=== PATIENT | female | born 1935 | race Caucasian/White ===

== ENCOUNTER 2018-06-28 19:15 | Emergency (ER) | payer MEDICARE ==
[2018-06-28] MEDS ORDERED: ACETAMINOPHEN TAB 500 MG TAB PO STA (19:48)
--- NOTE | 2018-06-28 19:52 | ED ---
General Adult HPI - General Source: patient, RN notes reviewed, old records reviewed Mode of arrival: ambulatory Limitations: no limitations <Renee Gatica - Last Filed: 06/28/18 22:16> <Casi Mcginnis P - Last Filed: 07/01/18 22:41> - General Chief complaint: Urogenital Stated complaint: UTI, Confusion Time Seen by Provider: 06/28/18 19:28 - History of Present Illness Initial comments: Patient is an 83-year-old female presents emergency Department chief confusion and urinary tract symptoms. Patient was admitted at [facility] last week was discharged on for UTI. Family member and Patient does not believe her appropriate antibiotics while there and they discharged home and she continued having fevers. Patient has had persistent fevers this past week. Caregiver states she's been slightly confused. Patient is originally from [facility]. Patient's daughter brought her home this week to help take care of her. Patient has reportedly lost 6 pounds this week. Patient has had no chest pain or shortness of breath. She reports she has frequent urination and dysuria. She denies any new or worsening back pain. Patient states that she has some lower abdominal pain and cramping. Patient reports that she originally started to have the UTI after she had a pessary removal prior PCP last week. She subsequently developed the UTI after that. (Renee Gatica) - Related Data Previous Rx's Medication Instructions Recorded Bisacodyl [Dulcolax] 10 mg PO ONCE #10 tablet. 06/28/18 Famotidine [Pepcid] 20 mg PO BID #20 tablet 06/28/18 Metoclopramide [Reglan] 10 mg PO ACHS #10 tab 06/28/18 Allergies Allergy/AdvReac Type Severity Reaction Status Date / Time Sulfa (Sulfonamide AdvReac Nausea & Verified 06/28/18 19:23 Antibiotics) Vomiting & Diarrhea Review of Systems ROS Other: All systems not noted in ROS Statement are negative. <Renee Gatica - Last Filed: 06/28/18 22:16> ROS Other: All systems not noted in ROS Statement are negative. <Casi Mcginnis P - Last Filed: 07/01/18 22:41> ROS Statement: Those systems with pertinent positive or pertinent negative responses have been documented in the HPI. Past Medical History Past Medical History: CVA/TIA, Hypertension Additional Past Medical History / Comment(s): pseudomonas UTI, chronic back pain , osteoporosis History of Any Multi-Drug Resistant Organisms: None Reported Past Surgical History: Hernia Repair, Tonsillectomy Additional Past Surgical History / Comment(s): cataracts, brain aneurism with coils Past Psychological History: Anxiety Smoking Status: Never smoker Past Alcohol Use History: None Reported Past Drug Use History: None Reported <Renee Gatica - Last Filed: 06/28/18 22:16> General Exam Limitations: no limitations General appearance: alert, in no apparent distress Head exam: Present: atraumatic, normocephalic, normal inspection Eye exam: Present: normal appearance, PERRL, EOMI. Absent: scleral icterus, conjunctival injection, periorbital swelling ENT exam: Present: normal exam, mucous membranes moist Neck exam: Present: normal inspection. Absent: tenderness, meningismus, lymphadenopathy Respiratory exam: Present: normal lung sounds bilaterally. Absent: respiratory distress, wheezes, rales, rhonchi, stridor Cardiovascular Exam: Present: regular rate, normal rhythm, normal heart sounds. Absent: systolic murmur, diastolic murmur, rubs, gallop, clicks GI/Abdominal exam: Present: soft, normal bowel sounds. Absent: distended, tenderness, guarding, rebound, rigid Extremities exam: Present: normal inspection Back exam: Present: normal inspection Neurological exam: Present: alert, oriented X3, CN II-XII intact Psychiatric exam: Present: normal affect, normal mood Skin exam: Present: warm, dry, intact, normal color. Absent: rash <Renee Gatica - Last Filed: 06/28/18 22:16> <Casi Mcginnis - Last Filed: 07/01/18 22:41> - General Exam Comments Initial Comments: This Patient is an 83-year-old female. Alert and oriented. No significant distress. (Renee Gatica) Vital Signs 06/28/18 06/28/18 19:16 22:25 Temperature 98.1 F 98.4 F Pulse Rate 97 90 Respiratory 18 16 Rate Blood Pressure 145/91 165/99 O2 Sat by Pulse 96 99 Oximetry Medical Decision Making - Lab Data Result diagrams: 06/28/18 20:40 06/28/18 20:40 - Radiology Data Radiology results: report reviewed <Renee Gatica - Last Filed: 06/28/18 22:16> - Lab Data Result diagrams: 06/28/18 20:40 06/28/18 20:40 <Casi Mcginnis - Last Filed: 07/01/18 22:41> - Medical Decision Making 83-year-old female presents emergency department today with chief complaint of urinary symptoms concerning for her and UTI. She was admitted one week ago for similar complaints. This time her lab work was unremarkable. Urinalysis negative. I did do a urine culture. At this time Patient has been advised to have some follow-up with her PCP. We will give him Patient antibiotics if the urine culture is positive. Patient has been advised to return to emergency department if any alarming symptoms occur. She also complains of upper GI discomfort. We'll start the Patient Protonix and have her continue her Carafate. I also discussed doing a stool softeners. For the constipation. ( Renee Gatica) I personally saw and examined the patient. I reviewed and agree with the mid- level provider findings including all diagnostic interpretations and treatment plans as written unless otherwise stated. I was present for lerma portions of any procedures performed. (Casi Mcginnis) - Lab Data Lab Results 06/28/18 06/28/18 06/28/18 Range/Units 20:05 20:40 20:40 WBC 6.5 (3.8-10.6) k/uL RBC 4.24 (3.80-5.40) m/uL Hgb 12.7 (11.4-16.0) gm/dL Hct 41.6 (34.0-46.0) % MCV 98.0 (80.0-100.0) fL MCH 30.0 (25.0-35.0) pg MCHC 30.6 L (31.0-37.0) g/dL RDW 14.6 (11.5-15.5) % Plt Count 305 (150-450) k/uL Neutrophils % 82 % Lymphocytes % 9 % Monocytes % 6 % Eosinophils % 1 % Basophils % 0 % Neutrophils # 5.3 (1.3-7.7) k/uL Lymphocytes # 0.6 L (1.0-4.8) k/uL Monocytes # 0.4 (0-1.0) k/uL Eosinophils # 0.1 (0-0.7) k/uL Basophils # 0.0 (0-0.2) k/uL PT (9.0-12.0) sec INR (<1.2) APTT (22.0-30.0) sec Sodium 131 L (137-145) mmol/L Potassium 4.6 (3.5-5.1) mmol/L Chloride 94 L (98-107) mmol/L Carbon Dioxide 29 (22-30) mmol/L Anion Gap 8 mmol/L BUN 21 H (7-17) mg/dL Creatinine 0.50 L (0.52-1.04) mg/dL Est GFR (CKD-EPI)AfAm >90 (>60 ml/min/1.73 sqM) Est GFR (CKD-EPI)NonAf 89 (>60 ml/min/1.73 sqM) Glucose 103 H (74-99) mg/dL Plasma Lactic Acid Pavel (0.7-2.0) mmol/L Calcium 10.2 (8.4-10.2) mg/dL Total Bilirubin 0.3 (0.2-1.3) mg/dL AST 25 (14-36) U/L ALT 29 (9-52) U/L Alkaline Phosphatase 100 (38-126) U/L Total Protein 7.1 (6.3-8.2) g/dL Albumin 4.2 (3.5-5.0) g/dL Urine Color Colorless Urine Appearance Clear (Clear) Urine pH 7.5 (5.0-8.0) Ur Specific [place] 1.007 (1.001-1.035) Urine Protein Negative (Negative) Urine Glucose (UA) Negative (Negative) Urine Ketones Negative (Negative) Urine Blood Negative (Negative) Urine Nitrite Negative (Negative) Urine Bilirubin Negative (Negative) Urine Urobilinogen <2.0 (<2.0) mg/dL Ur Leukocyte Esterase Negative (Negative) 06/28/18 06/28/18 Range/Units 20:40 20:40 WBC (3.8-10.6) k/uL RBC (3.80-5.40) m/uL Hgb (11.4-16.0) gm/dL Hct (34.0-46.0) % MCV (80.0-100.0) fL MCH (25.0-35.0) pg MCHC (31.0-37.0) g/dL RDW (11.5-15.5) % Plt Count (150-450) k/uL Neutrophils % % Lymphocytes % % Monocytes % % Eosinophils % % Basophils % % Neutrophils # (1.3-7.7) k/uL Lymphocytes # (1.0-4.8) k/uL Monocytes # (0-1.0) k/uL Eosinophils # (0-0.7) k/uL Basophils # (0-0.2) k/uL PT 10.3 (9.0-12.0) sec INR 1.0 (<1.2) APTT 21.0 L (22.0-30.0) sec Sodium (137-145) mmol/L Potassium (3.5-5.1) mmol/L Chloride (98-107) mmol/L Carbon Dioxide (22-30) mmol/L Anion Gap mmol/L BUN (7-17) mg/dL Creatinine (0.52-1.04) mg/dL Est GFR (CKD-EPI)AfAm (>60 ml/min/1.73 sqM) Est GFR (CKD-EPI)NonAf (>60 ml/min/1.73 sqM) Glucose (74-99) mg/dL Plasma Lactic Acid Pavel 0.8 (0.7-2.0) mmol/L Calcium (8.4-10.2) mg/dL Total Bilirubin (0.2-1.3) mg/dL AST (14-36) U/L ALT (9-52) U/L Alkaline Phosphatase (38-126) U/L Total Protein (6.3-8.2) g/dL Albumin (3.5-5.0) g/dL Urine Color Urine Appearance (Clear) Urine pH (5.0-8.0) Ur Specific [place] (1.001-1.035) Urine Protein (Negative) Urine Glucose (UA) (Negative) Urine Ketones (Negative) Urine Blood (Negative) Urine Nitrite (Negative) Urine Bilirubin (Negative) Urine Urobilinogen (<2.0) mg/dL Ur Leukocyte Esterase (Negative) 06/28/18 21:17 EKG shows normal sinus rhythm, normal EKG. Ventricular rate of 77 bpm. MN interval is 152. QRS duration 72. QTQTC 62/398 ms. No evidence of ST elevation or T-wave inversion. (Renee Gatica) - Radiology Data KUB shows evidence of constipation. Evidence of a healing pubic symphysis bone from likely old fracture. (Renee Gatica) Disposition Is patient prescribed a controlled substance at d/c from ED?: No Time of Disposition: 22:18 <Renee Gatica - Last Filed: 06/28/18 22:16> <Casi Mcginnis - Last Filed: 07/01/18 22:41> Clinical Impression: Constipation, Suspected condition not found, GERD (gastroesophageal reflux disease) Disposition: HOME SELF-CARE Condition: Good Instructions: Constipation (ED) Additional Instructions: Patient has have close follow-up with primary care physician. There is a positive urine culture we will call you at that time started on antibiotics. Return to the emergency department if any alarming signs or symptoms occur. Patient should take stool softeners as well as GI medicine. Prescriptions: Bisacodyl [Dulcolax] 10 mg PO ONCE #10 tablet. Famotidine [Pepcid] 20 mg PO BID #20 tablet Metoclopramide [Reglan] 10 mg PO ACHS #10 tab Referrals: Nonstaff,Physician [Primary Care Provider] - 1-2 days
[2018-06-28 20:28] LABS: Appearance,Urine Clear (Clear); Bilirubin,Urine Negative (Negative); Blood,Urine Negative (Negative); Color,Urine Colorless; Glucose,Urine (UA) Negative (Negative); Ketones,Urine Negative (Negative); Leukocyte Esterase,Urine Negative (Negative); Nitrite,Urine Negative (Negative); PH, Urine 7.5 (5.0-8.0); Protein,Urine Negative (Negative); Specific Gravity,Urine 1.007 (1.001-1.035); Urobilinogen,Urine <2.0 mg/dL (<2.0)
[2018-06-28 20:57] LABS: Basophils % (A) 0 %; Eosinophils # (A) 0.1 k/uL (0-0.7); Eosinophils % (A) 1 %; HCT 41.6 % (34.0-46.0); HGB 12.7 gm/dL (11.4-16.0); Lymphocytes # (A) 0.6 k/uL (1.0-4.8); Lymphocytes % (A) 9 %; MCHC 30.6 g/dL (31.0-37.0); Mean Platelet Volume 6.6; Monocytes # (A) 0.4 k/uL (0-1.0); Monocytes % (A) 6 %; Neutrophils # (A) 5.3 k/uL (1.3-7.7); Neutrophils % (A) 82 %; Platelet Count 305 k/uL (150-450); RBC 4.24 m/uL (3.80-5.40); RDW 14.6 % (11.5-15.5); WBC 6.5 k/uL (3.8-10.6)
[2018-06-28] MEDS: SODIUM CHLORIDE 0.9% 500 ML IV SCH (21:04)
[2018-06-28 21:12] LABS: ALT 29 U/L (9-52); AST 25 U/L (14-36); Albumin 4.2 g/dL (3.5-5.0); Alkaline Phosphatase 100 U/L (38-126); Anion Gap 8 mmol/L; Blood Urea Nitrogen 21 mg/dL (7-17); Calcium 10.2 mg/dL (8.4-10.2); Carbon Dioxide 29 mmol/L (22-30); Chloride 94 mmol/L (98-107); Glucose 103 mg/dL (74-99); Potassium 4.6 mmol/L (3.5-5.1); Sodium 131 mmol/L (137-145); Total Bilirubin 0.3 mg/dL (0.2-1.3); Total Protein 7.1 g/dL (6.3-8.2)
[2018-06-28 21:16] LABS: Prothrombin Time 10.3 sec (9.0-12.0)
--- NOTE | 2018-06-28 22:05 | XR ---
EXAMINATION TYPE: XR KUB DATE OF EXAM: 06/28/2018 COMPARISON: NONE HISTORY: Polyuria TECHNIQUE: Single view upright FINDINGS: There are clips from cholecystectomy. There is no sign of intestinal obstruction or pneumop eritoneum. There is some retained fecal material in the large bowel. There is osteopenia. There are n o pathologic calcifications over the kidneys. IMPRESSION: There is probably constipation. No free air. There is some deformity and thickening of the right pubic symphysis consistent with old healing fract ure.
--- NOTE | 2018-06-28 22:24 | ED ---
Medical Decision Making - Lab Data Result diagrams: 06/28/18 20:40 06/28/18 20:40 Lab Results 06/28/18 06/28/18 06/28/18 Range/Units 20:05 20:40 20:40 WBC 6.5 (3.8-10.6) k/uL RBC 4.24 (3.80-5.40) m/uL Hgb 12.7 (11.4-16.0) gm/dL Hct 41.6 (34.0-46.0) % MCV 98.0 (80.0-100.0) fL MCH 30.0 (25.0-35.0) pg MCHC 30.6 L (31.0-37.0) g/dL RDW 14.6 (11.5-15.5) % Plt Count 305 (150-450) k/uL Neutrophils % 82 % Lymphocytes % 9 % Monocytes % 6 % Eosinophils % 1 % Basophils % 0 % Neutrophils # 5.3 (1.3-7.7) k/uL Lymphocytes # 0.6 L (1.0-4.8) k/uL Monocytes # 0.4 (0-1.0) k/uL Eosinophils # 0.1 (0-0.7) k/uL Basophils # 0.0 (0-0.2) k/uL PT (9.0-12.0) sec INR (<1.2) APTT (22.0-30.0) sec Sodium 131 L (137-145) mmol/L Potassium 4.6 (3.5-5.1) mmol/L Chloride 94 L (98-107) mmol/L Carbon Dioxide 29 (22-30) mmol/L Anion Gap 8 mmol/L BUN 21 H (7-17) mg/dL Creatinine 0.50 L (0.52-1.04) mg/dL Est GFR (CKD-EPI)AfAm >90 (>60 ml/min/1.73 sqM) Est GFR (CKD-EPI)NonAf 89 (>60 ml/min/1.73 sqM) Glucose 103 H (74-99) mg/dL Plasma Lactic Acid Pavel (0.7-2.0) mmol/L Calcium 10.2 (8.4-10.2) mg/dL Total Bilirubin 0.3 (0.2-1.3) mg/dL AST 25 (14-36) U/L ALT 29 (9-52) U/L Alkaline Phosphatase 100 (38-126) U/L Total Protein 7.1 (6.3-8.2) g/dL Albumin 4.2 (3.5-5.0) g/dL Urine Color Colorless Urine Appearance Clear (Clear) Urine pH 7.5 (5.0-8.0) Ur Specific [place] 1.007 (1.001-1.035) Urine Protein Negative (Negative) Urine Glucose (UA) Negative (Negative) Urine Ketones Negative (Negative) Urine Blood Negative (Negative) Urine Nitrite Negative (Negative) Urine Bilirubin Negative (Negative) Urine Urobilinogen <2.0 (<2.0) mg/dL Ur Leukocyte Esterase Negative (Negative) 06/28/18 06/28/18 Range/Units 20:40 20:40 WBC (3.8-10.6) k/uL RBC (3.80-5.40) m/uL Hgb (11.4-16.0) gm/dL Hct (34.0-46.0) % MCV (80.0-100.0) fL MCH (25.0-35.0) pg MCHC (31.0-37.0) g/dL RDW (11.5-15.5) % Plt Count (150-450) k/uL Neutrophils % % Lymphocytes % % Monocytes % % Eosinophils % % Basophils % % Neutrophils # (1.3-7.7) k/uL Lymphocytes # (1.0-4.8) k/uL Monocytes # (0-1.0) k/uL Eosinophils # (0-0.7) k/uL Basophils # (0-0.2) k/uL PT 10.3 (9.0-12.0) sec INR 1.0 (<1.2) APTT 21.0 L (22.0-30.0) sec Sodium (137-145) mmol/L Potassium (3.5-5.1) mmol/L Chloride (98-107) mmol/L Carbon Dioxide (22-30) mmol/L Anion Gap mmol/L BUN (7-17) mg/dL Creatinine (0.52-1.04) mg/dL Est GFR (CKD-EPI)AfAm (>60 ml/min/1.73 sqM) Est GFR (CKD-EPI)NonAf (>60 ml/min/1.73 sqM) Glucose (74-99) mg/dL Plasma Lactic Acid Pavel 0.8 (0.7-2.0) mmol/L Calcium (8.4-10.2) mg/dL Total Bilirubin (0.2-1.3) mg/dL AST (14-36) U/L ALT (9-52) U/L Alkaline Phosphatase (38-126) U/L Total Protein (6.3-8.2) g/dL Albumin (3.5-5.0) g/dL Urine Color Urine Appearance (Clear) Urine pH (5.0-8.0) Ur Specific [place] (1.001-1.035) Urine Protein (Negative) Urine Glucose (UA) (Negative) Urine Ketones (Negative) Urine Blood (Negative) Urine Nitrite (Negative) Urine Bilirubin (Negative) Urine Urobilinogen (<2.0) mg/dL Ur Leukocyte Esterase (Negative) Disposition Clinical Impression: Constipation, Suspected condition not found, GERD (gastroesophageal reflux disease) Disposition: HOME SELF-CARE Condition: Good Instructions: Constipation (ED) Additional Instructions: Patient has have close follow-up with primary care physician. There is a positive urine culture we will call you at that time started on antibiotics. Return to the emergency department if any alarming signs or symptoms occur. Patient should take stool softeners as well as GI medicine. Prescriptions: Bisacodyl [Dulcolax] 10 mg PO ONCE #10 tablet. Famotidine [Pepcid] 20 mg PO BID #20 tablet Metoclopramide [Reglan] 10 mg PO ACHS #10 tab Is patient prescribed a controlled substance at d/c from ED?: No Referrals: Nonstaff,Physician [Primary Care Provider] - 1-2 days
[2018-06-28 22:28] VITALS: BP 165/99; PULSE 90; RESP 16; TEMP 98.4
== END 2018-06-28 22:33 | disposition home or self-care (01) ==
LOC: EC 19:15
DX: K59.00 Constipation, unspecified (principal); K21.9 Gastro-esophageal reflux disease without esophagitis; Z88.2 Allergy status to sulfonamides; Z86.73 Personal history of transient ischemic attack (TIA), and cerebral infarction without residual deficits
CPT/HCPCS: 36415; 74018; 80053; 81003; 83605; 85025; 85610; 85730; 87040; 87086; 93005; 99285

== ENCOUNTER 2018-09-02 18:05 | Emergency (ER) | payer MEDICARE ==
[2018-09-02] MEDS ORDERED: SODIUM CHLORIDE 0.9% 1,000 ML IV SCH (18:45)
--- NOTE | 2018-09-02 18:45 | ED ---
General Adult HPI - General Chief complaint: Urogenital Stated complaint: Poss Bladder infection Time Seen by Provider: 09/02/18 18:31 Source: patient, RN notes reviewed, old records reviewed Mode of arrival: wheelchair Limitations: no limitations - History of Present Illness Initial comments: Patient is an 83-year-old female who presents emergency department today with her daughter with chief complaint of increased urination, polyuria and dysuria. She is concerned for urinary tract infection. Daughter reports that she seems to be increasingly confused and somewhat weak. He also states that she's had increased fluid on her feet and ankles. She reports that she has no chest pain or shortness breath. She had no significant history of heart failure. Patient was on Levaquin a few months ago for urinary tract infections. She subsequently developed myalgias. Patient states that she has had no known fevers or chills. She denies any vomiting. She's had a normal appetite and does report normal bowel movements. No bloody stools. - Related Data Home Medications Medication Instructions Recorded Confirmed ALPRAZolam [Xanax] 0.25 mg PO BID 09/02/18 09/02/18 Acetaminophen/Caffeine [Excedrin 1 - 2 tab PO HS PRN 09/02/18 09/02/18 Tension Headache Cplt] Bifidobacterium Infantis [Align] 4 mg PO DAILY 09/02/18 09/02/18 Carvedilol [Coreg] 6.25 mg PO BID 09/02/18 09/02/18 Cholecalciferol [Vitamin D3] 1,000 unit PO DAILY 09/02/18 09/02/18 Clopidogrel Bisulfate [Plavix] 75 mg PO HS 09/02/18 09/02/18 Enalapril [Vasotec] 10 mg PO BID 09/02/18 09/02/18 Folic Acid 0.8 mg PO DAILY 09/02/18 09/02/18 Melatonin 5 mg PO HS 09/02/18 09/02/18 Omeprazole [PriLOSEC] 20 mg PO DAILY 09/02/18 09/02/18 Polyethylene Glycol 3350 [Miralax] 8.5 gm PO DAILY 09/02/18 09/02/18 Sucralfate [Carafate] 1 gm PO ACHS PRN 09/02/18 09/02/18 amLODIPine [Norvasc] 2.5 mg PO BID 09/02/18 09/02/18 oxyCODONE-APAP 10-325MG [Percocet 1 tab PO Q6HR PRN 09/02/18 09/02/18 10-325 mg] predniSONE 5 mg PO DAILY 09/02/18 09/02/18 Previous Rx's Medication Instructions Recorded Nitrofurantoin Monohyd/M-Cryst 100 mg PO Q12HR #14 cap 09/02/18 [Macrobid] Phenazopyridine [Pyridium] 100 mg PO TID #9 tablet 09/02/18 Allergies Allergy/AdvReac Type Severity Reaction Status Date / Time Sulfa (Sulfonamide Allergy Dyspnea Verified 09/02/18 19:19 Antibiotics) Review of Systems ROS Statement: Those systems with pertinent positive or pertinent negative responses have been documented in the HPI. ROS Other: All systems not noted in ROS Statement are negative. Past Medical History Past Medical History: CVA/TIA, Hypertension Additional Past Medical History / Comment(s): pseudomonas UTI, chronic back pain , osteoporosis History of Any Multi-Drug Resistant Organisms: None Reported Past Surgical History: Hernia Repair, Tonsillectomy Additional Past Surgical History / Comment(s): cataracts, brain aneurism with coils Past Psychological History: Anxiety Smoking Status: Never smoker Past Alcohol Use History: None Reported Past Drug Use History: None Reported General Exam - General Exam Comments Initial Comments: This is a pleasant 83-year-old female. No significant distress. Limitations: no limitations General appearance: alert, in no apparent distress Head exam: Present: atraumatic, normocephalic, normal inspection Eye exam: Present: normal appearance, PERRL, EOMI. Absent: scleral icterus, conjunctival injection, periorbital swelling ENT exam: Present: normal exam, mucous membranes moist Neck exam: Present: normal inspection Respiratory exam: Present: normal lung sounds bilaterally. Absent: respiratory distress, wheezes, rales, rhonchi, stridor Cardiovascular Exam: Present: regular rate, normal rhythm, normal heart sounds. Absent: systolic murmur, diastolic murmur, rubs, gallop, clicks GI/Abdominal exam: Present: soft, tenderness (suprapubic), normal bowel sounds. Absent: distended, guarding, rebound, rigid Extremities exam: Present: normal inspection, full ROM, normal capillary refill , pedal edema, other (Patient has 2+ dorsalis pedis pulses. Patient does have 1 + pitting edema bilaterally of the ankles.). Absent: tenderness, joint swelling , calf tenderness Back exam: Present: normal inspection Neurological exam: Present: alert, oriented X3, CN II-XII intact, normal gait Psychiatric exam: Present: normal affect, normal mood Skin exam: Present: warm, dry, intact, normal color. Absent: rash Course Vital Signs 09/02/18 09/02/18 09/02/18 18:15 19:31 21:03 Temperature 98.9 F Pulse Rate 93 78 87 Respiratory 16 18 18 Rate Blood Pressure 146/91 165/86 139/99 O2 Sat by Pulse 96 97 97 Oximetry 09/02/18 21:55 Temperature 98.5 F Pulse Rate 94 Respiratory 16 Rate Blood Pressure 145/85 O2 Sat by Pulse 96 Oximetry Medical Decision Making - Medical Decision Making Well appearing 83 year old female presents for UTI symptoms. UA shows 8 WBC and positive leukocyte eterase. Urine culture obtained. Patient also complains of bilateral leg edema. She has 1 plus bitting edema. Patient has no CP or SOB. Patient lab work otherwise unremarkable. Patient is adament that PO antibiotics do not work for her. Discussed that she other rabago appears well and does not need admitted at [facility] for this UTI. Patient givne dose of IV rocephin and will be DC with amoxicillin. To rule out leg swelling, BNP is completed and CXR and EKG. These are negative for acute changes. Patient is aware of compression fracture on CXR. She reprots she cannot take macrobid, keflex or levaquin due to GI issues. Discussed concern for appropriate antibiotic choisce and patient is adament. Discussed with close follow up with PCP and return parameters dicsussed. - Lab Data Result diagrams: 09/02/18 19:25 09/02/18 19:25 Lab Results 09/02/18 09/02/18 09/02/18 Range/Units 18:55 19:25 19:25 WBC 7.9 (3.8-10.6) k/uL RBC 4.15 (3.80-5.40) m/uL Hgb 12.3 (11.4-16.0) gm/dL Hct 39.8 (34.0-46.0) % MCV 95.7 (80.0-100.0) fL MCH 29.6 (25.0-35.0) pg MCHC 31.0 (31.0-37.0) g/dL RDW 14.1 (11.5-15.5) % Plt Count 338 (150-450) k/uL Neutrophils % 74 % Lymphocytes % 9 % Monocytes % 9 % Eosinophils % 4 % Basophils % 1 % Neutrophils # 5.9 (1.3-7.7) k/uL Lymphocytes # 0.7 L (1.0-4.8) k/uL Monocytes # 0.7 (0-1.0) k/uL Eosinophils # 0.3 (0-0.7) k/uL Basophils # 0.1 (0-0.2) k/uL PT (9.0-12.0) sec INR (<1.2) APTT (22.0-30.0) sec Sodium 130 L (137-145) mmol/L Potassium 4.6 (3.5-5.1) mmol/L Chloride 97 L (98-107) mmol/L Carbon Dioxide 23 (22-30) mmol/L Anion Gap 10 mmol/L BUN 20 H (7-17) mg/dL Creatinine 0.52 (0.52-1.04) mg/dL Est GFR (CKD-EPI)AfAm >90 (>60 ml/min/1.73 sqM) Est GFR (CKD-EPI)NonAf 88 (>60 ml/min/1.73 sqM) Glucose 95 (74-99) mg/dL Plasma Lactic Acid Pavel (0.7-2.0) mmol/L Calcium 9.7 (8.4-10.2) mg/dL Total Bilirubin 0.4 (0.2-1.3) mg/dL AST 32 (14-36) U/L ALT 32 (9-52) U/L Alkaline Phosphatase 112 (38-126) U/L NT-Pro-B Natriuret Pep pg/mL Total Protein 6.4 (6.3-8.2) g/dL Albumin 3.6 (3.5-5.0) g/dL Urine Color Light Yellow Urine Appearance Clear (Clear) Urine pH 6.0 (5.0-8.0) Ur Specific [place] 1.009 (1.001-1.035) Urine Protein Negative (Negative) Urine Glucose (UA) Negative (Negative) Urine Ketones Trace H (Negative) Urine Blood Negative (Negative) Urine Nitrite Negative (Negative) Urine Bilirubin Negative (Negative) Urine Urobilinogen <2.0 (<2.0) mg/dL Ur Leukocyte Esterase Small H (Negative) Urine RBC 1 (0-5) /hpf Urine WBC 8 H (0-5) /hpf Ur Squamous Epith Cells 2 (0-4) /hpf Urine Bacteria Rare H (None) /hpf Urine Mucus Rare H (None) /hpf 09/02/18 09/02/18 09/02/18 Range/Units 19:44 19:44 19:44 WBC (3.8-10.6) k/uL RBC (3.80-5.40) m/uL Hgb (11.4-16.0) gm/dL Hct (34.0-46.0) % MCV (80.0-100.0) fL MCH (25.0-35.0) pg MCHC (31.0-37.0) g/dL RDW (11.5-15.5) % Plt Count (150-450) k/uL Neutrophils % % Lymphocytes % % Monocytes % % Eosinophils % % Basophils % % Neutrophils # (1.3-7.7) k/uL Lymphocytes # (1.0-4.8) k/uL Monocytes # (0-1.0) k/uL Eosinophils # (0-0.7) k/uL Basophils # (0-0.2) k/uL PT 10.5 (9.0-12.0) sec INR 1.1 (<1.2) APTT 26.3 (22.0-30.0) sec Sodium (137-145) mmol/L Potassium (3.5-5.1) mmol/L Chloride (98-107) mmol/L Carbon Dioxide (22-30) mmol/L Anion Gap mmol/L BUN (7-17) mg/dL Creatinine (0.52-1.04) mg/dL Est GFR (CKD-EPI)AfAm (>60 ml/min/1.73 sqM) Est GFR (CKD-EPI)NonAf (>60 ml/min/1.73 sqM) Glucose (74-99) mg/dL Plasma Lactic Acid Pavel 0.8 (0.7-2.0) mmol/L Calcium (8.4-10.2) mg/dL Total Bilirubin (0.2-1.3) mg/dL AST (14-36) U/L ALT (9-52) U/L Alkaline Phosphatase (38-126) U/L NT-Pro-B Natriuret Pep 1130 pg/mL Total Protein (6.3-8.2) g/dL Albumin (3.5-5.0) g/dL Urine Color Urine Appearance (Clear) Urine pH (5.0-8.0) Ur Specific [place] (1.001-1.035) Urine Protein (Negative) Urine Glucose (UA) (Negative) Urine Ketones (Negative) Urine Blood (Negative) Urine Nitrite (Negative) Urine Bilirubin (Negative) Urine Urobilinogen (<2.0) mg/dL Ur Leukocyte Esterase (Negative) Urine RBC (0-5) /hpf Urine WBC (0-5) /hpf Ur Squamous Epith Cells (0-4) /hpf Urine Bacteria (None) /hpf Urine Mucus (None) /hpf 09/02/18 20:00 Chest x-ray shows sinus rhythm cannot rule out anterior infarct. Injured her in. Abnormal EKG. Ventricular rate of 80 bpm. Intervals 150 ms. QRS ration 74. QT QTc is 332/401 ms. - Radiology Data Radiology results: report reviewed No Evidence of left upper lobe mass. Multiple thoracic compression fractures. Possible masslike density left upper lobe. Recommend shallow oblique view for confirmation if clinically indicated. Disposition Clinical Impression: UTI (urinary tract infection) Disposition: HOME SELF-CARE Condition: Good Instructions: Urinary Tract Infection in Women (ED) Additional Instructions: Follow-up with primary care physician. Return to emergency department if any alarming signs or symptoms occur. Prescriptions: Nitrofurantoin Monohyd/M-Cryst [Macrobid] 100 mg PO Q12HR #14 cap Phenazopyridine [Pyridium] 100 mg PO TID #9 tablet Is patient prescribed a controlled substance at d/c from ED?: No Referrals: Nonstaff,Physician [Primary Care Provider] - 1-2 days Time of Disposition: 21:55
[2018-09-02 19:42] LABS: Appearance,Urine Clear (Clear); Bacteria,Urine Rare /hpf; Bilirubin,Urine Negative (Negative); Blood,Urine Negative (Negative); Color,Urine Light Yellow; Glucose,Urine (UA) Negative (Negative); Ketones,Urine Trace (Negative); Leukocyte Esterase,Urine Small (Negative); Mucus,Urine Rare /hpf; Nitrite,Urine Negative (Negative); Protein,Urine Negative (Negative); RBC,Urine 1 /hpf (0-5); Specific Gravity,Urine 1.009 (1.001-1.035); Squamous Epithelial Cell,Urine 2 /hpf (0-4); Urobilinogen,Urine <2.0 mg/dL (<2.0); WBC,Urine 8 /hpf (0-5)
[2018-09-02 19:45] LABS: Basophils # (A) 0.1 k/uL (0-0.2); Basophils % (A) 1 %; Eosinophils # (A) 0.3 k/uL (0-0.7); Eosinophils % (A) 4 %; HCT 39.8 % (34.0-46.0); HGB 12.3 gm/dL (11.4-16.0); Lymphocytes # (A) 0.7 k/uL (1.0-4.8); Lymphocytes % (A) 9 %; MCH 29.6 pg (25.0-35.0); MCV 95.7 fL (80.0-100.0); Monocytes # (A) 0.7 k/uL (0-1.0); Monocytes % (A) 9 %; Neutrophils # (A) 5.9 k/uL (1.3-7.7); Neutrophils % (A) 74 %; Platelet Count 338 k/uL (150-450); RBC 4.15 m/uL (3.80-5.40); RDW 14.1 % (11.5-15.5); WBC 7.9 k/uL (3.8-10.6)
[2018-09-02 19:48] LABS: ALT 32 U/L (9-52); AST 32 U/L (14-36); Albumin 3.6 g/dL (3.5-5.0); Alkaline Phosphatase 112 U/L (38-126); Anion Gap 10 mmol/L; Blood Urea Nitrogen 20 mg/dL (7-17); Calcium 9.7 mg/dL (8.4-10.2); Carbon Dioxide 23 mmol/L (22-30); Chloride 97 mmol/L (98-107); Glucose 95 mg/dL (74-99); Potassium 4.6 mmol/L (3.5-5.1); Sodium 130 mmol/L (137-145); Total Bilirubin 0.4 mg/dL (0.2-1.3); Total Protein 6.4 g/dL (6.3-8.2)
[2018-09-02] MEDS: SODIUM CHLORIDE 0.9% 500 ML 500 ML IV SCH ×2 (20:04→20:45)
--- NOTE | 2018-09-02 20:18 | XR ---
EXAMINATION TYPE: XR chest 2V DATE OF EXAM: 09/02/2018 COMPARISON: NONE HISTORY: Fever TECHNIQUE: Frontal and lateral views of the chest are obtained. FINDINGS: There is poorly marginated 2 cm area of increased density over the left upper lobe. Thorac ic aorta is atheromatous. There is no evidence of pleural effusion. There is anterior wedging of T10 with 25% loss of height. There is anterior wedging T8 with 75% loss of height. There is also 30% wedg ing of T7 and T6. These are probably old fractures. IMPRESSION: Multiple thoracic compression fractures. Possible masslike density in the left upper lob e. Recommend shallow oblique views for confirmation if clinically indicated.
[2018-09-02 20:25] LABS: INR 1.1 (<1.2); Partial Thromboplastin Time 26.3 sec (22.0-30.0); Prothrombin Time 10.5 sec (9.0-12.0)
--- NOTE | 2018-09-02 21:24 | XR ---
EXAMINATION TYPE: XR chest 1V DATE OF EXAM: 09/02/2018 COMPARISON: Today HISTORY: Lung mass TECHNIQUE: Single frontal view of the chest is obtained. FINDINGS: A left posterior oblique view of the chest was obtained. This additional view fails to dem onstrate evidence of a mass in the left upper lobe. The increased density over the left upper lobe on the chest x-ray appears to relate to summation density of soft tissue. IMPRESSION: No evidence of left upper lobe mass.
[2018-09-02 21:56] VITALS: BP 145/85; PULSE 94; RESP 16; TEMP 98.5
== END 2018-09-02 22:11 | disposition home or self-care (01) ==
LOC: EC 18:05
DX: N39.0 Urinary tract infection, site not specified (principal); M48.54XA Collapsed vertebra, not elsewhere classified, thoracic region, initial encounter for fracture; R94.31 Abnormal electrocardiogram [ECG] [EKG]; R60.0 Localized edema; M79.10 Myalgia, unspecified site; I10 Essential (primary) hypertension; G89.29 Other chronic pain; F41.9 Anxiety disorder, unspecified; Z88.2 Allergy status to sulfonamides; Z79.02 Long term (current) use of antithrombotics/antiplatelets; Z79.52 Long term (current) use of systemic steroids; Z79.899 Other long term (current) drug therapy; Z86.73 Personal history of transient ischemic attack (TIA), and cerebral infarction without residual deficits
CPT/HCPCS: 36415; 93005; 83880; 80053; 83605; 85025; 85610; 85730; 81001; 87040; 87086; 71045; 71046; 99285; 96365; 96361; J0696

== ENCOUNTER 2018-12-17 19:53 | Emergency (ER) | payer MEDICARE ==
[2018-12-17] MEDS ORDERED: SODIUM CHLORIDE 0.9% 500 ML 500 ML IV ONE (20:54)
--- NOTE | 2018-12-17 20:54 | ED ---
General Adult HPI - General Chief complaint: Urogenital Stated complaint: HTN Time Seen by Provider: 12/17/18 20:45 Source: patient, RN notes reviewed, old records reviewed Mode of arrival: EMS Limitations: no limitations - History of Present Illness Initial comments: 83-year-old female presenting with 2 weeks of increasing generalized weakness, increasing urinary frequency. Patient has history of recurrent urinary tract infection, history of pseudomonas UTI. Patient has had subjective fever and chills. Denies cough or dyspnea. Denies chest pain. Denies abdominal pain. Denies nausea vomiting or diarrhea. Denies focal numbness or weakness. Denies headache. Patient's daughter does report some mild confusion which is typical of previous urinary tract infections. - Related Data Home Medications Medication Instructions Recorded Confirmed ALPRAZolam [Xanax] 0.25 mg PO BID 09/02/18 12/17/18 Acetaminophen/Caffeine [Excedrin 1 - 2 tab PO HS PRN 09/02/18 12/17/18 Tension Headache Cplt] Bifidobacterium Infantis [Align] 4 mg PO DAILY 09/02/18 12/17/18 Carvedilol [Coreg] 6.25 mg PO BID 09/02/18 12/17/18 Cholecalciferol [Vitamin D3] 1,000 unit PO DAILY 09/02/18 12/17/18 Clopidogrel Bisulfate [Plavix] 75 mg PO HS 09/02/18 12/17/18 Enalapril [Vasotec] 10 mg PO BID 09/02/18 12/17/18 Folic Acid 0.8 mg PO DAILY 09/02/18 12/17/18 Melatonin 5 mg PO HS 09/02/18 12/17/18 Polyethylene Glycol 3350 [Miralax] 8.5 gm PO DAILY 09/02/18 12/17/18 amLODIPine [Norvasc] 2.5 mg PO BID 09/02/18 12/17/18 oxyCODONE-APAP 10-325MG [Percocet 1 tab PO Q6HR PRN 09/02/18 12/17/18 10-325 mg] predniSONE 5 mg PO DAILY 09/02/18 12/17/18 Methenamine Hippurate 1 gm PO BID 12/17/18 12/17/18 Allergies Allergy/AdvReac Type Severity Reaction Status Date / Time Sulfa (Sulfonamide Allergy Dyspnea Verified 12/17/18 20:21 Antibiotics) Review of Systems ROS Statement: Those systems with pertinent positive or pertinent negative responses have been documented in the HPI. ROS Other: All systems not noted in ROS Statement are negative. Past Medical History Past Medical History: CVA/TIA, Hypertension Additional Past Medical History / Comment(s): pseudomonas UTI, chronic back pain , osteoporosis History of Any Multi-Drug Resistant Organisms: None Reported Past Surgical History: Hernia Repair, Tonsillectomy Additional Past Surgical History / Comment(s): cataracts, brain aneurism with coils Past Psychological History: Anxiety Smoking Status: Never smoker Past Alcohol Use History: None Reported Past Drug Use History: None Reported General Exam Limitations: no limitations General appearance: alert, in no apparent distress Head exam: Present: atraumatic, normocephalic Eye exam: Present: normal appearance, PERRL ENT exam: Present: mucous membranes dry Neck exam: Present: normal inspection. Absent: tenderness, meningismus Respiratory exam: Present: normal lung sounds bilaterally. Absent: respiratory distress, wheezes, rales Cardiovascular Exam: Present: regular rate, normal rhythm GI/Abdominal exam: Present: soft. Absent: distended, tenderness Extremities exam: Present: normal inspection, normal capillary refill. Absent: pedal edema, calf tenderness Neurological exam: Present: alert, oriented X3, CN II-XII intact. Absent: motor sensory deficit Skin exam: Present: warm, dry, intact. Absent: cyanosis, diaphoretic Course Vital Signs 12/17/18 12/17/18 20:46 21:05 Temperature 98.2 F Pulse Rate [ 100 Right Sitting Pulse Oximetery ] Respiratory 14 Rate Blood Pressure 178/109 [Left Arm Sitting] O2 Sat by Pulse 97 Oximetry EKG Findings - EKG Comments: EKG Findings:: EKG: Normal sinus rhythm, left ventricular hypertrophy, rate of 84, DE interval 148, QRS duration 78, QTC 399, baseline artifact, no ST segment changes Medical Decision Making - Medical Decision Making 83-year-old female presenting with frequency, concern for UTI. Patient is well- appearing, mildly hypertensive but has stable vitals. She has nonfocal neuro exam. Laboratory studies obtained, white blood cell count, stable hemoglobin. Mild hyponatremia 134, chest x-ray negative for focal pneumonia or acute findings. Urinalysis negative for infection. Patient has mild hypomagnesemia which is replaced. Patient has previously been seen by urology, she will follow with her primary care physician. She is accompanied by her daughter. Return with worsening or changing symptoms. - Lab Data Result diagrams: 12/17/18 20:35 12/17/18 20:35 Lab Results 12/17/18 12/17/18 12/17/18 Range/Units 20:35 20:35 20:35 WBC 6.7 (3.8-10.6) k/uL RBC 4.77 (3.80-5.40) m/uL Hgb 14.8 (11.4-16.0) gm/dL Hct 46.1 H (34.0-46.0) % MCV 96.6 (80.0-100.0) fL MCH 31.1 (25.0-35.0) pg MCHC 32.2 (31.0-37.0) g/dL RDW 13.6 (11.5-15.5) % Plt Count 258 (150-450) k/uL Neutrophils % 71 % Lymphocytes % 10 % Monocytes % 9 % Eosinophils % 6 % Basophils % 1 % Neutrophils # 4.8 (1.3-7.7) k/uL Lymphocytes # 0.7 L (1.0-4.8) k/uL Monocytes # 0.6 (0-1.0) k/uL Eosinophils # 0.4 (0-0.7) k/uL Basophils # 0.1 (0-0.2) k/uL PT (9.0-12.0) sec INR (<1.2) APTT (22.0-30.0) sec Sodium (137-145) mmol/L Potassium (3.5-5.1) mmol/L Chloride (98-107) mmol/L Carbon Dioxide (22-30) mmol/L Anion Gap mmol/L BUN (7-17) mg/dL Creatinine (0.52-1.04) mg/dL Est GFR (CKD-EPI)AfAm (>60 ml/min/1.73 sqM) Est GFR (CKD-EPI)NonAf (>60 ml/min/1.73 sqM) Glucose (74-99) mg/dL Plasma Lactic Acid Pavel (0.7-2.0) mmol/L Calcium (8.4-10.2) mg/dL Magnesium (1.6-2.3) mg/dL Total Bilirubin (0.2-1.3) mg/dL AST (14-36) U/L ALT (9-52) U/L Alkaline Phosphatase (38-126) U/L Total Creatine Kinase 46 (30-135) U/L CK-MB (CK-2) 0.9 (0.0-2.4) ng/mL CK-MB (CK-2) Rel Index 2.0 Troponin I <0.012 (0.000-0.034) ng/mL Total Protein (6.3-8.2) g/dL Albumin (3.5-5.0) g/dL Urine Color Colorless Urine Appearance Clear (Clear) Urine pH 7.0 (5.0-8.0) Ur Specific [place] 1.004 (1.001-1.035) Urine Protein Trace H (Negative) Urine Glucose (UA) Negative (Negative) Urine Ketones Negative (Negative) Urine Blood Negative (Negative) Urine Nitrite Negative (Negative) Urine Bilirubin Negative (Negative) Urine Urobilinogen <2.0 (<2.0) mg/dL Ur Leukocyte Esterase Negative (Negative) 12/17/18 12/17/18 12/17/18 Range/Units 20:35 20:35 20:35 WBC (3.8-10.6) k/uL RBC (3.80-5.40) m/uL Hgb (11.4-16.0) gm/dL Hct (34.0-46.0) % MCV (80.0-100.0) fL MCH (25.0-35.0) pg MCHC (31.0-37.0) g/dL RDW (11.5-15.5) % Plt Count (150-450) k/uL Neutrophils % % Lymphocytes % % Monocytes % % Eosinophils % % Basophils % % Neutrophils # (1.3-7.7) k/uL Lymphocytes # (1.0-4.8) k/uL Monocytes # (0-1.0) k/uL Eosinophils # (0-0.7) k/uL Basophils # (0-0.2) k/uL PT 10.3 (9.0-12.0) sec INR 1.0 (<1.2) APTT 23.9 (22.0-30.0) sec Sodium 134 L (137-145) mmol/L Potassium 4.7 (3.5-5.1) mmol/L Chloride 97 L (98-107) mmol/L Carbon Dioxide 26 (22-30) mmol/L Anion Gap 11 mmol/L BUN 25 H (7-17) mg/dL Creatinine 0.75 (0.52-1.04) mg/dL Est GFR (CKD-EPI)AfAm 85 (>60 ml/min/1.73 sqM) Est GFR (CKD-EPI)NonAf 74 (>60 ml/min/1.73 sqM) Glucose 95 (74-99) mg/dL Plasma Lactic Acid Pavel 0.9 (0.7-2.0) mmol/L Calcium 10.1 (8.4-10.2) mg/dL Magnesium 1.4 L (1.6-2.3) mg/dL Total Bilirubin 0.5 (0.2-1.3) mg/dL AST 31 (14-36) U/L ALT 33 (9-52) U/L Alkaline Phosphatase 113 (38-126) U/L Total Creatine Kinase (30-135) U/L CK-MB (CK-2) (0.0-2.4) ng/mL CK-MB (CK-2) Rel Index Troponin I (0.000-0.034) ng/mL Total Protein 7.5 (6.3-8.2) g/dL Albumin 4.5 (3.5-5.0) g/dL Urine Color Urine Appearance (Clear) Urine pH (5.0-8.0) Ur Specific [place] (1.001-1.035) Urine Protein (Negative) Urine Glucose (UA) (Negative) Urine Ketones (Negative) Urine Blood (Negative) Urine Nitrite (Negative) Urine Bilirubin (Negative) Urine Urobilinogen (<2.0) mg/dL Ur Leukocyte Esterase (Negative) Disposition Clinical Impression: Urinary frequency Disposition: HOME SELF-CARE Condition: Fair Instructions (If sedation given, give patient instructions): Urinary Urgency and Frequency (DC) Is patient prescribed a controlled substance at d/c from ED?: No Referrals: None,Stated [REFERRING] - 1-2 days Dianne Allred MD [STAFF PHYSICIAN] - 1-2 days Time of Disposition: 22:42
[2018-12-17 21:05] VITALS: TEMP 98.2
[2018-12-17 21:12] LABS: Basophils # (A) 0.1 k/uL (0-0.2); Basophils % (A) 1 %; Eosinophils # (A) 0.4 k/uL (0-0.7); Eosinophils % (A) 6 %; HCT 46.1 % (34.0-46.0); HGB 14.8 gm/dL (11.4-16.0); Lymphocytes # (A) 0.7 k/uL (1.0-4.8); Lymphocytes % (A) 10 %; MCH 31.1 pg (25.0-35.0); MCHC 32.2 g/dL (31.0-37.0); MCV 96.6 fL (80.0-100.0); Mean Platelet Volume 6.9; Monocytes # (A) 0.6 k/uL (0-1.0); Monocytes % (A) 9 %; Neutrophils # (A) 4.8 k/uL (1.3-7.7); Neutrophils % (A) 71 %; Platelet Count 258 k/uL (150-450); RBC 4.77 m/uL (3.80-5.40); RDW 13.6 % (11.5-15.5); WBC 6.7 k/uL (3.8-10.6)
[2018-12-17 21:16] LABS: Appearance,Urine Clear (Clear); Bilirubin,Urine Negative (Negative); Blood,Urine Negative (Negative); Color,Urine Colorless; Glucose,Urine (UA) Negative (Negative); Ketones,Urine Negative (Negative); Leukocyte Esterase,Urine Negative (Negative); Nitrite,Urine Negative (Negative); Protein,Urine Trace (Negative); Specific Gravity,Urine 1.004 (1.001-1.035); Urobilinogen,Urine <2.0 mg/dL (<2.0)
[2018-12-17 21:20] LABS: Partial Thromboplastin Time 23.9 sec (22.0-30.0); Prothrombin Time 10.3 sec (9.0-12.0)
[2018-12-17 21:24] LABS: Albumin 4.5 g/dL (3.5-5.0); Calcium 10.1 mg/dL (8.4-10.2); Creatine Kinase 46 U/L (30-135); Magnesium 1.4 mg/dL (1.6-2.3); Potassium 4.7 mmol/L (3.5-5.1); Total Bilirubin 0.5 mg/dL (0.2-1.3); Total Protein 7.5 g/dL (6.3-8.2)
[2018-12-17 21:35] LABS: Creatine Kinase MB 0.9 ng/mL (0.0-2.4); Troponin I <0.012 ng/mL (0.000-0.034)
--- NOTE | 2018-12-17 21:37 | XR ---
EXAMINATION: XR chest 2V DATE AND TIME: 12/17/2018 9:20 PM CLINICAL INDICATION: [facility]; Weakness TECHNIQUE: Departmental protocol COMPARISON: 09/02/2018 FINDINGS: Chronic thoracic architectural distortion redemonstrated. The lungs appear to be clear bilaterally. Pleural spaces appear negative. Mildly enlarged cardiac silhouette and tortuous thoracic aorta redemonstrated. The skeletal structures and soft tissues are negative for acute findings. IMPRESSION: NO ACUTE PROCESS.
[2018-12-17] MEDS ORDERED: MAGNESIUM SULFATE-D5W PMX 1 GM in DEXTROSE/WATER 1 100ML.BAG IVPB ONE (21:49)
[2018-12-17 23:52] VITALS: BP 159/100; PULSE 86; RESP 16
== END 2018-12-17 23:52 | disposition home or self-care (01) ==
LOC: EC 19:53
DX: R35.0 Frequency of micturition (principal); E83.42 Hypomagnesemia; I10 Essential (primary) hypertension; E87.1 Hypo-osmolality and hyponatremia; R50.9 Fever, unspecified; M81.0 Age-related osteoporosis without current pathological fracture; F41.9 Anxiety disorder, unspecified; Z86.73 Personal history of transient ischemic attack (TIA), and cerebral infarction without residual deficits; Z87.440 Personal history of urinary (tract) infections; Z79.02 Long term (current) use of antithrombotics/antiplatelets; Z79.52 Long term (current) use of systemic steroids; Z79.899 Other long term (current) drug therapy; Z88.2 Allergy status to sulfonamides
CPT/HCPCS: 99284; 96365; 36415; 80053; 82550; 82553; 83605; 83735; 84484; 85025; 85610; 85730; 81003; 71046; J3475

== ENCOUNTER 2019-03-25 14:45 | Observation (INO) | payer MEDICARE ==
[2019-03-25] MEDS ORDERED: SODIUM CHLORIDE 0.9% 500 ML 500 ML IV STA (14:59)
--- NOTE | 2019-03-25 15:42 | ED ---
General Adult HPI - General Chief complaint: Weakness Stated complaint: weakness Time Seen by Provider: 03/25/19 14:52 Source: patient, RN notes reviewed, old records reviewed Mode of arrival: ambulatory Limitations: no limitations - History of Present Illness Initial comments: 54-year-old female history of previous CVA presenting with chief complaint of right lower extremity weakness and right upper extremity numbness. 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 She is currently on Plavix. Symptoms began at approximately 8 AM this morning. Patient had resolved at the time my initial evaluation at approximately 1300. She hasn't denied chest pain or dyspnea. Denied fever or chills. States both weakness and numbness had improved. - Related Data Home Medications Medication Instructions Recorded Confirmed ALPRAZolam [Xanax] 0.25 mg PO BID 09/02/18 03/25/19 Acetaminophen/Caffeine [Excedrin 1 - 2 tab PO HS PRN 09/02/18 03/25/19 Tension Headache Cplt] Carvedilol [Coreg] 6.25 mg PO BID 09/02/18 03/25/19 Cholecalciferol [Vitamin D3] 1,000 unit PO DAILY 09/02/18 03/25/19 Clopidogrel Bisulfate [Plavix] 75 mg PO HS 09/02/18 03/25/19 Enalapril [Vasotec] 20 mg PO BID 09/02/18 03/25/19 Folic Acid 0.8 mg PO DAILY 09/02/18 03/25/19 Melatonin 5 mg PO HS 09/02/18 03/25/19 Polyethylene Glycol 3350 [Miralax] 8.5 gm PO DAILY 09/02/18 03/25/19 amLODIPine [Norvasc] 2.5 mg PO BID 09/02/18 03/25/19 oxyCODONE-APAP 10-325MG [Percocet 1 tab PO Q6HR PRN 09/02/18 03/25/19 10-325 mg] predniSONE 5 mg PO DAILY 09/02/18 03/25/19 Methenamine Hippurate 1 gm PO BID 12/17/18 03/25/19 Allergies Allergy/AdvReac Type Severity Reaction Status Date / Time Sulfa (Sulfonamide Allergy Dyspnea Verified 03/25/19 16:05 Antibiotics) Review of Systems ROS Statement: Those systems with pertinent positive or pertinent negative responses have been documented in the HPI. ROS Other: All systems not noted in ROS Statement are negative. Past Medical History Past Medical History: CVA/TIA, Hypertension Additional Past Medical History / Comment(s): pseudomonas UTI, chronic back pain, osteoporosis History of Any Multi-Drug Resistant Organisms: None Reported Past Surgical History: Hernia Repair, Tonsillectomy Additional Past Surgical History / Comment(s): cataracts, brain aneurism with coils Past Psychological History: Anxiety Smoking Status: Never smoker Past Alcohol Use History: None Reported Past Drug Use History: None Reported General Exam Limitations: no limitations General appearance: alert, in no apparent distress Head exam: Present: atraumatic, normocephalic Eye exam: Present: normal appearance, PERRL ENT exam: Present: normal exam Neck exam: Present: normal inspection, tenderness Respiratory exam: Present: normal lung sounds bilaterally. Absent: respiratory distress Cardiovascular Exam: Present: regular rate, normal rhythm GI/Abdominal exam: Present: soft. Absent: distended, tenderness Extremities exam: Present: normal inspection, normal capillary refill. Absent: pedal edema Neurological exam: Present: alert, oriented X3, CN II-XII intact, motor sensory deficit (Contracture of right hand, no upper extremity drift, no lower extremity drift, NIH is 0) Psychiatric exam: Present: normal affect, normal mood Skin exam: Present: warm, dry, intact Course Vital Signs 03/25/19 03/25/19 15:07 18:04 Temperature 98.3 F 98 F Pulse Rate 93 87 Respiratory 20 20 Rate Blood Pressure 196/123 126/87 O2 Sat by Pulse 98 97 Oximetry - Reevaluation(s) Reevaluation #1: 03/25/19 18:13 Patient reevaluated, resting comfortably, NIH is 0 EKG Findings - EKG Comments: EKG Findings:: EKG: Normal sinus rhythm, artifact, T-wave inversion in lead 3 and aVF, no ST segment elevation rate of 86, OK interval 146, QRS duration 68, QTC 394. Medical Decision Making - Medical Decision Making 84-year-old female with this symptoms concerning for TIA. Patient presented out of any TPA window. She has an NIH is 0 at the time my initial evaluation. History is concerning for TIA in this patient with previous CVA. Head CT is performed this is negative for intracranial hemorrhage or mass effect. Chest x- ray negative, normal CBC, normal CMP. EKG is normal sinus rhythm. Patient is on Plavix, aspirin will be added. She will be admitted for echo, carotid Doppler. Case is discussed with Dr. Gandara, will admit with neurology on consult. - Lab Data Result diagrams: 03/25/19 15:31 03/25/19 15:31 Lab Results 03/25/19 03/25/19 03/25/19 Range/Units 15:31 15:31 15:31 WBC 6.6 (3.8-10.6) k/uL RBC 4.41 (3.80-5.40) m/uL Hgb 13.5 (11.4-16.0) gm/dL Hct 42.5 (34.0-46.0) % MCV 96.3 (80.0-100.0) fL MCH 30.6 (25.0-35.0) pg MCHC 31.8 (31.0-37.0) g/dL RDW 14.8 (11.5-15.5) % Plt Count 272 (150-450) k/uL Neutrophils % 82 % Lymphocytes % 7 % Monocytes % 6 % Eosinophils % 3 % Basophils % 1 % Neutrophils # 5.4 (1.3-7.7) k/uL Lymphocytes # 0.5 L (1.0-4.8) k/uL Monocytes # 0.4 (0-1.0) k/uL Eosinophils # 0.2 (0-0.7) k/uL Basophils # 0.0 (0-0.2) k/uL PT 11.1 (9.0-12.0) sec INR 1.0 (<1.2) APTT 24.5 (22.0-30.0) sec Sodium 136 L (137-145) mmol/L Potassium 4.0 (3.5-5.1) mmol/L Chloride 102 (98-107) mmol/L Carbon Dioxide 25 (22-30) mmol/L Anion Gap 9 mmol/L BUN 19 H (7-17) mg/dL Creatinine 0.41 L (0.52-1.04) mg/dL Est GFR (CKD-EPI)AfAm >90 (>60 ml/min/1.73 sqM) Est GFR (CKD-EPI)NonAf >90 (>60 ml/min/1.73 sqM) Glucose 101 H (74-99) mg/dL Calcium 10.5 H (8.4-10.2) mg/dL Total Bilirubin 0.5 (0.2-1.3) mg/dL AST 29 (14-36) U/L ALT 23 (9-52) U/L Alkaline Phosphatase 85 (38-126) U/L Troponin I (0.000-0.034) ng/mL Total Protein 7.0 (6.3-8.2) g/dL Albumin 4.3 (3.5-5.0) g/dL 03/25/19 Range/Units 15:31 WBC (3.8-10.6) k/uL RBC (3.80-5.40) m/uL Hgb (11.4-16.0) gm/dL Hct (34.0-46.0) % MCV (80.0-100.0) fL MCH (25.0-35.0) pg MCHC (31.0-37.0) g/dL RDW (11.5-15.5) % Plt Count (150-450) k/uL Neutrophils % % Lymphocytes % % Monocytes % % Eosinophils % % Basophils % % Neutrophils # (1.3-7.7) k/uL Lymphocytes # (1.0-4.8) k/uL Monocytes # (0-1.0) k/uL Eosinophils # (0-0.7) k/uL Basophils # (0-0.2) k/uL PT (9.0-12.0) sec INR (<1.2) APTT (22.0-30.0) sec Sodium (137-145) mmol/L Potassium (3.5-5.1) mmol/L Chloride (98-107) mmol/L Carbon Dioxide (22-30) mmol/L Anion Gap mmol/L BUN (7-17) mg/dL Creatinine (0.52-1.04) mg/dL Est GFR (CKD-EPI)AfAm (>60 ml/min/1.73 sqM) Est GFR (CKD-EPI)NonAf (>60 ml/min/1.73 sqM) Glucose (74-99) mg/dL Calcium (8.4-10.2) mg/dL Total Bilirubin (0.2-1.3) mg/dL AST (14-36) U/L ALT (9-52) U/L Alkaline Phosphatase (38-126) U/L Troponin I <0.012 (0.000-0.034) ng/mL Total Protein (6.3-8.2) g/dL Albumin (3.5-5.0) g/dL Disposition Clinical Impression: TIA (transient ischemic attack) Disposition: ADMITTED IP TO THIS [facility] Condition: Stable Is patient prescribed a controlled substance at d/c from ED?: No Referrals: Nonstaff,Physician [REFERRING] - 1-2 days Decision to Admit Reason: Admit from EC Decision Date: 03/25/19 Decision Time: 18:14
[2019-03-25 15:47] LABS: Basophils % (A) 1 %; Eosinophils # (A) 0.2 k/uL (0-0.7); Eosinophils % (A) 3 %; HCT 42.5 % (34.0-46.0); HGB 13.5 gm/dL (11.4-16.0); Lymphocytes # (A) 0.5 k/uL (1.0-4.8); Lymphocytes % (A) 7 %; MCH 30.6 pg (25.0-35.0); MCHC 31.8 g/dL (31.0-37.0); MCV 96.3 fL (80.0-100.0); Mean Platelet Volume 7.2; Monocytes # (A) 0.4 k/uL (0-1.0); Monocytes % (A) 6 %; Neutrophils # (A) 5.4 k/uL (1.3-7.7); Neutrophils % (A) 82 %; Platelet Count 272 k/uL (150-450); RBC 4.41 m/uL (3.80-5.40); RDW 14.8 % (11.5-15.5); WBC 6.6 k/uL (3.8-10.6)
[2019-03-25 15:58] LABS: Partial Thromboplastin Time 24.5 sec (22.0-30.0); Prothrombin Time 11.1 sec (9.0-12.0)
--- NOTE | 2019-03-25 15:59 | XR ---
EXAMINATION TYPE: XR chest 2V DATE OF EXAM: 03/25/2019 COMPARISON: Chest x-ray December 17, 2018 HISTORY: Altered mental status and weakness. TECHNIQUE: Frontal and lateral views of the chest are obtained. FINDINGS: The osseous structures are demineralized. Underlying scoliosis is present. There is chronic parenchymal change with [id number] compression type fracture deformities in the mid thoracic s pine. Old fracture posterior right sixth rib is redemonstrated. There is cardiomegaly with atheroscle rotic and ectatic thoracic aorta. There is chronic parenchymal change without suspicious focal airspa ce opacity, pleural effusion, or pneumothorax. Cholecystectomy clips are redemonstrated. IMPRESSION: Chronic changes and cardiomegaly without acute pulmonary process.
[2019-03-25 16:00] LABS: ALT 23 U/L (9-52); AST 29 U/L (14-36); Albumin 4.3 g/dL (3.5-5.0); Alkaline Phosphatase 85 U/L (38-126); Anion Gap 9 mmol/L; Blood Urea Nitrogen 19 mg/dL (7-17); Calcium 10.5 mg/dL (8.4-10.2); Carbon Dioxide 25 mmol/L (22-30); Chloride 102 mmol/L (98-107); Glucose 101 mg/dL (74-99); Sodium 136 mmol/L (137-145); Total Bilirubin 0.5 mg/dL (0.2-1.3)
--- NOTE | 2019-03-25 17:13 | CT ---
EXAMINATION: CT brain wo con DATE AND TIME: 03/25/2019 4:47 PM CLINICAL INDICATION: PHH; Neuro Deficits TECHNIQUE: Standard departmental protocol. COMPARISON: None available. FINDINGS: The calvarium is intact. There is no intracranial hemorrhage. Aneurysm clip metallic artifact noted, related to the left ICA. There is no intracranial mass or mass effect. 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 In addition, bilateral vazquez radiata and centrum semiov manny low attenuation is noted. There is no definite new CT attenuation defect. However, in this settin g of deep white matter changes in this difficult to exclude new defect. If clinically indicated, diff usion MRI can delineate. The paranasal sinuses, middle ear cavities, and mastoid sinus air cells are clear. The orbits are unr emarkable. IMPRESSION: NO DEFINITE ACUTE PROCESS, DISCUSSED.
[2019-03-25] MEDS: SODIUM CHLORIDE 0.9% 1,000 ML IV SCH (17:58)
[2019-03-25] MEDS ORDERED: ASPIRIN 325 MG TAB PO STA (18:06)
--- NOTE | 2019-03-25 19:46 | P.HPIM ---
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 In the ER she underwent an extensive evaluation. On arrival she was found have an elevated blood pressure 186/123. Laboratory analysis showed a slightly elevated calcium level at 10.5. She underwent a head CT which showed no acute process but prior left-sided encephalomalacia secondary to her stroke. Chest x-ray was negative. NIH stroke scale was 0. Arrangements were made for her patient to placed in observation for TIA workup. Patient seen and examined in the ER with daughter present. Apparently upon wak ing this morning at 845 she complained of some right arm numbness and weakness. Her blood pressure was elevated and she took her morning medications early. Her daughter then noticed that she was dragging her right leg when she was walking which isn't normal for her. She also had a headache and confusion per the daughter. They therefore presented to the emergency department. She has a history of a stroke in the past and has chronic weakness of the fourth and fifth digits on her right hand but otherwise does not have any residual symptoms. She struggles with high blood pressure and low blood pressures. Typically when she gets a headache the check her blood pressure and sometimes administer half a dose of her blood pressure medication. She is not seen a neurologist in quite some time her neurologist retired. She was due to have carotid Dopplers done. She denies any cough, cold, fever, flu, nausea, vomiting, diarrhea, and dysuria. She has chronic urinary frequency which is unchanged as well as chronic constipation for which she takes multiple laxatives daily. She denies any r ecent changes in her medications. Patient reports chronic left arm pain and states that she has had this evaluated. She is unable to touch her lift her arm without severe pain, this is unchanged per the daughter. Review of Systems Pertinent positives and negatives as discussed in HPI, a complete review of systems was performed and all other systems are negative. Past Medical History Past Medical History: CVA/TIA, Hypertension Additional Past Medical History / Comment(s): pseudomonas UTI, chronic back pain, osteoporosis, cerebral aneurysm History of Any Multi-Drug Resistant Organisms: None Reported Past Surgical History: Tonsillectomy Additional Past Surgical History / Comment(s): cataracts, coiling of cerebral aneurysm, hiatal hernia repair Past Psychological History: Anxiety Smoking Status: Never smoker Past Alcohol Use History: None Reported Past Drug Use History: None Reported Additional History: Lives with her daughter. Uses a walker at baseline. - Past Family History Mother Additional Family Medical History / Comment(s): in a pedestrian versus car accident Father Additional Family Medical History / Comment(s): DC stat age 58 secondary to severe high blood pressure resulting myocardial infarction Medications and Allergies Home Medications Medication Instructions Recorded Confirmed Type ALPRAZolam [Xanax] 0.25 mg PO BID 09/02/18 03/25/19 History Acetaminophen/Caffeine [Excedrin 1 - 2 tab PO HS PRN 09/02/18 03/25/19 History Tension Headache Cplt] Carvedilol [Coreg] 6.25 mg PO BID 09/02/18 03/25/19 History Cholecalciferol [Vitamin D3] 1,000 unit PO DAILY 09/02/18 03/25/19 History Clopidogrel Bisulfate [Plavix] 75 mg PO HS 09/02/18 03/25/19 History Enalapril [Vasotec] 20 mg PO BID 09/02/18 03/25/19 History Folic Acid 0.8 mg PO DAILY 09/02/18 03/25/19 History Melatonin 5 mg PO HS 09/02/18 03/25/19 History Polyethylene Glycol 3350 [Miralax] 8.5 gm PO DAILY 09/02/18 03/25/19 History amLODIPine [Norvasc] 2.5 mg PO BID 09/02/18 03/25/19 History oxyCODONE-APAP 10-325MG [Percocet 1 tab PO Q6HR PRN 09/02/18 03/25/19 History 10-325 mg] predniSONE 5 mg PO DAILY 09/02/18 03/25/19 History Methenamine Hippurate 1 gm PO BID 12/17/18 03/25/19 History Allergies Allergy/AdvReac Type Severity Reaction Status Date / Time Sulfa (Sulfonamide Allergy Dyspnea Verified 03/25/19 16:05 Antibiotics) Physical Exam Osteopathic Statement: *. No significant issues noted on an osteopathic structural exam other than those noted in the History and Physical/Consult. Vitals: Vital Signs Temp Pulse Resp BP Pulse Ox 03/25/19 18:04 98 F 87 20 126/87 97 03/25/19 15:07 98.3 F 93 20 196/123 98 Intake and Output 03/25/19 03/25/19 03/25/19 06:59 14:59 22:59 Other: Weight 43.091 kg General: non toxic, no distress, appears at stated age, cachectic Derm: Bruising over left arm, no unusual rashes/lesions no unusual ecchymoses, warm, dry Head: atraumatic, normocephalic, symmetric Eyes: EOMI, no lid lag, anicteric sclera, pupils equal round reactive to light ENT: Nose and ears atraumatic, no thrush, no pharyngeal erythema Neck: No thyromegaly, no cervical lymphadenopathy, trachea midline, supple, no carotid bruit Mouth: no lip lesion, mucus membranes moist Cardiovascular: S1S2 reg, no murmur, positive posterior tibial pulse bilateral, no edema, capillary refill less than 2 seconds Lungs: CTA bilateral, no rhonchi, no rales , no accessory muscle use Abdominal: soft, nontender to palpation, no guarding, no appreciable organomegaly, normal bowel sounds Ext: no gross muscle atrophy, strength 4 out of 5 in right upper extremity and right lower extremity, 5 out of 5 in left upper extremity and left lower ext remity, chronic contractures of fourth and fifth digit on the right hand, no pronator drift, [id number] normal, no contractures, Neuro: CN II-XI grossly intact, light touch intact all 4 extremities, finger to nose within normal limits, Psych: Alert, oriented, appropriate affect Results CBC & Chem 7: 03/25/19 15:31 03/25/19 15:31 Labs: Abnormal Lab Results - Last 24 Hours (Table) 03/25/19 03/25/19 Range/Units 15:31 15:31 Lymphocytes # 0.5 L (1.0-4.8) k/uL Sodium 136 L (137-145) mmol/L BUN 19 H (7-17) mg/dL Creatinine 0.41 L (0.52-1.04) mg/dL Glucose 101 H (74-99) mg/dL Calcium 10.5 H (8.4-10.2) mg/dL CT Scan - head: report reviewed Thrombosis Risk Factor Assmnt - DVT/VTE Prophylaxis DVT/VTE Prophylaxis: Pharmacologic Prophylaxis ordered Assessment and Plan Assessment: Right sided upper extremity and lower extremity weakness -Suspect secondary to TIA versus hypertensive urgency -Check carotid Dopplers, echocardiogram, telemetry, lipid profile -Neurology consultation -If symptoms persist in a.m. consider MRI brain Hypertensive urgency -Resolved without administration of medications -Patient had taken home medicines prior to arrival -Permissive hypertension secondary to possibility of stroke -Hold home Norvasc, Vasotec, and Coreg 24 hours resume if systolic blood pressure greater than 180 Hypercalcemia -Undetermined etiology -IV fluids -Repeat in a.m. - X-ray left arm with chronic pain Chronic: Osteoporosis Chronic low back pain Retinal detachment The patient is placed in observation with an anticipated less than 2 per night stay for evaluation of right-sided weakness. Surrogate decision-maker: Daughter DVT prophylaxis: Lovenox Discussed with: Patient, ED physician, daughter Anticipated discharge date: 24-[address]: Home with home health A total of 65 minutes was spent on the care of this complex patient more than 50% of the time was spent in counseling and care coordination.
[2019-03-25] MEDS: ATORVASTATIN 40 MG TAB PO SCH (21:00)
--- NOTE | 2019-03-25 22:03 | US ---
EXAMINATION TYPE: US carotid duplex BILAT DATE OF EXAM: 03/25/2019 COMPARISON: NONE CLINICAL HISTORY: Stenosis. Weakness. EXAM MEASUREMENTS: RIGHT: Peak Systolic Velocity (PSV) cm/sec ----- Right CCA: 58.0 ----- Right ICA: 200.1 ----- Right ECA: 91.9 ICA/CCA ratio: 3.4 RIGHT: End Diastole cm/sec ----- Right CCA: 12.9 ----- Right ICA: 38.5 ----- Right ECA: 0 LEFT: Peak Systolic Velocity (PSV) cm/sec ----- Left CCA: 51.5 ----- Left ICA: 93.5 ----- Left ECA: 40.6 ICA/CCA ratio: 1.8 LEFT: End Diastole cm/sec ----- Left CCA: 9.5 ----- Left ICA: 19.2 ----- Left ECA: 0 VERTEBRALS (direction of flow): Right Vertebral: Antegrade Left Vertebral: Antegrade Rhythm: Normal IMPRESSION: 1) ANDREW 50-69% luminal stenosis. 2) Bilateral carotid plaque.
--- NOTE | 2019-03-25 22:05 | XR ---
PROCEDURE: XR humerus LT - 2V DATE AND TIME: 03/25/2019 8:13 PM CLINICAL INDICATION: PHH; pain TECHNIQUE: Department protocol COMPARISON: None FINDINGS: There is no fracture or malalignment. The soft tissues are unremarkable. IMPRESSION: NO ACUTE PROCESS.
[2019-03-25] MEDS: ALPRAZolam 0.25 MG TAB PO SCH (22:53)
[2019-03-25] MEDS: MELATONIN 5 MG TABLET PO SCH (22:53)
[2019-03-25] MEDS: CLOPIDOGREL 75 MG TAB PO SCH (22:53)
[2019-03-26] MEDS: SODIUM CHLORIDE 0.9% 1,000 ML IV SCH (03:51)
[2019-03-26] MEDS: oxyCODONE-APAP 10-325MG 1 EACH TAB PO PRN ×3 (03:55→20:53)
[2019-03-26] MEDS ORDERED: ONDANSETRON 4 MG/2 ML VIAL IVP PRN (07:59)
[2019-03-26] MEDS: LISINOPRIL 20 MG TAB PO SCH ×2 (08:08→22:52)
[2019-03-26] MEDS: CARVEDILOL 6.25 MG TAB PO SCH ×2 (08:08→22:52)
[2019-03-26] MEDS: ALPRAZolam 0.25 MG TAB PO SCH ×2 (08:08→20:54)
[2019-03-26] MEDS: ENOXAPARIN 40 MG/0.4 ML SYRINGE SQ SCH (08:08)
[2019-03-26] MEDS ORDERED: ASPIRIN 325 MG TAB PO SCH (09:00)
[2019-03-26 09:34] LABS: Anion Gap 9 mmol/L; Blood Urea Nitrogen 18 mg/dL (7-17); Calcium 9.8 mg/dL (8.4-10.2); Carbon Dioxide 26 mmol/L (22-30); Chloride 103 mmol/L (98-107); Cholesterol 205 mg/dL (<200); Glucose 88 mg/dL (74-99); HDL Cholesterol 62 mg/dL (40-60); LDL Cholesterol,Calculated 123 mg/dL (0-99); Potassium 3.7 mmol/L (3.5-5.1); Sodium 138 mmol/L (137-145); Triglycerides 98 mg/dL (<150)
[2019-03-26] MEDS ORDERED: ACETAMINOPHEN TAB 325 MG TAB PO PRN (12:16)
[2019-03-26] MEDS ORDERED: amLODIPine 5 MG TAB PO STA (12:17)
--- NOTE | 2019-03-26 14:08 | P.CNNES ---
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 Patient lives with her daughter. She does take Plavix. Patient states that yesterday at 9 AM she felt her right leg felt heavy, and right upper extremity felt numb. Patient stayed home, until decided at 3 PM to come to the ER. Her symptoms have remarkably improved by the time she came to the ER. Her NIH stroke scale was reported as 0. Patient was not a candidate for TPA. Aspirin regimen was added to the Plavix. Patient was admitted for further evaluation and management. Patient states that she started having headache last night, pointing to the frontal region all across, but has got worse this morning. She believes she missed dose of her blood pressure medication yesterday, which elevated her blood pressure, that caused headache. Patient states that whenever blood pressure is up, it does lead to headache. She does have previous history of migraines. CT head showed no acute process. There are left frontal and left parietal zones of encephalomalacia, consistent with remote infarction in the vascular territory of left MCA. Aneurysm clip metallic artifact noted, related to left ICA. Chest x-ray showed chronic changes in cardiomegaly without evidence of acute process. Patient had a carotid Doppler, which revealed 50-69% stenosis of the right ICA, bilateral carotid plaque. Antegrade flow in both vertebral arteries. EKG showed normal sinus rhythm. X-ray of the left humerus showed no acute process. Blood test shows normal CBC, PT/PTT, sodium 136 potassium 4.0, liver functions are normal. Total cholesterol 205, LDL 123, HDL 62. Patient denies any tobacco use. Denies diabetes. Has hypertension since in her 60s. Review of Systems Left shoulder pain, right shoulder pain. Arthritis. Patient complains of headache. Patient had right arm weakness from previous stroke. Past Medical History Past Medical History: CVA/TIA, Hypertension Additional Past Medical History / Comment(s): pseudomonas UTI, chronic back pain, osteoporosis, cerebral aneurysm History of Any Multi-Drug Resistant Organisms: None Reported Past Surgical History: Tonsillectomy Additional Past Surgical History / Comment(s): cataracts, coiling of cerebral aneurysm, hiatal hernia repair Smoking Status: Never smoker - Past Family History Mother Additional Family Medical History / Comment(s): in a pedestrian versus car accident Father Additional Family Medical History / Comment(s): DC stat age 58 secondary to severe high blood pressure resulting myocardial infarction Medications and Allergies Home Medications Medication Instructions Recorded Confirmed Type ALPRAZolam [Xanax] 0.25 mg PO BID 09/02/18 03/25/19 History Acetaminophen/Caffeine [Excedrin 1 - 2 tab PO HS PRN 09/02/18 03/25/19 History Tension Headache Cplt] Carvedilol [Coreg] 6.25 mg PO BID 09/02/18 03/25/19 History Cholecalciferol [Vitamin D3] 1,000 unit PO DAILY 09/02/18 03/25/19 History Clopidogrel Bisulfate [Plavix] 75 mg PO HS 09/02/18 03/25/19 History Enalapril [Vasotec] 20 mg PO BID 09/02/18 03/25/19 History Folic Acid 0.8 mg PO DAILY 09/02/18 03/25/19 History Melatonin 5 mg PO HS 09/02/18 03/25/19 History Polyethylene Glycol 3350 [Miralax] 8.5 gm PO DAILY 09/02/18 03/25/19 History amLODIPine [Norvasc] 2.5 mg PO BID 09/02/18 03/25/19 History oxyCODONE-APAP 10-325MG [Percocet 1 tab PO Q6HR PRN 09/02/18 03/25/19 History 10-325 mg] predniSONE 5 mg PO DAILY 09/02/18 03/25/19 History Methenamine Hippurate 1 gm PO BID 12/17/18 03/25/19 History Allergies Allergy/AdvReac Type Severity Reaction Status Date / Time Sulfa (Sulfonamide Allergy Dyspnea Verified 03/25/19 16:05 Antibiotics) Physical Examination - Vital Signs Vital Signs: Vital Signs Temp Pulse Pulse Resp BP BP Pulse Ox 03/26/19 12:15 98.1 F 88 18 177/104 96 03/26/19 12:00 88 18 177/104 03/26/19 08:00 98.1 F 78 18 166/103 96 03/26/19 07:06 162/86 03/26/19 05:06 156/86 03/26/19 04:00 98 F 88 20 156/86 98 03/26/19 03:06 137/73 03/26/19 01:06 148/79 03/25/19 23:42 89 20 152/79 97 03/25/19 23:06 150/82 03/25/19 21:29 98 F 86 18 152/83 96 03/25/19 21:01 82 18 126/87 97 03/25/19 19:33 82 18 126/84 97 03/25/19 18:04 98 F 87 20 126/87 97 03/25/19 15:07 98.3 F 93 20 196/123 98 Intake and Output 03/25/19 03/26/19 03/26/19 22:59 06:59 14:59 Intake Total 255 Output Total 50 Balance -50 255 Intake: Intake, IV Titration 75 Amount Sodium Chloride 0.9% 1, 75 000 ml @ 75 mls/hr IV . [id number] Rx#:[id number] Oral 180 Output: Urine 50 Other: Voiding Method Bedside Commode Bedside Commode # Voids 4 Weight 43.091 kg 41 kg On examination patient is an elderly female, in no distress. Patient is alert and awake fully oriented. Her speech and language functions are normal. Ventilation pupils are round and reacting, visual berumen are full. Extra muscles are intact. Face is symmetric and tongue protrudes the midline. 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 Right ankle dorsiflexion is also 5-as compared to the left. Deltoids not checked because of tenderness and arthritis. Sensations are equal. No ataxia for [id number]. Results - Laboratory Findings CBC and BMP: 03/25/19 15:31 03/26/19 09:05 Abnormal Lab Findings: Abnormal Labs 03/25/19 03/25/19 03/26/19 15:31 15:31 09:05 Lymphocytes # 0.5 L Sodium 136 L BUN 19 H Creatinine 0.41 L Glucose 101 H Calcium 10.5 H Cholesterol 205 H LDL Cholesterol, Calc 123 H HDL Cholesterol 62 H 03/26/19 09:05 Lymphocytes # Sodium BUN 18 H Creatinine 0.43 L Glucose Calcium Cholesterol LDL Cholesterol, Calc HDL Cholesterol Assessment and Plan Assessment: * Probable TIA, manifesting with transient numbness/weakness of right arm and leg. Symptoms have resolved, and now she is back to baseline. 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 * Moderate right ICA stenosis, 50-69%, asymptomatic at this time (as symptoms involved the contralateral hemisphere) * Hypertension * History of migraines. * Hyperlipidemia Plan: * Patient had possible TIA, the symptoms resolved and her right side his back to baseline. Patient was on Plavix 75 mg daily. Aspirin has been added, although I would recommend making it aspirin 81 mg, instead of full aspirin to prevent hemorrhagic risks. * We will start Pepcid 20 mg twice a day for gastric ulcer prophylaxis. * Patient would need a follow-up carotid Dopplers in 6 months to assess for stability of moderate right ICA stenosis. * Continue Lipitor 40 mg. * PT OT.
[2019-03-26 14:21] VITALS: BMI 16.5
[2019-03-26] MEDS ORDERED: IBUPROFEN 600 MG TAB PO PRN (16:35)
--- NOTE | 2019-03-26 17:16 | ECHOF ---
Referral Reason:Thrombus MEASUREMENTS -------- HEIGHT: 157.5 cm WEIGHT: 40.8 kg BP: 162/86 RVIDd: 3.3 cm (< 3.3) IVSd: 1.1 cm (0.6 - 1.1) LVIDd: 3.6 cm (3.9 - 5.3) LVPWd: 1.0 cm (0.6 - 1.1) IVSs: 1.5 cm LVIDs: 2.2 cm LVPWs: 1.4 cm LAESV Index (A-L): 49.56 ml/m Ao Diam: 3.0 cm (2.0 - 3.7) AV Cusp: 1.5 cm (1.5 - 2.6) LA Diam: 4.3 cm (2.7 - 3.8) EPSS: 0.6 cm MV E Lino: 0.62 m/s MV DecT: 185 ms MV A Lino: 0.84 m/s MV E/A Ratio: 0.73 RAP: 5.00 mmHg RVSP: 35.53 mmHg MV EF SLOPE: 68.65 mm/s (70 - 150) MV EXCURSION: 1.23 cm (> 18.000) FINDINGS -------- Sinus rhythm. This was a technically adequate study. The left ventricular size is normal. There is borderline concentric left ventricular hypertrophy. Overall left ventricular systolic function is normal with, an EF between 55 - 60 %. The right ventricle is normal in size. Left atrium is severely dilated by volume. The right atrial size is normal. Interatrial and interventricular septum intact. Aortic valve is trileaflet and is mildly thickened. The mitral valve leaflets are mildly thickened. Moderate mitral regurgitation is present. [id number]-[id number]-hatzhkce tricuspid regurgitation present. There is mild pulmonary hypertension. The right ventricular systolic pressure, as measured by Doppler, is 35.53mmHg. Trace/mild (physiologic) pulmonic regurgitation. The aortic root size is normal. Normal inferior vena cava with normal inspiratory collapse consistent with estimated right atrial pre ssure of 10 mmHg. There is no pericardial effusion. CONCLUSIONS -------- 1. Sinus rhythm. 2. This was a technically adequate study. 3. The left ventricular size is normal. 4. There is borderline concentric left ventricular hypertrophy. 5. Overall left ventricular systolic function is normal with, an EF between 55 - 60 %. 6. The right ventricle is normal in size. 7. Left atrium is severely dilated by volume. 8. The right atrial size is normal. 9. Interatrial and interventricular septum intact. 10. Aortic valve is trileaflet and is mildly thickened. 11. The mitral valve leaflets are mildly thickened. 12. Moderate mitral regurgitation is present. 13. Bbwb-iz-gehqayih tricuspid regurgitation present. 14. There is mild pulmonary hypertension. 15. The right ventricular systolic pressure, as measured by Doppler, is 35.53mmHg. 16. Trace/mild (physiologic) pulmonic regurgitation. 17. The aortic root size is normal. 18. Normal inferior vena cava with normal inspiratory collapse consistent with estimated right atrial pressure of 10 mmHg. 19. There is no pericardial effusion. METAL MILLING MACHINE OPERATOR: Katey Gr RDCS
--- NOTE | 2019-03-26 19:41 | P.PN ---
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 In the ER she underwent an extensive evaluation. On arrival she was found have an elevated blood pressure 186/123. Laboratory analysis showed a slightly elevated calcium level at 10.5. She underwent a head CT which showed no acute process but prior left-sided encephalomalacia secondary to her stroke. Chest x-ray was negative. NIH stroke scale was 0. Arrangements were made for her patient to placed in observation for TIA workup. She underwent a carotid Doppler which showed right sided 50-69% stenosis, which is asymptomatic. Echocardiogram unrevealing. Telemetry without any signs of A. fib. LDL above recommendations and statin recommended. Seen by neurology who felt this was likely TIAs patient and returned to baseline. Patient continued to complain of headache and 03/26 had significantly elevated blood pressures. Patient complaint of a headache to nursing throughout day. It was not responsive to her Percocet, or Tylenol. It also was not responsive to lowering her blood pressure. Patient seen and examined at bedside. She avoids of left arm pain which is chronic in nature. She states that her right arm and leg weakness has completely resolved. She also complains of headache. She denies any chest pain or shortness of breath. Objective - Vital Signs Vital signs: Vital Signs Temp 98.3 F 03/26/19 16:00 Pulse 80 03/26/19 16:00 Resp 18 03/26/19 16:00 BP 140/90 03/26/19 16:00 Pulse Ox 96 03/26/19 16:00 Intake & Output 03/26/19 03/26/19 03/27/19 06:59 18:59 06:59 Intake Total 495 Output Total 50 Balance -50 495 Weight 41 kg 41 kg Intake: Intake, IV Titration 75 Amount Sodium Chloride 0.9% 1, 75 000 ml @ 75 mls/hr IV . [id number] [facility] Rx#:[id number] Oral 420 Output: Urine 50 Other: Voiding Method Bedside Commode Bedside Commode # Voids 4 - Exam General: Non toxic, no distress, appears at stated age Derm: Multiple areas of bruising warm, dry Head: atraumatic, normocephalic, symmetric Eyes: EOMI, no lid lag, anicteric sclera Mouth: no lip lesion, mucus membranes moist Cardiovascular: S1S2 reg, no murmur, positive posterior tibial pulse bilateral, Lungs: CTA bilateral, no rhonchi, no rales , no accessory muscle use Abdominal: soft, nontender to palpation, no guarding, no appreciable organomegaly Ext: no gross muscle atrophy, no edema, contractures right hand 4 and 5 digit Neuro: CN II-XI grossly intact, Psych: Alert, oriented, appropriate affect - Labs CBC & Chem 7: 03/25/19 15:31 03/26/19 09:05 Labs: Abnormal Lab Results - Last 24 Hours (Table) 03/26/19 03/26/19 Range/Units 09:05 09:05 BUN 18 H (7-17) mg/dL Creatinine 0.43 L (0.52-1.04) mg/dL Cholesterol 205 H (<200) mg/dL LDL Cholesterol, Calc 123 H (0-99) mg/dL HDL Cholesterol 62 H (40-60) mg/dL Assessment and Plan Assessment: TIA, - ASA 81 mg daily - neuro recs appreaciated - PT/OT recs appreciated. -Carotid Doppler with 50-69% stenosis on the right -Echocardiogram ejection fraction 55-60%, no signs of thrombosis -No signs of A. fib on telemetry Hypertensive urgency -Home Coreg and lisinopril resumed, blood pressure was still elevated, Norvasc increased to 5 mg twice a day -Follow blood pressures closely Headache, intractable -Patient with history of cerebral aneurysm. Not available to MRI secondary to prior coiling -Repeat head CT -Attempt Motrin as patient failed Tylenol and Percocet. Dyslipidemia -Recommend statin therapy Carotid stenosis, asymptomatic -Diseases on the right side which is consistent with symptoms -Need outpatient follow-up in 6 months Hypercalcemia, resolved Chronic: Osteoporosis Chronic low back pain Retinal detachment Discussed with: Patient, nursing Anticipated discharge date: [address]: Home with home health A total of 25 minutes was spent on the care of this complex patient more than 50% of the time was spent in counseling and care coordination.
[2019-03-26] MEDS: MELATONIN 5 MG TABLET PO SCH (20:53)
[2019-03-26] MEDS: CLOPIDOGREL 75 MG TAB PO SCH (20:54)
[2019-03-26] MEDS: ATORVASTATIN 40 MG TAB PO SCH (20:54)
[2019-03-26] MEDS: FAMOTIDINE 20 MG TAB PO SCH (20:54)
[2019-03-26] MEDS ORDERED: amLODIPine 5 MG TAB PO SCH (21:00)
--- NOTE | 2019-03-26 22:38 | CT ---
EXAMINATION: CT brain wo con DATE AND TIME: 03/26/2019 8:30 PM CLINICAL INDICATION: PHH; headache/ stroke TECHNIQUE: Standard departmental protocol.; 1079.4; COMPARISON: 03/25/2019 FINDINGS: The calvarium is intact. There is no intracranial hemorrhage. Aneurysm clip metallic artifact noted, related to the left ICA. 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 In addition, bilateral vazquez radiata and centrum semiov manny low attenuation is noted. There is no definite new CT attenuation defect. However, in this settin g of deep white matter changes in this difficult to exclude new defect. If clinically indicated, diff usion MRI can delineate. The paranasal sinuses, middle ear cavities, and mastoid sinus air cells are clear. IMPRESSION: Stable CT appearance; no new process.
[2019-03-27] MEDS: SODIUM CHLORIDE 0.9% 1,000 ML IV SCH (01:37)
[2019-03-27] MEDS: CARVEDILOL 6.25 MG TAB PO SCH (05:55)
[2019-03-27] MEDS ORDERED: LISINOPRIL 20 MG TAB PO SCH (09:00)
[2019-03-27] MEDS ORDERED: ASPIRIN 81 MG PO SCH (09:00)
[2019-03-27] MEDS ORDERED: amLODIPine 2.5 MG TAB PO SCH (09:00)
[2019-03-27] MEDS: FAMOTIDINE 20 MG TAB PO SCH (09:43)
[2019-03-27] MEDS: ALPRAZolam 0.25 MG TAB PO SCH (09:44)
[2019-03-27] MEDS: ENOXAPARIN 40 MG/0.4 ML SYRINGE SQ SCH (09:44)
[2019-03-27 09:50] VITALS: RESP 18; TEMP 98.1
[2019-03-27] MEDS ORDERED: PROCHLORPERAZINE 5 MG TAB PO PRN (10:30)
[2019-03-27] MEDS: oxyCODONE-APAP 10-325MG 1 EACH TAB PO PRN (12:43)
[2019-03-27] MEDS ORDERED: POLYETHYLENE GLYCOL 3350 17 GM POWD.PACK PO SCH (14:45)
--- NOTE | 2019-03-27 15:21 | P.DS ---
Providers Date of admission: 03/25/19 18:26 Expected date of discharge: 03/27/19 Attending physician: Bessy Gandara DO Consults: 03/25/19 18:07 Consult Physician Routine Consulting Provider: Maci Singer Consult Reason/Comments: TIA Do you want consulting provider notified?: Yes Primary care physician: [facility] Hospital Course: Discharge Diagnosis: TIA Hypertensive urgency Asymptomatic carotid stenosis 50-69% Intractable headache Dyslipidemia Hypercalcemia Osteoporosis Chronic low back pain Retinal detachment Hospital Course: Patient is a 84-year-old female with a past medical history of 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 In the ER she underwent an extensive evaluation. On arrival she was found have an elevated blood pressure 186/123. Laboratory analysis showed a slightly elevated calcium level at 10.5. She underwent a head CT which showed no acute process but prior left-sided encephalomalacia secondary to her stroke. Chest x-ray was negative. NIH stroke scale was 0. Arrangements were made for her patient to placed in observation for TIA workup. She underwent a carotid Doppler which showed right sided 50-69% stenosis, which is asymptomatic. Echocardiogram showed valvular heart disease. Telemetry without any signs of A. fib. LDL above recommendations and statin recommended. Seen by neurology who felt this was likely TIAs patient and returned to baseline. Patient continued to complain of headache and 03/26 had significantly elevated blood pressures. Her Norvasc was adjusted. On the morning of 03/27 her blood pressure had been well controlled. Her headache was better. She did have one episode of nausea after taking her morning medications, however she was able to tolerate her diet at lunch. She was determined stable for discharge home. I have switched her enalapril to lisinopril so that she may take it once daily and it controlled her blood pressure well during her hospital stay. She will continue on Coreg and Norvasc. She has been set up with home health care. She will follow up with neurology for repeat carotid artery monitoring. Patient seen and examined at bedside. Headache improved, nausea resolved, tolerating diet, weakness and right hand that is fine, weakness in right leg resolved. Vital signs reviewed and stable. General: non toxic, no distress, appears at stated age Derm: warm, dry Head: atraumatic, normocephalic, symmetric Eyes: EOMI, no lid lag, anicteric sclera Mouth: no lip lesion, mucus membranes moist Cardiovascular: S1S2 reg, no murmur, positive posterior tibial pulse bilateral, Lungs: CTA bilateral, no rhonchi, no rales , no accessory muscle use Abdominal: soft, nontender to palpation, no guarding, no appreciable organomegaly Ext: no gross muscle atrophy, no edema, contractures of right hand fourth and fifth digit Neuro: CN II-XI grossly intact, no focal neuro deficits Psych: Alert, oriented, appropriate affect A total of 25 minutes of time were spent preparing this complex discharge summary . Pertinent Studies: Left humerus x-ray-no acute process CT head-remote infarct in left MCA with encephalomalacia Carotid doppler- ANDREW 50-69% Echo-ejection fraction 55-60%, mild pulmonary hypertension, severe. We dilated left atrium, moderate mitral regurgitation, mild to moderate tricuspid regurgitation Patient Condition at Discharge: Stable Plan - Discharge Summary New Discharge Prescriptions: New Aspirin 81 mg PO DAILY chew Atorvastatin [Lipitor] 40 mg PO HS #30 tab Lisinopril 40 mg PO DAILY #30 tab Continue Polyethylene Glycol 3350 [Miralax] 8.5 gm PO DAILY Folic Acid 0.8 mg PO DAILY Cholecalciferol [Vitamin D3 (25 Mcg = 1000 Iu)] 1,000 unit PO DAILY Acetaminophen/Caffeine [Excedrin Tension Headache Cplt] 1 - 2 tab PO HS PRN PRN Reason: Migraine Headache Melatonin 5 mg PO HS predniSONE 5 mg PO DAILY oxyCODONE-APAP 10-325MG [Percocet 10-325 mg] 1 tab PO Q6HR PRN PRN Reason: Pain amLODIPine [Norvasc] 2.5 mg PO BID Clopidogrel Bisulfate [Plavix] 75 mg PO HS Carvedilol [Coreg] 6.25 mg PO BID ALPRAZolam [Xanax] 0.25 mg PO BID Methenamine Hippurate 1 gm PO BID Discontinued Enalapril [Vasotec] 20 mg PO BID Discharge Medication List ALPRAZolam [Xanax] 0.25 mg PO BID 09/02/18 [History] Acetaminophen/Caffeine [Excedrin Tension Headache Cplt] 1 - 2 tab PO HS PRN 09/02/18 [History] Carvedilol [Coreg] 6.25 mg PO BID 09/02/18 [History] Cholecalciferol [Vitamin D3 (25 Mcg = 1000 Iu)] 1,000 unit PO DAILY 09/02/18 [History] Clopidogrel Bisulfate [Plavix] 75 mg PO HS 09/02/18 [History] Folic Acid 0.8 mg PO DAILY 09/02/18 [History] Melatonin 5 mg PO HS 09/02/18 [History] Polyethylene Glycol 3350 [Miralax] 8.5 gm PO DAILY 09/02/18 [History] amLODIPine [Norvasc] 2.5 mg PO BID 09/02/18 [History] oxyCODONE-APAP 10-325MG [Percocet 10-325 mg] 1 tab PO Q6HR PRN 09/02/18 [History] predniSONE 5 mg PO DAILY 09/02/18 [History] Methenamine Hippurate 1 gm PO BID 12/17/18 [History] Aspirin 81 mg PO DAILY chew 03/27/19 [Rx] Atorvastatin [Lipitor] 40 mg PO HS #30 tab 03/27/19 [Rx] Lisinopril 40 mg PO DAILY #30 tab 03/27/19 [Rx] Follow up Appointment(s)/Referral(s): [facility], [NON-STAFF] - Nonstaff,Physician [REFERRING] - 1-2 days (Please find and schedule an appointment with a primary care provider) Elias Antonio MD [STAFF PHYSICIAN] - 6 Weeks Patient Instructions/Handouts: Transient Ischemic Attack (DC) Activity/Diet/Wound Care/Special Instructions: Heart healthy Activity as tolerated Take medications as prescribed Check blood pressure once daily and make a log for your physician. Discharge Disposition: HOME WITH HOME HEALTH SERVICES
[2019-03-27 15:43] VITALS: BP 110/59; PULSE 87
--- NOTE | 2019-03-27 15:57 | P.PN ---
Subjective Progress Note Date: 03/27/19 Patient offers no complaints. States she is ready to go home. Objective - Vital Signs Vital signs: Vital Signs Temp 98.1 F 03/27/19 15:32 Pulse 87 03/27/19 15:32 Resp 18 03/27/19 15:32 BP 110/59 03/27/19 15:32 Pulse Ox 98 03/27/19 15:32 Intake & Output 03/26/19 03/27/19 03/27/19 18:59 06:59 18:59 Intake Total 495 300 222 Output Total 600 300 Balance 495 -300 -78 Weight 41 kg 39.916 kg Intake: Intake, IV Titration 75 Amount Sodium Chloride 0.9% 1, 75 000 ml @ 75 mls/hr IV . [id number] Rx#:[id number] Oral 420 300 222 Output: Urine 600 300 Other: Voiding Method Bedside Commode Bedside Commode Bedside Commode - Exam Patient's mental status, speech and language functions are normal. Muscle str ength normal. Examination overall unchanged. - Labs CBC & Chem 7: 03/25/19 15:31 03/26/19 09:05 Assessment and Plan Assessment: * Probable TIA, manifesting with transient numbness/weakness of right arm and leg. Symptoms have resolved, and now she is back to baseline. 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 * Moderate right ICA stenosis, 50-69%, asymptomatic at this time (as symptoms involved the contralateral hemisphere) * Hypertension * History of migraines. * Hyperlipidemia Plan: * Patient had possible TIA, the symptoms resolved and her right side his back to baseline. Patient was on Plavix 75 mg daily. Aspirin 81 mg has been added. * Continue Pepcid 20 mg twice a day for gastric ulcer prophylaxis. * Patient would need a follow-up carotid Dopplers in 6 months to assess for stability of moderate right ICA stenosis. * Continue Lipitor 40 mg. * PT OT. * Neurologically clear for discharge.
== END 2019-03-27 17:06 | disposition home health service (06) ==
LOC: EC 14:45 → 3SCARD 18:26
PROVIDERS: ADMIT Internal Medicine; ATTEND Internal Medicine
DX: G45.9 Transient cerebral ischemic attack, unspecified (principal); I16.0 Hypertensive urgency; E83.52 Hypercalcemia; I11.9 Hypertensive heart disease without heart failure; I08.1 Rheumatic disorders of both mitral and tricuspid valves; I27.20 Pulmonary hypertension, unspecified; I65.21 Occlusion and stenosis of right carotid artery; E78.5 Hyperlipidemia, unspecified; I69.398 Other sequelae of cerebral infarction; G93.89 Other specified disorders of brain; I69.331 Monoplegia of upper limb following cerebral infarction affecting right dominant side; I67.1 Cerebral aneurysm, nonruptured; M81.0 Age-related osteoporosis without current pathological fracture; H33.20 Serous retinal detachment, unspecified eye; F41.9 Anxiety disorder, unspecified; G43.909 Migraine, unspecified, not intractable, without status migrainosus; G89.29 Other chronic pain; M54.5 Low back pain; M79.602 Pain in left arm; M19.012 Primary osteoarthritis, left shoulder; M19.011 Primary osteoarthritis, right shoulder; K59.09 Other constipation; R35.0 Frequency of micturition; Z79.02 Long term (current) use of antithrombotics/antiplatelets; Z79.891 Long term (current) use of opiate analgesic; Z79.52 Long term (current) use of systemic steroids; Z79.899 Other long term (current) drug therapy; Z88.2 Allergy status to sulfonamides; Z86.79 Personal history of other diseases of the circulatory system; Z87.440 Personal history of urinary (tract) infections; Z98.42 Cataract extraction status, left eye; Z98.41 Cataract extraction status, right eye; Z86.69 Personal history of other diseases of the nervous system and sense organs; Z82.49 Family history of ischemic heart disease and other diseases of the circulatory system
CPT/HCPCS: 96361 ×3; 96372 ×2; 96374; 99285; 36415; 93005; 93306; 97162; 97166; 92523; 80061; 80053; 80048; 84484; 85025; 85610; 85730; 73060; 71046; 93880; 70450 ×2; G0378 ×3; J2405; J1650 ×2

== ENCOUNTER 2019-05-02 15:16 | Emergency (ER) | payer MEDICARE ==
[2019-05-02 15:33] VITALS: BP 169/105; PULSE 92; RESP 18; TEMP 98.9
[2019-05-02 16:08] LABS: Appearance,Urine Clear (Clear); Bacteria,Urine Rare /hpf; Bilirubin,Urine Negative (Negative); Blood,Urine Negative (Negative); Color,Urine Light Yellow; Glucose,Urine (UA) Negative (Negative); Ketones,Urine Negative (Negative); Leukocyte Esterase,Urine Small (Negative); Mucus,Urine Rare /hpf; Nitrite,Urine Negative (Negative); PH, Urine 6.5 (5.0-8.0); Protein,Urine Negative (Negative); Specific Gravity,Urine 1.008 (1.001-1.035); Squamous Epithelial Cell,Urine 1 /hpf (0-4); Urobilinogen,Urine <2.0 mg/dL (<2.0)
--- NOTE | 2019-05-02 16:12 | ED ---
Female Urogenital HPI - General Chief complaint: Urogenital Stated complaint: Bladder Issue Time Seen by Provider: 05/02/19 15:34 Source: patient, RN notes reviewed Mode of arrival: wheelchair Limitations: physical limitation - History of Present Illness Initial comments: This is a 84-year-old female presents emergency Department chief complaint of possible urinary tract infection. Patient's had recurrent urinary tract infections. Patient reports no fevers or chills no abdominal pain no flank pain no chest pain or shortness breath. Patient has no current nausea vomiting diarrhea constipation. - Related Data Home Medications Medication Instructions Recorded Confirmed ALPRAZolam [Xanax] 0.25 mg PO BID 09/02/18 03/25/19 Acetaminophen/Caffeine [Excedrin 1 - 2 tab PO HS PRN 09/02/18 03/25/19 Tension Headache Cplt] Carvedilol [Coreg] 6.25 mg PO BID 09/02/18 03/25/19 Cholecalciferol [Vitamin D3 (25 1,000 unit PO DAILY 09/02/18 03/25/19 Mcg = 1000 Iu)] Clopidogrel Bisulfate [Plavix] 75 mg PO HS 09/02/18 03/25/19 Folic Acid 0.8 mg PO DAILY 09/02/18 03/25/19 Melatonin 5 mg PO HS 09/02/18 03/25/19 Polyethylene Glycol 3350 [Miralax] 8.5 gm PO DAILY 09/02/18 03/25/19 amLODIPine [Norvasc] 2.5 mg PO BID 09/02/18 03/25/19 oxyCODONE-APAP 10-325MG [Percocet 1 tab PO Q6HR PRN 09/02/18 03/25/19 10-325 mg] predniSONE 5 mg PO DAILY 09/02/18 03/25/19 Methenamine Hippurate 1 gm PO BID 12/17/18 03/25/19 Previous Rx's Medication Instructions Recorded Aspirin 81 mg PO DAILY chew 03/27/19 Atorvastatin [Lipitor] 40 mg PO HS #30 tab 03/27/19 Lisinopril 40 mg PO DAILY #30 tab 03/27/19 Cefuroxime [Ceftin] 250 mg PO BID #6 tablet 05/02/19 Ondansetron Odt [Zofran Odt] 4 mg PO Q8HR PRN #10 tab 05/02/19 Allergies Allergy/AdvReac Type Severity Reaction Status Date / Time Sulfa (Sulfonamide Allergy Dyspnea Verified 05/02/19 15:32 Antibiotics) Review of Systems ROS Statement: Those systems with pertinent positive or pertinent negative responses have been documented in the HPI. ROS Other: All systems not noted in ROS Statement are negative. Past Medical History Past Medical History: CVA/TIA, Hypertension Additional Past Medical History / Comment(s): pseudomonas UTI, chronic back pain, osteoporosis, cerebral aneurysm History of Any Multi-Drug Resistant Organisms: None Reported Past Surgical History: Tonsillectomy Additional Past Surgical History / Comment(s): cataracts, coiling of cerebral aneurysm, hiatal hernia repair Past Psychological History: Anxiety Smoking Status: Never smoker Past Alcohol Use History: None Reported Past Drug Use History: None Reported - Past Family History Mother Additional Family Medical History / Comment(s): in a pedestrian versus car accident Father Additional Family Medical History / Comment(s): DC stat age 58 secondary to severe high blood pressure resulting myocardial infarction General Exam Limitations: physical limitation General appearance: alert, in no apparent distress Neck exam: Present: normal inspection. Absent: tenderness, meningismus, lymphadenopathy Respiratory exam: Present: normal lung sounds bilaterally. Absent: respiratory distress, wheezes, rales, rhonchi, stridor Cardiovascular Exam: Present: regular rate, normal rhythm, normal heart sounds. Absent: systolic murmur, diastolic murmur, rubs, gallop, clicks GI/Abdominal exam: Present: soft, normal bowel sounds. Absent: distended, tenderness, guarding, rebound, rigid Back exam: Absent: CVA tenderness (R), CVA tenderness (L) Neurological exam: Present: alert, oriented X3, CN II-XII intact Course Vital Signs 05/02/19 15:30 Temperature 98.9 F Pulse Rate 92 Respiratory 18 Rate Blood Pressure 169/105 O2 Sat by Pulse 97 Oximetry Medical Decision Making - Medical Decision Making 84-year-old female presented for possible UTI. Patient's urinalysis shows evidence of 10 white cells. Patient does have symptoms at this time which is for symptomatic UTI. Patient will be discharged on oral antibiotics after Rocephin emergency department. Patient will follow-up return for any worsening symptoms. Disposition Clinical Impression: UTI (urinary tract infection) Disposition: HOME SELF-CARE Condition: Stable Instructions (If sedation given, give patient instructions): Urinary Tract Infection in Women (ED) Additional Instructions: Please return to the Emergency Department if symptoms worsen or any other concerns. Prescriptions: Cefuroxime [Ceftin] 250 mg PO BID #6 tablet Ondansetron Odt [Zofran Odt] 4 mg PO Q8HR PRN #10 tab PRN Reason: Nausea Is patient prescribed a controlled substance at d/c from ED?: No Referrals: Naina Dailey DO [Primary Care Provider] - 1-2 days Time of Disposition: 16:24
[2019-05-02] MEDS ORDERED: cefTRIAXone 1,000 MG VIAL (IM USE) IM STA (16:18)
== END 2019-05-02 16:45 | disposition home or self-care (01) ==
LOC: EC 15:16
DX: N39.0 Urinary tract infection, site not specified (principal); I10 Essential (primary) hypertension; G89.29 Other chronic pain; F41.9 Anxiety disorder, unspecified; Z88.2 Allergy status to sulfonamides; Z79.02 Long term (current) use of antithrombotics/antiplatelets; Z79.52 Long term (current) use of systemic steroids; Z79.899 Other long term (current) drug therapy; Z86.73 Personal history of transient ischemic attack (TIA), and cerebral infarction without residual deficits; Z86.79 Personal history of other diseases of the circulatory system; Z98.890 Other specified postprocedural states
CPT/HCPCS: 81001; 99283; 96372; J0696

== ENCOUNTER 2019-06-21 14:04 | Inpatient (IN) | payer MEDICARE ==
[2019-06-21 14:42] LABS: Basophils # (A) 0.1 k/uL (0-0.2); Basophils % (A) 1 %; Eosinophils # (A) 0.1 k/uL (0-0.7); Eosinophils % (A) 2 %; HCT 47.5 % (34.0-46.0); HGB 15.4 gm/dL (11.4-16.0); Lymphocytes # (A) 0.7 k/uL (1.0-4.8); Lymphocytes % (A) 11 %; MCH 30.9 pg (25.0-35.0); MCHC 32.5 g/dL (31.0-37.0); MCV 95.2 fL (80.0-100.0); Mean Platelet Volume 6.6; Monocytes # (A) 0.5 k/uL (0-1.0); Monocytes % (A) 8 %; Neutrophils # (A) 5.1 k/uL (1.3-7.7); Neutrophils % (A) 77 %; Platelet Count 324 k/uL (150-450); RBC 4.99 m/uL (3.80-5.40); RDW 13.4 % (11.5-15.5); WBC 6.6 k/uL (3.8-10.6)
[2019-06-21 14:52] LABS: ALT 26 U/L (9-52); AST 32 U/L (14-36); African American GFR (CKD) >90 (>60 ml/min/1.73 sqM); Albumin 4.8 g/dL (3.5-5.0); Alkaline Phosphatase 104 U/L (38-126); Anion Gap 12 mmol/L; Blood Urea Nitrogen 18 mg/dL (7-17); Calcium 10.4 mg/dL (8.4-10.2); Carbon Dioxide 26 mmol/L (22-30); Chloride 97 mmol/L (98-107); Creatine Kinase 67 U/L (30-135); Glucose 130 mg/dL (74-99); Magnesium 1.3 mg/dL (1.6-2.3); Sodium 135 mmol/L (137-145); Total Bilirubin 0.6 mg/dL (0.2-1.3); Total Protein 8.1 g/dL (6.3-8.2)
--- NOTE | 2019-06-21 14:55 | CT ---
EXAMINATION TYPE: CT brain wo con DATE OF EXAM: 06/21/2019 COMPARISON: 03/26/2019 HISTORY: Dizziness, nausea and vomiting. CT DLP: 1133.4 mGycm Automated exposure control for dose reduction was used. FINDINGS: There is hypodensity in the mendez-white matter left parietal lobe related to old infarct. There is no mass effect nor midline shift. There is patchy hypodensity in the white matter both cerebral hemisphe res. There is surgical clip at the anterior left internal carotid artery. There is no sign of intracr anial hemorrhage. Calvarium is intact. 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 CHRONIC SMALL VESSEL ISCHEMIA. NO ACUTE INTRACRANIAL ABNORM ALITY. NO CHANGE COMPARED TO OLD EXAM.
[2019-06-21 14:56] LABS: INR 0.9 (<1.2); Partial Thromboplastin Time 23.5 sec (22.0-30.0); Prothrombin Time 10.2 sec (9.0-12.0)
[2019-06-21] MEDS ORDERED: MAGNESIUM SULFATE-D5W PMX 1 GM in DEXTROSE/WATER 1 100ML.BAG IVPB ONE (15:55)
[2019-06-21] MEDS ORDERED: SODIUM CHLORIDE 0.9% 1,000 ML IV STA (15:58)
[2019-06-21] MEDS ORDERED: KETOROLAC 30 MG/ML 1 ML VIAL IVP STA (16:22)
--- NOTE | 2019-06-21 16:27 | ED ---
General Adult HPI - General Chief complaint: Dizziness Stated complaint: vertigo Time Seen by Provider: 06/21/19 14:04 Source: patient, EMS, RN notes reviewed Mode of arrival: EMS Limitations: no limitations - History of Present Illness Initial comments: This is a 4-year-old female with a history of vertigo many years ago who presents with complaints of nausea vomiting for past several days which was preceded by diarrhea. She's not been able keep any food or fluids down she feels very dizzy when she tries to move her head or move around. She does feel lightheaded. No focal deficits however. No recent fevers chills nausea vomiting sweats. - Related Data Home Medications Medication Instructions Recorded Confirmed ALPRAZolam [Xanax] 0.25 mg PO BID 09/02/18 06/21/19 Acetaminophen/Caffeine [Excedrin 1 - 2 tab PO HS PRN 09/02/18 06/21/19 Tension Headache Cplt] Carvedilol [Coreg] 6.25 mg PO BID 09/02/18 06/21/19 Cholecalciferol [Vitamin D3 (25 1,000 unit PO DAILY 09/02/18 06/21/19 Mcg = 1000 Iu)] Clopidogrel Bisulfate [Plavix] 75 mg PO HS 09/02/18 06/21/19 Folic Acid 0.8 mg PO DAILY 09/02/18 06/21/19 Melatonin 5 mg PO HS 09/02/18 06/21/19 Polyethylene Glycol 3350 [Miralax] 8.5 gm PO DAILY 09/02/18 06/21/19 amLODIPine [Norvasc] 2.5 mg PO BID 09/02/18 06/21/19 oxyCODONE-APAP 10-325MG [Percocet 1 tab PO Q6HR PRN 09/02/18 06/21/19 10-325 mg] predniSONE 5 mg PO DAILY 09/02/18 06/21/19 Enalapril [Vasotec] 20 mg PO BID 06/21/19 06/21/19 Allergies Allergy/AdvReac Type Severity Reaction Status Date / Time Sulfa (Sulfonamide AdvReac Dyspnea Verified 06/21/19 15:01 Antibiotics) Review of Systems ROS Statement: Those systems with pertinent positive or pertinent negative responses have been documented in the HPI. ROS Other: All systems not noted in ROS Statement are negative. Past Medical History Past Medical History: CVA/TIA, Hypertension Additional Past Medical History / Comment(s): pseudomonas UTI, chronic back pain, osteoporosis, cerebral aneurysm History of Any Multi-Drug Resistant Organisms: None Reported Past Surgical History: Tonsillectomy Additional Past Surgical History / Comment(s): cataracts, coiling of cerebral aneurysm, hiatal hernia repair Past Psychological History: Anxiety Smoking Status: Never smoker Past Alcohol Use History: None Reported Past Drug Use History: None Reported - Past Family History Mother Additional Family Medical History / Comment(s): in a pedestrian versus car accident Father Additional Family Medical History / Comment(s): DC stat age 58 secondary to severe high blood pressure resulting myocardial infarction General Exam - General Exam Comments Initial Comments: This is a well-developed asthenic appearing female who is awake alert oriented 3 Limitations: no limitations General appearance: alert, anxious Head exam: Present: atraumatic, normocephalic, normal inspection Eye exam: Present: normal appearance, PERRL, EOMI. Absent: scleral icterus, conjunctival injection, periorbital swelling ENT exam: Present: mucous membranes dry Neck exam: Present: normal inspection. Absent: tenderness, meningismus, lymphadenopathy Respiratory exam: Present: normal lung sounds bilaterally, other (Kyphosis is demonstrated). Absent: respiratory distress, wheezes, rales, rhonchi, stridor Cardiovascular Exam: Present: regular rate, normal rhythm, normal heart sounds. Absent: systolic murmur, diastolic murmur, rubs, gallop, clicks GI/Abdominal exam: Present: soft, normal bowel sounds. Absent: distended, tenderness, guarding, rebound, rigid Extremities exam: Present: normal inspection, full ROM, normal capillary refill. Absent: tenderness, pedal edema, joint swelling, calf tenderness Back exam: Present: normal inspection Neurological exam: Present: alert, oriented X3, CN II-XII intact Psychiatric exam: Present: normal affect, normal mood Skin exam: Present: warm, dry, intact, normal color. Absent: rash Course Vital Signs 06/21/19 06/21/19 14:36 15:39 Temperature 98.1 F Pulse Rate 81 88 Respiratory 20 16 Rate Blood Pressure 146/94 O2 Sat by Pulse 98 98 Oximetry EKG Findings - EKG Results: EKG: interpreted by ERMD (Sinus tachycardia rate 101. Interval 132 QRS duration 84 QT since QTC 320/414 artifact is present LVH noted) Medical Decision Making - Medical Decision Making I did discuss [employer] the patient family members patient be admitted the case is discussed with Dr. Santiago. - Lab Data Result diagrams: 06/21/19 14:20 06/21/19 14:20 Lab Results 06/21/19 06/21/19 06/21/19 Range/Units 14:20 14:20 14:20 WBC 6.6 (3.8-10.6) k/uL RBC 4.99 (3.80-5.40) m/uL Hgb 15.4 (11.4-16.0) gm/dL Hct 47.5 H (34.0-46.0) % MCV 95.2 (80.0-100.0) fL MCH 30.9 (25.0-35.0) pg MCHC 32.5 (31.0-37.0) g/dL RDW 13.4 (11.5-15.5) % Plt Count 324 (150-450) k/uL Neutrophils % 77 % Lymphocytes % 11 % Monocytes % 8 % Eosinophils % 2 % Basophils % 1 % Neutrophils # 5.1 (1.3-7.7) k/uL Lymphocytes # 0.7 L (1.0-4.8) k/uL Monocytes # 0.5 (0-1.0) k/uL Eosinophils # 0.1 (0-0.7) k/uL Basophils # 0.1 (0-0.2) k/uL PT 10.2 (9.0-12.0) sec INR 0.9 (<1.2) APTT 23.5 (22.0-30.0) sec Sodium 135 L (137-145) mmol/L Potassium 4.0 (3.5-5.1) mmol/L Chloride 97 L (98-107) mmol/L Carbon Dioxide 26 (22-30) mmol/L Anion Gap 12 mmol/L BUN 18 H (7-17) mg/dL Creatinine 0.44 L (0.52-1.04) mg/dL Est GFR (CKD-EPI)AfAm >90 (>60 ml/min/1.73 sqM) Est GFR (CKD-EPI)NonAf >90 (>60 ml/min/1.73 sqM) Glucose 130 H (74-99) mg/dL Calcium 10.4 H (8.4-10.2) mg/dL Magnesium 1.3 L (1.6-2.3) mg/dL Total Bilirubin 0.6 (0.2-1.3) mg/dL AST 32 (14-36) U/L ALT 26 (9-52) U/L Alkaline Phosphatase 104 (38-126) U/L Creatine Kinase 67 (30-135) U/L Total Protein 8.1 (6.3-8.2) g/dL Albumin 4.8 (3.5-5.0) g/dL - Radiology Data Radiology results: report reviewed, image reviewed (I did review the imaging and report no acute findings.) Disposition Clinical Impression: Dehydration, Gastroenteritis, Hypomagnesemia syndrome, Vertigo Disposition: ADMITTED IP TO THIS [facility] Condition: Fair Referrals: Naina Dailey DO [Primary Care Provider] - 1-2 days
[2019-06-21] MEDS ORDERED: NALOXONE 0.4 MG/ML 1 ML VIAL IV PRN (17:01)
[2019-06-21] MEDS ORDERED: CAFFEINE PO PRN (17:03)
[2019-06-21] MEDS ORDERED: ACETAMINOPHEN PO PRN (17:03)
[2019-06-21] MEDS: SODIUM CHLORIDE 0.9% 1,000 ML IV SCH (18:33)
[2019-06-21] MEDS: CARVEDILOL 6.25 MG TAB PO SCH (18:33)
[2019-06-21] MEDS: FAMOTIDINE 20 MG/2 ML VIAL IV SCH ×2 (18:33→23:03)
[2019-06-21] MEDS: oxyCODONE-APAP 10-325MG 1 EACH TAB PO PRN (19:20)
[2019-06-21] MEDS: CLOPIDOGREL 75 MG TAB PO SCH (20:38)
[2019-06-21] MEDS: amLODIPine 2.5 MG TAB PO SCH (20:39)
[2019-06-21] MEDS ORDERED: LISINOPRIL 20 MG TAB PO SCH (21:00)
[2019-06-21 21:45] LABS: Amorphous Sediment,Urine Few /hpf; Appearance,Urine Clear (Clear); Bacteria,Urine Rare /hpf; Bilirubin,Urine Negative (Negative); Blood,Urine Negative (Negative); Color,Urine Light Yellow; Glucose,Urine (UA) Negative (Negative); Ketones,Urine Trace (Negative); Leukocyte Esterase,Urine Negative (Negative); Mucus,Urine Rare /hpf; Nitrite,Urine Negative (Negative); Protein,Urine 1+ (Negative); RBC,Urine 3 /hpf (0-5); Squamous Epithelial Cell,Urine 1 /hpf (0-4); Urobilinogen,Urine <2.0 mg/dL (<2.0); WBC,Urine <1 /hpf (0-5)
[2019-06-21] MEDS: ALPRAZolam 0.25 MG TAB PO SCH (22:53)
[2019-06-21] MEDS: MELATONIN 5 MG TABLET PO SCH (22:53)
[2019-06-21] MEDS: LISINOPRIL 20 MG TAB PO SCH (22:54)
--- NOTE | 2019-06-22 00:13 | P.HPIM ---
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 Patient is also complaining of dizziness when trying to sit in the chair. Patient had diarrhea 2 days back since resolved now. She has not been taking any food or liquids down and felt very dizzy. Patient says that her dizziness gets worse with head movement. Denied any weakness otherwise. No fever no chills. No cough is from pro duction. No chest pains or shortness. Patient also says that she had elevated blood with SBP greater than 200 at home. 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 Chronic small vessel ischemia. No acute intracranial abnormality Review of Systems Constitutional: Patient denies any fever or chills . No generalized weakness or weight loss. Abdomen: Does have nausea vomiting. No abdominal pain. No diarrhea.. Cardiovascular: Patient denies any chest pain or short of breath no palpitations. Respiratory: patient denied any cough is from production. No shortness of breath Neurologic: Patient denied any numbness or tingling . Patient does have headache. In dizziness Musculoskeletal: Patient denies any complaints of joint swelling or deformity. Skin: Negative Psychiatric: Negative Endocrine: No heat or cold intolerance. No recent weight gain. Genitourinary: No dysuria or hematuria. All other 14 point ROS negative except the above Past Medical History Past Medical History: CVA/TIA, Hypertension Additional Past Medical History / Comment(s): pseudomonas UTI, chronic back pain, osteoporosis, cerebral aneurysm History of Any Multi-Drug Resistant Organisms: None Reported Past Surgical History: Tonsillectomy Additional Past Surgical History / Comment(s): cataracts, coiling of cerebral aneurysm, hiatal hernia repair Past Psychological History: Anxiety Smoking Status: Never smoker Past Alcohol Use History: None Reported Past Drug Use History: None Reported - Past Family History Mother Additional Family Medical History / Comment(s): in a pedestrian versus car accident Father Additional Family Medical History / Comment(s): DC stat age 58 secondary to severe high blood pressure resulting myocardial infarction Medications and Allergies Home Medications Medication Instructions Recorded Confirmed Type ALPRAZolam [Xanax] 0.25 mg PO BID 09/02/18 06/21/19 History Acetaminophen/Caffeine [Excedrin 1 - 2 tab PO HS PRN 09/02/18 06/21/19 History Tension Headache Cplt] Carvedilol [Coreg] 6.25 mg PO BID 09/02/18 06/21/19 History Cholecalciferol [Vitamin D3 (25 1,000 unit PO DAILY 09/02/18 06/21/19 History Mcg = 1000 Iu)] Clopidogrel Bisulfate [Plavix] 75 mg PO HS 09/02/18 06/21/19 History Folic Acid 0.8 mg PO DAILY 09/02/18 06/21/19 History Melatonin 5 mg PO HS 09/02/18 06/21/19 History Polyethylene Glycol 3350 [Miralax] 8.5 gm PO DAILY 09/02/18 06/21/19 History amLODIPine [Norvasc] 2.5 mg PO BID 09/02/18 06/21/19 History oxyCODONE-APAP 10-325MG [Percocet 1 tab PO Q6HR PRN 09/02/18 06/21/19 History 10-325 mg] predniSONE 5 mg PO DAILY 09/02/18 06/21/19 History Enalapril [Vasotec] 20 mg PO BID 06/21/19 06/21/19 History Allergies Allergy/AdvReac Type Severity Reaction Status Date / Time Sulfa (Sulfonamide AdvReac Dyspnea Verified 06/21/19 15:01 Antibiotics) Physical Exam Vitals: Vital Signs Temp Pulse Resp BP Pulse Ox 06/21/19 15:39 88 16 146/94 98 06/21/19 14:36 98.1 F 81 20 98 Intake and Output 06/21/19 06/21/19 06/21/19 06:59 14:59 22:59 Other: Weight 61.235 kg PHYSICAL EXAMINATION: Patient is lying in the bed comfortably, mild distress, awake alert and oriented.. HEENT: Normocephalic. Neck is supple. Pupils reactive. Nostrils clear. Oral cavity is moist. Ears reveal no drainage. Neck reveals no JVD, carotid bruits, or thyromegaly. CHEST EXAMINATION: Trachea is central. Symmetrical expansion. Lung berumen clear to auscultation and percussion. CARDIAC: Normal S1, S2 with no gallops. No murmurs ABDOMEN: Soft. Bowel sounds normal. No organomegaly. No abdominal bruits. Extremities: reveal no edema. No clubbing or cyanosis Neurologically awake, alert, oriented x3 with well-coordinated movements. No focal deficits noted Skin: No rash or skin lesions. Psychiatric: Coperative. Nonsuicidal Musculoskeletal: No joint swelling or deformity. Normal range of motion. Results CBC & Chem 7: 06/21/19 14:20 06/21/19 14:20 Labs: Abnormal Lab Results - Last 24 Hours (Table) 06/21/19 06/21/19 Range/Units 14:20 14:20 Hct 47.5 H (34.0-46.0) % Lymphocytes # 0.7 L (1.0-4.8) k/uL Sodium 135 L (137-145) mmol/L Chloride 97 L (98-107) mmol/L BUN 18 H (7-17) mg/dL Creatinine 0.44 L (0.52-1.04) mg/dL Glucose 130 H (74-99) mg/dL Calcium 10.4 H (8.4-10.2) mg/dL Magnesium 1.3 L (1.6-2.3) mg/dL Thrombosis Risk Factor Assmnt - DVT/VTE Prophylaxis DVT/VTE Prophylaxis: Pharmacologic Prophylaxis ordered Assessment and Plan Assessment: Intractable nausea and vomiting with recent diarrhea. Possible acute gastroenteritis Dizziness and vertigo Dehydration and volume depletion Mild hypercalcemia due to dehydration History of CVA/TIA Hypertension uncontrolled Chronic back pain Cerebral aneurysm history Anxiety DVT prophylaxis Plan: Patient be continued on IV hydration. Continue with home blood pressure medications. Symptomatic management for nausea and vomiting. Continue with Zantac IV. Continue with DVT prophylaxis. We'll check orthostatic vitals. Further recommendations based on the clinical course. Time with Patient: Greater than 30
[2019-06-22] MEDS: SODIUM CHLORIDE 0.9% 1,000 ML IV SCH ×3 (01:19→11:02)
[2019-06-22] MEDS: oxyCODONE-APAP 10-325MG 1 EACH TAB PO PRN ×3 (03:32→22:19)
--- NOTE | 2019-06-22 07:00 | XR ---
EXAMINATION TYPE: XR chest 1V DATE OF EXAM: 06/22/2019 CLINICAL HISTORY: Chest pain. TECHNIQUE: Single AP portable frontal view of the chest is obtained. COMPARISON: Chest x-ray from March 25, 2019. FINDINGS: There is background chronic emphysematous change and elevated left hemidiaphragm. No suspi cious new focal airspace opacity, pleural effusion, or pneumothorax is seen bilaterally. There is per sistent cardiomegaly with atherosclerotic and ectatic thoracic aorta. Osseous structures are deminera lized. Underlying scoliosis is redemonstrated. There is old fracture posterior right sixth rib. Florencia cystectomy clips are noted. IMPRESSION: Overall stable findings, chronic emphysematous change and cardiomegaly without acute pu lmonary process
[2019-06-22] MEDS: amLODIPine 2.5 MG TAB PO SCH ×2 (07:57→22:06)
[2019-06-22] MEDS: CHOLECALCIFEROL 1,000 UNIT TAB PO SCH (07:57)
[2019-06-22] MEDS: FOLIC ACID 1 MG TAB PO SCH (07:57)
[2019-06-22] MEDS: CARVEDILOL 6.25 MG TAB PO SCH ×2 (07:58→17:30)
[2019-06-22] MEDS: FAMOTIDINE 20 MG/2 ML VIAL IV SCH ×2 (07:58→22:07)
[2019-06-22] MEDS: LISINOPRIL 20 MG TAB PO SCH ×2 (07:58→22:07)
[2019-06-22] MEDS: predniSONE 5 MG TAB PO SCH (07:59)
[2019-06-22] MEDS: ALPRAZolam 0.25 MG TAB PO SCH ×2 (08:00→22:07)
[2019-06-22 08:38] LABS: Basophils % (A) 1 %; Eosinophils # (A) 0.1 k/uL (0-0.7); Eosinophils % (A) 3 %; HCT 36.3 % (34.0-46.0); Lymphocytes # (A) 0.5 k/uL (1.0-4.8); Lymphocytes % (A) 13 %; MCHC 33.1 g/dL (31.0-37.0); MCV 93.7 fL (80.0-100.0); Mean Platelet Volume 7.3; Monocytes # (A) 0.5 k/uL (0-1.0); Monocytes % (A) 12 %; Neutrophils % (A) 70 %; Platelet Count 247 k/uL (150-450); RBC 3.87 m/uL (3.80-5.40); RDW 14.1 % (11.5-15.5); WBC 4.2 k/uL (3.8-10.6)
[2019-06-22] MEDS ORDERED: POLYETHYLENE GLYCOL 3350 17 GM POWD.PACK PO SCH (09:00)
[2019-06-22 10:02] LABS: African American GFR (CKD) >90 (>60 ml/min/1.73 sqM); Anion Gap 8 mmol/L; Blood Urea Nitrogen 18 mg/dL (7-17); Calcium 9.1 mg/dL (8.4-10.2); Carbon Dioxide 25 mmol/L (22-30); Chloride 99 mmol/L (98-107); Glucose 81 mg/dL (74-99); Sodium 132 mmol/L (137-145)
[2019-06-22 10:06] LABS: Potassium 3.9 mmol/L (3.5-5.1)
[2019-06-22] MEDS: ASPIRIN-ACET-CAFF 250-250-65MG 1 EACH TAB PO PRN (11:01)
[2019-06-22] MEDS: CLOPIDOGREL 75 MG TAB PO SCH (22:06)
[2019-06-22] MEDS: MELATONIN 5 MG TABLET PO SCH (22:06)
[2019-06-22] MEDS: POLYETHYLENE GLYCOL 3350 17 GM POWD.PACK PO SCH (22:07)
[2019-06-23] MEDS: CARVEDILOL 6.25 MG TAB PO SCH ×2 (08:21→18:25)
[2019-06-23] MEDS: predniSONE 5 MG TAB PO SCH (08:21)
[2019-06-23] MEDS: FOLIC ACID 1 MG TAB PO SCH (08:21)
[2019-06-23] MEDS: LISINOPRIL 20 MG TAB PO SCH ×2 (08:21→22:42)
[2019-06-23] MEDS: CHOLECALCIFEROL 1,000 UNIT TAB PO SCH (08:22)
[2019-06-23] MEDS: POLYETHYLENE GLYCOL 3350 17 GM POWD.PACK PO SCH ×2 (08:22→08:25)
[2019-06-23] MEDS: ALPRAZolam 0.25 MG TAB PO SCH ×2 (08:22→22:41)
[2019-06-23] MEDS: FAMOTIDINE 20 MG/2 ML VIAL IV SCH (08:22)
[2019-06-23] MEDS: amLODIPine 2.5 MG TAB PO SCH ×2 (08:22→22:41)
[2019-06-23] MEDS: SODIUM CHLORIDE 0.9% 1,000 ML IV SCH ×2 (08:29→22:43)
--- NOTE | 2019-06-23 10:50 | P.PN ---
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 Patient is also complaining of dizziness when trying to sit in the chair. Patient had diarrhea 2 days back since resolved now. She has not been taking any food or liquids down and felt very dizzy. Patient says that her dizziness gets worse with head movement. Denied any weakness otherwise. No fever no chills. No cough is from production. No chest pains or shortness. Patient also says that she had elevated blood with SBP greater than 200 at home. 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 Chronic small vessel ischemia. No acute intracranial abnormality 06/22/2019 patient is still complaining of headache this morning. Patient does have nausea. No vomiting. Slight improvement compared to yesterday. Otherwise patient is being continued on IV hydration and symptomatic management. No abdominal pain or diarrhea. No chest pain or shortness of breath. Current medications reviewed. Objective - Vital Signs Vital signs: Vital Signs Temp 97.4 F L 06/22/19 12:12 Pulse 85 06/22/19 12:12 Resp 16 06/22/19 12:12 BP 117/74 06/22/19 12:12 Pulse Ox 97 06/22/19 12:12 Intake & Output 06/21/19 06/22/19 06/22/19 18:59 06:59 18:59 Intake Total 350 Output Total 400 197 Balance -50 -197 Weight 61.235 kg 40.823 kg Intake: Oral 350 Output: Urine 400 Post Void Residual 197 Other: Voiding Method Bedside Commode Bedside Commode # Voids 5 2 # Bowel Movements 0 - Exam PHYSICAL EXAMINATION: Patient is lying in the bed comfortably, mild distress, awake alert and oriented.. HEENT: Normocephalic. Neck is supple. Pupils reactive. Nostrils clear. Oral cavity is moist. Ears reveal no drainage. Neck reveals no JVD, carotid bruits, or thyromegaly. CHEST EXAMINATION: Trachea is central. Symmetrical expansion. Lung berumen clear to auscultation and percussion. CARDIAC: Normal S1, S2 with no gallops. No murmurs ABDOMEN: Soft. Bowel sounds normal. No organomegaly. No abdominal bruits. Extremities: reveal no edema. No clubbing or cyanosis Neurologically awake, alert, oriented x3 with well-coordinated movements. No focal deficits noted Skin: No rash or skin lesions. Psychiatric: Coperative. Nonsuicidal Musculoskeletal: No joint swelling or deformity. Normal range of motion. - Labs CBC & Chem 7: 06/22/19 07:50 06/22/19 07:50 Labs: Abnormal Lab Results - Last 24 Hours (Table) 06/21/19 06/22/19 06/22/19 Range/Units 20:55 07:50 07:50 Lymphocytes # 0.5 L (1.0-4.8) k/uL Sodium 132 L (137-145) mmol/L BUN 18 H (7-17) mg/dL Creatinine 0.35 L (0.52-1.04) mg/dL Urine Protein 1+ H (Negative) Urine Ketones Trace H (Negative) Amorphous Sediment Few H (None) /hpf Urine Bacteria Rare H (None) /hpf Urine Mucus Rare H (None) /hpf Assessment and Plan Assessment: Intractable nausea and vomiting with recent diarrhea. Possible acute gastroenteritis. improved now. Dizziness and vertigo Dehydration and volume depletion Mild hypercalcemia due to dehydration History of CVA/TIA Hypertension uncontrolled Chronic back pain Cerebral aneurysm history Anxiety DVT prophylaxis Plan: Patient be continued on IV hydration. Continue with home blood pressure medications. Symptomatic management for nausea and vomiting. Continue with Zantac IV. Continue with DVT prophylaxis. We'll check orthostatic vitals. Further recommendations based on the clinical course. Time with Patient: Greater than 30
[2019-06-23] MEDS: oxyCODONE-APAP 10-325MG 1 EACH TAB PO PRN ×2 (12:55→22:42)
--- NOTE | 2019-06-23 22:18 | P.PN ---
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 Patient is also complaining of dizziness when trying to sit in the chair. Patient had diarrhea 2 days back since resolved now. She has not been taking any food or liquids down and felt very dizzy. Patient says that her dizziness gets worse with head movement. Denied any weakness otherwise. No fever no chills. No cough is from production. No chest pains or shortness. Patient also says that she had elevated blood with SBP greater than 200 at home. 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 Chronic small vessel ischemia. No acute intracranial abnormality 06/22/2019 patient is still complaining of headache this morning. Patient does have nausea. No vomiting. Slight improvement compared to yesterday. Otherwise patient is being continued on IV hydration and symptomatic management. No abdominal pain or diarrhea. No chest pain or shortness of breath. 06/23/2018 Patient says that her headache and dizziness is almost resolved. Otherwise patient still had diarrhea. C. diff toxin will be sent. No fever no chills. No abdominal pain. No nausea vomiting. Patient has loss of appetite and unable to tolerate oral diet. No chest pain or shortness of breath. Current medications reviewed. Objective - Vital Signs Vital signs: Vital Signs Temp 98.6 F 06/23/19 20:30 Pulse 104 H 06/23/19 20:30 Resp 22 06/23/19 20:30 BP 161/84 06/23/19 20:30 Pulse Ox 97 06/23/19 20:30 Intake & Output 06/23/19 06/23/19 06/24/19 06:59 18:59 06:59 Intake Total 500 Balance 500 Intake: Oral 500 Other: Voiding Method Bedside Commode Bedside Commode # Voids 2 9 2 # Bowel Movements 0 2 6 - Exam PHYSICAL EXAMINATION: Patient is lying in the bed comfortably, mild distress, awake alert and oriented.. HEENT: Normocephalic. Neck is supple. Pupils reactive. Nostrils clear. Oral cavity is moist. Ears reveal no drainage. Neck reveals no JVD, carotid bruits, or thyromegaly. CHEST EXAMINATION: Trachea is central. Symmetrical expansion. Lung berumen clear to auscultation and percussion. CARDIAC: Normal S1, S2 with no gallops. No murmurs ABDOMEN: Soft. Bowel sounds normal. No organomegaly. No abdominal bruits. Extremities: reveal no edema. No clubbing or cyanosis Neurologically awake, alert, oriented x3 with well-coordinated movements. No focal deficits noted Skin: No rash or skin lesions. Psychiatric: Coperative. Nonsuicidal Musculoskeletal: No joint swelling or deformity. Normal range of motion. - Labs CBC & Chem 7: 06/22/19 07:50 06/22/19 07:50 Assessment and Plan Assessment: Diarrhea. Possible acute gastroenteritis. Rule out C. diff. Intractable nausea and vomiting. improved now. Dizziness and vertigo. Improved now Dehydration and volume depletion Mild hypercalcemia due to dehydration History of CVA/TIA Hypertension uncontrolled Chronic back pain Cerebral aneurysm history Anxiety DVT prophylaxis Plan: Patient be continued on IV hydration. Continue with home blood pressure medications. Symptomatic management for nausea and vomiting. Continue with Zantac IV. Continue with DVT prophylaxis. Further recommendations based on the clinical course. Time with Patient: Greater than 30
[2019-06-23] MEDS: CLOPIDOGREL 75 MG TAB PO SCH (22:41)
[2019-06-23] MEDS: FAMOTIDINE 20 MG TAB PO SCH (22:41)
[2019-06-23] MEDS: MELATONIN 5 MG TABLET PO SCH (22:42)
[2019-06-24] MEDS: ASPIRIN-ACET-CAFF 250-250-65MG 1 EACH TAB PO PRN (03:58)
[2019-06-24] MEDS: CHOLECALCIFEROL 1,000 UNIT TAB PO SCH (10:03)
[2019-06-24] MEDS: FAMOTIDINE 20 MG TAB PO SCH (10:03)
[2019-06-24] MEDS: LISINOPRIL 20 MG TAB PO SCH (10:03)
[2019-06-24] MEDS: FOLIC ACID 1 MG TAB PO SCH (10:03)
[2019-06-24] MEDS: CARVEDILOL 6.25 MG TAB PO SCH ×2 (10:03→17:52)
[2019-06-24] MEDS: amLODIPine 2.5 MG TAB PO SCH (10:03)
[2019-06-24] MEDS: predniSONE 5 MG TAB PO SCH (10:04)
[2019-06-24] MEDS: POLYETHYLENE GLYCOL 3350 17 GM POWD.PACK PO SCH (10:05)
[2019-06-24] MEDS: ALPRAZolam 0.25 MG TAB PO SCH (10:05)
[2019-06-24] MEDS: oxyCODONE-APAP 10-325MG 1 EACH TAB PO PRN (10:12)
[2019-06-24] MEDS: SODIUM CHLORIDE 0.9% 1,000 ML IV SCH (12:34)
[2019-06-24 14:39] VITALS: BMI 14.8
[2019-06-24 15:53] VITALS: BP 150/85; PULSE 90; RESP 16; TEMP 98.6
== END 2019-06-24 18:35 | disposition home or self-care (01) | DRG 392 ==
LOC: EC 14:04 → 4MS4W 17:01
PROVIDERS: ADMIT Internal Medicine; ATTEND Internal Medicine
DX: K52.9 Noninfective gastroenteritis and colitis, unspecified (principal); E83.42 Hypomagnesemia; E83.52 Hypercalcemia; E86.0 Dehydration; F41.9 Anxiety disorder, unspecified; G44.209 Tension-type headache, unspecified, not intractable; G89.29 Other chronic pain; I10 Essential (primary) hypertension; Z86.79 Personal history of other diseases of the circulatory system; M81.0 Age-related osteoporosis without current pathological fracture; Z87.440 Personal history of urinary (tract) infections; Z79.899 Other long term (current) drug therapy; Z82.49 Family history of ischemic heart disease and other diseases of the circulatory system; Z86.73 Personal history of transient ischemic attack (TIA), and cerebral infarction without residual deficits; Z98.49 Cataract extraction status, unspecified eye; M54.9 Dorsalgia, unspecified; E86.9 Volume depletion, unspecified; Z88.2 Allergy status to sulfonamides; R00.0 Tachycardia, unspecified; R42 Dizziness and giddiness
CPT/HCPCS: 36415; 70450; 71045; 80048; 80053; 81001; 82550; 83735; 84443; 85025; 85610; 85730; 87324; 93005; 96365; 96375; 99285

== ENCOUNTER 2019-08-15 17:27 | Emergency (ER) | payer MEDICARE ==
[2019-08-15 17:57] LABS: Appearance,Urine Clear (Clear); Bilirubin,Urine Negative (Negative); Blood,Urine Negative (Negative); Color,Urine Colorless; Glucose,Urine (UA) Negative (Negative); Ketones,Urine Negative (Negative); Leukocyte Esterase,Urine Negative (Negative); Nitrite,Urine Negative (Negative); Protein,Urine Trace (Negative); Specific Gravity,Urine 1.005 (1.001-1.035); Urobilinogen,Urine <2.0 mg/dL (<2.0)
[2019-08-15] MEDS ORDERED: SODIUM CHLORIDE 0.9% 500 ML 500 ML IV ONE (18:14)
[2019-08-15] MEDS ORDERED: SODIUM CHLORIDE 0.9% 1,000 ML IV SCH (18:15)
--- NOTE | 2019-08-15 18:20 | ED ---
Female Urogenital HPI - General Chief complaint: Urogenital Stated complaint: possible dehydration Time Seen by Provider: 08/15/19 17:54 Source: patient, family Mode of arrival: wheelchair Limitations: no limitations - History of Present Illness Initial comments: 84-year-old female with history of hypertension controlled chronic left shoulder pain presents emergency department for evaluation of possible dehydration, generalized weakness. Patient is complete by her daughter history is obtained from both daughter as well as patient was alert and oriented 3. Patient states that she usually takes a stool softener for chronic constipation however she tried a new medication she believes it was a stimulant causing her to have diarrhea for the past 3 days. Daughter at bedside states that she feels she is dehydrated. She states that she seems weaker over more than normal. Denies a focalized weakness speech changes T changes patient denies a weakness of his specific extremity or sensation deficits. Patient states she has had increasing left shoulder pain and swelling for the past week. Admits to chills, denies fevers. Patient denies any severe abdominal pain, nausea or vomiting. Denies chest pain or SOB. Denies falls or direct trauma to the left shoulder. Remaining ROS (-). Upon arrival patient appears well there is no signs of acute distress. - Related Data Home Medications Medication Instructions Recorded Confirmed ALPRAZolam [Xanax] 0.25 mg PO BID 09/02/18 06/21/19 Acetaminophen/Caffeine [Excedrin 1 - 2 tab PO HS PRN 09/02/18 06/21/19 Tension Headache Cplt] Carvedilol [Coreg] 6.25 mg PO BID 09/02/18 06/21/19 Cholecalciferol [Vitamin D3 (25 1,000 unit PO DAILY 09/02/18 06/21/19 Mcg = 1000 Iu)] Clopidogrel Bisulfate [Plavix] 75 mg PO HS 09/02/18 06/21/19 Folic Acid 0.8 mg PO DAILY 09/02/18 06/21/19 Melatonin 5 mg PO HS 09/02/18 06/21/19 amLODIPine [Norvasc] 2.5 mg PO BID 09/02/18 06/21/19 oxyCODONE-APAP 10-325MG [Percocet 1 tab PO Q6HR PRN 09/02/18 06/21/19 10-325 mg] predniSONE 5 mg PO DAILY 09/02/18 06/21/19 Enalapril [Vasotec] 20 mg PO BID 06/21/19 06/21/19 Previous Rx's Medication Instructions Recorded Polyethylene Glycol 3350 [Miralax] 8.5 gm PO DAILY PRN #0 06/24/19 Allergies Allergy/AdvReac Type Severity Reaction Status Date / Time Sulfa (Sulfonamide AdvReac Dyspnea Verified 08/15/19 17:28 Antibiotics) Review of Systems ROS Statement: Those systems with pertinent positive or pertinent negative responses have been documented in the HPI. ROS Other: All systems not noted in ROS Statement are negative. Past Medical History Past Medical History: CVA/TIA, Hypertension Additional Past Medical History / Comment(s): pseudomonas UTI, chronic back pain, osteoporosis, cerebral aneurysm History of Any Multi-Drug Resistant Organisms: None Reported Past Surgical History: Tonsillectomy Additional Past Surgical History / Comment(s): cataracts, coiling of cerebral aneurysm, hiatal hernia repair Past Psychological History: Anxiety Smoking Status: Never smoker Past Alcohol Use History: None Reported Past Drug Use History: None Reported - Past Family History Mother Additional Family Medical History / Comment(s): in a pedestrian versus car accident Father Additional Family Medical History / Comment(s): DC stat age 58 secondary to severe high blood pressure resulting myocardial infarction General Exam - General Exam Comments Initial Comments: General: The patient is awake and alert, in no distress, and does not appear acutely ill. Eye: +3 mm pupils are equal, round and reactive to light, extra-ocular movements are intact. No nystagmus. There is normal conjunctiva bilaterally. No signs of icterus. Ears, nose, mouth and throat: There are slightly dry mucous membranes and no oral lesions. Neck: The neck is supple, there is no tenderness or JVD. Cardiovascular: There is a regular rate and rhythm. No murmur, rub or gallop is appreciated. Respiratory: Lungs are clear to auscultation, respirations are non-labored, breath sounds are equal. No wheezes, stridor, rales, or rhonchi. Gastrointestinal: Soft, non-distended, nontender abdomen without masses or organomegaly noted. There is no rebound or guarding present. No CVA tenderness. Bowel sounds are unremarkable. Musculoskeletal: Upon gross examination of the left shoulder there is yellow discoloration, bruising noted, warmth to palpation, no redness. Pain with overhead ROM, pateint states baseline limiting ROM, tenderness over anterior shoulder with some swelling noted. Strength 5/5 at the elbows/wrists. Sensation intact of the UE b/l. 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 Patient is able to make the fingers crossed thumbs up okay sign extend at the wrist bilaterally. Patient is able to reach over with the left arm touching the right shoulder. Neurological: A&O x 3. CN II-XII intact, There are no obvious motor or sensory deficits. Coordination appears grossly intact. Speech is normal. Skin: Skin is warm and dry and no rashes or lesions are noted. Psychiatric: Cooperative, appropriate mood & affect, normal judgment. Limitations: no limitations Course Vital Signs 08/15/19 08/15/19 08/15/19 17:43 19:45 21:47 Temperature 98.4 F Pulse Rate 96 81 83 Respiratory 18 20 20 Rate Blood Pressure 181/97 151/91 158/90 O2 Sat by Pulse 96 96 96 Oximetry 08/15/19 23:10 Temperature 99.0 F Pulse Rate 86 Respiratory 20 Rate Blood Pressure 155/76 O2 Sat by Pulse 96 Oximetry Medical Decision Making - Medical Decision Making Well-appearing 84-year-old female presenting for generalized weakness diarrhea which is induced by stimulant as well as left shoulder pa in x months increased for week. Patient does not appear clinically dehydrated. BUN mildly elevated. Creatinine within acceptable limits. EKG within normal limits patient denies any chest pain shortness of breath. Family is concerned patient had UTI. Urinalysis unremarkable. Patient has no abdominal pain. Patient does have bruising is noted over the left shoulder. X-ray revealed an superior dislocation. Patient N/V intact. Hx of rotator cuff injury. Discussed with orthopedics follow-up. Steve Miles stated he will see patient in office. Patient evaluated by my attending Dr. Montague who is agreeable with discharge home. Return parameters discussed as well as the importance of cessation of stimulant use. Patient verbalized understanding daughter who is bedside is agreeable care plan patient discharged appearing well EKG personally interpreted revealing ventricular rate of 80 bpm, MS interval 148 ms, QRS orthodoxy 74 ms, QT/QTC 340/392 ms. This is normal sinus no ST elevation or depression. No findings of ischemia noted.Reviewed by attending Dr. Montague. - Lab Data Result diagrams: 08/15/19 19:40 08/15/19 19:40 Lab Results 08/15/19 08/15/19 08/15/19 Range/Units 17:50 19:40 19:40 WBC 4.8 (3.8-10.6) k/uL RBC 4.17 (3.80-5.40) m/uL Hgb 12.8 (11.4-16.0) gm/dL Hct 41.6 (34.0-46.0) % MCV 99.7 D (80.0-100.0) fL MCH 30.7 (25.0-35.0) pg MCHC 30.8 L (31.0-37.0) g/dL RDW 14.2 (11.5-15.5) % Plt Count 291 (150-450) k/uL Neutrophils % 82 % Lymphocytes % 6 % Monocytes % 7 % Eosinophils % 2 % Basophils % 2 % Neutrophils # 3.9 (1.3-7.7) k/uL Lymphocytes # 0.3 L (1.0-4.8) k/uL Monocytes # 0.3 (0-1.0) k/uL Eosinophils # 0.1 (0-0.7) k/uL Basophils # 0.1 (0-0.2) k/uL PT (9.0-12.0) sec INR (<1.2) APTT (22.0-30.0) sec Sodium 135 L (137-145) mmol/L Potassium 4.3 (3.5-5.1) mmol/L Chloride 101 (98-107) mmol/L Carbon Dioxide 24 (22-30) mmol/L Anion Gap 10 mmol/L BUN 20 H (7-17) mg/dL Creatinine 0.43 L (0.52-1.04) mg/dL Est GFR (CKD-EPI)AfAm >90 (>60 ml/min/1.73 sqM) Est GFR (CKD-EPI)NonAf >90 (>60 ml/min/1.73 sqM) Glucose 115 H (74-99) mg/dL Plasma Lactic Acid Pavel (0.7-2.0) mmol/L Calcium 9.6 (8.4-10.2) mg/dL Total Bilirubin 0.3 (0.2-1.3) mg/dL AST 36 (14-36) U/L ALT 16 (9-52) U/L Alkaline Phosphatase 93 (38-126) U/L Total Protein 7.3 (6.3-8.2) g/dL Albumin 4.1 (3.5-5.0) g/dL Urine Color Colorless Urine Appearance Clear (Clear) Urine pH 7.0 (5.0-8.0) Ur Specific Pioneer 1.005 (1.001-1.035) Urine Protein Trace H (Negative) Urine Glucose (UA) Negative (Negative) Urine Ketones Negative (Negative) Urine Blood Negative (Negative) Urine Nitrite Negative (Negative) Urine Bilirubin Negative (Negative) Urine Urobilinogen <2.0 (<2.0) mg/dL Ur Leukocyte Esterase Negative (Negative) 08/15/19 08/15/19 Range/Units 19:40 19:40 WBC (3.8-10.6) k/uL RBC (3.80-5.40) m/uL Hgb (11.4-16.0) gm/dL Hct (34.0-46.0) % MCV (80.0-100.0) fL MCH (25.0-35.0) pg MCHC (31.0-37.0) g/dL RDW (11.5-15.5) % Plt Count (150-450) k/uL Neutrophils % % Lymphocytes % % Monocytes % % Eosinophils % % Basophils % % Neutrophils # (1.3-7.7) k/uL Lymphocytes # (1.0-4.8) k/uL Monocytes # (0-1.0) k/uL Eosinophils # (0-0.7) k/uL Basophils # (0-0.2) k/uL PT 10.1 (9.0-12.0) sec INR 0.9 (<1.2) APTT 23.7 (22.0-30.0) sec Sodium (137-145) mmol/L Potassium (3.5-5.1) mmol/L Chloride (98-107) mmol/L Carbon Dioxide (22-30) mmol/L Anion Gap mmol/L BUN (7-17) mg/dL Creatinine (0.52-1.04) mg/dL Est GFR (CKD-EPI)AfAm (>60 ml/min/1.73 sqM) Est GFR (CKD-EPI)NonAf (>60 ml/min/1.73 sqM) Glucose (74-99) mg/dL Plasma Lactic Acid Pavel 1.6 (0.7-2.0) mmol/L Calcium (8.4-10.2) mg/dL Total Bilirubin (0.2-1.3) mg/dL AST (14-36) U/L ALT (9-52) U/L Alkaline Phosphatase (38-126) U/L Total Protein (6.3-8.2) g/dL Albumin (3.5-5.0) g/dL Urine Color Urine Appearance (Clear) Urine pH (5.0-8.0) Ur Specific Pioneer (1.001-1.035) Urine Protein (Negative) Urine Glucose (UA) (Negative) Urine Ketones (Negative) Urine Blood (Negative) Urine Nitrite (Negative) Urine Bilirubin (Negative) Urine Urobilinogen (<2.0) mg/dL Ur Leukocyte Esterase (Negative) Disposition Clinical Impression: Anterior shoulder dislocation, Rotator cuff tear, Chronic left shoulder pain, Loose stools Disposition: HOME SELF-CARE Condition: Good Additional Instructions: Please use medication as discussed. Please follow-up with family doctor in the next 2 days, patient is not to use stimulant stool softener. Refrain from stool softner for next 2-3 days. Please return to emergency room if the symptoms increase or worsen or for any other concerns. Is patient prescribed a controlled substance at d/c from ED?: No Referrals: Naina Dailey DO [Primary Care Provider] - 1-2 days Time of Disposition: 21:59
--- NOTE | 2019-08-15 19:25 | XR ---
EXAMINATION TYPE: XR KUB DATE OF EXAM: 08/15/2019 COMPARISON: 06/28/2018 HISTORY: Pain TECHNIQUE: Single view supine FINDINGS: There is no sign of intestinal obstruction or pneumoperitoneum. Fecal pattern is fairly nor mal. There are clips from cholecystectomy. There is mild lumbar levoscoliosis. 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 IMPRESSION: Nonacute abdomen.
--- NOTE | 2019-08-15 19:27 | XR ---
EXAMINATION TYPE: XR shoulder complete LT DATE OF EXAM: 08/15/2019 COMPARISON: 03/25/2019 HISTORY: Pain TECHNIQUE: 3 views FINDINGS: There is a superior dislocation of the humeral head. Superior displacement is 1.5 cm. There is obliteration of the subacromial joint space. I see no fracture line. IMPRESSION: There is superior shoulder joint dislocation. This is a change compared to old exam.
[2019-08-15 19:52] LABS: Basophils # (A) 0.1 k/uL (0-0.2); Basophils % (A) 2 %; Eosinophils # (A) 0.1 k/uL (0-0.7); Eosinophils % (A) 2 %; HCT 41.6 % (34.0-46.0); HGB 12.8 gm/dL (11.4-16.0); Lymphocytes # (A) 0.3 k/uL (1.0-4.8); Lymphocytes % (A) 6 %; MCH 30.7 pg (25.0-35.0); MCHC 30.8 g/dL (31.0-37.0); Mean Platelet Volume 6.5; Monocytes # (A) 0.3 k/uL (0-1.0); Monocytes % (A) 7 %; Neutrophils # (A) 3.9 k/uL (1.3-7.7); Neutrophils % (A) 82 %; Platelet Count 291 k/uL (150-450); RBC 4.17 m/uL (3.80-5.40); RDW 14.2 % (11.5-15.5); WBC 4.8 k/uL (3.8-10.6)
[2019-08-15 20:01] LABS: ALT 16 U/L (9-52); AST 36 U/L (14-36); African American GFR (CKD) >90 (>60 ml/min/1.73 sqM); Albumin 4.1 g/dL (3.5-5.0); Alkaline Phosphatase 93 U/L (38-126); Anion Gap 10 mmol/L; Blood Urea Nitrogen 20 mg/dL (7-17); Calcium 9.6 mg/dL (8.4-10.2); Carbon Dioxide 24 mmol/L (22-30); Chloride 101 mmol/L (98-107); Glucose 115 mg/dL (74-99); Non-African American GFR(CKD) >90 (>60 ml/min/1.73 sqM); Potassium 4.3 mmol/L (3.5-5.1); Sodium 135 mmol/L (137-145); Total Bilirubin 0.3 mg/dL (0.2-1.3); Total Protein 7.3 g/dL (6.3-8.2)
[2019-08-15 20:05] LABS: MCV 99.7 fL (80.0-100.0)
[2019-08-15 20:13] LABS: INR 0.9 (<1.2); Partial Thromboplastin Time 23.7 sec (22.0-30.0); Prothrombin Time 10.1 sec (9.0-12.0)
[2019-08-15 22:08] VITALS: RESP 20
[2019-08-15 23:33] VITALS: BP 155/76; PULSE 86; TEMP 99
== END 2019-08-15 23:10 | disposition home or self-care (01) ==
LOC: EC 17:27
DX: S43.085A Other dislocation of left shoulder joint, initial encounter (principal); M75.102 Unspecified rotator cuff tear or rupture of left shoulder, not specified as traumatic; R79.89 Other specified abnormal findings of blood chemistry; R19.5 Other fecal abnormalities; M20.091 Other deformity of right finger(s); R53.1 Weakness; F15.988 Other stimulant use, unspecified with other stimulant-induced disorder; R68.83 Chills (without fever); I10 Essential (primary) hypertension; F41.9 Anxiety disorder, unspecified; Z88.2 Allergy status to sulfonamides; Z79.02 Long term (current) use of antithrombotics/antiplatelets; Z79.52 Long term (current) use of systemic steroids; Z79.899 Other long term (current) drug therapy; Z86.73 Personal history of transient ischemic attack (TIA), and cerebral infarction without residual deficits; Z86.69 Personal history of other diseases of the nervous system and sense organs; Z98.890 Other specified postprocedural states; X58.XXXA Exposure to other specified factors, initial encounter
CPT/HCPCS: 36415; 74018; 80053; 81003; 83605; 85025; 85610; 85730; 87040; 93005; 96360; 96361; 99285

== ENCOUNTER 2019-08-27 14:34 | Emergency (ER) | payer MEDICARE ==
[2019-08-27 15:07] LABS: Appearance,Urine Clear (Clear); Bilirubin,Urine Negative (Negative); Blood,Urine Negative (Negative); Color,Urine Light Yellow; Glucose,Urine (UA) Negative (Negative); Ketones,Urine Negative (Negative); Leukocyte Esterase,Urine Negative (Negative); Nitrite,Urine Negative (Negative); Protein,Urine Negative (Negative); Specific Gravity,Urine 1.011 (1.001-1.035); Urobilinogen,Urine <2.0 mg/dL (<2.0)
--- NOTE | 2019-08-27 15:11 | XR ---
EXAMINATION TYPE: XR KUB DATE OF EXAM: 08/27/2019 COMPARISON: 08/15/2019 HISTORY: Abdominal pain and nausea TECHNIQUE: One view abdominal series FINDINGS: Diffuse osteopenia with multilevel degenerative changes of the spine. Question chronic rib deformitie s on the right. 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 Surgical clips in the gallbladder fossa. Bowel gas pattern nonspecific. IMPRESSION: 1. Nonspecific abdomen with no diagnostic evidence of obstruction.
[2019-08-27] MEDS ORDERED: MAGNESIUM HYDROXIDE 2,400 MG/10 ML CUP PO STA (15:13)
--- NOTE | 2019-08-27 16:07 | ED ---
Abdominal Pain HPI - General Source: patient, RN notes reviewed Mode of arrival: wheelchair Limitations: no limitations <Lenny Jc - Last Filed: 08/27/19 17:00> <Santiago Card - Last Filed: 08/27/19 22:32> - General Chief Complaint: Abdominal Pain Stated Complaint: Constipated Time Seen by Provider: 08/27/19 14:44 - History of Present Illness Initial Comments: 84-year-old female presents emergency from chief complaint of constipation. Patient had increased constipation and mild abdominal discomfort last 1 week. No dysuria no hematuria. Patient states that she does not drink enough water and is known to have constipation issues. Patient has not taken anything [id number]. Patient states that she only gets a small amount stool out. Patient reports no other complaints. Patient denies fever, chills, chest pain, shortness breath, nausea vomiting. (Lenny Jc) - Related Data Home Medications Medication Instructions Recorded Confirmed ALPRAZolam [Xanax] 0.25 mg PO BID 09/02/18 08/27/19 Acetaminophen/Caffeine [Excedrin 1 - 2 tab PO HS PRN 09/02/18 08/27/19 Tension Headache Cplt] Carvedilol [Coreg] 6.25 mg PO BID 09/02/18 08/27/19 Cholecalciferol [Vitamin D3 (25 1,000 unit PO DAILY 09/02/18 08/27/19 Mcg = 1000 Iu)] Clopidogrel Bisulfate [Plavix] 75 mg PO HS 09/02/18 08/27/19 Folic Acid 0.8 mg PO DAILY 09/02/18 08/27/19 Melatonin 5 mg PO HS 09/02/18 08/27/19 amLODIPine [Norvasc] 2.5 mg PO BID 09/02/18 08/27/19 oxyCODONE-APAP 10-325MG [Percocet 1 tab PO Q6HR PRN 09/02/18 08/27/19 10-325 mg] predniSONE 5 mg PO DAILY 09/02/18 08/27/19 Enalapril [Vasotec] 20 mg PO BID 06/21/19 08/27/19 Previous Rx's Medication Instructions Recorded Polyethylene Glycol 3350 [Miralax] 8.5 gm PO DAILY PRN #0 06/24/19 Allergies Allergy/AdvReac Type Severity Reaction Status Date / Time nitroglycerin AdvReac BLOOD Verified 08/27/19 15:19 PRESSURE DROPS SEVERELY Sulfa (Sulfonamide AdvReac Dyspnea Verified 08/27/19 15:19 Antibiotics) Review of Systems ROS Other: All systems not noted in ROS Statement are negative. <Lenny Jc - Last Filed: 08/27/19 17:00> ROS Other: All systems not noted in ROS Statement are negative. <Santiago Card - Last Filed: 08/27/19 22:32> ROS Statement: Those systems with pertinent positive or pertinent negative responses have been documented in the HPI. Past Medical History Past Medical History: CVA/TIA, Hypertension Additional Past Medical History / Comment(s): pseudomonas UTI, chronic back pain, osteoporosis, cerebral aneurysm History of Any Multi-Drug Resistant Organisms: None Reported Past Surgical History: Tonsillectomy Additional Past Surgical History / Comment(s): cataracts, coiling of cerebral aneurysm, hiatal hernia repair Past Psychological History: Anxiety Smoking Status: Never smoker Past Alcohol Use History: None Reported Past Drug Use History: None Reported - Past Family History Mother Additional Family Medical History / Comment(s): in a pedestrian versus car accident Father Additional Family Medical History / Comment(s): DC stat age 58 secondary to severe high blood pressure resulting myocardial infarction <Lenny Jc - Last Filed: 08/27/19 17:00> General Exam Limitations: no limitations General appearance: alert, in no apparent distress Head exam: Present: atraumatic, normocephalic, normal inspection Neck exam: Present: normal inspection, full ROM. Absent: tenderness, meningismus, lymphadenopathy Respiratory exam: Present: normal lung sounds bilaterally. Absent: respiratory distress, wheezes, rales, rhonchi, stridor Cardiovascular Exam: Present: regular rate, normal rhythm, normal heart sounds. Absent: systolic murmur, diastolic murmur, rubs, gallop, clicks GI/Abdominal exam: Present: soft, tenderness (Mild lower), normal bowel sounds. Absent: distended, guarding, rebound, rigid Back exam: Present: muscle spasm. Absent: CVA tenderness (R), CVA tenderness (L) <Lenny Jc - Last Filed: 08/27/19 17:00> Course <Santiago Card - Last Filed: 08/27/19 22:32> Vital Signs 08/27/19 08/27/19 14:37 16:44 Temperature 98.4 F 99.2 F Pulse Rate 97 90 Respiratory 19 18 Rate Blood Pressure 173/104 154/89 O2 Sat by Pulse 97 99 Oximetry - Reevaluation(s) Reevaluation #1: 08/27/19 22:31 PA supervision: I personally evaluate this case and patient do agree with the assessment and plan (Santiago Card) Medical Decision Making <Lenny Jc - Last Filed: 08/27/19 17:00> - Medical Decision Making X-ray shows moderate amount of constipation, urinalysis unremarkable no urinary retention. Patient was given 2 enemas did have a large bowel movement. Patient does have moderate muscle on x-ray and will be given magnesium citrate she has no bowel movement tomorrow. There is no evidence of obstruction. (Lenny Jc) - Lab Data Lab Results 08/27/19 Range/Units 14:55 Urine Color Light Yellow Urine Appearance Clear (Clear) Urine pH 7.0 (5.0-8.0) Ur Specific [place] 1.011 (1.001-1.035) Urine Protein Negative (Negative) Urine Glucose (UA) Negative (Negative) Urine Ketones Negative (Negative) Urine Blood Negative (Negative) Urine Nitrite Negative (Negative) Urine Bilirubin Negative (Negative) Urine Urobilinogen <2.0 (<2.0) mg/dL Ur Leukocyte Esterase Negative (Negative) Disposition Is patient prescribed a controlled substance at d/c from ED?: No Time of Disposition: 17:01 <Lenny Jc - Last Filed: 08/27/19 17:00> <Santiago Card - Last Filed: 08/27/19 22:32> Clinical Impression: Constipation Disposition: HOME SELF-CARE Condition: Stable Instructions (If sedation given, give patient instructions): Constipation (ED) Additional Instructions: Please return to the Emergency Department if symptoms worsen or any other concerns. Referrals: Naina Dailey DO [Primary Care Provider] - 1-2 days
[2019-08-27 16:46] VITALS: BP 154/89; PULSE 90; RESP 18; TEMP 99.2
[2019-08-27] MEDS ORDERED: MAGNESIUM CITRATE 296 ML BOTTLE PO ONE (17:00)
== END 2019-08-27 17:15 | disposition home or self-care (01) ==
LOC: EC 14:34
DX: K59.00 Constipation, unspecified (principal); F41.9 Anxiety disorder, unspecified; I10 Essential (primary) hypertension; Z79.02 Long term (current) use of antithrombotics/antiplatelets; Z79.51 Long term (current) use of inhaled steroids; Z79.899 Other long term (current) drug therapy; Z88.2 Allergy status to sulfonamides; Z88.8 Allergy status to other drugs, medicaments and biological substances; Z86.73 Personal history of transient ischemic attack (TIA), and cerebral infarction without residual deficits
CPT/HCPCS: 74018; 81003; 99284

== ENCOUNTER 2019-09-10 16:11 | Emergency (ER) | payer MEDICARE ==
--- NOTE | 2019-09-10 17:18 | ED ---
General Adult HPI - General Chief complaint: Abdominal Pain Stated complaint: constipation Time Seen by Provider: 09/10/19 16:39 Source: patient, RN notes reviewed, old records reviewed Mode of arrival: wheelchair Limitations: no limitations - History of Present Illness Initial comments: 84 yo female presented for evaluation of constipation. Patient has dealt with intermittent constipation for some time. She typically requires an enema for relief. She has some minimal crampy abdominal pain from time to time. Note at the time my evaluation. Denies vomiting. Her last bowel movement was approximately 7 days ago. She did take and magnesium citrate at home with no relief. Typically she has a large bowel movement with enema administration. - Related Data Home Medications Medication Instructions Recorded Confirmed ALPRAZolam [Xanax] 0.25 mg PO BID PRN 09/02/18 08/27/19 Acetaminophen/Caffeine [Excedrin 1 - 2 tab PO HS PRN 09/02/18 08/27/19 Tension Headache Cplt] Carvedilol [Coreg] 6.25 mg PO BID 09/02/18 08/27/19 Cholecalciferol [Vitamin D3 (25 1,000 unit PO DAILY 09/02/18 08/27/19 Mcg = 1000 Iu)] Clopidogrel Bisulfate [Plavix] 75 mg PO HS 09/02/18 08/27/19 Folic Acid 0.8 mg PO DAILY 09/02/18 08/27/19 Melatonin 5 mg PO HS 09/02/18 08/27/19 amLODIPine [Norvasc] 2.5 mg PO BID 09/02/18 08/27/19 oxyCODONE-APAP 10-325MG [Percocet 1 tab PO Q6HR PRN 09/02/18 08/27/19 10-325 mg] predniSONE 5 mg PO DAILY 09/02/18 08/27/19 Enalapril [Vasotec] 20 mg PO BID 06/21/19 08/27/19 Previous Rx's Medication Instructions Recorded Polyethylene Glycol 3350 [Miralax] 8.5 gm PO DAILY PRN #0 06/24/19 Allergies Allergy/AdvReac Type Severity Reaction Status Date / Time nitroglycerin AdvReac BLOOD Verified 09/10/19 16:35 PRESSURE DROPS SEVERELY Sulfa (Sulfonamide AdvReac Dyspnea Verified 09/10/19 16:35 Antibiotics) Review of Systems ROS Statement: Those systems with pertinent positive or pertinent negative responses have been documented in the HPI. ROS Other: All systems not noted in ROS Statement are negative. Past Medical History Past Medical History: CVA/TIA, Hypertension Additional Past Medical History / Comment(s): pseudomonas UTI, chronic back pain, osteoporosis, cerebral aneurysm History of Any Multi-Drug Resistant Organisms: None Reported Past Surgical History: Tonsillectomy Additional Past Surgical History / Comment(s): cataracts, coiling of cerebral aneurysm, hiatal hernia repair Past Psychological History: Anxiety Smoking Status: Never smoker Past Alcohol Use History: None Reported Past Drug Use History: None Reported - Past Family History Mother Additional Family Medical History / Comment(s): in a pedestrian versus car accident Father Additional Family Medical History / Comment(s): DC stat age 58 secondary to severe high blood pressure resulting myocardial infarction General Exam Limitations: no limitations General appearance: alert, in no apparent distress Head exam: Present: atraumatic, normocephalic Eye exam: Present: normal appearance, PERRL ENT exam: Present: normal exam Neck exam: Present: normal inspection. Absent: tenderness, meningismus Respiratory exam: Present: normal lung sounds bilaterally. Absent: respiratory distress, wheezes Cardiovascular Exam: Present: regular rate, normal rhythm GI/Abdominal exam: Present: soft. Absent: distended, tenderness, guarding, rebound Extremities exam: Present: normal inspection, normal capillary refill. Absent: pedal edema Neurological exam: Present: alert, oriented X3, CN II-XII intact. Absent: motor sensory deficit Psychiatric exam: Present: normal affect, normal mood Skin exam: Present: warm, dry, intact. Absent: cyanosis, diaphoretic Course Vital Signs 09/10/19 16:32 Temperature 97.7 F Pulse Rate 97 Respiratory 18 Rate Blood Pressure 165/96 O2 Sat by Pulse 97 Oximetry Medical Decision Making - Medical Decision Making 84-year-old female with chronic constipation presenting with constipation. X- rays obtained shows large stool burden in the colon and rectum. She's given multiple enemas and ultimately disimpacted in the emergency department. She has some relief with this. She will continue symptomatically treatment at home. Currently taking MiraLAX, Colace, prune juice, and magnesium citrate. Disposition Clinical Impression: Constipation Disposition: HOME SELF-CARE Condition: Fair Instructions (If sedation given, give patient instructions): Constipation (ED) Is patient prescribed a controlled substance at d/c from ED?: No Referrals: Naina Dailey DO [Primary Care Provider] - 1-2 days Time of Disposition: 20:50
--- NOTE | 2019-09-10 18:07 | XR ---
EXAMINATION TYPE: XR KUB DATE OF EXAM: 09/10/2019 COMPARISON: 08/27/2019 HISTORY: Abdominal pain TECHNIQUE: Single view. FINDINGS: There is some retained fecal material in the left colon down to the rectum. There is no sign of free air. There are clips from cholecystectomy. There is no evidence of a discrete mass. IMPRESSION: Constipation that is slightly worse than last exam. No free air.
[2019-09-10 21:06] VITALS: BP 168/111; PULSE 93; RESP 17; TEMP 97.9
== END 2019-09-10 21:11 | disposition home or self-care (01) ==
LOC: EC 16:11
DX: K59.09 Other constipation (principal); I10 Essential (primary) hypertension; F41.9 Anxiety disorder, unspecified; Z79.02 Long term (current) use of antithrombotics/antiplatelets; Z79.899 Other long term (current) drug therapy; Z79.51 Long term (current) use of inhaled steroids; Z88.2 Allergy status to sulfonamides; Z88.8 Allergy status to other drugs, medicaments and biological substances; Z86.73 Personal history of transient ischemic attack (TIA), and cerebral infarction without residual deficits
CPT/HCPCS: 74018; 99284

== ENCOUNTER 2019-09-27 16:15 | Inpatient (IN) | payer MEDICARE ==
[2019-09-27] MEDS ORDERED: SODIUM CHLORIDE 0.9% 500 ML 500 ML IV STA (16:20)
[2019-09-27] MEDS ORDERED: SODIUM CHLORIDE 0.9% 1,000 ML IV STA ×2 (16:20→18:01)
[2019-09-27] MEDS ORDERED: ONDANSETRON 4 MG/2 ML VIAL IVP STA ×2 (16:20→20:24)
[2019-09-27 16:50] LABS: Appearance,Urine Clear (Clear); Bacteria,Urine Rare /hpf; Bilirubin,Urine Negative (Negative); Blood,Urine Negative (Negative); Color,Urine Colorless; Glucose,Urine (UA) Negative (Negative); Ketones,Urine Negative (Negative); Leukocyte Esterase,Urine Negative (Negative); Nitrite,Urine Negative (Negative); Protein,Urine 2+ (Negative); Specific Gravity,Urine 1.006 (1.001-1.035); Squamous Epithelial Cell,Urine <1 /hpf (0-4); Urobilinogen,Urine <2.0 mg/dL (<2.0); WBC,Urine 1 /hpf (0-5)
--- NOTE | 2019-09-27 16:51 | ED ---
Abdominal Pain HPI - General Chief Complaint: Abdominal Pain Stated Complaint: Constipation Time Seen by Provider: 09/27/19 16:15 Source: patient, EMS, RN notes reviewed Mode of arrival: EMS Limitations: no limitations - History of Present Illness Initial Comments: This is a 84-year-old female history constipation the past who presents by EMS with complaints of constipation she states her last bowel movement was about a week ago she also states she started developing nausea vomiting or last several days. Every time she tries he she throws up. She also has been having some trouble urinating. No reports of fevers chills or sweats no blood in her emesis or per rectum. She's had multiple episodes like this in the past. MD Complaint: other - Related Data Home Medications Medication Instructions Recorded Confirmed ALPRAZolam [Xanax] 0.25 mg PO BID PRN 09/02/18 08/27/19 Acetaminophen/Caffeine [Excedrin 1 - 2 tab PO HS PRN 09/02/18 08/27/19 Tension Headache Cplt] Carvedilol [Coreg] 6.25 mg PO BID 09/02/18 08/27/19 Cholecalciferol [Vitamin D3 (25 1,000 unit PO DAILY 09/02/18 08/27/19 Mcg = 1000 Iu)] Clopidogrel Bisulfate [Plavix] 75 mg PO HS 09/02/18 08/27/19 Folic Acid 0.8 mg PO DAILY 09/02/18 08/27/19 Melatonin 5 mg PO HS 09/02/18 08/27/19 amLODIPine [Norvasc] 2.5 mg PO BID 09/02/18 08/27/19 oxyCODONE-APAP 10-325MG [Percocet 1 tab PO Q6HR PRN 09/02/18 08/27/19 10-325 mg] predniSONE 5 mg PO DAILY 09/02/18 08/27/19 Enalapril [Vasotec] 20 mg PO BID 06/21/19 08/27/19 Previous Rx's Medication Instructions Recorded Polyethylene Glycol 3350 [Miralax] 8.5 gm PO DAILY PRN #0 06/24/19 Allergies Allergy/AdvReac Type Severity Reaction Status Date / Time nitroglycerin AdvReac BLOOD Verified 09/27/19 16:27 PRESSURE DROPS SEVERELY Sulfa (Sulfonamide AdvReac Dyspnea Verified 09/27/19 16:27 Antibiotics) Review of Systems ROS Statement: Those systems with pertinent positive or pertinent negative responses have been documented in the HPI. ROS Other: All systems not noted in ROS Statement are negative. Past Medical History Past Medical History: CVA/TIA, Hypertension Additional Past Medical History / Comment(s): pseudomonas UTI, chronic back pain, osteoporosis, cerebral aneurysm History of Any Multi-Drug Resistant Organisms: None Reported Past Surgical History: Tonsillectomy Additional Past Surgical History / Comment(s): cataracts, coiling of cerebral aneurysm, hiatal hernia repair Past Psychological History: Anxiety Smoking Status: Never smoker Past Alcohol Use History: None Reported Past Drug Use History: None Reported - Past Family History Mother Additional Family Medical History / Comment(s): in a pedestrian versus car accident Father Additional Family Medical History / Comment(s): DC stat age 58 secondary to severe high blood pressure resulting myocardial infarction General Exam - General Exam Comments Initial Comments: This is a well-developed sec appearing female who is awake alert oriented 3 she is actively demonstrating emesis during the interview. Limitations: no limitations General appearance: alert, anxious, in distress Head exam: Present: atraumatic, normocephalic, normal inspection Eye exam: Present: normal appearance, PERRL, EOMI. Absent: scleral icterus, conjunctival injection, periorbital swelling ENT exam: Present: mucous membranes dry Neck exam: Present: normal inspection. Absent: tenderness, meningismus, lymphadenopathy Respiratory exam: Present: normal lung sounds bilaterally. Absent: respiratory distress, wheezes, rales, rhonchi, stridor Cardiovascular Exam: Present: normal rhythm, tachycardia GI/Abdominal exam: Present: distended, other (Evidence of a distended bladder.) Extremities exam: Present: normal inspection, full ROM, normal capillary refill. Absent: tenderness, pedal edema, joint swelling, calf tenderness Back exam: Present: normal inspection Neurological exam: Present: alert, oriented X3, CN II-XII intact Psychiatric exam: Present: normal affect, normal mood Skin exam: Present: warm, dry, intact, normal color. Absent: rash Course Vital Signs 09/27/19 09/27/19 09/27/19 16:23 18:04 19:47 Temperature 98.0 F Pulse Rate 109 H 89 91 Respiratory 18 16 16 Rate Blood Pressure 184/119 175/111 152/92 O2 Sat by Pulse 97 96 95 Oximetry Medical Decision Making - Medical Decision Making I did discuss the findings with the patient and family members as well as with Dr. garcia. Patient be admitted for IV hydration and was treatment for constipation and hypomagnesemia. - Lab Data Result diagrams: 09/27/19 17:19 09/27/19 17:19 Lab Results 09/27/19 09/27/19 09/27/19 Range/Units 16:30 17:19 17:19 WBC 10.6 (3.8-10.6) k/uL RBC 4.30 (3.80-5.40) m/uL Hgb 13.5 (11.4-16.0) gm/dL Hct 41.8 (34.0-46.0) % MCV 97.4 (80.0-100.0) fL MCH 31.5 (25.0-35.0) pg MCHC 32.3 (31.0-37.0) g/dL RDW 12.8 (11.5-15.5) % Plt Count 375 (150-450) k/uL Neutrophils % 85 % Lymphocytes % 4 % Monocytes % 6 % Eosinophils % 2 % Basophils % 1 % Neutrophils # 9.1 H (1.3-7.7) k/uL Lymphocytes # 0.4 L (1.0-4.8) k/uL Monocytes # 0.7 (0-1.0) k/uL Eosinophils # 0.2 (0-0.7) k/uL Basophils # 0.1 (0-0.2) k/uL Sodium 131 L (137-145) mmol/L Potassium 3.7 (3.5-5.1) mmol/L Chloride 95 L (98-107) mmol/L Carbon Dioxide 25 (22-30) mmol/L Anion Gap 11 mmol/L BUN 20 H (7-17) mg/dL Creatinine 0.42 L (0.52-1.04) mg/dL Est GFR (CKD-EPI)AfAm >90 (>60 ml/min/1.73 sqM) Est GFR (CKD-EPI)NonAf >90 (>60 ml/min/1.73 sqM) Glucose 138 H (74-99) mg/dL Calcium 9.8 (8.4-10.2) mg/dL Magnesium 1.5 L (1.6-2.3) mg/dL Total Bilirubin 0.5 (0.2-1.3) mg/dL AST 27 (14-36) U/L ALT 21 (9-52) U/L Alkaline Phosphatase 110 (38-126) U/L Creatine Kinase 84 (30-135) U/L Troponin I (0.000-0.034) ng/mL Total Protein 7.3 (6.3-8.2) g/dL Albumin 4.3 (3.5-5.0) g/dL Amylase 120 H (30-110) U/L Lipase 82 (23-300) U/L Urine Color Colorless Urine Appearance Clear (Clear) Urine pH 8.0 (5.0-8.0) Ur Specific [place] 1.006 (1.001-1.035) Urine Protein 2+ H (Negative) Urine Glucose (UA) Negative (Negative) Urine Ketones Negative (Negative) Urine Blood Negative (Negative) Urine Nitrite Negative (Negative) Urine Bilirubin Negative (Negative) Urine Urobilinogen <2.0 (<2.0) mg/dL Ur Leukocyte Esterase Negative (Negative) Urine WBC 1 (0-5) /hpf Ur Squamous Epith Cells <1 (0-4) /hpf Urine Bacteria Rare H (None) /hpf 09/27/19 Range/Units 17:19 WBC (3.8-10.6) k/uL RBC (3.80-5.40) m/uL Hgb (11.4-16.0) gm/dL Hct (34.0-46.0) % MCV (80.0-100.0) fL MCH (25.0-35.0) pg MCHC (31.0-37.0) g/dL RDW (11.5-15.5) % Plt Count (150-450) k/uL Neutrophils % % Lymphocytes % % Monocytes % % Eosinophils % % Basophils % % Neutrophils # (1.3-7.7) k/uL Lymphocytes # (1.0-4.8) k/uL Monocytes # (0-1.0) k/uL Eosinophils # (0-0.7) k/uL Basophils # (0-0.2) k/uL Sodium (137-145) mmol/L Potassium (3.5-5.1) mmol/L Chloride (98-107) mmol/L Carbon Dioxide (22-30) mmol/L Anion Gap mmol/L BUN (7-17) mg/dL Creatinine (0.52-1.04) mg/dL Est GFR (CKD-EPI)AfAm (>60 ml/min/1.73 sqM) Est GFR (CKD-EPI)NonAf (>60 ml/min/1.73 sqM) Glucose (74-99) mg/dL Calcium (8.4-10.2) mg/dL Magnesium (1.6-2.3) mg/dL Total Bilirubin (0.2-1.3) mg/dL AST (14-36) U/L ALT (9-52) U/L Alkaline Phosphatase (38-126) U/L Creatine Kinase (30-135) U/L Troponin I <0.012 (0.000-0.034) ng/mL Total Protein (6.3-8.2) g/dL Albumin (3.5-5.0) g/dL Amylase (30-110) U/L Lipase (23-300) U/L Urine Color Urine Appearance (Clear) Urine pH (5.0-8.0) Ur Specific [place] (1.001-1.035) Urine Protein (Negative) Urine Glucose (UA) (Negative) Urine Ketones (Negative) Urine Blood (Negative) Urine Nitrite (Negative) Urine Bilirubin (Negative) Urine Urobilinogen (<2.0) mg/dL Ur Leukocyte Esterase (Negative) Urine WBC (0-5) /hpf Ur Squamous Epith Cells (0-4) /hpf Urine Bacteria (None) /hpf - EKG Data -: EKG Interpreted by Tx EKG shows normal: sinus rhythm (Sinus rhythm a 62. Interval 208 QRS duration 88 QT/QTC 446/[address] T-wave configuration) - Radiology Data Radiology results: report reviewed (I did review the imaging and report is evidence of), image reviewed Disposition Clinical Impression: Intractable vomiting with nausea, Constipation, Dehydration, Hypomagnesemia syndrome, Failure to thrive Disposition: ADMITTED IP TO THIS [facility] Condition: Fair Referrals: Naina Dailey DO [Primary Care Provider] - 1-2 days
[2019-09-27 17:34] LABS: Basophils # (A) 0.1 k/uL (0-0.2); Basophils % (A) 1 %; Eosinophils # (A) 0.2 k/uL (0-0.7); Eosinophils % (A) 2 %; HCT 41.8 % (34.0-46.0); HGB 13.5 gm/dL (11.4-16.0); Lymphocytes # (A) 0.4 k/uL (1.0-4.8); Lymphocytes % (A) 4 %; MCH 31.5 pg (25.0-35.0); MCHC 32.3 g/dL (31.0-37.0); MCV 97.4 fL (80.0-100.0); Monocytes # (A) 0.7 k/uL (0-1.0); Monocytes % (A) 6 %; Neutrophils # (A) 9.1 k/uL (1.3-7.7); Neutrophils % (A) 85 %; Platelet Count 375 k/uL (150-450); RDW 12.8 % (11.5-15.5); WBC 10.6 k/uL (3.8-10.6)
[2019-09-27 17:39] LABS: ALT 21 U/L (9-52); AST 27 U/L (14-36); African American GFR (CKD) >90 (>60 ml/min/1.73 sqM); Albumin 4.3 g/dL (3.5-5.0); Alkaline Phosphatase 110 U/L (38-126); Amylase 120 U/L (30-110); Anion Gap 11 mmol/L; Blood Urea Nitrogen 20 mg/dL (7-17); Calcium 9.8 mg/dL (8.4-10.2); Carbon Dioxide 25 mmol/L (22-30); Chloride 95 mmol/L (98-107); Creatine Kinase 84 U/L (30-135); Glucose 138 mg/dL (74-99); Magnesium 1.5 mg/dL (1.6-2.3); Non-African American GFR(CKD) >90 (>60 ml/min/1.73 sqM); Potassium 3.7 mmol/L (3.5-5.1); Sodium 131 mmol/L (137-145); Total Bilirubin 0.5 mg/dL (0.2-1.3); Total Protein 7.3 g/dL (6.3-8.2)
[2019-09-27] MEDS ORDERED: MAGNESIUM SULFATE-D5W PMX 1 GM in DEXTROSE/WATER 1 100ML.BAG IVPB ONE (18:01)
--- NOTE | 2019-09-27 18:02 | XR ---
EXAMINATION TYPE: XR KUB DATE OF EXAM: 09/27/2019 5:57 PM CLINICAL HISTORY: Abdominal pain and constipation. TECHNIQUE: Two supine KUB images of the abdomen are obtained. COMPARISON: Abdominal x-rays 17 days ago FINDINGS: Persistent elevated left hemidiaphragm. Scattered gas is seen in nondistended small bowel l oops. Gas and fecal material seen throughout the colon. Mild to moderate prominence of colonic fecal material is redemonstrated. Cholecystectomy clips are again seen. Underlying scoliosis with multileve l spurring and disc space narrowing redemonstrated. Basilar opacification aorta extends into iliac br anch vessels. Moderate joint space loss both hips redemonstrated. IMPRESSION: Overall nonobstructive bowel gas pattern. [id number] diffuse colonic fecal stasis remains prese nt slightly less prominent versus prior.
[2019-09-27] MEDS ORDERED: NALOXONE 0.4 MG/ML 1 ML VIAL IV PRN (20:40)
[2019-09-27] MEDS ORDERED: NA PHOS,M-B/NA PHOS,DI-BA 133 ML ENEMA RECTAL ONE (21:00)
[2019-09-27] MEDS: ASPIRIN-ACET-CAFF 250-250-65MG 1 EACH TAB PO PRN (21:27)
[2019-09-27] MEDS: amLODIPine 2.5 MG TAB PO SCH (21:30)
[2019-09-27] MEDS: LISINOPRIL 20 MG TAB PO SCH (21:31)
[2019-09-27] MEDS: CLOPIDOGREL 75 MG TAB PO SCH (21:31)
[2019-09-27] MEDS ORDERED: CARVEDILOL 6.25 MG TAB PO STA (23:22)
[2019-09-27] MEDS: MELATONIN 5 MG TABLET PO SCH (23:37)
[2019-09-27] MEDS: PANTOPRAZOLE 40 MG/10 ML VIAL IV SCH (23:37)
[2019-09-27] MEDS: SODIUM CHLORIDE 0.9% 1,000 ML IV SCH (23:38)
[2019-09-27] MEDS ORDERED: PROMETHAZINE 25 MG TAB PO ONE (23:51)
[2019-09-28] MEDS: ONDANSETRON 4 MG/2 ML VIAL IVP PRN (04:16)
[2019-09-28] MEDS: SODIUM CHLORIDE 0.9% 1,000 ML IV SCH ×3 (05:38→22:27)
[2019-09-28 07:38] LABS: Basophils % (A) 1 %; Eosinophils % (A) 1 %; HCT 37.4 % (34.0-46.0); HGB 12.3 gm/dL (11.4-16.0); Lymphocytes # (A) 0.3 k/uL (1.0-4.8); Lymphocytes % (A) 7 %; MCH 32.3 pg (25.0-35.0); MCHC 32.9 g/dL (31.0-37.0); MCV 98.3 fL (80.0-100.0); Mean Platelet Volume 6.3; Monocytes # (A) 0.6 k/uL (0-1.0); Monocytes % (A) 12 %; Neutrophils # (A) 3.7 k/uL (1.3-7.7); Neutrophils % (A) 77 %; Platelet Count 339 k/uL (150-450); RBC 3.81 m/uL (3.80-5.40); RDW 12.9 % (11.5-15.5); WBC 4.8 k/uL (3.8-10.6)
[2019-09-28 08:05] LABS: African American GFR (CKD) >90 (>60 ml/min/1.73 sqM); Anion Gap 8 mmol/L; Blood Urea Nitrogen 17 mg/dL (7-17); Calcium 8.8 mg/dL (8.4-10.2); Carbon Dioxide 26 mmol/L (22-30); Chloride 98 mmol/L (98-107); Glucose 82 mg/dL (74-99); Non-African American GFR(CKD) 89 (>60 ml/min/1.73 sqM); Potassium 3.8 mmol/L (3.5-5.1); Sodium 132 mmol/L (137-145)
[2019-09-28] MEDS: LISINOPRIL 20 MG TAB PO SCH ×2 (08:34→20:06)
[2019-09-28] MEDS: FOLIC ACID 1 MG TAB PO SCH (08:34)
[2019-09-28] MEDS: CHOLECALCIFEROL 1,000 UNIT TAB PO SCH (08:34)
[2019-09-28] MEDS: CARVEDILOL 6.25 MG TAB PO SCH ×2 (08:34→17:47)
[2019-09-28] MEDS: PANTOPRAZOLE 40 MG/10 ML VIAL IV SCH (08:35)
[2019-09-28] MEDS: predniSONE 5 MG TAB PO SCH (08:35)
[2019-09-28] MEDS: amLODIPine 2.5 MG TAB PO SCH ×2 (08:35→20:08)
[2019-09-28] MEDS ORDERED: POLYETHYLENE GLYCOL 3350 17 GM POWD.PACK PO PRN (09:00)
[2019-09-28 11:55] VITALS: BMI 17.7
[2019-09-28] MEDS: oxyCODONE-APAP 10-325MG 1 EACH TAB PO PRN ×2 (11:55→20:06)
[2019-09-28] MEDS ORDERED: Magnesium Replacement Protocol 1 EACH MISC MISCELLANE PRN ×2 (14:24→15:26)
[2019-09-28] MEDS: IOPAMIDOL CONTRAST (ORAL USE) VIAL PO PRN ×2 (16:03→16:55)
--- NOTE | 2019-09-28 16:36 | HP ---
HISTORY AND PHYSICAL DATE OF SERVICE: 09/28/2019. CHIEF COMPLAINTS: Abdominal pain and constipation. HISTORY OF PRESENT ILLNESS: This 84-year-old woman with a past medical history of multiple medical problems including CVA, TIA, hypertension, Pseudomonas UTI, chronic back pain, history of aneurysm, being followed by primary physician elsewhere, was admitted with abdominal pain, constipation. Patient had previous history of diarrhea. There is no history of fever, rigors or chills. No history of headache, loss of consciousness, seizures. PAST MEDICAL HISTORY: CVA, TIA, hypertension, history of Pseudomonas UTI, chronic back pain, osteoporosis, tonsillectomy. MEDICATIONS: Prior to admission include: 1. Prednisone 5 mg p.o. daily. 2. MiraLAX 8.5 mg p.o. p.r.n. 3. Melatonin 5 mg q.h.s. 4. Folic acid 0.8 mg p.o. daily. 5. Vitamin D3 1000 daily. 6. Lactobacillus, that is Bifidobacterium 4 mg p.o. daily. 7. Excedrin q.h.s. p.r.n. 8. Percocet 10 mg p.o. q.i.d. 9. Norvasc 2.5 mg b.i.d. 10.Vasotec 20 mg p.o. b.i.d. 11.Plavix 75 mg q.h.s. 12.Coreg 6.25 mg p.o. b.i.d. ALLERGIES: NITROGLYCERINE AND SULFA. FAMILY HISTORY: No history of heart disease or strokes in the family. SOCIAL HISTORY: No history of smoking. No history of alcohol. REVIEW OF SYSTEMS: ENT: Diminished vision. Diminished hearing. CARDIOVASCULAR: No angina or palpitations. RESPIRATIONS: No cough. GI: As mentioned earlier. as mentioned earlier. Nervous system: No numbness or weakness. Allergy/Immunology: No asthma or hayfever. Musculoskeletal as mentioned earlier. HEMATOLOGY/ONCOLOGY: No history of anemia. Endocrine: No history of diabetes or hypothyroidism. Constitutional: As mentioned earlier. Dermatology: Negative. Rheumatology: Negative. Psychiatry: As mentioned earlier. PHYSICAL EXAMINATION: The patient is alert and oriented times three. Pulse 87. Blood pressure 120/62, respirations 16, temp 96.9, pulse ox 94% on room air. HEENT: Conjunctivae normal. Oral mucosa moist. NECK is no jugular venous distention. No carotid bruit. No lymph node enlargement. Cardiovascular systems: S1, S2, muffled. RESPIRATION: Breath sounds diminished in the bases. No rhonchi. No crackles. ABDOMEN: Soft, nontender. Mild diffuse distention. LEGS are no edema. No swelling. CENTRAL NERVOUS SYSTEM: No focal deficits. LABORATORY DATA: CBC within normal limits. Sodium 132. Chest x-ray reviewed. ASSESSMENT: 1. Abdominal pain secondary to constipation, rule out bowel obstruction. 2. History of recent diarrhea. 3. History of cerebrovascular accident, transient ischemic attack. 4. Hypertension. 5. Pseudomonas urinary tract infection. 6. Chronic back pain. 7. Osteoporosis. 8. History of cerebral aneurysm. 9. Two hiatal hernia repairs. 10.History of anxiety. RECOMMENDATIONS AND DISCUSSION: Recommend to continue current medications, management and symptomatic treatment. Otherwise, at this time, I would recommend continue the current medications. KUB noted. Also recommend surgical evaluation and as well as a CT scan of the abdomen and pelvis to complete the workup as well. Resume the home medications. DVT prophylaxis. See orders for further details. The prognosis guarded. Further recommendations to follow. MMODL / IJN: [id number] / MTDD
--- NOTE | 2019-09-28 17:54 | CT ---
EXAMINATION TYPE: CT abdomen pelvis w con DATE OF EXAM: 09/28/2019 COMPARISON: None HISTORY: Abdominal pain. CT DLP: 428.7 mGycm Automated exposure control for dose reduction was used. TECHNIQUE: Helical acquisition of images was performed from the lung bases through the pelvis. CONTRAST: Performed with Oral Contrast and with IV Contrast, patient injected with 65 mL of Isovue 300. FINDINGS: There is some patchy atelectasis at the right lung base. There is no pericardial effusion. There is n o pleural effusion. There is small calcified granuloma in the liver. The bile ducts are dilated and common bile duct carlos ures 1.4 cm. Spleen is intact. There is no evidence of pancreatic mass. There are clips from cholecys tectomy. There is small hiatal hernia. There is pancreatic atrophy. Abdominal aorta is atheromatous. 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 There is no adren al mass. Kidneys show satisfactory contrast opacification. There is 2 cm cortical cyst posterior left kidney. There is mild renal atrophy. There is no hydronephrosis. Ureters are not dilated. There is n o evidence of retroperitoneal adenopathy. There is retained fecal material in the rectum. Rectum measures 7 cm. There is no inguinal hernia. B ladder distends smoothly. There is mild lumbar levoscoliosis. There is multilevel spondylotic changes in the lumbar spine. The bony pelvis is intact. There is some osteoarthritis right hip joint. Small bowel contrast opacification appears normal. There is no mesenteric edema. There is no ascites. There is no sign of free air. IMPRESSION: THERE IS SOME CONSTIPATION WITH RECTAL FECAL IMPACTION. Mild renal atrophy. Dilated biliary tree. No obstructing lesion seen. Mild aneurysm of the mid abdominal aorta. Mild atelectasis right lung base.
[2019-09-28] MEDS: MELATONIN 5 MG TABLET PO SCH (20:06)
[2019-09-28] MEDS: DOCUSATE 100 MG CAP PO SCH (20:06)
[2019-09-28] MEDS: CLOPIDOGREL 75 MG TAB PO SCH (20:06)
[2019-09-28] MEDS: PANTOPRAZOLE 40 MG TABLET PO SCH (20:07)
[2019-09-28] MEDS: HEPARIN SODIUM,PORCINE 5,000 UNIT/ML 1 ML VIAL SQ SCH (20:07)
[2019-09-28] MEDS: ASPIRIN-ACET-CAFF 250-250-65MG 1 EACH TAB PO PRN (22:03)
[2019-09-29 07:32] LABS: Basophils % (A) 1 %; Eosinophils # (A) 0.1 k/uL (0-0.7); Eosinophils % (A) 4 %; HCT 34.5 % (34.0-46.0); HGB 11.3 gm/dL (11.4-16.0); Lymphocytes # (A) 0.4 k/uL (1.0-4.8); Lymphocytes % (A) 16 %; MCH 32.1 pg (25.0-35.0); MCHC 32.9 g/dL (31.0-37.0); MCV 97.6 fL (80.0-100.0); Mean Platelet Volume 6.3; Monocytes # (A) 0.3 k/uL (0-1.0); Monocytes % (A) 12 %; Neutrophils # (A) 1.7 k/uL (1.3-7.7); Neutrophils % (A) 64 %; Platelet Count 312 k/uL (150-450); RBC 3.53 m/uL (3.80-5.40); RDW 12.8 % (11.5-15.5); WBC 2.6 k/uL (3.8-10.6)
[2019-09-29 07:46] LABS: African American GFR (CKD) >90 (>60 ml/min/1.73 sqM); Anion Gap 7 mmol/L; Blood Urea Nitrogen 12 mg/dL (7-17); Carbon Dioxide 23 mmol/L (22-30); Chloride 103 mmol/L (98-107); Glucose 88 mg/dL (74-99); Magnesium 1.6 mg/dL (1.6-2.3); Non-African American GFR(CKD) >90 (>60 ml/min/1.73 sqM); Potassium 3.7 mmol/L (3.5-5.1); Sodium 133 mmol/L (137-145)
[2019-09-29] MEDS: amLODIPine 2.5 MG TAB PO SCH ×2 (08:41→20:49)
[2019-09-29] MEDS: CARVEDILOL 6.25 MG TAB PO SCH ×2 (08:41→17:53)
[2019-09-29] MEDS: predniSONE 5 MG TAB PO SCH (08:41)
[2019-09-29] MEDS: LISINOPRIL 20 MG TAB PO SCH ×2 (08:41→20:08)
[2019-09-29] MEDS: PANTOPRAZOLE 40 MG TABLET PO SCH ×2 (08:41→20:08)
[2019-09-29] MEDS: DOCUSATE 100 MG CAP PO SCH ×2 (08:41→20:09)
[2019-09-29] MEDS: HEPARIN SODIUM,PORCINE 5,000 UNIT/ML 1 ML VIAL SQ SCH ×2 (08:41→20:11)
[2019-09-29] MEDS: FOLIC ACID 1 MG TAB PO SCH (08:41)
[2019-09-29] MEDS: CHOLECALCIFEROL 1,000 UNIT TAB PO SCH (08:41)
[2019-09-29] MEDS: oxyCODONE-APAP 10-325MG 1 EACH TAB PO PRN ×2 (08:55→19:19)
--- NOTE | 2019-09-29 12:01 | P.GSCN ---
<Rhonda Steel - Last Filed: 09/29/19 12:01> History of Present Illness Consult date: 09/29/19 Reason for Consult: abdominal pain Requesting physician: Jaciel Gonzales History of present illness: CHIEF COMPLAINT: abdominal pain HISTORY OF PRESENT ILLNESS: 84 year old female who presented to the ER with abdominal pain. Patient reports a history of constipation. She reports she has not had a bowel movement for about a week. She is passing flatus this morning. She received a fleets enema overnight with a very small BM per nursing. She is tolerating clear liquid diet. Denies nausea or vomiting. PAST MEDICAL HISTORY: See list. PAST SURGICAL HISTORY: See list. SOCIAL HISTORY: No illicit drug use. REVIEW OF SYSTEMS: CONSTITUTIONAL: Denies fever or chills. HEENT: Denies blurred vision, vision changes, or eye pain. Denies hemoptysis CARDIOVASCULAR: Denies chest pain or pressure. RESPIRATORY: No shortness of breath. GASTROINTESTINAL: Refer to HPI for pertinent findings HEMATOLOGIC: Denies bleeding disorders. GENITOURINARY: Denies any blood in urine. SKIN: Denies pruitis. Denies rash. PHYSICAL EXAM: VITAL SIGNS: Reviewed. GENERAL: Well-developed in no acute distress. HEENT: No sclera icterus. Extraocular movements grossly intact. Moist buccal mucosa. Head is atraumatic, normocephalic. ABDOMEN: Soft. Minimal distention to lower abdomen. Tenderness with palpation. NEUROLOGIC: Alert and oriented. Cranial nerves II through XII grossly intact. LABORATORY DATA: WBC 2.6. Hemoglobin 11.3. Platelet count 310. Sodium 133. Potassium 3.7. Bilirubin 0.5. AST 27. ALT 21. IMAGING: CT abdomen and pelvis: Dilated bile ducts. Common bile duct measures 1.4 cm. Previous cholecystectomy. Small hiatal hernia. Retained fecal material in the rectum. Rectum measuring 7 cm. Impression reveals constipation with rectal fecal impaction. ASSESSMENT: 1. Abdominal pain 2. Constipation with rectal fecal impaction PLAN: Continue clear liquid diet at this time Soap suds enema (x 3 max) Abdominal xray in AM Nurse practitioner note has been reviewed by physician. Signing provider agrees with the documented findings, assessment, and plan of care. Past Medical History Past Medical History: CVA/TIA, Hypertension Additional Past Medical History / Comment(s): pseudomonas UTI, chronic back pain, osteoporosis, cerebral aneurysm History of Any Multi-Drug Resistant Organisms: None Reported Past Surgical History: Tonsillectomy Additional Past Surgical History / Comment(s): cataracts, coiling of cerebral aneurysm, hiatal hernia repair, retina repair. Additional Past Anesthesia/Blood Transfusion Reaction / Comm: hypotension post anesthesia. Past Psychological History: Anxiety Smoking Status: Never smoker Past Alcohol Use History: None Reported Past Drug Use History: None Reported - Past Family History Mother Additional Family Medical History / Comment(s): in a pedestrian versus car accident Father Additional Family Medical History / Comment(s): DC stat age 58 secondary to severe high blood pressure resulting myocardial infarction Medications and Allergies Home Medications Medication Instructions Recorded Confirmed Type Acetaminophen/Caffeine [Excedrin 1 - 2 tab PO HS PRN 09/02/18 09/27/19 History Tension Headache Cplt] Carvedilol [Coreg] 6.25 mg PO BID 09/02/18 09/27/19 History Cholecalciferol [Vitamin D3 (25 1,000 unit PO DAILY 09/02/18 09/27/19 History Mcg = 1000 Iu)] Clopidogrel Bisulfate [Plavix] 75 mg PO HS 09/02/18 09/27/19 History Folic Acid 0.8 mg PO DAILY 09/02/18 09/27/19 History Melatonin 5 mg PO HS 09/02/18 09/27/19 History amLODIPine [Norvasc] 2.5 mg PO BID 09/02/18 09/27/19 History oxyCODONE-APAP 10-325MG [Percocet 1 tab PO QID PRN 09/02/18 09/27/19 History 10-325 mg] predniSONE 5 mg PO DAILY 09/02/18 09/27/19 History Enalapril [Vasotec] 20 mg PO BID 06/21/19 09/27/19 History Polyethylene Glycol 3350 [Miralax] 8.5 gm PO DAILY PRN #0 06/24/19 09/27/19 Rx Bifidobacterium Infantis [Align] 4 mg PO DAILY 09/27/19 09/27/19 History Allergies Allergy/AdvReac Type Severity Reaction Status Date / Time nitroglycerin AdvReac BLOOD Verified 09/27/19 21:48 PRESSURE DROPS SEVERELY Sulfa (Sulfonamide AdvReac Dyspnea Verified 09/27/19 21:48 Antibiotics) Surgical - Exam Vital Signs Temp Pulse Resp BP Pulse Ox 98.0 F 109 H 18 184/119 97 09/27/19 16:23 09/27/19 16:23 09/27/19 16:23 09/27/19 16:23 09/27/19 16:23 Results - Labs 09/29/19 07:12 09/29/19 07:12 Abnormal Lab Results - Last 24 Hours (Table) 09/29/19 09/29/19 Range/Units 07:12 07:12 WBC 2.6 L (3.8-10.6) k/uL RBC 3.53 L (3.80-5.40) m/uL Hgb 11.3 L (11.4-16.0) gm/dL Lymphocytes # 0.4 L (1.0-4.8) k/uL Sodium 133 L (137-145) mmol/L Creatinine 0.47 L (0.52-1.04) mg/dL Diabetes panel 09/29/19 Range/Units 07:12 Sodium 133 L (137-145) mmol/L Potassium 3.7 (3.5-5.1) mmol/L Chloride 103 (98-107) mmol/L Carbon Dioxide 23 (22-30) mmol/L BUN 12 (7-17) mg/dL Creatinine 0.47 L (0.52-1.04) mg/dL Glucose 88 (74-99) mg/dL Calcium 9.0 (8.4-10.2) mg/dL Calcium panel 09/29/19 Range/Units 07:12 Calcium 9.0 (8.4-10.2) mg/dL Pituitary panel 09/29/19 Range/Units 07:12 Sodium 133 L (137-145) mmol/L Potassium 3.7 (3.5-5.1) mmol/L Chloride 103 (98-107) mmol/L Carbon Dioxide 23 (22-30) mmol/L BUN 12 (7-17) mg/dL Creatinine 0.47 L (0.52-1.04) mg/dL Glucose 88 (74-99) mg/dL Calcium 9.0 (8.4-10.2) mg/dL Adrenal panel 09/29/19 Range/Units 07:12 Sodium 133 L (137-145) mmol/L Potassium 3.7 (3.5-5.1) mmol/L Chloride 103 (98-107) mmol/L Carbon Dioxide 23 (22-30) mmol/L BUN 12 (7-17) mg/dL Creatinine 0.47 L (0.52-1.04) mg/dL Glucose 88 (74-99) mg/dL Calcium 9.0 (8.4-10.2) mg/dL <ReneebrittOsorio - Last Filed: 09/29/19 21:03> History of Present Illness History of present illness: As above. Patient presents with crampy abdominal pain. CAT scan showing evidence of constipation. Patient states this is similar to previous episodes. Feels better after having larger bowel movement earlier today. We'll add magnesium citrate. Advance diet full liquids. Surgical - Exam Vital Signs Temp Pulse Resp BP Pulse Ox 98.0 F 109 H 18 184/119 97 09/27/19 16:23 09/27/19 16:23 09/27/19 16:23 09/27/19 16:23 09/27/19 16:23 Results - Labs 09/29/19 07:12 09/29/19 07:12 Abnormal Lab Results - Last 24 Hours (Table) 09/29/19 09/29/19 Range/Units 07:12 07:12 WBC 2.6 L (3.8-10.6) k/uL RBC 3.53 L (3.80-5.40) m/uL Hgb 11.3 L (11.4-16.0) gm/dL Lymphocytes # 0.4 L (1.0-4.8) k/uL Sodium 133 L (137-145) mmol/L Creatinine 0.47 L (0.52-1.04) mg/dL Diabetes panel 09/29/19 Range/Units 07:12 Sodium 133 L (137-145) mmol/L Potassium 3.7 (3.5-5.1) mmol/L Chloride 103 (98-107) mmol/L Carbon Dioxide 23 (22-30) mmol/L BUN 12 (7-17) mg/dL Creatinine 0.47 L (0.52-1.04) mg/dL Glucose 88 (74-99) mg/dL Calcium 9.0 (8.4-10.2) mg/dL Calcium panel 09/29/19 Range/Units 07:12 Calcium 9.0 (8.4-10.2) mg/dL Pituitary panel 09/29/19 Range/Units 07:12 Sodium 133 L (137-145) mmol/L Potassium 3.7 (3.5-5.1) mmol/L Chloride 103 (98-107) mmol/L Carbon Dioxide 23 (22-30) mmol/L BUN 12 (7-17) mg/dL Creatinine 0.47 L (0.52-1.04) mg/dL Glucose 88 (74-99) mg/dL Calcium 9.0 (8.4-10.2) mg/dL Adrenal panel 09/29/19 Range/Units 07:12 Sodium 133 L (137-145) mmol/L Potassium 3.7 (3.5-5.1) mmol/L Chloride 103 (98-107) mmol/L Carbon Dioxide 23 (22-30) mmol/L BUN 12 (7-17) mg/dL Creatinine 0.47 L (0.52-1.04) mg/dL Glucose 88 (74-99) mg/dL Calcium 9.0 (8.4-10.2) mg/dL
[2019-09-29] MEDS: CLOPIDOGREL 75 MG TAB PO SCH (20:08)
[2019-09-29] MEDS: MELATONIN 5 MG TABLET PO SCH (20:08)
[2019-09-29] MEDS: SODIUM CHLORIDE 0.9% 1,000 ML IV SCH (20:11)
--- NOTE | 2019-09-29 20:16 | P.PN ---
Subjective Progress Note Date: 09/29/19 Principal diagnosis: This is an 84 year old female that was recently admitted for abdominal pain and constipation and is being closely monitored. Surgery is following. Patient unde rwent an enema yesterday producing one small bowel movement. Abdominal CT shows rectal fecal impaction with constipation. Patient is to undergo soap suds enema until clear. Patient denies any chest pain, shortness of breath, or palpitations at this time. Patient is afebrile. Patient denies any nausea or vomiting and has been tolerating clear liquids at this time. Patient states that she continues to have abdominal discomfort, bloating, and distention. Objective - Vital Signs Vital signs: Vital Signs Temp 98.3 F 09/29/19 12:06 Pulse 76 09/29/19 12:06 Resp 17 09/29/19 12:06 BP 119/66 09/29/19 12:06 Pulse Ox 95 09/29/19 12:06 Intake & Output 09/29/19 09/29/19 09/30/19 06:59 18:59 06:59 Intake Total 120 480 Output Total 200 500 Balance -80 -20 Intake: Intake, IV Titration 120 480 Amount Sodium Chloride 0.9% 1, 120 480 000 ml @ 60 mls/hr IV . [id number] [facility] Rx#:[id number] Output: Urine 200 500 Straight 300 Other: Voiding Method Bedside Commode Bedside Commode # Voids 2 2 # Bowel Movements 3 - Exam Gen: This is a 84-year-old female sitting up in bed in no acute distress. temp is 98.3F, pulse is 76, bp is 119/66, resp are 17, sp02 is 95% room air HEENT: Head is atraumatic, normocephalic. Pupils equal, round. Sclerae is anicteric. Conjunctiva is normal NECK: Supple. No JVD. No lymphadenopathy. No thyromegaly. LUNGS: Breath sounds diminished with no rhonchi and crackles noted . No intercostal retractions. HEART: Regular rate and rhythm. No murmur. ABDOMEN: Soft. mildly tender upon palpation. Sluggish Bowel sounds are present. No masses. EXTREMITIES: no pedal edema. No calf tenderness. SCDs noted NEUROLOGICAL: Patient is awake, alert and oriented x3. - Labs CBC & Chem 7: 09/29/19 07:12 09/29/19 07:12 Labs: Abnormal Lab Results - Last 24 Hours (Table) 09/29/19 09/29/19 Range/Units 07:12 07:12 WBC 2.6 L (3.8-10.6) k/uL RBC 3.53 L (3.80-5.40) m/uL Hgb 11.3 L (11.4-16.0) gm/dL Lymphocytes # 0.4 L (1.0-4.8) k/uL Sodium 133 L (137-145) mmol/L Creatinine 0.47 L (0.52-1.04) mg/dL Assessment and Plan Assessment: Abdominal pain secondary to constipation, rule out bowel obstruction History of recent diarrhea History of cerebrovascular accident, TIA hypertension Pseudomonas urinary tract infection Chronic back pain Osteoporosis History of cerebral aneurysm Two hiatal hernia repairs History of anxiety Recommendations and discussion: recommend to continue current medications, management, and symptomatic treatment. Will continue to monitor closely. Patient is currently in the process of soap suds enemas until clear and continues to have abdominal distention and discomfort. Surgery is following closely. Will repeat abdominal xray in the am. Guarded prognosis. Further recommendations to follow. Possible discharge in 24- 48 hours.
[2019-09-29] MEDS ORDERED: MAGNESIUM CITRATE 296 ML BOTTLE PO ONE (20:58)
[2019-09-30] MEDS: oxyCODONE-APAP 10-325MG 1 EACH TAB PO PRN ×3 (01:58→15:51)
[2019-09-30] MEDS: ASPIRIN-ACET-CAFF 250-250-65MG 1 EACH TAB PO PRN (03:58)
[2019-09-30] MEDS: SODIUM CHLORIDE 0.9% 1,000 ML IV SCH (04:44)
[2019-09-30] MEDS: ONDANSETRON 4 MG/2 ML VIAL IVP PRN ×3 (06:25→22:37)
[2019-09-30] MEDS: CARVEDILOL 6.25 MG TAB PO SCH ×2 (08:10→17:16)
[2019-09-30] MEDS: amLODIPine 2.5 MG TAB PO SCH ×2 (08:11→20:58)
[2019-09-30] MEDS: HEPARIN SODIUM,PORCINE 5,000 UNIT/ML 1 ML VIAL SQ SCH ×2 (08:11→20:58)
[2019-09-30] MEDS: FOLIC ACID 1 MG TAB PO SCH (08:11)
[2019-09-30] MEDS: DOCUSATE 100 MG CAP PO SCH ×2 (08:11→20:58)
[2019-09-30] MEDS: LISINOPRIL 20 MG TAB PO SCH ×2 (08:11→20:58)
[2019-09-30] MEDS: CHOLECALCIFEROL 1,000 UNIT TAB PO SCH (08:11)
[2019-09-30] MEDS: PANTOPRAZOLE 40 MG TABLET PO SCH ×2 (08:12→20:59)
[2019-09-30] MEDS: predniSONE 5 MG TAB PO SCH (08:12)
--- NOTE | 2019-09-30 08:36 | CDI ---
Documentation Clarification Form Date: 09/30/2019 8:14:20 AM From: Veronica Parker RN, CCDS Admit Date: 09/29/2019 11:57:00 AM Patient Name: Stephanie Nunez Visit Number: [id number] Discharge Date: ATTENTION: The Clinical Documentation Specialists (CDI) and [facility] Coding Staff appreciate your assistance in clarifying documentation. Please respond to the clarification below the line at the bottom and electronically sign. The CDI & [facility] Coding staff will review the response and follow-up if needed. Please note: Queries are made part of the Legal Health Record. If you have any questions, please contact the author of this message via ITS. Dr. Jaciel Gonzales The patient presented with abdominal pain with complaints of constipation. History/Risk Factors: CVA, TIA, Hypertension Clinical Indicators: 84-year-old female who present after developing nausea, vomiting for last several days. She states her last bowel movement was about a week ago. Lab findings: WBC 2.6, HGB 11.3, NA+ 133 CT abdomen: Dilated bile ducts. Impression constipation with rectal fecal impaction Vital Signs: 137/76 74 16 97.8 Surgical consult: (Dr. Lezama) Constipation with rectal fecal impaction Treatment: Clear liquid diet Soap suds enema (x3 max) Abdominal x-ray's (per orders) IV Fluids Colace PO In your professional opinion, can you please clarify if you are treating? Constipation with rectal fecal impaction Bowel obstruction ruled in Bowel obstruction ruled out Other, please specify Unable to determine (Last Revision: January 2018) Constipation with rectal fecal impaction MTDD
[2019-09-30 08:41] LABS: Basophils % (A) 1 %; Eosinophils # (A) 0.1 k/uL (0-0.7); Eosinophils % (A) 4 %; HCT 41.5 % (34.0-46.0); HGB 13.3 gm/dL (11.4-16.0); Lymphocytes # (A) 0.4 k/uL (1.0-4.8); Lymphocytes % (A) 10 %; MCH 31.6 pg (25.0-35.0); MCHC 32.1 g/dL (31.0-37.0); MCV 98.5 fL (80.0-100.0); Mean Platelet Volume 6.1; Monocytes # (A) 0.4 k/uL (0-1.0); Monocytes % (A) 11 %; Neutrophils # (A) 2.4 k/uL (1.3-7.7); Neutrophils % (A) 71 %; Platelet Count 377 k/uL (150-450); RBC 4.21 m/uL (3.80-5.40); RDW 12.8 % (11.5-15.5); WBC 3.4 k/uL (3.8-10.6)
[2019-09-30 08:59] LABS: African American GFR (CKD) >90 (>60 ml/min/1.73 sqM); Anion Gap 10 mmol/L; Blood Urea Nitrogen 8 mg/dL (7-17); Calcium 9.5 mg/dL (8.4-10.2); Carbon Dioxide 25 mmol/L (22-30); Chloride 99 mmol/L (98-107); Glucose 86 mg/dL (74-99); Non-African American GFR(CKD) >90 (>60 ml/min/1.73 sqM); Sodium 134 mmol/L (137-145)
[2019-09-30 09:03] LABS: Potassium 4.2 mmol/L (3.5-5.1)
--- NOTE | 2019-09-30 10:40 | XR ---
EXAMINATION TYPE: XR abdomen 2V DATE OF EXAM: 09/30/2019 COMPARISON: 09/27/2019 HISTORY: Pain TECHNIQUE: One view abdominal series FINDINGS: The osseous structures are intact. The bowel gas pattern is nonspecific. Curvature of the spine with diffuse osteopenia and degenerative changes. Retained contrast within the bowel. Arthropathy of the hips. Surgical clips in right upper quadrant. IMPRESSION: 1. Nonspecific abdomen with contrast seen both throughout large and small bowel loops extending to th e rectum. Persistent air-fluid levels are noted. Partial obstructive pattern not excluded.
[2019-09-30] MEDS ORDERED: MAGNESIUM CITRATE 296 ML BOTTLE PO ONE (12:00)
--- NOTE | 2019-09-30 13:29 | P.PN ---
<Rhonda Steel - Last Filed: 09/30/19 13:26> Subjective Progress Note Date: 09/30/19 CHIEF COMPLAINT: abdominal pain HISTORY OF PRESENT ILLNESS: Patient examined at the bedside. She reports receiving an enema yesterday and having a large bowel movement. She refused magnesium citrate yesterday. She reports feeling mildly bloated today. She reports nausea. She states "I think I have more stool that needs to come out". Abdominal x-ray this morning reveals retained contrast within the bowel. Nonspecific abdomen with contrast seen both are large and small bowel loops extending to the rectum. Persistent air-fluid levels are noted. PHYSICAL EXAM: VITAL SIGNS: Reviewed. GENERAL: Well-developed in no acute distress. HEENT: No sclera icterus. Extraocular movements grossly intact. Moist buccal mucosa. Head is atraumatic, normocephalic. ABDOMEN: Soft. Minimal distention to lower abdomen. Nontender NEUROLOGIC: Alert and oriented. Cranial nerves II through XII grossly intact. ASSESSMENT: 1. Abdominal pain 2. Constipation with rectal fecal impaction PLAN: Continue full liquid diet. Do not advance due to patients nausea this morning Dose of magnesium citrate today as patient refused yesterday Nurse practitioner note has been reviewed by physician. Signing provider agrees with the documented findings, assessment, and plan of care. Objective - Vital Signs Vital signs: Vital Signs Temp 98.0 F 09/30/19 04:29 Pulse 78 09/30/19 04:29 Resp 18 09/30/19 04:29 BP 146/84 09/30/19 04:29 Pulse Ox 95 09/30/19 04:29 Intake & Output 09/29/19 09/30/19 09/30/19 18:59 06:59 18:59 Intake Total 480 1120 Output Total 500 Balance -20 1120 Intake: Intake, IV Titration 480 240 Amount Sodium Chloride 0.9% 1, 480 240 000 ml @ 60 mls/hr IV . [id number] [facility] Rx#:[id number] Oral 880 Output: Urine 500 Straight 300 Other: Voiding Method Bedside Commode Bedside Commode # Voids 2 5 # Bowel Movements 3 - Labs CBC & Chem 7: 09/30/19 08:14 09/30/19 08:21 Labs: Abnormal Lab Results - Last 24 Hours (Table) 09/30/19 09/30/19 Range/Units 08:14 08:21 WBC 3.4 L (3.8-10.6) k/uL Lymphocytes # 0.4 L (1.0-4.8) k/uL Sodium 134 L (137-145) mmol/L Creatinine 0.39 L (0.52-1.04) mg/dL <Osorio Lezama - Last Filed: 09/30/19 17:22> Subjective As above. Patient with persistent constipation and slight bowel distention on x-rays. States she is having nausea today. Bedside rectal examination performed. Soft stool within the rectal vault without hard stool impaction. Begin additional soapsuds enemas today. Continue magnesium citrate as ordered. Objective - Vital Signs Vital signs: Vital Signs Temp 97.8 F 09/30/19 13:00 Pulse 76 09/30/19 16:00 Resp 16 09/30/19 16:00 BP 152/76 09/30/19 13:00 Pulse Ox 96 09/30/19 13:00 Intake & Output 09/29/19 09/30/19 09/30/19 18:59 06:59 18:59 Intake Total 480 1120 2560 Output Total 500 291 Balance -20 1120 2269 Intake: Intake, IV Titration 480 240 720 Amount Sodium Chloride 0.9% 1, 480 240 720 000 ml @ 60 mls/hr IV . [id number] [facility] Rx#:[id number] Oral 880 1840 Output: Urine 500 200 Straight 300 Post Void Residual 91 Other: Voiding Method Bedside Commode Bedside Commode Bedside Commode # Voids 2 5 11 # Bowel Movements 3 - Labs CBC & Chem 7: 09/30/19 08:14 09/30/19 08:21 Labs: Abnormal Lab Results - Last 24 Hours (Table) 09/30/19 09/30/19 Range/Units 08:14 08:21 WBC 3.4 L (3.8-10.6) k/uL Lymphocytes # 0.4 L (1.0-4.8) k/uL Sodium 134 L (137-145) mmol/L Creatinine 0.39 L (0.52-1.04) mg/dL
--- NOTE | 2019-09-30 14:53 | P.PN ---
Subjective Progress Note Date: 09/30/19 Principal diagnosis: This is an 84 year old female that was recently admitted for abdominal pain and constipation and is being closely monitored. Surgery is following. Patient unde rwent an enema yesterday producing one small bowel movement. Abdominal CT shows rectal fecal impaction with constipation. Patient is to undergo soap suds enema until clear. Patient denies any chest pain, shortness of breath, or palpitations at this time. Patient is afebrile. Patient denies any nausea or vomiting and has been tolerating clear liquids at this time. Patient states that she continues to have abdominal discomfort, bloating, and distention. 09/30/2019 Patient is sitting up in bed in no acute distress with no acute overnight issues. Patient states that she had a large bowel movement after an enema yesterday and was refusing magnesium citrate as she has been slightly nauseated. Repeat abdominal x-ray today shows retained contrast noted in the large and small bowel loops extending to the rectum with persistent air fluid levels. Patient is passing gas but denies any recent bowel movement activity today. Patient does have Zofran ordered as needed. Will attempt magnesium citrate again today and will continue to monitor closely. Currently patient denies any chest pain, shortness of breath, or palpitations at this time. Patient is afebrile. Patient denies any vomiting and has been advanced to full liquids and will continue with this at this time. Surgery is following closely. Objective - Vital Signs Vital signs: Vital Signs Temp 97.8 F 09/30/19 13:00 Pulse 76 09/30/19 13:00 Resp 16 09/30/19 13:00 BP 152/76 09/30/19 13:00 Pulse Ox 96 09/30/19 13:00 Intake & Output 09/29/19 09/30/19 09/30/19 18:59 06:59 18:59 Intake Total 480 1120 Output Total 500 Balance -20 1120 Intake: Intake, IV Titration 480 240 Amount Sodium Chloride 0.9% 1, 480 240 000 ml @ 60 mls/hr IV . [id number] [facility] Rx#:[id number] Oral 880 Output: Urine 500 Straight 300 Other: Voiding Method Bedside Commode Bedside Commode Bedside Commode # Voids 2 5 # Bowel Movements 3 - Exam Gen: This is a 84-year-old female sitting up in bed in no acute distress. temp is 98.0F, pulse is 88, bp is 146/84, resp are 18, sp02 is 95% room air HEENT: Head is atraumatic, normocephalic. Pupils equal, round. Sclerae is anicteric. Conjunctiva is normal NECK: Supple. No JVD. No lymphadenopathy. No thyromegaly. LUNGS: Breath sounds diminished with no rhonchi and crackles noted . No inte rcostal retractions. HEART: Regular rate and rhythm. No murmur. ABDOMEN: Soft. mildly tender upon palpation. Bowel sounds are present. No masses. EXTREMITIES: no pedal edema. No calf tenderness. SCDs noted NEUROLOGICAL: Patient is awake, alert and oriented x3. - Labs CBC & Chem 7: 09/30/19 08:14 09/30/19 08:21 Labs: Abnormal Lab Results - Last 24 Hours (Table) 09/30/19 09/30/19 Range/Units 08:14 08:21 WBC 3.4 L (3.8-10.6) k/uL Lymphocytes # 0.4 L (1.0-4.8) k/uL Sodium 134 L (137-145) mmol/L Creatinine 0.39 L (0.52-1.04) mg/dL Assessment and Plan Assessment: Abdominal pain secondary to constipation, with rectal fecal impaction, rule out bowel obstruction History of recent diarrhea History of cerebrovascular accident, TIA hypertension Pseudomonas urinary tract infection Chronic back pain Osteoporosis History of cerebral aneurysm Two hiatal hernia repairs History of anxiety Recommendations and discussion: recommend to continue current medications, management, and symptomatic treatment. Will continue to monitor closely. Patient had a large bowel movement yesterday and was refusing any magnesium citrate. Repeat abdominal x-ray today shows contrast noted in the low small and large bowel loop. Patient continues to have some mild nausea with no vomiting noted. Zofran when necessary ordered. Patient will receive magnesium citrate today. Surgery is following closely. Guarded prognosis. Further recommendations to follow. Possible discharge in 24- 48 hours.
[2019-09-30] MEDS: MELATONIN 5 MG TABLET PO SCH (20:58)
[2019-09-30] MEDS: CLOPIDOGREL 75 MG TAB PO SCH (20:58)
[2019-09-30] MEDS: ALPRAZolam 0.25 MG TAB PO PRN (23:52)
[2019-10-01] MEDS: SODIUM CHLORIDE 0.9% 1,000 ML IV SCH ×2 (01:15→17:07)
[2019-10-01] MEDS: hydrALAZINE HCL 25 MG TAB PO PRN (04:12)
[2019-10-01] MEDS: ONDANSETRON 4 MG/2 ML VIAL IVP PRN (04:23)
[2019-10-01] MEDS: DOCUSATE 100 MG CAP PO SCH ×2 (09:15→21:09)
[2019-10-01] MEDS: CHOLECALCIFEROL 1,000 UNIT TAB PO SCH (09:15)
[2019-10-01] MEDS: CARVEDILOL 6.25 MG TAB PO SCH ×2 (09:15→19:34)
[2019-10-01] MEDS: PANTOPRAZOLE 40 MG TABLET PO SCH ×2 (09:15→21:10)
[2019-10-01] MEDS: HEPARIN SODIUM,PORCINE 5,000 UNIT/ML 1 ML VIAL SQ SCH ×2 (09:15→21:09)
[2019-10-01] MEDS: LISINOPRIL 20 MG TAB PO SCH ×2 (09:15→21:09)
[2019-10-01] MEDS: FOLIC ACID 1 MG TAB PO SCH (09:15)
[2019-10-01] MEDS: predniSONE 5 MG TAB PO SCH (09:16)
[2019-10-01] MEDS: amLODIPine 2.5 MG TAB PO SCH ×2 (09:17→21:09)
[2019-10-01] MEDS: oxyCODONE-APAP 10-325MG 1 EACH TAB PO PRN ×2 (09:23→19:12)
--- NOTE | 2019-10-01 09:31 | P.PN ---
Subjective Progress Note Date: 10/01/19 Principal diagnosis: Abdominal pain Patient was nauseated most of yesterday. No vomiting. Today she states her nausea is improved. Apparently she had good bowel function after her soapsuds enemas last night. Denies pain currently. Objective - Vital Signs Vital signs: Vital Signs Temp 98 F 10/01/19 05:00 Pulse 74 10/01/19 05:00 Resp 18 10/01/19 05:00 BP 138/76 10/01/19 05:00 Pulse Ox 96 10/01/19 05:00 Intake & Output 09/30/19 10/01/19 10/01/19 18:59 06:59 18:59 Intake Total 3280 720 Output Total 291 401 Balance 2989 319 Intake: Intake, IV Titration 720 720 Amount Sodium Chloride 0.9% 1, 720 720 000 ml @ 60 mls/hr IV . [id number] Rx#:[id number] Oral 2560 Output: Urine 200 401 Straight 400 Post Void Residual 91 Other: Voiding Method Bedside Commode Bedside Commode # Voids 11 # Bowel Movements 1 - Exam Abdomen soft mildly distended mild diffuse tenderness - Labs CBC & Chem 7: 09/30/19 08:14 09/30/19 08:21 Assessment and Plan (1) Constipation Narrative/Plan: Continue soapsuds enemas today. Continue stool softeners as well. Continue full liquids. May advance if tolerates. Current Visit: Yes Status: Acute Code(s): K59.00 - CONSTIPATION, UNSPECIFIED SNOMED Code(s): 01645086
[2019-10-01 10:10] LABS: African American GFR (CKD) >90 (>60 ml/min/1.73 sqM); Anion Gap 9 mmol/L; Basophils % (A) 1 %; Blood Urea Nitrogen 8 mg/dL (7-17); Calcium 9.4 mg/dL (8.4-10.2); Carbon Dioxide 28 mmol/L (22-30); Chloride 95 mmol/L (98-107); Eosinophils # (A) 0.1 k/uL (0-0.7); Eosinophils % (A) 3 %; Glucose 85 mg/dL (74-99); HCT 38.1 % (34.0-46.0); HGB 12.8 gm/dL (11.4-16.0); Lymphocytes # (A) 0.4 k/uL (1.0-4.8); Lymphocytes % (A) 10 %; MCH 32.5 pg (25.0-35.0); MCHC 33.6 g/dL (31.0-37.0); MCV 96.7 fL (80.0-100.0); Monocytes # (A) 0.4 k/uL (0-1.0); Monocytes % (A) 11 %; Neutrophils # (A) 3.1 k/uL (1.3-7.7); Neutrophils % (A) 75 %; Non-African American GFR(CKD) >90 (>60 ml/min/1.73 sqM); Platelet Count 214 k/uL (150-450); Potassium 3.5 mmol/L (3.5-5.1); RBC 3.94 m/uL (3.80-5.40); RDW 12.7 % (11.5-15.5); Sodium 132 mmol/L (137-145); WBC 4.1 k/uL (3.8-10.6)
--- NOTE | 2019-10-01 16:17 | P.PN ---
Subjective Progress Note Date: 10/01/19 Principal diagnosis: This is an 84 year old female that was recently admitted for abdominal pain and constipation and is being closely monitored. Surgery is following. Patient unde rwent an enema yesterday producing one small bowel movement. Abdominal CT shows rectal fecal impaction with constipation. Patient is to undergo soap suds enema until clear. Patient denies any chest pain, shortness of breath, or palpitations at this time. Patient is afebrile. Patient denies any nausea or vomiting and has been tolerating clear liquids at this time. Patient states that she continues to have abdominal discomfort, bloating, and distention. 09/30/2019 Patient is sitting up in bed in no acute distress with no acute overnight issues. Patient states that she had a large bowel movement after an enema yesterday and was refusing magnesium citrate as she has been slightly nauseated. Repeat abdominal x-ray today shows retained contrast noted in the large and small bowel loops extending to the rectum with persistent air fluid levels. Patient is passing gas but denies any recent bowel movement activity today. Patient does have Zofran ordered as needed. Will attempt magnesium citrate again today and will continue to monitor closely. Currently patient denies any chest pain, shortness of breath, or palpitations at this time. Patient is afebrile. Patient denies any vomiting and has been advanced to full liquids and will continue with this at this time. Surgery is following closely. 10/01/2019 Patient is sitting up in bed in no acute distress with no acute overnight iss ues. Patient had a large bowel movement yesterday but continues to have some abdominal discomfort. Nausea and vomiting have subsided and patient is tolerating diet at this time. Patient is currently on full liquids and may advance as tolerated. Patient will be given another soapsuds enema today. Patient has been having episodes of urinary retention and a [place] catheter was ordered. Will continue to monitor closely. Patient denies any chest pain, shortness of breath, or palpitations. Patient has been afebrile. Patient denies any nausea or vomiting and is tolerating diet as mentioned previously. Surgery is following. Objective - Vital Signs Vital signs: Vital Signs Temp 98.1 F 10/01/19 11:47 Pulse 74 10/01/19 11:47 Resp 16 10/01/19 11:47 BP 130/74 10/01/19 11:47 Pulse Ox 97 10/01/19 11:47 Intake & Output 09/30/19 10/01/19 10/01/19 18:59 06:59 18:59 Intake Total 3280 720 340 Output Total 291 401 291 Balance 2989 319 49 Weight 42.638 kg Intake: Intake, IV Titration 720 720 340 Amount Sodium Chloride 0.9% 1, 720 720 340 000 ml @ 25 mls/hr IV . Q24H [facility] Rx#:[id number] Oral 2560 Output: Urine 200 401 Straight 400 Post Void Residual 91 291 Other: Voiding Method Bedside Commode Bedside Commode Bedside Commode # Voids 11 1 # Bowel Movements 1 1 - Exam Gen: This is a 84-year-old female sitting up in bed in no acute distress. temp is 98.1F, pulse is 44, bp is 130/74, resp are 16, sp02 is 97% room air HEENT: Head is atraumatic, normocephalic. Pupils equal, round. Sclerae is anicteric. Conjunctiva is normal NECK: Supple. No JVD. No lymphadenopathy. No thyromegaly. LUNGS: Breath sounds diminished with no rhonchi and crackles noted . No intercostal retractions. HEART: Regular rate and rhythm. No murmur. ABDOMEN: Soft. mildly tender upon palpation. Bowel sounds are present. No masses. EXTREMITIES: no pedal edema. No calf tenderness. SCDs noted NEUROLOGICAL: Patient is awake, alert and oriented x3. - Labs CBC & Chem 7: 10/01/19 09:13 10/01/19 09:13 Labs: Abnormal Lab Results - Last 24 Hours (Table) 10/01/19 10/01/19 Range/Units 09:13 09:13 Lymphocytes # 0.4 L (1.0-4.8) k/uL Sodium 132 L (137-145) mmol/L Chloride 95 L (98-107) mmol/L Creatinine 0.47 L (0.52-1.04) mg/dL Assessment and Plan Assessment: Abdominal pain secondary to constipation, with rectal fecal impaction, rule out bowel obstruction History of recent diarrhea History of cerebrovascular accident, TIA hypertension Pseudomonas urinary tract infection Chronic back pain Osteoporosis History of cerebral aneurysm Two hiatal hernia repairs History of anxiety Recommendations and discussion: recommend to continue current medications, management, and symptomatic treatment. Will continue to monitor closely. Patient had a large bowel movement yesterday and continues to have some abdominal discomfort. Patient will receive another soapsuds enema today. Nausea has subsided and patient is currently on a full liquid diet and may advance as tolerated. Surgery is following closely. Guarded prognosis. Further recommendations to follow. Possible discharge in 24- 48 hours.
[2019-10-01] MEDS: CLOPIDOGREL 75 MG TAB PO SCH (21:09)
[2019-10-01] MEDS: MELATONIN 5 MG TABLET PO SCH (21:09)
[2019-10-01] MEDS: ALPRAZolam 0.25 MG TAB PO PRN (21:10)
[2019-10-02] MEDS: SODIUM CHLORIDE 0.9% 1,000 ML IV SCH (00:21)
[2019-10-02] MEDS: oxyCODONE-APAP 10-325MG 1 EACH TAB PO PRN ×3 (04:39→17:29)
[2019-10-02] MEDS: HEPARIN SODIUM,PORCINE 5,000 UNIT/ML 1 ML VIAL SQ SCH ×2 (07:54→20:49)
[2019-10-02] MEDS: ONDANSETRON 4 MG/2 ML VIAL IVP PRN ×2 (07:54→20:49)
[2019-10-02] MEDS: DOCUSATE 100 MG CAP PO SCH ×2 (07:56→20:49)
[2019-10-02] MEDS: FOLIC ACID 1 MG TAB PO SCH (07:56)
[2019-10-02] MEDS: LISINOPRIL 20 MG TAB PO SCH ×2 (07:56→20:48)
[2019-10-02] MEDS: CHOLECALCIFEROL 1,000 UNIT TAB PO SCH (07:56)
[2019-10-02] MEDS: PANTOPRAZOLE 40 MG TABLET PO SCH ×2 (07:56→20:48)
[2019-10-02] MEDS: CARVEDILOL 6.25 MG TAB PO SCH ×2 (07:56→17:29)
[2019-10-02] MEDS: amLODIPine 2.5 MG TAB PO SCH ×2 (07:57→22:04)
[2019-10-02] MEDS: predniSONE 5 MG TAB PO SCH (07:58)
--- NOTE | 2019-10-02 14:50 | P.PN ---
Subjective Progress Note Date: 10/02/19 CHIEF COMPLAINT: abdominal pain HISTORY OF PRESENT ILLNESS: Patient examined at the bedside. She received enemas overnight and reports having bowel movements. Denies abdominal pain. Mild nausea. No vomiting. Tolerating full liquid diet. PHYSICAL EXAM: VITAL SIGNS: Reviewed. GENERAL: Well-developed in no acute distress. HEENT: No sclera icterus. Extraocular movements grossly intact. Moist buccal mucosa. Head is atraumatic, normocephalic. ABDOMEN: Soft. Nondistended. Nontender NEUROLOGIC: Alert and oriented. Cranial nerves II through XII grossly intact. ASSESSMENT: 1. Abdominal pain 2. Constipation with rectal fecal impaction PLAN: No further enemas at this time Advance diet as tolerated Nurse practitioner note has been reviewed by physician. Signing provider agrees with the documented findings, assessment, and plan of care. Objective - Vital Signs Vital signs: Vital Signs Temp 98.1 F 10/02/19 13:00 Pulse 72 10/02/19 13:00 Resp 14 10/02/19 13:00 BP 134/84 10/02/19 13:00 Pulse Ox 96 10/02/19 13:00 Intake & Output 10/01/19 10/02/19 10/02/19 18:59 06:59 18:59 Intake Total 340 300 600 Output Total 291 300 800 Balance 49 0 -200 Weight 42.638 kg Intake: Intake, IV Titration 340 300 200 Amount Sodium Chloride 0.9% 1, 340 300 200 000 ml @ 25 mls/hr IV . Q24H [facility] Rx#:[id number] Oral 400 Output: Urine 300 800 Uretheral ([place]am) 300 Post Void Residual 291 Other: Voiding Method Indwelling Catheter Indwelling Catheter Indwelling Catheter # Voids 1 # Bowel Movements 1 1 - Labs CBC & Chem 7: 10/01/19 09:13 10/01/19 09:13
--- NOTE | 2019-10-02 16:28 | P.PN ---
Subjective Progress Note Date: 10/02/19 Principal diagnosis: This is an 84 year old female that was recently admitted for abdominal pain and constipation and is being closely monitored. Surgery is following. Patient unde rwent an enema yesterday producing one small bowel movement. Abdominal CT shows rectal fecal impaction with constipation. Patient is to undergo soap suds enema until clear. Patient denies any chest pain, shortness of breath, or palpitations at this time. Patient is afebrile. Patient denies any nausea or vomiting and has been tolerating clear liquids at this time. Patient states that she continues to have abdominal discomfort, bloating, and distention. 09/30/2019 Patient is sitting up in bed in no acute distress with no acute overnight issues. Patient states that she had a large bowel movement after an enema yesterday and was refusing magnesium citrate as she has been slightly nauseated. Repeat abdominal x-ray today shows retained contrast noted in the large and small bowel loops extending to the rectum with persistent air fluid levels. Patient is passing gas but denies any recent bowel movement activity today. Patient does have Zofran ordered as needed. Will attempt magnesium citrate again today and will continue to monitor closely. Currently patient denies any chest pain, shortness of breath, or palpitations at this time. Patient is afebrile. Patient denies any vomiting and has been advanced to full liquids and will continue with this at this time. Surgery is following closely. 10/01/2019 Patient is sitting up in bed in no acute distress with no acute overnight iss ues. Patient had a large bowel movement yesterday but continues to have some abdominal discomfort. Nausea and vomiting have subsided and patient is tolerating diet at this time. Patient is currently on full liquids and may advance as tolerated. Patient will be given another soapsuds enema today. Patient has been having episodes of urinary retention and a [place] catheter was ordered. Will continue to monitor closely. Patient denies any chest pain, shortness of breath, or palpitations. Patient has been afebrile. Patient denies any nausea or vomiting and is tolerating diet as mentioned previously. Surgery is following. 10/02/2019 Patient is sitting up in the bed in no acute distress with no acute overnight issues. Patient is having some nausea again this morning with no vomiting no john. Patient received another enema yesterday and did have a bowel movement. Patient denies passing any gas at this time but also denies any abdominal discomfort this morning. Patient's full liquid diet is being tolerated and will advance. Surgery is following. We'll continue to monitor closely. Objective - Vital Signs Vital signs: Vital Signs Temp 98.1 F 10/02/19 13:00 Pulse 72 10/02/19 13:00 Resp 14 10/02/19 13:00 BP 134/84 10/02/19 13:00 Pulse Ox 96 10/02/19 13:00 Intake & Output 10/01/19 10/02/19 10/02/19 18:59 06:59 18:59 Intake Total 340 300 600 Output Total 291 300 800 Balance 49 0 -200 Weight 42.638 kg Intake: Intake, IV Titration 340 300 200 Amount Sodium Chloride 0.9% 1, 340 300 200 000 ml @ 25 mls/hr IV . Q24H [facility] Rx#:[id number] Oral 400 Output: Urine 300 800 Uretheral ([place]) 300 Post Void Residual 291 Other: Voiding Method Indwelling Catheter Indwelling Catheter Indwelling Catheter # Voids 1 # Bowel Movements 1 1 - Exam Gen: This is a 84-year-old female sitting up in bed in no acute distress. temp is 97.4 F, pulse is 75, bp is 164/83, resp are 18, sp02 is 94% room air HEENT: Head is atraumatic, normocephalic. Pupils equal, round. Sclerae is anicteric. Conjunctiva is normal NECK: Supple. No JVD. No lymphadenopathy. No thyromegaly. LUNGS: Breath sounds diminished with no rhonchi and crackles noted . No intercostal retractions. HEART: Regular rate and rhythm. No murmur. ABDOMEN: Soft. No tenderness noted upon palpation. Bowel sounds are present. No masses. EXTREMITIES: no pedal edema. No calf tenderness. SCDs noted NEUROLOGICAL: Patient is awake, alert and oriented x3. - Labs CBC & Chem 7: 10/01/19 09:13 10/01/19 09:13 Assessment and Plan Assessment: Abdominal pain secondary to constipation, with rectal fecal impaction, rule out bowel obstruction History of recent diarrhea History of cerebrovascular accident, TIA hypertension Pseudomonas urinary tract infection Chronic back pain Osteoporosis History of cerebral aneurysm Two hiatal hernia repairs History of anxiety Recommendations and discussion: recommend to continue current medications, management, and symptomatic treatment. Will continue to monitor closely. Patient had a bowel movement yesterday after an enema. No recent bowel movements today. She is having some nausea with no vomiting and is tolerating diet. Diet will be advanced as tolerated. Patient currently has an indwelling [place] catheter as she was retaining urine yesterday. Will attempt to discontinue G[place] and monitor intake and output closely in the morning. Surgery is following closely. Guarded prognosis. Further recommendations to follow. Possible discharge in 24-48 hours.
[2019-10-02] MEDS: hydrALAZINE HCL 25 MG TAB PO PRN (20:48)
[2019-10-02] MEDS: MELATONIN 5 MG TABLET PO SCH (20:48)
[2019-10-02] MEDS: CLOPIDOGREL 75 MG TAB PO SCH (20:49)
[2019-10-03] MEDS: oxyCODONE-APAP 10-325MG 1 EACH TAB PO PRN ×2 (00:42→08:27)
[2019-10-03] MEDS: ALPRAZolam 0.25 MG TAB PO PRN (02:27)
[2019-10-03] MEDS: SODIUM CHLORIDE 0.9% 1,000 ML IV SCH (08:26)
[2019-10-03] MEDS: amLODIPine 2.5 MG TAB PO SCH (08:27)
[2019-10-03] MEDS: HEPARIN SODIUM,PORCINE 5,000 UNIT/ML 1 ML VIAL SQ SCH (08:27)
[2019-10-03] MEDS: CHOLECALCIFEROL 1,000 UNIT TAB PO SCH (08:27)
[2019-10-03] MEDS: CARVEDILOL 6.25 MG TAB PO SCH (08:27)
[2019-10-03] MEDS: DOCUSATE 100 MG CAP PO SCH (08:27)
[2019-10-03] MEDS: FOLIC ACID 1 MG TAB PO SCH (08:27)
[2019-10-03] MEDS: predniSONE 5 MG TAB PO SCH (08:27)
[2019-10-03] MEDS: LISINOPRIL 20 MG TAB PO SCH (08:27)
[2019-10-03] MEDS: PANTOPRAZOLE 40 MG TABLET PO SCH (08:27)
[2019-10-03 09:34] LABS: African American GFR (CKD) >90 (>60 ml/min/1.73 sqM); Anion Gap 6 mmol/L; Blood Urea Nitrogen 10 mg/dL (7-17); Calcium 9.8 mg/dL (8.4-10.2); Carbon Dioxide 32 mmol/L (22-30); Chloride 96 mmol/L (98-107); Glucose 93 mg/dL (74-99); Non-African American GFR(CKD) 85 (>60 ml/min/1.73 sqM); Potassium 4.2 mmol/L (3.5-5.1); Sodium 134 mmol/L (137-145)
--- NOTE | 2019-10-03 10:05 | P.PN ---
Subjective Progress Note Date: 10/03/19 CHIEF COMPLAINT: abdominal pain HISTORY OF PRESENT ILLNESS: Patient examined at the bedside. She is tolerating full liquid diet. Denies nausea or vomiting. Passing flatus. Reports BM yesterday. PHYSICAL EXAM: VITAL SIGNS: Reviewed. GENERAL: Well-developed in no acute distress. HEENT: No sclera icterus. Extraocular movements grossly intact. Moist buccal mucosa. Head is atraumatic, normocephalic. ABDOMEN: Soft. Nondistended. Nontender NEUROLOGIC: Alert and oriented. Cranial nerves II through XII grossly intact. ASSESSMENT: 1. Abdominal pain 2. Constipation with rectal fecal impaction PLAN: Continue colace. Add Miralax daily scheduled instead of PRN Advance diet to soft diet Nurse practitioner note has been reviewed by physician. Signing provider agrees with the documented findings, assessment, and plan of care. Objective - Vital Signs Vital signs: Vital Signs Temp 97 F L 10/03/19 05:00 Pulse 74 10/03/19 05:00 Resp 15 10/03/19 05:00 BP 122/66 10/03/19 05:00 Pulse Ox 100 10/03/19 05:00 Intake & Output 10/02/19 10/03/19 10/03/19 18:59 06:59 18:59 Intake Total 600 540 Output Total 1600 650 Balance -1000 -110 Intake: Intake, IV Titration 200 300 Amount Sodium Chloride 0.9% 1, 200 300 000 ml @ 25 mls/hr IV . Q24H [facility] Rx#:[id number] Oral 400 240 Output: Urine 1600 650 Uretheral ([place]) 800 Other: Voiding Method Indwelling Catheter Indwelling Catheter Bedside Commode - Labs CBC & Chem 7: 10/01/19 09:13 10/03/19 09:02 Labs: Abnormal Lab Results - Last 24 Hours (Table) 10/03/19 Range/Units 09:02 Sodium 134 L (137-145) mmol/L Chloride 96 L (98-107) mmol/L Carbon Dioxide 32 H (22-30) mmol/L
[2019-10-03] MEDS ORDERED: POLYETHYLENE GLYCOL 3350 17 GM POWD.PACK PO SCH (10:15)
--- NOTE | 2019-10-03 12:45 | CDI ---
Documentation Clarification Form Date: 10/03/2019 12:15:59 PM From: Veronica Parker RN, CCDS Admit Date: 09/29/2019 11:57:00 AM Patient Name: Stephanie Nunez Visit Number: [id number] Discharge Date: ATTENTION: The Clinical Documentation Specialists (CDI) and [facility] Coding Staff appreciate your assistance in clarifying documentation. Please respond to the clarification below the line at the bottom and electronically sign. The CDI & [facility] Coding staff will review the response and follow-up if needed. Please note: Queries are made part of the Legal Health Record. If you have any questions, please contact the author of this message via ITS. Dr. Jaciel Gonzales The patient presented with abdominal pain, constipation. History/Risk Factors: Constipation Clinical Indicators: 84-year-old female with complaints of constipation and states her last bowel movement was about a week ago. 09/27/19 ED evaluation: patient admitted for IV hydration and treatment for her constipation and hypomagnesemia. 09/28/19 CT abdomen: No, ascites, No signs of free air There is retained fecal material in the rectum. Impression: Constipation with rectal fecal impaction. 09/29/19 Abdomen x-ray: Impression Nonspecific abdomen with contrast seen both throughout large and small bowel loops extending to the rectum. Persistent air- fluid levels are notes. Partial obstructive pattern not excluded. Treatment: Abdominal series x-ray per orders Soap suds enema per orders Clear liquid diet advance per GI Colace BID, Citrate of Magnesia PO x1 Miralax PO daily/PRN Consults: GI (Dr. Lezama) Constipation with rectal fecal impaction In your professional opinion, can you please clarify bowel obstruction? Partial bowel obstruction ruled in (present on admission) Partial bowel obstruction ruled out Other, please specify Unable to determine (Last Revision: January 2018) possible Partial bowel obstructio MTDD
[2019-10-03 13:41] VITALS: BP 113/76; PULSE 57; RESP 16; TEMP 97.6
--- NOTE | 2019-10-03 15:06 | P.DS ---
Providers Date of admission: 09/29/19 11:57 Expected date of discharge: 10/03/19 Attending physician: Samir De Leon MD Consults: 09/28/19 12:37 Consult Physician Routine Consulting Provider: Osorio Lezama Consult Reason/Comments: abd pain/distention Do you want consulting provider notified?: Yes Primary care physician: Naina Lds Hospital Course: Final diagnosis Abdominal pain secondary to constipation, with rectal fecal impaction History of recent diarrhea History of cerebrovascular accident, TIA hypertension Pseudomonas urinary tract infection Chronic back pain Osteoporosis History of cerebral aneurysm Two hiatal hernia repairs History of anxiety Discharge disposition Patient is being discharged in a stable condition with guarded prognosis to home and will follow-up with primary care provider Dr. Khurram Dailey in the outpatient setting upon discharge. Patient will continue on Protonix along with Bentyl in the outpatient setting. Total time taken is 35 minutes. History of present illness This is a 84-year-old female who was recently admitted for abdominal pain and constipation and was being closely monitored. Surgery was following. Patient underwent multiple enemas along with lactulose and milk of magnesia. Patient had bowel movements at that time. During hospitalization patient was retaining urine and Gresham catheter was placed. Gresham catheter was removed today and patient is urinating with no difficulties. Patient continued to have intermittent bouts of nausea and was given Zofran for this. During hospitalization patient had a CT of the abdomen showing some constipation with rectal fecal impaction otherwise no obstruction noted. Currently patient denies any chest pain, shortness of breath, or palpitations. Patient has been afebr ile. Patient denies any nausea or vomiting and is eating. Diet was advanced and patient tolerated well. Also discussed with the patient about increasing activity as tolerated and get up and out of the bed more often. Currently patient's condition is stable and is ready for discharge today. Patient lives with her daughter and will be returning home today. Guarded prognosis. On exam vital signs are stable. Temp is 97.6 F, pulse is 57, respirations are 16, blood pressure is 113/76, oxygen saturation is 93% on room air. Cardio S1, S2 are muffled. Respiratory system shows diminished breath sounds at the bases with no wheezes noted. Abdomen is soft, thin, nontender. Nervous system shows no focal deficits. Please refer to medication reconciliation sheet for a list of medications. Patient Condition at Discharge: Fair Plan - Discharge Summary Discharge Rx Participant: No New Discharge Prescriptions: New hydrALAZINE HCL [Apresoline] 25 mg PO TID PRN 30 Days #90 tab PRN Reason: Blood Pressure - High Dicyclomine [Bentyl] 10 mg PO TID #20 capsule Docusate [Colace] 100 mg PO BID 30 Days #60 cap Pantoprazole [Protonix] 40 mg PO BID 30 Days #60 tablet.dr Continue Folic Acid 0.8 mg PO DAILY Cholecalciferol [Vitamin D3 (25 Mcg = 1000 Iu)] 1,000 unit PO DAILY Acetaminophen/Caffeine [Excedrin Tension Headache Cplt] 1 - 2 tab PO HS PRN PRN Reason: Migraine Headache Melatonin 5 mg PO HS predniSONE 5 mg PO DAILY oxyCODONE-APAP 10-325MG [Percocet 10-325 mg] 1 tab PO QID PRN PRN Reason: Pain amLODIPine [Norvasc] 2.5 mg PO BID Clopidogrel Bisulfate [Plavix] 75 mg PO HS Carvedilol [Coreg] 6.25 mg PO BID Enalapril [Vasotec] 20 mg PO BID Polyethylene Glycol 3350 [Miralax] 8.5 gm PO DAILY PRN #0 PRN Reason: Constipation Bifidobacterium Infantis [Align] 4 mg PO DAILY Discharge Medication List Acetaminophen/Caffeine [Excedrin Tension Headache Cplt] 1 - 2 tab PO HS PRN 09/02/18 [History] Carvedilol [Coreg] 6.25 mg PO BID 09/02/18 [History] Cholecalciferol [Vitamin D3 (25 Mcg = 1000 Iu)] 1,000 unit PO DAILY 09/02/18 [History] Clopidogrel Bisulfate [Plavix] 75 mg PO HS 09/02/18 [History] Folic Acid 0.8 mg PO DAILY 09/02/18 [History] Melatonin 5 mg PO HS 09/02/18 [History] amLODIPine [Norvasc] 2.5 mg PO BID 09/02/18 [History] oxyCODONE-APAP 10-325MG [Percocet 10-325 mg] 1 tab PO QID PRN 09/02/18 [History] predniSONE 5 mg PO DAILY 09/02/18 [History] Enalapril [Vasotec] 20 mg PO BID 06/21/19 [History] Polyethylene Glycol 3350 [Miralax] 8.5 gm PO DAILY PRN #0 06/24/19 [Rx] Bifidobacterium Infantis [Align] 4 mg PO DAILY 09/27/19 [History] Dicyclomine [Bentyl] 10 mg PO TID #20 capsule 10/03/19 [Rx] Docusate [Colace] 100 mg PO BID 30 Days #60 cap 10/03/19 [Rx] Pantoprazole [Protonix] 40 mg PO BID 30 Days #60 tablet.dr 10/03/19 [Rx] hydrALAZINE HCL [Apresoline] 25 mg PO TID PRN 30 Days #90 tab 10/03/19 [Rx] Follow up Appointment(s)/Referral(s): Naina Dailey DO [Primary Care Provider] - 10/06/19 1:45 pm Patient Instructions/Handouts: Dicyclomine (By mouth), Laxative, Stool Softeners (By mouth), Hydralazine (By mouth), Pantoprazole (By mouth), Constipation (DC), Acute Nausea and Vomiting (DC), Hypomagnesemia (DC) Activity/Diet/Wound Care/Special Instructions: Activity limited until follow up follow up with primary care provider upon discharge continue current diet and advance slowly as tolerated Discharge Disposition: HOME SELF-CARE
== END 2019-10-03 16:35 | disposition home or self-care (01) | DRG 389 ==
LOC: EC 16:15 → 3NMEDONC 20:45 → OBSVTOIN 09-29 11:57
PROVIDERS: ADMIT Internal Medicine; ATTEND Internal Medicine
DX: K56.41 Fecal impaction (principal); N39.0 Urinary tract infection, site not specified; K56.609 Unspecified intestinal obstruction, unspecified as to partial versus complete obstruction; B96.5 Pseudomonas (aeruginosa) (mallei) (pseudomallei) as the cause of diseases classified elsewhere; E83.42 Hypomagnesemia; E86.0 Dehydration; G44.209 Tension-type headache, unspecified, not intractable; G89.29 Other chronic pain; I10 Essential (primary) hypertension; M81.0 Age-related osteoporosis without current pathological fracture; R62.7 Adult failure to thrive; Z79.899 Other long term (current) drug therapy; Z82.49 Family history of ischemic heart disease and other diseases of the circulatory system; Z86.73 Personal history of transient ischemic attack (TIA), and cerebral infarction without residual deficits; Z79.82 Long term (current) use of aspirin; Z79.52 Long term (current) use of systemic steroids; Z98.42 Cataract extraction status, left eye; Z98.41 Cataract extraction status, right eye
CPT/HCPCS: 36415; 74018; 74019; 74177; 80048; 80053; 81001; 82150; 82550; 83690; 83735; 84484; 85025; 96361; 96365; 96375; 96376; 99285

== ENCOUNTER 2019-10-14 13:51 | Inpatient (IN) | payer MEDICARE ==
[2019-10-14] MEDS ORDERED: ONDANSETRON 4 MG/2 ML VIAL IVP STA (14:01)
[2019-10-14] MEDS ORDERED: SODIUM CHLORIDE 0.9% 1,000 ML IV STA (14:01)
--- NOTE | 2019-10-14 14:11 | ED ---
General Adult HPI - General Chief complaint: Abdominal Pain Stated complaint: Constipation Time Seen by Provider: 10/14/19 13:55 Source: patient, EMS, RN notes reviewed, old records reviewed Mode of arrival: EMS - History of Present Illness Initial comments: This is an 84-year-old female who comes emergency Department complaining of lower abdominal pain. Patient states she gets constipated and she has not had a bowel movement for one week. Patient states she was recently in the hospital for the same. Patient denies any recent fever chills. Patient states she did vomit just prior to coming in but she believes that's because she is so backed up. Patient denies any dysuria hematuria urinary frequency. Patient denies any chest pain difficult breathing shortness of breath per patient denies any back pain. Patient denies any recent injury or trauma. - Related Data Home Medications Medication Instructions Recorded Confirmed Acetaminophen/Caffeine [Excedrin 1 - 2 tab PO HS PRN 09/02/18 09/27/19 Tension Headache Cplt] Carvedilol [Coreg] 6.25 mg PO BID 09/02/18 09/27/19 Cholecalciferol [Vitamin D3 (25 1,000 unit PO DAILY 09/02/18 09/27/19 Mcg = 1000 Iu)] Clopidogrel Bisulfate [Plavix] 75 mg PO HS 09/02/18 09/27/19 Folic Acid 0.8 mg PO DAILY 09/02/18 09/27/19 Melatonin 5 mg PO HS 09/02/18 09/27/19 amLODIPine [Norvasc] 2.5 mg PO BID 09/02/18 09/27/19 oxyCODONE-APAP 10-325MG [Percocet 1 tab PO QID PRN 09/02/18 09/27/19 10-325 mg] predniSONE 5 mg PO DAILY 09/02/18 09/27/19 Enalapril [Vasotec] 20 mg PO BID 06/21/19 09/27/19 Bifidobacterium Infantis [Align] 4 mg PO DAILY 09/27/19 09/27/19 Previous Rx's Medication Instructions Recorded Polyethylene Glycol 3350 [Miralax] 8.5 gm PO DAILY PRN #0 06/24/19 Dicyclomine [Bentyl] 10 mg PO TID #20 capsule 10/03/19 Docusate [Colace] 100 mg PO BID 30 Days #60 cap 10/03/19 Pantoprazole [Protonix] 40 mg PO BID 30 Days #60 tablet. 10/03/19 hydrALAZINE HCL [Apresoline] 25 mg PO TID PRN 30 Days #90 tab 10/03/19 Allergies Allergy/AdvReac Type Severity Reaction Status Date / Time nitroglycerin AdvReac BLOOD Verified 09/27/19 21:48 PRESSURE DROPS SEVERELY Sulfa (Sulfonamide AdvReac Dyspnea Verified 09/27/19 21:48 Antibiotics) Review of Systems ROS Statement: Those systems with pertinent positive or pertinent negative responses have been documented in the HPI. ROS Other: All systems not noted in ROS Statement are negative. Past Medical History Past Medical History: CVA/TIA, Hypertension Additional Past Medical History / Comment(s): pseudomonas UTI, chronic back pain, osteoporosis, cerebral aneurysm History of Any Multi-Drug Resistant Organisms: None Reported Past Surgical History: Tonsillectomy Additional Past Surgical History / Comment(s): cataracts, coiling of cerebral aneurysm, hiatal hernia repair, retina repair. Additional Past Anesthesia/Blood Transfusion Reaction / Comment(s): hypotension post anesthesia. Past Psychological History: Anxiety Smoking Status: Never smoker Past Alcohol Use History: None Reported Past Drug Use History: None Reported - Past Family History Mother Additional Family Medical History / Comment(s): in a pedestrian versus car accident Father Additional Family Medical History / Comment(s): DC stat age 58 secondary to severe high blood pressure resulting myocardial infarction General Exam - General Exam Comments Initial Comments: GENERAL: Patient is well-developed and well-nourished. Patient is nontoxic and well- hydrated and is in mild distress. ENT: Neck is soft and supple. No significant lymphadenopathy is noted. Oropharynx is clear. Moist mucous membranes. Neck has full range of motion without eliciting any pain. EYES: The sclera were anicteric and conjunctiva were pink and moist. Extraocular movements were intact and pupils were equal round and reactive to light. Eyelids were unremarkable. PULMONARY: Unlabored respirations. Good breath sounds bilaterally. No audible rales rhonchi or wheezing was noted. CARDIOVASCULAR: There is a regular rate and rhythm without any murmurs gallops or rubs. ABDOMEN: Slight lower abdominal pain no rebound or guarding. SKIN: Skin is clear with no lesions or rashes and otherwise unremarkable. NEUROLOGIC: Patient is alert and oriented x3. Cranial nerves II through XII are grossly intact. Motor and sensory are also intact. Normal speech, volume and content. Symmetrical smile. MUSCULOSKELETAL: Normal extremities with adequate strength and full range of motion. LYMPHATICS: No significant lymphadenopathy is noted PSYCHIATRIC: Normal psychiatric evaluation. Course Vital Signs 10/14/19 10/14/19 10/14/19 13:53 14:05 15:00 Temperature 98.7 F 98.7 F 98.8 F Pulse Rate 103 H 98 93 Respiratory 22 19 18 Rate Blood Pressure 147/111 148/79 140/91 O2 Sat by Pulse 96 95 Oximetry 10/14/19 10/14/19 16:00 16:15 Temperature 98.0 F Pulse Rate 70 72 Respiratory 15 18 Rate Blood Pressure 135/73 141/56 O2 Sat by Pulse 98 97 Oximetry Medical Decision Making - Medical Decision Making KUB shows no acute abnormality. Patient did receive an enema in the emergency department but there were no results. Patient continued to have abdominal pain. I spoke with Dr. Gonzales he agreed to admit the patient admitted the patient I wrote admitting orders. - Lab Data Result diagrams: 10/14/19 14:15 10/14/19 14:15 Lab Results 10/14/19 10/14/19 10/14/19 Range/Units 12:45 14:15 14:15 WBC 9.5 (3.8-10.6) k/uL RBC 4.23 (3.80-5.40) m/uL Hgb 13.6 (11.4-16.0) gm/dL Hct 40.9 (34.0-46.0) % MCV 96.6 (80.0-100.0) fL MCH 32.1 (25.0-35.0) pg MCHC 33.2 (31.0-37.0) g/dL RDW 13.1 (11.5-15.5) % Plt Count 349 (150-450) k/uL Neutrophils % 89 % Lymphocytes % 4 % Monocytes % 5 % Eosinophils % 1 % Basophils % 1 % Neutrophils # 8.4 H (1.3-7.7) k/uL Lymphocytes # 0.3 L (1.0-4.8) k/uL Monocytes # 0.5 (0-1.0) k/uL Eosinophils # 0.1 (0-0.7) k/uL Basophils # 0.1 (0-0.2) k/uL Sodium 133 L (137-145) mmol/L Potassium 4.3 (3.5-5.1) mmol/L Chloride 96 L (98-107) mmol/L Carbon Dioxide 29 (22-30) mmol/L Anion Gap 8 mmol/L BUN 22 H (7-17) mg/dL Creatinine 0.51 L (0.52-1.04) mg/dL Est GFR (CKD-EPI)AfAm >90 (>60 ml/min/1.73 sqM) Est GFR (CKD-EPI)NonAf 88 (>60 ml/min/1.73 sqM) Glucose 115 H (74-99) mg/dL Plasma Lactic Acid Pavel (0.7-2.0) mmol/L Calcium 10.4 H (8.4-10.2) mg/dL Total Bilirubin 0.6 (0.2-1.3) mg/dL AST 25 (14-36) U/L ALT 13 (4-34) U/L Alkaline Phosphatase 110 (38-126) U/L Total Protein 7.2 (6.3-8.2) g/dL Albumin 4.3 (3.5-5.0) g/dL Amylase 129 H (30-110) U/L Lipase 63 (23-300) U/L Urine Color Light Yellow Urine Appearance Cloudy H (Clear) Urine pH 7.5 (5.0-8.0) Ur Specific [place] 1.011 (1.001-1.035) Urine Protein 1+ H (Negative) Urine Glucose (UA) Negative (Negative) Urine Ketones Negative (Negative) Urine Blood Negative (Negative) Urine Nitrite Negative (Negative) Urine Bilirubin Negative (Negative) Urine Urobilinogen <2.0 (<2.0) mg/dL Ur Leukocyte Esterase Large H (Negative) Urine RBC 2 (0-5) /hpf Urine WBC 42 H (0-5) /hpf Ur Squamous Epith Cells 1 (0-4) /hpf Urine Bacteria Few H (None) /hpf Urine Mucus Rare H (None) /hpf Urine Yeast (Budding) Occasional H (None) /hpf 10/14/ Range/Units 14:15 WBC (3.8-10.6) k/uL RBC (3.80-5.40) m/uL Hgb (11.4-16.0) gm/dL Hct (34.0-46.0) % MCV (80.0-100.0) fL MCH (25.0-35.0) pg MCHC (31.0-37.0) g/dL RDW (11.5-15.5) % Plt Count (150-450) k/uL Neutrophils % % Lymphocytes % % Monocytes % % Eosinophils % % Basophils % % Neutrophils # (1.3-7.7) k/uL Lymphocytes # (1.0-4.8) k/uL Monocytes # (0-1.0) k/uL Eosinophils # (0-0.7) k/uL Basophils # (0-0.2) k/uL Sodium (137-145) mmol/L Potassium (3.5-5.1) mmol/L Chloride (98-107) mmol/L Carbon Dioxide (22-30) mmol/L Anion Gap mmol/L BUN (7-17) mg/dL Creatinine (0.52-1.04) mg/dL Est GFR (CKD-EPI)AfAm (>60 ml/min/1.73 sqM) Est GFR (CKD-EPI)NonAf (>60 ml/min/1.73 sqM) Glucose (74-99) mg/dL Plasma Lactic Acid Pavel 1.0 (0.7-2.0) mmol/L Calcium (8.4-10.2) mg/dL Total Bilirubin (0.2-1.3) mg/dL AST (14-36) U/L ALT (4-34) U/L Alkaline Phosphatase (38-126) U/L Total Protein (6.3-8.2) g/dL Albumin (3.5-5.0) g/dL Amylase (30-110) U/L Lipase (23-300) U/L Urine Color Urine Appearance (Clear) Urine pH (5.0-8.0) Ur Specific [place] (1.001-1.035) Urine Protein (Negative) Urine Glucose (UA) (Negative) Urine Ketones (Negative) Urine Blood (Negative) Urine Nitrite (Negative) Urine Bilirubin (Negative) Urine Urobilinogen (<2.0) mg/dL Ur Leukocyte Esterase (Negative) Urine RBC (0-5) /hpf Urine WBC (0-5) /hpf Ur Squamous Epith Cells (0-4) /hpf Urine Bacteria (None) /hpf Urine Mucus (None) /hpf Urine Yeast (Budding) (None) /hpf Disposition Clinical Impression: Abdominal pain, Urinary tract infection Disposition: ADMITTED IP TO THIS HOSP Referrals: None,Stated [REFERRING] - 1-2 days Time of Disposition: 16:44
[2019-10-14 14:39] LABS: Basophils # (A) 0.1 k/uL (0-0.2); Basophils % (A) 1 %; Eosinophils # (A) 0.1 k/uL (0-0.7); Eosinophils % (A) 1 %; HCT 40.9 % (34.0-46.0); HGB 13.6 gm/dL (11.4-16.0); Lymphocytes # (A) 0.3 k/uL (1.0-4.8); Lymphocytes % (A) 4 %; MCH 32.1 pg (25.0-35.0); MCHC 33.2 g/dL (31.0-37.0); MCV 96.6 fL (80.0-100.0); Monocytes # (A) 0.5 k/uL (0-1.0); Monocytes % (A) 5 %; Neutrophils # (A) 8.4 k/uL (1.3-7.7); Neutrophils % (A) 89 %; Platelet Count 349 k/uL (150-450); RBC 4.23 m/uL (3.80-5.40); RDW 13.1 % (11.5-15.5); WBC 9.5 k/uL (3.8-10.6)
[2019-10-14 14:46] LABS: ALT 13 U/L (4-34); AST 25 U/L (14-36); African American GFR (CKD) >90 (>60 ml/min/1.73 sqM); Albumin 4.3 g/dL (3.5-5.0); Alkaline Phosphatase 110 U/L (38-126); Amylase 129 U/L (30-110); Anion Gap 8 mmol/L; Blood Urea Nitrogen 22 mg/dL (7-17); Calcium 10.4 mg/dL (8.4-10.2); Carbon Dioxide 29 mmol/L (22-30); Chloride 96 mmol/L (98-107); Glucose 115 mg/dL (74-99); Non-African American GFR(CKD) 88 (>60 ml/min/1.73 sqM); Potassium 4.3 mmol/L (3.5-5.1); Sodium 133 mmol/L (137-145); Total Bilirubin 0.6 mg/dL (0.2-1.3); Total Protein 7.2 g/dL (6.3-8.2)
--- NOTE | 2019-10-14 14:50 | XR ---
KUB HISTORY: Abdominal pain and constipation Frontal KUB correlated to prior KUB 09/27/2019, abdomen 09/30/2019, CT 09/28/2019 FINDINGS: surgical clips are again noted in the right upper quadrant. There are dense vascular calcif ications present. Bone mineralization is reduced. No evident bowel obstruction or pneumoperitoneum. T here is a spinal curvature. There are overlying cardiac leads. IMPRESSION: Rotated exam. Nonspecific bowel gas pattern.
[2019-10-14 15:00] LABS: Appearance,Urine Cloudy (Clear); Bacteria,Urine Few /hpf; Bilirubin,Urine Negative (Negative); Blood,Urine Negative (Negative); Budding Yeast,Urine Occasional /hpf; Color,Urine Light Yellow; Glucose,Urine (UA) Negative (Negative); Ketones,Urine Negative (Negative); Leukocyte Esterase,Urine Large (Negative); Mucus,Urine Rare /hpf; Nitrite,Urine Negative (Negative); PH, Urine 7.5 (5.0-8.0); Protein,Urine 1+ (Negative); RBC,Urine 2 /hpf (0-5); Specific Gravity,Urine 1.011 (1.001-1.035); Squamous Epithelial Cell,Urine 1 /hpf (0-4); Urobilinogen,Urine <2.0 mg/dL (<2.0); WBC,Urine 42 /hpf (0-5)
[2019-10-14] MEDS ORDERED: cefTRIAXone IN SWFI 1,000 MG/10 ML SYRINGE IVP STA (15:15)
[2019-10-14] MEDS ORDERED: SODIUM CHLORIDE 0.9% 1,000 ML IV ONE (16:53)
[2019-10-14] MEDS ORDERED: POLYETHYLENE GLYCOL 3350 17 GM POWD.PACK PO PRN (22:38)
[2019-10-14] MEDS ORDERED: hydrALAZINE HCL 25 MG TAB PO PRN (22:38)
[2019-10-14] MEDS ORDERED: ACETAMINOPHEN PO PRN (22:38)
[2019-10-14] MEDS ORDERED: CAFFEINE PO PRN (22:38)
[2019-10-14] MEDS: CLOPIDOGREL 75 MG TAB PO SCH (23:12)
[2019-10-14] MEDS: DOCUSATE 100 MG CAP PO SCH (23:12)
[2019-10-14] MEDS: LISINOPRIL 20 MG TAB PO SCH (23:12)
[2019-10-14] MEDS: oxyCODONE-APAP 10-325MG 1 EACH TAB PO PRN (23:13)
[2019-10-14] MEDS: amLODIPine 5 MG TAB PO SCH (23:13)
[2019-10-14] MEDS: MELATONIN 5 MG TABLET PO SCH (23:13)
[2019-10-14] MEDS: CARVEDILOL 6.25 MG TAB PO SCH (23:13)
[2019-10-14] MEDS: DICYCLOMINE 10 MG CAP PO SCH (23:13)
[2019-10-15] MEDS ORDERED: NON FORMULARY DRUG (Folic Acid [Folic Acid] 0.8 MG) PO SCH (09:00)
[2019-10-15] MEDS ORDERED: BIFIDOBACTERIUM INFANTIS 4 MG PO SCH (09:00)
[2019-10-15] MEDS: amLODIPine 5 MG TAB PO SCH ×2 (09:57→21:13)
[2019-10-15] MEDS: CHOLECALCIFEROL 1,000 UNIT TAB PO SCH (09:57)
[2019-10-15] MEDS: CARVEDILOL 6.25 MG TAB PO SCH ×2 (09:57→16:30)
[2019-10-15] MEDS: DOCUSATE 100 MG CAP PO SCH ×2 (09:57→21:14)
[2019-10-15] MEDS: DICYCLOMINE 10 MG CAP PO SCH ×3 (09:57→21:17)
[2019-10-15] MEDS: oxyCODONE-APAP 10-325MG 1 EACH TAB PO PRN ×3 (09:58→23:44)
[2019-10-15] MEDS: PANTOPRAZOLE 40 MG TABLET PO SCH ×2 (09:58→21:14)
[2019-10-15] MEDS: LISINOPRIL 20 MG TAB PO SCH ×2 (09:58→21:14)
[2019-10-15] MEDS ORDERED: IOPAMIDOL CONTRAST (ORAL USE) VIAL PO PRN ×2 (10:31→11:41)
[2019-10-15] MEDS: LACTULOSE 20 GM/30 ML CUP PO SCH ×3 (11:57→21:22)
--- NOTE | 2019-10-15 15:34 | CT ---
EXAMINATION TYPE: CT abdomen pelvis wo con DATE OF EXAM: 10/15/2019 COMPARISON: 09/28/2019 INDICATION: Patient cannot have a bowel movements DLP: 250.2 mGycm, Automated exposure control for dose reduction was used. CONTRAST: 0 mL of Isovue 300. Study performed with Oral Contrast TECHNIQUE: Axial images were obtained from above the diaphragm to the pubic rami in the axial plane a t 5 mm thick sections. Reconstructed images are reviewed on the computer in the coronal plane. FINDINGS: Limited CT sections are obtained the lung bases. There is a small hiatal hernia present. Reflux into the hiatal hernia and distal esophagus is evident contrast.. CT ABDOMEN: Liver: Normal Spleen: Normal Pancreas: Normal Adrenal glands: The adrenal glands are normal. Gallbladder: There is been a prior cholecystectomy. Kidneys: No masses are evident. No hydronephrosis is present. No cysts are present. Delayed images were obtained through the kidneys, which remain unremarkable. Aorta: Vascular calcification is within the aorta. Inferior vena cava: Normal. CT PELVIS: Loops of bowel within the abdomen and pelvis are normal. There are loops of bowel which are incom pletely distended or lack oral contrast limiting their evaluation. Moderate fecal debris is throughou t the colon. Correlate for constipation. Appendix: Normal as visualized. Urinary bladder: Normal. Genitourinary structures: Osseous structures: No suspicious lytic or sclerotic lesions. IMPRESSIONS: 1. Moderate fecal retention throughout the colon. 2. Hiatal hernia with gastroesophageal reflux into the distal esophagus
[2019-10-15] MEDS ORDERED: TEMAZEPAM 15 MG CAP PO PRN (16:22)
--- NOTE | 2019-10-15 18:34 | HP ---
HISTORY AND PHYSICAL DATE OF SERVICE: 10/15/2019 CHIEF COMPLAINT: Abdominal pain and constipation. HISTORY OF PRESENT ILLNESS: This 84-year-old woman with a past medical history of multiple medical problems, including CVA, TIA, hypertension, pseudomonas UTI, chronic back pain, osteoporosis, cerebral aneurysm, being followed by a primary physician in the outpatient setting, was recently admitted with abdominal pain. Initially obstruction was suspected; however, evaluation showed a significant fecal impaction. The patient was treated with multiple regimens. With the help of surgery, the patient improved significantly. The patient went home and apparently was doing fine. Then patient started to be constipated about one week ago and the patient developed more abdominal pain and distention. She came to [facility] and was admitted for further evaluation and treatment. There is no history of any fever, rigor or chills. No history of headache, loss of consciousness, seizures at this time. PAST MEDICAL HISTORY: 1. History of recent fecal impaction. 2. History of CVA, TIA. 3. Hypertension. 4. Pseudomonas UTI. 5. Chronic back pain. 6. Anxiety. HOME MEDICATIONS: 1. Percocet 10 mg q.i.d. p.r.n. 2. Apresoline 25 mg t.i.d. p.r.n. 3. Norvasc 2.5 mg p.o. b.i.d. 4. MiraLAX 8.5 mg daily p.r.n. 5. Protonix 40 mg p.o. b.i.d. 6. Melatonin 5 mg at bedtime. 7. Folic acid 0.8 mg p.o. daily. 8. Vasotec 20 mg p.o. b.i.d. 9. Colace 100 mg p.o. b.i.d. 10.Bentyl 10 mg p.o. t.i.d. 11.Plavix 75 mg at bedtime. 12.Vitamin D3 1000 daily. 13.Coreg 6.25 mg p.o. b.i.d. 14.Bifidobacterium 4 mg p.o. daily. 15.Excedrin 1 to 2 tablets at bedtime p.r.n. ALLERGIES: NITROGLYCERIN, SULFA. FAMILY HISTORY: History of motor vehicle accident in the family. SOCIAL HISTORY: No history of smoking. No history of alcohol intake. REVIEW OF SYSTEMS: ENT: Diminished hearing. Diminished vision. CARDIOVASCULAR SYSTEM: No angina, palpitations. RESPIRATORY SYSTEM: No cough, hemoptysis. GI: As mentioned earlier. : As mentioned earlier. NERVOUS SYSTEM: No numbness, weakness. ALLERGY/IMMUNOLOGY: No asthma, hayfever. MUSCULOSKELETAL: As mentioned earlier. HEMATOLOGY/ONCOLOGY: No history of anemia. ENDOCRINE: No history of diabetes, hypothyroidism. CONSTITUTIONAL: As mentioned earlier. DERMATOLOGY: Negative. RHEUMATOLOGY: Negative. PSYCHIATRY: As mentioned earlier. PHYSICAL EXAMINATION: Patient is alert, oriented x3. Pulse is 78, blood pressure 120/73, respirations 16, temperature 97.9, pulse ox 94% on room air. HEENT: Conjunctivae normal. NECK: No jugular venous distention. CARDIOVASCULAR SYSTEM: S1, S2 muffled. RESPIRATORY SYSTEM: Breath sounds diminished at the bases. A few scattered rhonchi. No crackles. ABDOMEN: Soft. Mild diffuse distention. Mild diffuse discomfort on palpation. LEGS: No edema. No swelling. NERVOUS SYSTEM: Higher functions as mentioned earlier. Moves all 4 limbs. No focal motor or sensory deficit. LYMPHATICS: No lymph node palpable in neck, axillae or groin. SKIN: No ulcer, rash, bleeding. JOINTS: No active deforming arthropathy. LABS: CBC within normal limits. Sodium 133. UA noted; UTI. ASSESSMENT: 1. Abdominal distention, possibly fecal impaction. Rule out bowel obstruction. 2. Acute urinary tract infection, present on admission. 3. Hyponatremia. 4. History of recent fecal impaction. 5. History of cerebrovascular accident, transient ischemic attack. 6. Hypertension. 7. History of pseudomonas urinary tract infection. 8. Chronic back pain and degenerative joint disease. 9. History of osteoporosis. 10.History of cerebral aneurysm. 11.History of tonsillectomy. 12.History of hiatal hernia repair. 13.History of anxiety. 14.Mild to moderate protein-calorie malnutrition with a body mass index of 19.6. RECOMMENDATIONS AND DISCUSSION: In this 84-year-old woman who presented with multiple complex medical issues, we will monitor the patient closely, continue the current medications, continue with symptomatic treatment. Will initiate broad-spectrum IV antibiotics. Obtain urine culture. Surgical evaluation. Otherwise, I recommend continuing the rest of the medications. DVT prophylaxis. Guarded prognosis because of multiple complex medical issues. I would also recommend a CT scan of the abdomen and pelvis. Further recommendations to follow. MMODL / IJN: [id number] /
--- NOTE | 2019-10-15 19:03 | P.GSCN ---
History of Present Illness Consult date: 10/15/19 Reason for Consult: Constipation History of present illness: 84-year-old female known to our service. Patient was seen 2 weeks ago for similar problems. Complains of nausea and vomiting that began yesterday. Since her recent discharge only had 2 bowel movements. CAT scan performed today because of abdominal pain. CAT scan shows diffuse fecal stasis. No obstruction seen. Patient describes bloating. Crampy abdominal pain. Prior to her discharge she had multiple bowel movements. Review of Systems The patient denies any acute changes in vision or hearing, no dysphagia or odynophagia, no chest pain or shortness of breath, no dysuria or hematuria, no headache, no runny nose, no rectal bleeding or melena, no unexplained weight loss Past Medical History Past Medical History: CVA/TIA, Hypertension Additional Past Medical History / Comment(s): pseudomonas UTI, chronic back pain, osteoporosis, cerebral aneurysm History of Any Multi-Drug Resistant Organisms: None Reported Past Surgical History: Tonsillectomy Additional Past Surgical History / Comment(s): cataracts, coiling of cerebral aneurysm, hiatal hernia repair, retina repair. Additional Past Anesthesia/Blood Transfusion Reaction / Comm: hypotension post anesthesia. Past Psychological History: Anxiety Smoking Status: Never smoker Past Alcohol Use History: None Reported Past Drug Use History: None Reported - Past Family History Mother Additional Family Medical History / Comment(s): in a pedestrian versus car accident Father Additional Family Medical History / Comment(s): DC stat age 58 secondary to severe high blood pressure resulting myocardial infarction Medications and Allergies Home Medications Medication Instructions Recorded Confirmed Type Acetaminophen/Caffeine [Excedrin 1 - 2 tab PO HS PRN 09/02/18 10/14/19 History Tension Headache Cplt] Carvedilol [Coreg] 6.25 mg PO BID 09/02/18 10/14/19 History Cholecalciferol [Vitamin D3 (25 1,000 unit PO DAILY 09/02/18 10/14/19 History Mcg = 1000 Iu)] Clopidogrel Bisulfate [Plavix] 75 mg PO HS 09/02/18 10/14/19 History Folic Acid 0.8 mg PO DAILY 09/02/18 10/14/19 History Melatonin 5 mg PO HS 09/02/18 10/14/19 History amLODIPine [Norvasc] 2.5 mg PO BID 09/02/18 10/14/19 History oxyCODONE-APAP 10-325MG [Percocet 1 tab PO QID PRN 09/02/18 10/14/19 History 10-325 mg] Enalapril [Vasotec] 20 mg PO BID 06/21/19 10/14/19 History Polyethylene Glycol 3350 [Miralax] 8.5 gm PO DAILY PRN #0 06/24/19 10/14/19 Rx Bifidobacterium Infantis [Align] 4 mg PO DAILY 09/27/19 10/14/19 History Dicyclomine [Bentyl] 10 mg PO TID #20 capsule 10/03/19 10/14/19 Rx Docusate [Colace] 100 mg PO BID 30 Days #60 cap 10/03/19 10/14/19 Rx Pantoprazole [Protonix] 40 mg PO BID 30 Days #60 tablet. 10/03/19 10/14/19 Rx hydrALAZINE HCL [Apresoline] 25 mg PO TID PRN 30 Days #90 tab 10/03/19 10/14/19 Rx Allergies Allergy/AdvReac Type Severity Reaction Status Date / Time nitroglycerin AdvReac BLOOD Verified 10/14/19 18:27 PRESSURE DROPS SEVERELY Sulfa (Sulfonamide AdvReac Dyspnea Verified 10/14/19 18:27 Antibiotics) Surgical - Exam Vital Signs Temp Pulse Resp BP Pulse Ox 98.7 F 103 H 22 147/111 96 10/14/19 13:53 10/14/19 13:53 10/14/19 13:53 10/14/19 13:53 10/14/19 13:53 Physical exam: General: Well-developed, well-nourished HEENT: Normocephalic, sclerae nonicteric Abdomen: Mild distention, mild tenderness diffusely Extremities: No edema Neuro: Alert and oriented Rectal: Same firm stool within the rectal vault, manual disimpaction performed with 6-8 ounces of stool evacuated, softer stool proximal to finger Results - Labs 10/14/19 14:15 10/14/19 14:15 Microbiology - Last 24 Hours (Table) 10/14/19 15:48 Blood Culture - Preliminary Blood No Growth after 24 hours 10/14/19 12:45 Urine Culture - Preliminary Urine,Clean Catch Assessment and Plan (1) Constipation Narrative/Plan: 84-year-old female with recurrent constipation. Begin soapsuds enema once again. Hold cathartics until nausea and vomiting have improved. We'll follow. Current Visit: No Status: Acute Code(s): K59.00 - CONSTIPATION, UNSPECIFIED SNOMED Code(s): 40652581
[2019-10-15] MEDS: MELATONIN 5 MG TABLET PO SCH (21:14)
[2019-10-15] MEDS: HEPARIN SODIUM,PORCINE 5,000 UNIT/ML 1 ML VIAL SQ SCH (21:14)
[2019-10-15] MEDS: CLOPIDOGREL 75 MG TAB PO SCH (21:18)
[2019-10-15] MEDS: ONDANSETRON 4 MG TAB PO PRN (23:44)
[2019-10-16] MEDS: LACTULOSE 20 GM/30 ML CUP PO SCH ×7 (01:01→22:45)
[2019-10-16 08:33] LABS: Basophils % (A) 1 %; Eosinophils # (A) 0.1 k/uL (0-0.7); Eosinophils % (A) 3 %; HCT 37.7 % (34.0-46.0); HGB 12.2 gm/dL (11.4-16.0); Lymphocytes # (A) 0.3 k/uL (1.0-4.8); Lymphocytes % (A) 7 %; MCH 31.9 pg (25.0-35.0); MCHC 32.4 g/dL (31.0-37.0); MCV 98.7 fL (80.0-100.0); Mean Platelet Volume 7.1; Monocytes # (A) 0.4 k/uL (0-1.0); Monocytes % (A) 8 %; Neutrophils % (A) 78 %; Platelet Count 275 k/uL (150-450); RBC 3.83 m/uL (3.80-5.40); WBC 5.1 k/uL (3.8-10.6)
[2019-10-16 08:41] LABS: African American GFR (CKD) >90 (>60 ml/min/1.73 sqM); Anion Gap 8 mmol/L; Blood Urea Nitrogen 9 mg/dL (7-17); Calcium 9.5 mg/dL (8.4-10.2); Carbon Dioxide 28 mmol/L (22-30); Chloride 93 mmol/L (98-107); Glucose 89 mg/dL (74-99); Non-African American GFR(CKD) 88 (>60 ml/min/1.73 sqM); Potassium 3.8 mmol/L (3.5-5.1); Sodium 129 mmol/L (137-145)
[2019-10-16] MEDS: CARVEDILOL 6.25 MG TAB PO SCH ×2 (08:59→18:11)
[2019-10-16] MEDS: amLODIPine 5 MG TAB PO SCH ×2 (08:59→21:33)
[2019-10-16] MEDS: PANTOPRAZOLE 40 MG TABLET PO SCH ×2 (08:59→21:37)
[2019-10-16] MEDS: LISINOPRIL 20 MG TAB PO SCH ×2 (09:00→21:34)
[2019-10-16] MEDS: DICYCLOMINE 10 MG CAP PO SCH ×3 (09:00→21:37)
[2019-10-16] MEDS: HEPARIN SODIUM,PORCINE 5,000 UNIT/ML 1 ML VIAL SQ SCH ×2 (09:00→21:36)
[2019-10-16] MEDS: DOCUSATE 100 MG CAP PO SCH ×2 (09:00→21:37)
[2019-10-16] MEDS: ONDANSETRON 4 MG TAB PO PRN ×2 (09:00→21:29)
[2019-10-16] MEDS: CHOLECALCIFEROL 1,000 UNIT TAB PO SCH (09:00)
[2019-10-16] MEDS: oxyCODONE-APAP 10-325MG 1 EACH TAB PO PRN ×2 (12:56→19:28)
--- NOTE | 2019-10-16 13:42 | P.PN ---
<Rhonda Steel Moriah - Last Filed: 10/16/19 13:37> Subjective Progress Note Date: 10/16/19 CHIEF COMPLAINT: fecal impaction HISTORY OF PRESENT ILLNESS: Patient examined at the bedside. Patient refused enema administration yesterday. Per nursing, she is to receive enema today. Maricarmen rm has been having bowel movements overnight. Patient denies abdominal pain. PHYSICAL EXAM: VITAL SIGNS: Reviewed. GENERAL: Well-developed in no acute distress. HEENT: No sclera icterus. Extraocular movements grossly intact. Moist buccal mucosa. Head is atraumatic, normocephalic. ABDOMEN: Soft. Mild distention. Nontender. NEUROLOGIC: Alert and oriented. Cranial nerves II through XII grossly intact. ASSESSMENT: 1. Acute on chronic constipation PLAN: -Patient to receive soapsuds enema today -Continue nothing by mouth -Abdominal x-ray in a.m. Nurse practitioner note has been reviewed by physician. Signing provider agrees with the documented findings, assessment, and plan of care. Objective - Vital Signs Vital signs: Vital Signs Temp 98.1 F 10/16/19 11:54 Pulse 81 10/16/19 11:54 Resp 16 10/16/19 11:54 BP 148/77 10/16/19 11:54 Pulse Ox 99 10/16/19 11:54 Intake & Output 10/15/19 10/16/19 10/16/19 18:59 06:59 18:59 Other: Voiding Method Bedside Commode Bedside Commode # Voids 1 1 # Bowel Movements 1 4 - Labs CBC & Chem 7: 10/16/19 07:51 10/16/19 07:51 Labs: Abnormal Lab Results - Last 24 Hours (Table) 10/16/19 10/16/19 Range/Units 07:51 07:51 Lymphocytes # 0.3 L (1.0-4.8) k/uL Sodium 129 L (137-145) mmol/L Chloride 93 L (98-107) mmol/L Microbiology - Last 24 Hours (Table) 10/14/19 12:45 Urine Culture - Preliminary Urine,Clean Catch Gram Neg Bacilli 10/14/19 15:48 Blood Culture - Preliminary Blood No Growth after 24 hours <Osorio Lezama - Last Filed: 10/16/19 16:07> Subjective patient doing better today. she did refuse her enemas last night. She is agre eable at this time. Will begin clear liquid diet. Objective - Vital Signs Vital signs: Vital Signs Temp 98.1 F 10/16/19 11:54 Pulse 81 10/16/19 11:54 Resp 16 10/16/19 11:54 BP 148/77 10/16/19 11:54 Pulse Ox 99 10/16/19 11:54 Intake & Output 10/15/19 10/16/19 10/16/19 18:59 06:59 18:59 Intake Total 50 Balance 50 Intake: Intake, IV Titration 50 Amount cefTRIAXone 1 gm In 50 Sodium Chloride 0.9% 50 ml @ 100 mls/hr IVPB Q24H [facility] Rx#:[id number] Other: Voiding Method Bedside Commode Bedside Commode # Voids 1 1 # Bowel Movements 1 4 - Labs CBC & Chem 7: 10/16/19 07:51 10/16/19 07:51 Labs: Abnormal Lab Results - Last 24 Hours (Table) 10/16/19 10/16/19 Range/Units 07:51 07:51 Lymphocytes # 0.3 L (1.0-4.8) k/uL Sodium 129 L (137-145) mmol/L Chloride 93 L (98-107) mmol/L Microbiology - Last 24 Hours (Table) 10/14/19 12:45 Urine Culture - Preliminary Urine,Clean Catch Gram Neg Bacilli 10/14/19 15:48 Blood Culture - Preliminary Blood No Growth after 24 hours Assessment and Plan (1) Constipation Current Visit: No Status: Acute Code(s): K59.00 - CONSTIPATION, UNSPECIFIED SNOMED Code(s): 94011660
--- NOTE | 2019-10-16 15:42 | P.PN ---
Subjective Progress Note Date: 10/16/19 Principal diagnosis: This is an 84-year-old female who was recently admitted with abdominal pain and distention with constipation and is being closely monitored. Patient states dana t she had multiple bowel movements last night and is feeling somewhat better and is mostly hungry and would like to be started on a diet. Surgery is following. Yesterday patient refused an enema. A soapsuds enema will be given today. Repeat abdominal x-ray in the morning. patient will be started on a clear liquid diet and will monitor closely. Patient's sodium today was 129 and normal saline at 75 ML per hour was resumed. Will repeat a.m. labs. Objective - Vital Signs Vital signs: Vital Signs Temp 98.1 F 10/16/19 11:54 Pulse 81 10/16/19 11:54 Resp 16 10/16/19 11:54 BP 148/77 10/16/19 11:54 Pulse Ox 99 10/16/19 11:54 Intake & Output 10/15/19 10/16/19 10/16/19 18:59 06:59 18:59 Intake Total 50 Balance 50 Intake: Intake, IV Titration 50 Amount cefTRIAXone 1 gm In 50 Sodium Chloride 0.9% 50 ml @ 100 mls/hr IVPB Q24H [facility] Rx#:[id number] Other: Voiding Method Bedside Commode Bedside Commode # Voids 1 1 # Bowel Movements 1 4 - Exam Gen: This is a 84-year-old female sitting up in bed in no acute distress. Patient states she is hungry and has been nothing by mouth. HEENT: Head is atraumatic, normocephalic. Pupils equal, round. Sclerae is anicteric. NECK: Supple. No JVD. No lymphadenopathy. No thyromegaly. LUNGS: diminished breath sounds at the bases. No wheezes or rhonchinoted. No intercostal retractions. HEART: Regular rate and rhythm. No murmur. ABDOMEN: Soft. thin. Bowel sounds are present. No masses. No tenderness noted. EXTREMITIES: No pedal edema. No calf tenderness. NEUROLOGICAL: Patient is awake, alert and oriented x3. Cranial nerves 2 through 12 are grossly intact. - Labs CBC & Chem 7: 10/16/19 07:51 10/16/19 07:51 Labs: Abnormal Lab Results - Last 24 Hours (Table) 10/16/19 10/16/19 Range/Units 07:51 07:51 Lymphocytes # 0.3 L (1.0-4.8) k/uL Sodium 129 L (137-145) mmol/L Chloride 93 L (98-107) mmol/L Microbiology - Last 24 Hours (Table) 10/14/19 12:45 Urine Culture - Preliminary Urine,Clean Catch Gram Neg Bacilli 10/14/19 15:48 Blood Culture - Preliminary Blood No Growth after 24 hours Assessment and Plan Assessment: abdominal distention, possibly fecal impaction, rule out bowel obstruction Acute urinary tract infection, present on admission Hyponatremia History of recent fecal impaction with recent admission History of CVA/TIA Hypertension History of Pseudomonas urinary tract infection Chronic back pain and degenerative joint disease Mild to moderate protein calorie malnutrition with a body mass index of 19.6 Plan: Recommend soapsuds enema today with repeat abdominal x-ray in the morning. will continue with IV antibiotics at this time for UTI. Urine culture thus far growing gram-negative bacilli and will await finalization. Continue with normal saline at 75 ML per hour as her sodium was low today. We'll start a clear liquid diet and monitor closely. Repeat labs in the morning. further recommendations to follow. Possible discharge in 24-48 hours.
[2019-10-16] MEDS: SODIUM CHLORIDE 0.9% 1,000 ML IV SCH ×2 (15:43→18:09)
[2019-10-16] MEDS: CLOPIDOGREL 75 MG TAB PO SCH (21:36)
[2019-10-16] MEDS: MELATONIN 5 MG TABLET PO SCH (21:37)
[2019-10-17] MEDS: LACTULOSE 20 GM/30 ML CUP PO SCH ×5 (00:32→20:06)
[2019-10-17 09:46] LABS: Basophils % (A) 1 %; Eosinophils # (A) 0.1 k/uL (0-0.7); Eosinophils % (A) 2 %; HCT 36.8 % (34.0-46.0); HGB 12.1 gm/dL (11.4-16.0); Lymphocytes # (A) 0.3 k/uL (1.0-4.8); Lymphocytes % (A) 8 %; MCH 31.9 pg (25.0-35.0); MCHC 32.8 g/dL (31.0-37.0); MCV 97.4 fL (80.0-100.0); Mean Platelet Volume 7.4; Monocytes # (A) 0.4 k/uL (0-1.0); Monocytes % (A) 10 %; Neutrophils # (A) 3.1 k/uL (1.3-7.7); Neutrophils % (A) 74 %; Platelet Count 280 k/uL (150-450); RBC 3.78 m/uL (3.80-5.40); WBC 4.2 k/uL (3.8-10.6)
[2019-10-17 10:17] LABS: African American GFR (CKD) >90 (>60 ml/min/1.73 sqM); Anion Gap 10 mmol/L; Blood Urea Nitrogen 7 mg/dL (7-17); Calcium 9.2 mg/dL (8.4-10.2); Carbon Dioxide 25 mmol/L (22-30); Chloride 93 mmol/L (98-107); Glucose 96 mg/dL (74-99); Non-African American GFR(CKD) >90 (>60 ml/min/1.73 sqM); Potassium 3.1 mmol/L (3.5-5.1); Sodium 128 mmol/L (137-145)
[2019-10-17] MEDS: HEPARIN SODIUM,PORCINE 5,000 UNIT/ML 1 ML VIAL SQ SCH ×2 (10:35→21:37)
[2019-10-17] MEDS: LISINOPRIL 20 MG TAB PO SCH (10:35)
[2019-10-17] MEDS: amLODIPine 5 MG TAB PO SCH ×2 (10:35→21:37)
[2019-10-17] MEDS: CARVEDILOL 6.25 MG TAB PO SCH ×2 (10:36→18:03)
[2019-10-17] MEDS: PANTOPRAZOLE 40 MG TABLET PO SCH ×2 (10:36→21:37)
[2019-10-17] MEDS: CHOLECALCIFEROL 1,000 UNIT TAB PO SCH (10:36)
[2019-10-17] MEDS: DOCUSATE 100 MG CAP PO SCH ×2 (10:36→21:37)
[2019-10-17] MEDS: DICYCLOMINE 10 MG CAP PO SCH (10:36)
[2019-10-17] MEDS: SODIUM CHLORIDE 0.9% 1,000 ML IV SCH (10:43)
[2019-10-17] MEDS: oxyCODONE-APAP 10-325MG 1 EACH TAB PO PRN ×2 (10:44→18:03)
--- NOTE | 2019-10-17 10:48 | XR ---
2 view abdomen HISTORY: Fecal impaction 2 views of the abdomen correlated to CT scan 10/15/2019, KUB 10/14/2019 Bone mineralization is decreased. Lung bases are clear. There is no evident bowel obstruction or pneu moperitoneum. Surgical clips are present right upper quadrant. There are dense vascular calcification s present. Retained fecal debris thought to have improved in the interval. Abdominal aortic aneurysm again noted. IMPRESSION: Improvement in stool burden. Correlate.
--- NOTE | 2019-10-17 11:16 | XR ---
EXAMINATION TYPE: XR chest 2V DATE OF EXAM: 10/17/2019 COMPARISON: Prior chest x-ray 06/22/2019 HISTORY: Shortness of breath TECHNIQUE: Frontal and lateral views of the chest are obtained. FINDINGS: Similar findings. There is an underlying scoliosis. Tortuous density aorta is present prom inent lung volumes suggest COPD. Posterior right seventh rib on the right shows an old fracture which appears healed. No evident airspace disease, pneumothorax or pleural effusion. High riding left shou lder may be due to chronic rotator cuff tear. Heart size is likely stable. Thoracic compression fract ures are present at the midthoracic spine, chronic. There are coronary artery calcifications. Promine nt lung markings suggest underlying COPD. IMPRESSION: No acute cardiopulmonary process. Aortic aneurysm.
--- NOTE | 2019-10-17 11:17 | P.PN ---
<Rhonda Steel A - Last Filed: 10/17/19 11:17> Subjective Progress Note Date: 10/17/19 CHIEF COMPLAINT: fecal impaction HISTORY OF PRESENT ILLNESS: Patient examined at the bedside. She received an enema yesterday and has been having numerous stools overnight and this morning p er nursing. Patient denies abdominal pain. She is tolerating clear liquid diet. Abdominal x-ray today reveals improvement in stool burden. PHYSICAL EXAM: VITAL SIGNS: Reviewed. GENERAL: Well-developed in no acute distress. HEENT: No sclera icterus. Extraocular movements grossly intact. Moist buccal mucosa. Head is atraumatic, normocephalic. ABDOMEN: Soft. Nondistended. Nontender. NEUROLOGIC: Alert and oriented. Cranial nerves II through XII grossly intact. ASSESSMENT: 1. Acute on chronic constipation PLAN: Advance diet Resume oral bowel regimen to prevent reoccurrence of constipation Nurse practitioner note has been reviewed by physician. Signing provider agrees with the documented findings, assessment, and plan of care. Objective - Vital Signs Vital signs: Vital Signs Temp 98.1 F 10/17/19 06:29 Pulse 105 H 10/17/19 06:29 Resp 15 10/17/19 06:29 BP 106/64 10/17/19 06:29 Pulse Ox 95 10/17/19 06:29 Intake & Output 10/16/19 10/17/19 10/17/19 18:59 06:59 18:59 Intake Total 590 1200 Output Total 2 Balance 590 1198 Intake: IV 600 Sodium Chloride 0.9% 1, 600 000 ml @ 75 mls/hr IV . [id number] [facility] Rx#:[id number] Intake, IV Titration 50 600 Amount Sodium Chloride 0.9% 1, 600 000 ml @ 75 mls/hr IV . [id number] [facility] Rx#:[id number] cefTRIAXone 1 gm In 50 Sodium Chloride 0.9% 50 ml @ 100 mls/hr IVPB Q24H [facility] Rx#:[id number] Oral 540 Output: Urine 2 Other: Voiding Method Bedside Commode Bedside Commode Bedside Commode # Voids 4 1 # Bowel Movements 2 3 - Labs CBC & Chem 7: 10/17/19 08:16 10/17/19 08:16 Labs: Abnormal Lab Results - Last 24 Hours (Table) 10/17/19 10/17/19 Range/Units 08:16 08:16 RBC 3.78 L (3.80-5.40) m/uL Lymphocytes # 0.3 L (1.0-4.8) k/uL Sodium 128 L (137-145) mmol/L Potassium 3.1 L (3.5-5.1) mmol/L Chloride 93 L (98-107) mmol/L Creatinine 0.47 L (0.52-1.04) mg/dL Microbiology - Last 24 Hours (Table) 10/14/19 12:45 Urine Culture - Final Urine,Clean Catch Klebsiella pneumoniae Escherichia coli 10/14/19 15:48 Blood Culture - Preliminary Blood No Growth after 48 hours <Osorio Lezama - Last Filed: 10/17/19 19:47> Subjective Patient doing well today. Tolerating liquid diet. Large bowel movement per nursing staff. Still bloated however. Mild nausea at times. Will increase diet. Continue stool softeners and enemas. Objective - Vital Signs Vital signs: Vital Signs Temp 97.8 F 10/17/19 11:58 Pulse 79 10/17/19 11:58 Resp 16 10/17/19 11:58 BP 144/77 10/17/19 11:58 Pulse Ox 96 10/17/19 11:58 Intake & Output 10/17/19 10/17/19 10/18/19 06:59 18:59 06:59 Intake Total 1200 Output Total 2 Balance 1198 Intake: IV 600 Sodium Chloride 0.9% 1, 600 000 ml @ 75 mls/hr IV . [id number] [facility] Rx#:[id number] Intake, IV Titration 600 Amount Sodium Chloride 0.9% 1, 600 000 ml @ 75 mls/hr IV . [id number] [facility] Rx#:[id number] Output: Urine 2 Other: Voiding Method Bedside Commode Bedside Commode # Voids 1 1 # Bowel Movements 3 - Labs CBC & Chem 7: 10/17/19 08:16 10/17/19 08:16 Labs: Abnormal Lab Results - Last 24 Hours (Table) 10/17/19 10/17/19 Range/Units 08:16 08:16 RBC 3.78 L (3.80-5.40) m/uL Lymphocytes # 0.3 L (1.0-4.8) k/uL Sodium 128 L (137-145) mmol/L Potassium 3.1 L (3.5-5.1) mmol/L Chloride 93 L (98-107) mmol/L Creatinine 0.47 L (0.52-1.04) mg/dL Microbiology - Last 24 Hours (Table) 10/14/19 15:48 Blood Culture - Preliminary Blood No Growth after 72 hours 10/14/19 12:45 Urine Culture - Final Urine,Clean Catch Klebsiella pneumoniae Escherichia coli Assessment and Plan (1) Constipation Current Visit: No Status: Acute Code(s): K59.00 - CONSTIPATION, UNSPECIFIED SNOMED Code(s): 37864453
[2019-10-17] MEDS ORDERED: POTASSIUM CHLORIDE ER 20 MEQ TAB.ER PO STA (11:57)
[2019-10-17] MEDS: ONDANSETRON 4 MG TAB PO PRN (14:23)
--- NOTE | 2019-10-17 15:33 | P.PN ---
Subjective Progress Note Date: 10/17/19 Principal diagnosis: This is an 84-year-old female who was recently admitted with abdominal pain and distention with constipation and is being closely monitored. Patient states dana t she had multiple bowel movements last night and is feeling somewhat better and is mostly hungry and would like to be started on a diet. Surgery is following. Yesterday patient refused an enema. A soapsuds enema will be given today. Repeat abdominal x-ray in the morning. patient will be started on a clear liquid diet and will monitor closely. Patient's sodium today was 129 and normal saline at 75 ML per hour was resumed. Will repeat a.m. labs. 10/17/2019 Patient is sitting up in the chair stating that she is cold and tired she did not sleep well due to having multiple bowel movements again throughout the night. Per nursing staff some of the bowel movements were loose and her MiraLAX was not given. Patient tolerating clear liquid diet and will advance today. Repeat chest x-ray is negative for any acute cardiopulmonary process and abdominal x-ray is showing improvement in the stool burden. Repeat sodium today is 128 and patient is currently maintained on IV fluids at 75 ML per hour and will continue at this time. Potassium was 3.1 and will be replaced. Will repeat a.m. labs. Objective - Vital Signs Vital signs: Vital Signs Temp 97.8 F 10/17/19 11:58 Pulse 79 10/17/19 11:58 Resp 16 10/17/19 11:58 BP 144/77 10/17/19 11:58 Pulse Ox 96 10/17/19 11:58 Intake & Output 10/16/19 10/17/19 10/17/19 18:59 06:59 18:59 Intake Total 590 1200 Output Total 2 Balance 590 1198 Intake: IV 600 Sodium Chloride 0.9% 1, 600 000 ml @ 75 mls/hr IV . [id number] [facility] Rx#:[id number] Intake, IV Titration 50 600 Amount Sodium Chloride 0.9% 1, 600 000 ml @ 75 mls/hr IV . [id number] [facility] Rx#:[id number] cefTRIAXone 1 gm In 50 Sodium Chloride 0.9% 50 ml @ 100 mls/hr IVPB Q24H [facility] Rx#:[id number] Oral 540 Output: Urine 2 Other: Voiding Method Bedside Commode Bedside Commode Bedside Commode # Voids 4 1 4 # Bowel Movements 2 3 - Exam Gen: This is a 84-year-old female sitting up in the chair in no acute distress. Patient states she is cold and tired today and did not sleep very well last night due to multiple bowel movements. HEENT: Head is atraumatic, normocephalic. Pupils equal, round. Sclerae is anicteric. NECK: Supple. No JVD. No lymphadenopathy. No thyromegaly. LUNGS: diminished breath sounds at the bases. No wheezes or rhonchi noted. No intercostal retractions. HEART: Regular rate and rhythm. No murmur. ABDOMEN: Soft. thin. Bowel sounds are present. No masses. No tenderness noted. EXTREMITIES: No pedal edema. No calf tenderness. NEUROLOGICAL: Patient is awake, alert and oriented x3. Cranial nerves 2 through 12 are grossly intact. - Labs CBC & Chem 7: 10/17/19 08:16 10/17/19 08:16 Labs: Abnormal Lab Results - Last 24 Hours (Table) 10/17/19 10/17/19 Range/Units 08:16 08:16 RBC 3.78 L (3.80-5.40) m/uL Lymphocytes # 0.3 L (1.0-4.8) k/uL Sodium 128 L (137-145) mmol/L Potassium 3.1 L (3.5-5.1) mmol/L Chloride 93 L (98-107) mmol/L Creatinine 0.47 L (0.52-1.04) mg/dL Microbiology - Last 24 Hours (Table) 10/14/19 12:45 Urine Culture - Final Urine,Clean Catch Klebsiella pneumoniae Escherichia coli 10/14/19 15:48 Blood Culture - Preliminary Blood No Growth after 48 hours Assessment and Plan Assessment: abdominal distention, possibly fecal impaction, rule out bowel obstruction Acute urinary tract infection, present on admission. Urine culture finalized showing Klebsiella pneumonia with E. coli. Patient currently on IV ceftriaxone and will continue at this time Hyponatremia; current sodium is 128 and will continue with IV normal saline at 75 ML per hour. Will repeat a.m. labs History of recent fecal impaction with recent admission History of CVA/TIA Hypertension History of Pseudomonas urinary tract infection Chronic back pain and degenerative joint disease Mild to moderate protein calorie malnutrition with a body mass index of 19.6 Plan: Recommend continue with IV antibiotics at this time for UTI. Urine culture finalized showing Klebsiella pneumonia with E. coli. Continue with normal saline at 75 ML per hour as her sodium was low again today and is currently at 128. Will advance diet today as repeat abdominal x-ray is improving and patient is no longer having abdominal discomfort and tolerating clear liquids yesterday. Repeat labs in the morning. further recommendations to follow. Possible discharge in 24-48 hours.
[2019-10-17] MEDS: CLOPIDOGREL 75 MG TAB PO SCH (21:37)
[2019-10-17] MEDS: MELATONIN 5 MG TABLET PO SCH (21:37)
[2019-10-18] MEDS: oxyCODONE-APAP 10-325MG 1 EACH TAB PO PRN ×2 (01:30→11:09)
[2019-10-18] MEDS: LACTULOSE 20 GM/30 ML CUP PO SCH ×6 (01:30→18:56)
[2019-10-18] MEDS: ONDANSETRON 4 MG TAB PO PRN (01:34)
[2019-10-18 06:08] VITALS: TEMP 98
[2019-10-18 07:42] LABS: Basophils % (A) 1 %; Eosinophils # (A) 0.1 k/uL (0-0.7); Eosinophils % (A) 3 %; HCT 33.1 % (34.0-46.0); HGB 10.8 gm/dL (11.4-16.0); Lymphocytes # (A) 0.4 k/uL (1.0-4.8); Lymphocytes % (A) 8 %; MCH 31.8 pg (25.0-35.0); MCHC 32.6 g/dL (31.0-37.0); MCV 97.7 fL (80.0-100.0); Mean Platelet Volume 7.2; Monocytes # (A) 0.5 k/uL (0-1.0); Monocytes % (A) 10 %; Neutrophils # (A) 3.7 k/uL (1.3-7.7); Neutrophils % (A) 75 %; Platelet Count 249 k/uL (150-450); RBC 3.39 m/uL (3.80-5.40); RDW 13.3 % (11.5-15.5); WBC 4.9 k/uL (3.8-10.6)
[2019-10-18 07:59] LABS: African American GFR (CKD) >90 (>60 ml/min/1.73 sqM); Anion Gap 7 mmol/L; Blood Urea Nitrogen 7 mg/dL (7-17); Calcium 8.9 mg/dL (8.4-10.2); Carbon Dioxide 25 mmol/L (22-30); Chloride 99 mmol/L (98-107); Glucose 81 mg/dL (74-99); Non-African American GFR(CKD) 89 (>60 ml/min/1.73 sqM); Potassium 3.8 mmol/L (3.5-5.1); Sodium 131 mmol/L (137-145)
[2019-10-18] MEDS: DOCUSATE 100 MG CAP PO SCH (08:53)
[2019-10-18] MEDS: CHOLECALCIFEROL 1,000 UNIT TAB PO SCH (08:53)
[2019-10-18] MEDS: HEPARIN SODIUM,PORCINE 5,000 UNIT/ML 1 ML VIAL SQ SCH (08:54)
[2019-10-18] MEDS: PANTOPRAZOLE 40 MG TABLET PO SCH (08:54)
[2019-10-18] MEDS: amLODIPine 5 MG TAB PO SCH (08:54)
[2019-10-18] MEDS: CARVEDILOL 6.25 MG TAB PO SCH ×2 (08:54→17:33)
[2019-10-18] MEDS: SODIUM CHLORIDE 0.9% 1,000 ML IV SCH (08:55)
[2019-10-18] MEDS ORDERED: LISINOPRIL 20 MG TAB PO SCH (09:00)
--- NOTE | 2019-10-18 11:43 | P.PN ---
Progress Note - Text Progress Note Date: 10/18/19 the patient has had bowel movements. On exam her vital signs are stable. Her abdomen soft.there is no significant tenderness Resolving acute and chronic constipation. Patient will continue supportive care.
[2019-10-18 13:03] VITALS: BP 145/87; PULSE 89; RESP 20
--- NOTE | 2019-10-18 14:55 | P.DS ---
Providers Date of admission: 10/16/19 08:55 Attending physician: Jaciel Gonzales Consults: 10/15/19 16:21 Consult Physician Routine Consulting Provider: Osorio Lezama Consult Reason/Comments: abd distension and pain- fecal impaction?? Do you want consulting provider notified?: Yes Primary care physician: Fabiola Hospital Course: 84-year-old female who was recently admitted with abdominal pain and distention with constipation and is being closely monitored. Patient states that she had multiple bowel movements last night and is feeling somewhat better and is mostly hungry and would like to be started on a diet. Surgery is following. Yesterday patient refused an enema. A soapsuds enema will be given today. Repeat abdominal x-ray in the morning. patient will be started on a clear liquid diet and will monitor closely. Patient's sodium today was 129 and normal saline at 75 ML per hour was resumed. Will repeat a.m. labs. 10/17/2019 Patient is sitting up in the chair stating that she is cold and tired she did not sleep well due to having multiple bowel movements again throughout the night. Per nursing staff some of the bowel movements were loose and her MiraLAX was not given. Patient tolerating clear liquid diet and will advance today. Repeat chest x-ray is negative for any acute cardiopulmonary process and abdominal x-ray is showing improvement in the stool burden. Repeat sodium today is 128 and patient is currently maintained on IV fluids at 75 ML per hour and will continue at this time. Potassium was 3.1 and will be replaced. Will repeat a.m. labs. 10/18/2019 Patient's creatinine improved to 131 patient is being discharged today. PHYSICAL EXAMINATION: GENERAL: The patient is alert and oriented x3, not in any acute distress. Well developed, well nourished. HEENT: Pupils are round and equally reacting to light. EOMI. No scleral icterus. No conjunctival pallor. Normocephalic, atraumatic. No pharyngeal erythema. No thyromegaly. CARDIOVASCULAR: S1 and S2 present. No murmurs, rubs, or gallops. PULMONARY: Chest is clear to auscultation, no wheezing or crackles. ABDOMEN: Soft, nontender, nondistended, normoactive bowel sounds. No palpable organomegaly. MUSCULOSKELETAL: No joint swelling or deformity. EXTREMITIES: No cyanosis, clubbing, or pedal edema. NEUROLOGICAL: Gross neurological examination did not reveal any focal deficits. SKIN: No rashes. Assessment and Plan Assessment: abdominal distention, possibly fecal impaction, ruled out bowel obstruction Acute urinary tract infection, present on admission. Urine culture finalized showing Klebsiella pneumonia with E. coli. Completed antibiotics therapy Hyponatremia; hypovolemic improved now History of recent fecal impaction with recent admission History of CVA/TIA Hypertension Chronic back pain and degenerative joint disease Mild to moderate protein calorie malnutrition with a body mass index of 19.6 Plan - Discharge Summary Discharge Rx Participant: No New Discharge Prescriptions: New Lactulose [Cephulac] 30 gm PO TID PRN #100 ml PRN Reason: Constipation Continue Folic Acid 0.8 mg PO DAILY Cholecalciferol [Vitamin D3 (25 Mcg = 1000 Iu)] 1,000 unit PO DAILY Acetaminophen/Caffeine [Excedrin Tension Headache Cplt] 1 - 2 tab PO HS PRN PRN Reason: Migraine Headache Melatonin 5 mg PO HS oxyCODONE-APAP 10-325MG [Percocet 10-325 mg] 1 tab PO QID PRN PRN Reason: Pain amLODIPine [Norvasc] 2.5 mg PO BID Clopidogrel Bisulfate [Plavix] 75 mg PO HS Carvedilol [Coreg] 6.25 mg PO BID Enalapril [Vasotec] 20 mg PO BID Polyethylene Glycol 3350 [Miralax] 8.5 gm PO DAILY PRN #0 PRN Reason: Constipation Bifidobacterium Infantis [Align] 4 mg PO DAILY Pantoprazole [Protonix] 40 mg PO BID 30 Days #60 tablet.dr Discontinued hydrALAZINE HCL [Apresoline] 25 mg PO TID PRN 30 Days #90 tab PRN Reason: Blood Pressure - High Dicyclomine [Bentyl] 10 mg PO TID #20 capsule Docusate [Colace] 100 mg PO BID 30 Days #60 cap Discharge Medication List Acetaminophen/Caffeine [Excedrin Tension Headache Cplt] 1 - 2 tab PO HS PRN 09/02/18 [History] Carvedilol [Coreg] 6.25 mg PO BID 09/02/18 [History] Cholecalciferol [Vitamin D3 (25 Mcg = 1000 Iu)] 1,000 unit PO DAILY 09/02/18 [History] Clopidogrel Bisulfate [Plavix] 75 mg PO HS 09/02/18 [History] Folic Acid 0.8 mg PO DAILY 09/02/18 [History] Melatonin 5 mg PO HS 09/02/18 [History] amLODIPine [Norvasc] 2.5 mg PO BID 09/02/18 [History] oxyCODONE-APAP 10-325MG [Percocet 10-325 mg] 1 tab PO QID PRN 09/02/18 [History] Enalapril [Vasotec] 20 mg PO BID 06/21/19 [History] Polyethylene Glycol 3350 [Miralax] 8.5 gm PO DAILY PRN #0 06/24/19 [Rx] Bifidobacterium Infantis [Align] 4 mg PO DAILY 09/27/19 [History] Pantoprazole [Protonix] 40 mg PO BID 30 Days #60 tablet. 10/03/19 [Rx] Lactulose [Cephulac] 30 gm PO TID PRN #100 ml 10/18/19 [Rx] Follow up Appointment(s)/Referral(s): Gamal Joe MD [Primary Care Provider] - 1 Week (Patient to call Dr. Joe's office to schedule follow up appointment. The office is closed at time of discharge. ) Patient Instructions/Handouts: Lactulose (By mouth), Acute Abdominal Pain (DC) Discharge Disposition: HOME SELF-CARE
== END 2019-10-18 19:10 | disposition home or self-care (01) | DRG 389 ==
LOC: EC 13:51 → 5NMEDONC 16:53 → OBSVTOIN 10-16 08:55
PROVIDERS: ADMIT Hospitalist; ATTEND Hospitalist
DX: K56.41 Fecal impaction (principal); E44.0 Moderate protein-calorie malnutrition; E87.1 Hypo-osmolality and hyponatremia; N39.0 Urinary tract infection, site not specified; Z68.1 Body mass index [BMI] 19.9 or less, adult; B96.5 Pseudomonas (aeruginosa) (mallei) (pseudomallei) as the cause of diseases classified elsewhere; E86.1 Hypovolemia; G44.209 Tension-type headache, unspecified, not intractable; G89.29 Other chronic pain; F41.9 Anxiety disorder, unspecified; I10 Essential (primary) hypertension; I67.1 Cerebral aneurysm, nonruptured; M81.0 Age-related osteoporosis without current pathological fracture; M19.90 Unspecified osteoarthritis, unspecified site; Z79.02 Long term (current) use of antithrombotics/antiplatelets; Z79.899 Other long term (current) drug therapy; Z82.49 Family history of ischemic heart disease and other diseases of the circulatory system; Z86.73 Personal history of transient ischemic attack (TIA), and cerebral infarction without residual deficits; Z90.49 Acquired absence of other specified parts of digestive tract
CPT/HCPCS: 36415; 71046; 74018; 74019; 74176; 80048; 80053; 81001; 82150; 83605; 83690; 85025; 87040; 87077; 87086; 87186; 96361; 96374; 96375; 99285

== ENCOUNTER 2019-11-02 15:41 | Emergency (ER) | payer MEDICARE ==
[2019-11-02 15:57] VITALS: RESP 18; TEMP 97.9
[2019-11-02] MEDS ORDERED: DOCUSATE 283 MG/5 ML ENEMA RECTAL STA (16:23)
--- NOTE | 2019-11-02 16:45 | XR ---
EXAMINATION TYPE: XR KUB DATE OF EXAM: 11/02/2019 COMPARISON: 10/14/2019 INDICATION: Constipation TECHNIQUE: Single view abdomen upright view FINDINGS: There is an air-fluid level within the right upper quadrant may be in the duodenum or stomach. There is moderate fecal retention. Scoliosis is present. Psoas margins appear normal. No free air is eviden t. Differential air-fluid levels are not evident. Psoas margins are normal. No organomegaly is present. IMPRESSION: 1. Air-fluid level in the right upper quadrant may be within the stomach and duodenum 2. Moderate fecal retention
[2019-11-02 17:23] LABS: Appearance,Urine Clear (Clear); Bilirubin,Urine Negative (Negative); Blood,Urine Negative (Negative); Color,Urine Light Yellow; Glucose,Urine (UA) Negative (Negative); Ketones,Urine Negative (Negative); Leukocyte Esterase,Urine Negative (Negative); Nitrite,Urine Negative (Negative); Protein,Urine Negative (Negative); Specific Gravity,Urine 1.006 (1.001-1.035); Urobilinogen,Urine <2.0 mg/dL (<2.0)
--- NOTE | 2019-11-02 17:58 | ED ---
Abdominal Pain HPI - General Chief Complaint: Abdominal Pain Stated Complaint: Constipation Time Seen by Provider: 11/02/19 15:52 Source: family, RN notes reviewed, old records reviewed Mode of arrival: wheelchair Limitations: physical limitation - History of Present Illness Initial Comments: Patient is an 84-year-old female with a history of chronic constipation. Patient reports that she has tried multiple stool softeners but has not been able to go to the bathroom. Patient reports that she does feel a hard ball of stool at the end of her rectum. She reports that it feels that sometimes the stool pushes on her urethra and she is unable to urinate. Patient states that she had to be admitted prior for a significant fecal impaction. Patient at this time has had no fevers or chills. She has had denies any vomiting. Patient has not had a bowel movement 6 days. - Related Data Home Medications Medication Instructions Recorded Confirmed Acetaminophen/Caffeine [Excedrin 1 - 2 tab PO HS PRN 09/02/18 10/14/19 Tension Headache Cplt] Carvedilol [Coreg] 6.25 mg PO BID 09/02/18 10/14/19 Cholecalciferol [Vitamin D3 (25 1,000 unit PO DAILY 09/02/18 10/14/19 Mcg = 1000 Iu)] Clopidogrel Bisulfate [Plavix] 75 mg PO HS 09/02/18 10/14/19 Folic Acid 0.8 mg PO DAILY 09/02/18 10/14/19 Melatonin 5 mg PO HS 09/02/18 10/14/19 amLODIPine [Norvasc] 2.5 mg PO BID 09/02/18 10/14/19 oxyCODONE-APAP 10-325MG [Percocet 1 tab PO QID PRN 09/02/18 10/14/19 10-325 mg] Enalapril [Vasotec] 20 mg PO BID 06/21/19 10/14/19 Bifidobacterium Infantis [Align] 4 mg PO DAILY 09/27/19 10/14/19 Previous Rx's Medication Instructions Recorded Polyethylene Glycol 3350 [Miralax] 8.5 gm PO DAILY PRN #0 06/24/19 Pantoprazole [Protonix] 40 mg PO BID 30 Days #60 tablet. 10/03/19 Lactulose [Cephulac] 30 gm PO TID PRN #100 ml 10/18/19 Sennosides [Senna] 8.6 mg PO HS #30 tablet 10/18/19 Allergies Allergy/AdvReac Type Severity Reaction Status Date / Time nitroglycerin AdvReac BLOOD Verified 11/02/19 15:50 PRESSURE DROPS SEVERELY Sulfa (Sulfonamide AdvReac Dyspnea Verified 11/02/19 15:50 Antibiotics) Review of Systems ROS Statement: Those systems with pertinent positive or pertinent negative responses have been documented in the HPI. ROS Other: All systems not noted in ROS Statement are negative. Past Medical History Past Medical History: CVA/TIA, Hypertension Additional Past Medical History / Comment(s): pseudomonas UTI, chronic back pain, osteoporosis, cerebral aneurysm History of Any Multi-Drug Resistant Organisms: None Reported Past Surgical History: Tonsillectomy Additional Past Surgical History / Comment(s): cataracts, coiling of cerebral aneurysm, hiatal hernia repair, retina repair. Additional Past Anesthesia/Blood Transfusion Reaction / Comment(s): hypotension post anesthesia. Past Psychological History: Anxiety Smoking Status: Never smoker Past Alcohol Use History: None Reported Past Drug Use History: None Reported - Past Family History Mother Additional Family Medical History / Comment(s): in a pedestrian versus car accident Father Additional Family Medical History / Comment(s): DC stat age 58 secondary to severe high blood pressure resulting myocardial infarction General Exam - General Exam Comments Initial Comments: 84-year-old female. Alert and oriented. No distress. Limitations: physical limitation General appearance: alert, in no apparent distress Head exam: Present: atraumatic, normocephalic, normal inspection Eye exam: Present: normal appearance, PERRL, EOMI. Absent: scleral icterus, conjunctival injection, periorbital swelling ENT exam: Present: normal exam, mucous membranes moist Neck exam: Present: normal inspection. Absent: tenderness, meningismus, lymphadenopathy Respiratory exam: Present: normal lung sounds bilaterally. Absent: respiratory distress, wheezes, rales, rhonchi, stridor Cardiovascular Exam: Present: regular rate, normal rhythm, normal heart sounds. Absent: systolic murmur, diastolic murmur, rubs, gallop, clicks GI/Abdominal exam: Present: soft, normal bowel sounds. Absent: distended, tenderness, guarding, rebound, rigid Rectal exam: Present: decreased rectal tone, fecal impaction (large fecal impaction) Extremities exam: Present: normal inspection, full ROM, normal capillary refill. Absent: tenderness, pedal edema, joint swelling, calf tenderness Back exam: Present: normal inspection, full ROM Neurological exam: Present: alert, oriented X3, CN II-XII intact Psychiatric exam: Present: normal affect, normal mood Skin exam: Present: warm, dry, intact, normal color. Absent: rash Course Vital Signs 11/02/19 15:48 Temperature 97.9 F Pulse Rate 86 Respiratory 18 Rate Blood Pressure 177/111 O2 Sat by Pulse 97 Oximetry Medical Decision Making - Medical Decision Making He 4-year-old female presents emergency department today for concern for diffuse constipation due to fecal impaction. Patient had taken multiple [id number] stool softeners and lactulose at home without much relief. Patient on physical exam does have a full, mildly distended abdomen. Rectal exam does show somewhat decreased rectal tone however there is a large fecal mass at the rectal vault. Patient had Therevac enema and was manually dis impacted. Then a milk and molasses enema completed. UA is negative for UTI. Patient did have a bowel movement after disimpaction and has some improvement. Patient case was signed out to Dr. Candelaria. Patient be discharged at this time continuing her at home bowel regimen and advised following up with his surgeon Dr. esquivel and PCP. - Lab Data Lab Results 11/02/19 Range/Units 14:50 Urine Color Light Yellow Urine Appearance Clear (Clear) Urine pH 8.0 (5.0-8.0) Ur Specific [place] 1.006 (1.001-1.035) Urine Protein Negative (Negative) Urine Glucose (UA) Negative (Negative) Urine Ketones Negative (Negative) Urine Blood Negative (Negative) Urine Nitrite Negative (Negative) Urine Bilirubin Negative (Negative) Urine Urobilinogen <2.0 (<2.0) mg/dL Ur Leukocyte Esterase Negative (Negative) - Radiology Data Radiology results: report reviewed Air-fluid level in the right upper quadrant may be within the stomach or duodenum. Moderate fecal retention. Disposition Clinical Impression: Constipation Disposition: HOME SELF-CARE Condition: Stable Instructions (If sedation given, give patient instructions): Constipation (ED) Additional Instructions: Please use medication as discussed continuing lactulose and you're bowel movement regimen. Encourage fluid intake. Please follow up with family doctor if symptoms have not improved over the next two days. Please return to the emergency room if your symptoms increase or worsen or for any other concerns. Is patient prescribed a controlled substance at d/c from ED?: No Referrals: Gamal Joe MD [Primary Care Provider] - 1-2 days Osorio Lezama MD [Medical Doctor] - 1-2 days Time of Disposition: 18:39
[2019-11-02] MEDS ORDERED: LACTULOSE 20 GM/30 ML CUP PO ONE (18:19)
[2019-11-02 20:27] VITALS: BP 167/97; PULSE 85
== END 2019-11-02 20:31 | disposition home or self-care (01) ==
LOC: EC 15:41
DX: K59.09 Other constipation (principal); I10 Essential (primary) hypertension; Z79.02 Long term (current) use of antithrombotics/antiplatelets; Z79.899 Other long term (current) drug therapy; Z88.2 Allergy status to sulfonamides; Z88.8 Allergy status to other drugs, medicaments and biological substances; Z86.73 Personal history of transient ischemic attack (TIA), and cerebral infarction without residual deficits
CPT/HCPCS: 74018; 81003; 87077; 87086; 87186; 99284

== ENCOUNTER 2019-11-10 18:19 | Emergency (ER) | payer MEDICARE ==
[2019-11-10 18:32] VITALS: RESP 18
[2019-11-10] MEDS ORDERED: SODIUM CHLORIDE 0.9% 500 ML 500 ML IV STA (19:05)
[2019-11-10] MEDS ORDERED: LEVOFLOXACIN 750MG-D5W PMX 750 MG in DEXTROSE/WATER 1 150ML.BAG IVPB STA (19:07)
[2019-11-10] MEDS ORDERED: ACETAMINOPHEN TAB 325 MG TAB PO STA (19:10)
[2019-11-10] MEDS ORDERED: AMPICILLIN-SULBACTAM 3 GM in SODIUM CHLORIDE 0.9% 100 ML IVPB STA (19:17)
[2019-11-10 19:24] LABS: Basophils # (A) 0.1 k/uL (0-0.2); Basophils % (A) 1 %; Eosinophils # (A) 0.1 k/uL (0-0.7); Eosinophils % (A) 3 %; HGB 13.2 gm/dL (11.4-16.0); Lymphocytes # (A) 0.3 k/uL (1.0-4.8); Lymphocytes % (A) 6 %; MCH 32.5 pg (25.0-35.0); MCV 98.5 fL (80.0-100.0); Mean Platelet Volume 6.8; Monocytes # (A) 0.3 k/uL (0-1.0); Monocytes % (A) 5 %; Neutrophils # (A) 4.8 k/uL (1.3-7.7); Neutrophils % (A) 84 %; Platelet Count 342 k/uL (150-450); RBC 4.06 m/uL (3.80-5.40); RDW 13.3 % (11.5-15.5); WBC 5.7 k/uL (3.8-10.6)
--- NOTE | 2019-11-10 19:31 | ED ---
General Adult HPI - General Chief complaint: Urogenital Stated complaint: recheck- UTI Time Seen by Provider: 11/10/19 18:52 Source: patient, RN notes reviewed, old records reviewed Mode of arrival: wheelchair Limitations: no limitations - History of Present Illness Initial comments: 84-year-old female patient past history of hypertension, chronic constipation, reported previous urosepsis from pseudomonas urinary tract infection presents to ED for chief complaint of urinary tract infection. Patient was seen on 11/02/2019 for constipation. The time the urine was obtained. His urine did grow enterococcus which is pansensitive. Patient was seen by their primary care provider today. Patient reportedly has very difficult time tolerating oral medications. Has nausea and vomiting with virtually any sort of antibiotic and is unable to tolerate them. Patient was recommended by her primary care provider to present to the emergency department for IV antibiotics and admission. Patient reportedly had to have PICC line inserted in the past for the same issue for IV antibiotics for urinary tract infections. Patient complains of some dysuria as well as constipation. Denies any other complaints. Denies any symptoms of systemic infection at this time. Systemic: Pt denies fatigue, fever/chills, rash. Pt denies weakness, night sweats, weight loss. Neuro: Pt denies headache, visual disturbances, syncope or pre-syncope. HEENT: Pt denies ocular discharge or irritation, otalgia, rhinorrhea, pharyngitis or notable lymphadenopathy. Cardiopulmonary: Pt denies chest pain, SOB, heart palpitations, dyspnea on exertion. Abdominal/GI: Pt denies abdominal pain, n/v/d. :Denies new onset urinary or bowel incontinence. MSK: Pt denies myalgia, loss of strength or function in extremities. Neuro: Pt denies new onset weakness, paresthesias. - Related Data Home Medications Medication Instructions Recorded Confirmed Acetaminophen/Caffeine [Excedrin 1 - 2 tab PO HS PRN 09/02/18 11/10/19 Tension Headache Cplt] Carvedilol [Coreg] 6.25 mg PO BID 09/02/18 11/10/19 Cholecalciferol [Vitamin D3 (25 1,000 unit PO DAILY 09/02/18 11/10/19 Mcg = 1000 Iu)] Clopidogrel Bisulfate [Plavix] 75 mg PO HS 09/02/18 11/10/19 Folic Acid 0.8 mg PO DAILY 09/02/18 11/10/19 Melatonin 5 mg PO HS 09/02/18 11/10/19 amLODIPine [Norvasc] 2.5 mg PO BID 09/02/18 11/10/19 oxyCODONE-APAP 10-325MG [Percocet 1 tab PO QID PRN 09/02/18 11/10/19 10-325 mg] Enalapril [Vasotec] 20 mg PO BID 06/21/19 11/10/19 Bifidobacterium Infantis [Align] 4 mg PO DAILY 09/27/19 11/10/19 Previous Rx's Medication Instructions Recorded Polyethylene Glycol 3350 [Miralax] 8.5 gm PO DAILY PRN #0 06/24/19 Pantoprazole [Protonix] 40 mg PO BID 30 Days #60 tablet. 10/03/19 Lactulose [Cephulac] 30 gm PO TID PRN #100 ml 10/18/19 Sennosides [Senna] 8.6 mg PO HS #30 tablet 10/18/19 Allergies Allergy/AdvReac Type Severity Reaction Status Date / Time nitroglycerin AdvReac BLOOD Verified 11/10/19 18:26 PRESSURE DROPS SEVERELY Sulfa (Sulfonamide AdvReac Dyspnea Verified 11/10/19 18:26 Antibiotics) Review of Systems ROS Statement: Those systems with pertinent positive or pertinent negative responses have been documented in the HPI. ROS Other: All systems not noted in ROS Statement are negative. Past Medical History Past Medical History: CVA/TIA, Hypertension Additional Past Medical History / Comment(s): pseudomonas UTI, chronic back pain, osteoporosis, cerebral aneurysm History of Any Multi-Drug Resistant Organisms: C-DIFF Date of last positivie culture/infection: 2013 Past Surgical History: Tonsillectomy Additional Past Surgical History / Comment(s): cataracts, coiling of cerebral aneurysm, hiatal hernia repair, retina repair. Additional Past Anesthesia/Blood Transfusion Reaction / Comment(s): hypotension post anesthesia. Past Psychological History: No Psychological Hx Reported, Anxiety Smoking Status: Never smoker Past Alcohol Use History: None Reported Past Drug Use History: None Reported - Past Family History Mother Additional Family Medical History / Comment(s): in a pedestrian versus car accident Father Additional Family Medical History / Comment(s): DC stat age 58 secondary to severe high blood pressure resulting myocardial infarction General Exam - General Exam Comments Initial Comments: Constitutional: NAD, AOX3, Pt has pleasant affect. HEENT: NC/AT, trachea midline, neck supple, no lymphadenopathy. Posterior pharynx non erythematous, without exudates. External ears appear normal, without discharge. Mucous membranes moist. Eyes PERRLA, EOM intact. There is no scleral icterus. No pallor noted. Cardiopulmonary: RRR, no murmurs, rubs or gallops, no JVD noted. Lungs CTAB in anterior and posterior berumen. No peripheral edema. Abdominal exam: Abdomen soft and non-distended. Abdomen non-tender to palpation in all 4 quadrants. Bowel sounds active in LLQ. No hepatosplenomegaly. No ecchymosis Neuro: CN II-XII grossly intact. No nuchal rigidity. No raccon eyes, no goyal sign, no hemotympanum. No cervical spinal tenderness. MSK: No posterior calf tenderness bilaterally, homans sign negative bilaterally. Posterior tibialis and radial pulse +2 bilaterally. Sensation intact in upper and lower extremities. Full active ROM in upper and lower extremities, 5/5 stregnth. Limitations: no limitations Course Vital Signs 11/10/19 11/10/19 11/10/19 18:26 20:27 20:48 Temperature 99.9 F H 98.4 F Pulse Rate 98 88 Respiratory 18 18 Rate Blood Pressure 155/98 163/97 O2 Sat by Pulse 97 96 Oximetry Medical Decision Making - Medical Decision Making 84-year-old female patient past history of hypertension, chronic constipation, reported previous urosepsis from pseudomonas urinary tract infection presents to ED for chief complaint of urinary tract infection. Patient was seen on 11/02/2019 for constipation. The time the urine was obtained. His urine did grow enterococcus which is pansensitive. Patient was seen by their primary care provider today. Patient reportedly has very difficult time tolerating oral medications. Has nausea and vomiting with virtually any sort of antibiotic and is unable to tolerate them. Patient was recommended by her primary care provider to present to the emergency department for IV antibiotics and admission. Patient reportedly had to have PICC line inserted in the past for the same issue for IV antibiotics for urinary tract infections. Patient comp lains of some dysuria as well as constipation. Denies any other complaints. Denies any symptoms of systemic infection at this time. Patient also has a displayed temperature 99.9. Otherwise stable. Repeat vital signs are afebrile. Physical exam revealed nontender abdomen. The investigations are negative. Urine is negative. Patient was administered one dose of antibiotics based on prior culture. KUB did display constipation. Patient was administered a Therevac for constipation. Still ineffective. Patient was mainly disimpacted chaperoned by Olivia TAVARES. Patient does report that she was taking previously prescribed antibiotics which had for urinary tract infection. This like ly resolve it. She'll be discharged to follow up with primary care provider will return to ER if condition worsens. Case discussed with Dr. Ramey. - Lab Data Result diagrams: 11/10/19 19:14 11/10/19 19:14 Lab Results 11/10/19 11/10/19 11/10/19 Range/Units 19:14 19:14 19:14 WBC 5.7 (3.8-10.6) k/uL RBC 4.06 (3.80-5.40) m/uL Hgb 13.2 (11.4-16.0) gm/dL Hct 40.0 (34.0-46.0) % MCV 98.5 (80.0-100.0) fL MCH 32.5 (25.0-35.0) pg MCHC 33.0 (31.0-37.0) g/dL RDW 13.3 (11.5-15.5) % Plt Count 342 (150-450) k/uL Neutrophils % 84 % Lymphocytes % 6 % Monocytes % 5 % Eosinophils % 3 % Basophils % 1 % Neutrophils # 4.8 (1.3-7.7) k/uL Lymphocytes # 0.3 L (1.0-4.8) k/uL Monocytes # 0.3 (0-1.0) k/uL Eosinophils # 0.1 (0-0.7) k/uL Basophils # 0.1 (0-0.2) k/uL Sodium 135 L (137-145) mmol/L Potassium 4.9 (3.5-5.1) mmol/L Chloride 100 (98-107) mmol/L Carbon Dioxide 28 (22-30) mmol/L Anion Gap 7 mmol/L BUN 19 H (7-17) mg/dL Creatinine 0.53 (0.52-1.04) mg/dL Est GFR (CKD-EPI)AfAm >90 (>60 ml/min/1.73 sqM) Est GFR (CKD-EPI)NonAf 87 (>60 ml/min/1.73 sqM) Glucose 103 H (74-99) mg/dL Plasma Lactic Acid Pavel 0.9 (0.7-2.0) mmol/L Calcium 9.8 (8.4-10.2) mg/dL Total Bilirubin 0.5 (0.2-1.3) mg/dL AST 32 (14-36) U/L ALT 18 (4-34) U/L Alkaline Phosphatase 85 (38-126) U/L Total Protein 7.3 (6.3-8.2) g/dL Albumin 4.2 (3.5-5.0) g/dL Lipase 60 (23-300) U/L Urine Color Urine Appearance (Clear) Urine pH (5.0-8.0) Ur Specific [place] (1.001-1.035) Urine Protein (Negative) Urine Glucose (UA) (Negative) Urine Ketones (Negative) Urine Blood (Negative) Urine Nitrite (Negative) Urine Bilirubin (Negative) Urine Urobilinogen (<2.0) mg/dL Ur Leukocyte Esterase (Negative) 11/10/19 Range/Units 19:57 WBC (3.8-10.6) k/uL RBC (3.80-5.40) m/uL Hgb (11.4-16.0) gm/dL Hct (34.0-46.0) % MCV (80.0-100.0) fL MCH (25.0-35.0) pg MCHC (31.0-37.0) g/dL RDW (11.5-15.5) % Plt Count (150-450) k/uL Neutrophils % % Lymphocytes % % Monocytes % % Eosinophils % % Basophils % % Neutrophils # (1.3-7.7) k/uL Lymphocytes # (1.0-4.8) k/uL Monocytes # (0-1.0) k/uL Eosinophils # (0-0.7) k/uL Basophils # (0-0.2) k/uL Sodium (137-145) mmol/L Potassium (3.5-5.1) mmol/L Chloride (98-107) mmol/L Carbon Dioxide (22-30) mmol/L Anion Gap mmol/L BUN (7-17) mg/dL Creatinine (0.52-1.04) mg/dL Est GFR (CKD-EPI)AfAm (>60 ml/min/1.73 sqM) Est GFR (CKD-EPI)NonAf (>60 ml/min/1.73 sqM) Glucose (74-99) mg/dL Plasma Lactic Acid Pavel (0.7-2.0) mmol/L Calcium (8.4-10.2) mg/dL Total Bilirubin (0.2-1.3) mg/dL AST (14-36) U/L ALT (4-34) U/L Alkaline Phosphatase (38-126) U/L Total Protein (6.3-8.2) g/dL Albumin (3.5-5.0) g/dL Lipase (23-300) U/L Urine Color Yellow Urine Appearance Clear (Clear) Urine pH 6.5 (5.0-8.0) Ur Specific [place] 1.014 (1.001-1.035) Urine Protein Negative (Negative) Urine Glucose (UA) Negative (Negative) Urine Ketones Negative (Negative) Urine Blood Negative (Negative) Urine Nitrite Negative (Negative) Urine Bilirubin Negative (Negative) Urine Urobilinogen <2.0 (<2.0) mg/dL Ur Leukocyte Esterase Negative (Negative) Disposition Clinical Impression: Constipation Disposition: HOME SELF-CARE Condition: Stable Instructions (If sedation given, give patient instructions): Constipation (ED) Additional Instructions: Follow-up with primary care provider and surgeon tomorrow as previously scheduled. Return to ER if condition worsens in any way. Is patient prescribed a controlled substance at d/c from ED?: No Referrals: Gamal Joe MD [Primary Care Provider] - 1-2 days
[2019-11-10 19:34] LABS: ALT 18 U/L (4-34); AST 32 U/L (14-36); African American GFR (CKD) >90 (>60 ml/min/1.73 sqM); Albumin 4.2 g/dL (3.5-5.0); Alkaline Phosphatase 85 U/L (38-126); Anion Gap 7 mmol/L; Blood Urea Nitrogen 19 mg/dL (7-17); Calcium 9.8 mg/dL (8.4-10.2); Carbon Dioxide 28 mmol/L (22-30); Chloride 100 mmol/L (98-107); Glucose 103 mg/dL (74-99); Non-African American GFR(CKD) 87 (>60 ml/min/1.73 sqM); Sodium 135 mmol/L (137-145); Total Bilirubin 0.5 mg/dL (0.2-1.3); Total Protein 7.3 g/dL (6.3-8.2)
[2019-11-10 19:51] LABS: Potassium 4.9 mmol/L (3.5-5.1)
--- NOTE | 2019-11-10 20:22 | XR ---
EXAMINATION TYPE: XR KUB DATE OF EXAM: 11/10/2019 COMPARISON: 11/02/2019 HISTORY: Abdominal pain TECHNIQUE: Single view upright FINDINGS: There is some retained fecal material in the large bowel. There is no sign of free air. The re are clips from cholecystectomy. There is hiatal hernia. IMPRESSION: Constipation. No free air. No change compared to last exam.
[2019-11-10 20:33] LABS: Appearance,Urine Clear (Clear); Bilirubin,Urine Negative (Negative); Blood,Urine Negative (Negative); Color,Urine Yellow; Glucose,Urine (UA) Negative (Negative); Ketones,Urine Negative (Negative); Leukocyte Esterase,Urine Negative (Negative); Nitrite,Urine Negative (Negative); PH, Urine 6.5 (5.0-8.0); Protein,Urine Negative (Negative); Specific Gravity,Urine 1.014 (1.001-1.035); Urobilinogen,Urine <2.0 mg/dL (<2.0)
[2019-11-10] MEDS ORDERED: DOCUSATE 283 MG/5 ML ENEMA RECTAL STA (20:47)
[2019-11-10 22:16] VITALS: BP 162/95; PULSE 89; TEMP 98.2
--- NOTE | 2019-11-10 22:32 | ED ---
Medical Decision Making - Lab Data Result diagrams: 11/10/19 19:14 11/10/19 19:14 Lab Results 11/10/19 11/10/19 11/10/19 Range/Units 19:14 19:14 19:14 WBC 5.7 (3.8-10.6) k/uL RBC 4.06 (3.80-5.40) m/uL Hgb 13.2 (11.4-16.0) gm/dL Hct 40.0 (34.0-46.0) % MCV 98.5 (80.0-100.0) fL MCH 32.5 (25.0-35.0) pg MCHC 33.0 (31.0-37.0) g/dL RDW 13.3 (11.5-15.5) % Plt Count 342 (150-450) k/uL Neutrophils % 84 % Lymphocytes % 6 % Monocytes % 5 % Eosinophils % 3 % Basophils % 1 % Neutrophils # 4.8 (1.3-7.7) k/uL Lymphocytes # 0.3 L (1.0-4.8) k/uL Monocytes # 0.3 (0-1.0) k/uL Eosinophils # 0.1 (0-0.7) k/uL Basophils # 0.1 (0-0.2) k/uL Sodium 135 L (137-145) mmol/L Potassium 4.9 (3.5-5.1) mmol/L Chloride 100 (98-107) mmol/L Carbon Dioxide 28 (22-30) mmol/L Anion Gap 7 mmol/L BUN 19 H (7-17) mg/dL Creatinine 0.53 (0.52-1.04) mg/dL Est GFR (CKD-EPI)AfAm >90 (>60 ml/min/1.73 sqM) Est GFR (CKD-EPI)NonAf 87 (>60 ml/min/1.73 sqM) Glucose 103 H (74-99) mg/dL Plasma Lactic Acid Pavel 0.9 (0.7-2.0) mmol/L Calcium 9.8 (8.4-10.2) mg/dL Total Bilirubin 0.5 (0.2-1.3) mg/dL AST 32 (14-36) U/L ALT 18 (4-34) U/L Alkaline Phosphatase 85 (38-126) U/L Total Protein 7.3 (6.3-8.2) g/dL Albumin 4.2 (3.5-5.0) g/dL Lipase 60 (23-300) U/L Urine Color Urine Appearance (Clear) Urine pH (5.0-8.0) Ur Specific [place] (1.001-1.035) Urine Protein (Negative) Urine Glucose (UA) (Negative) Urine Ketones (Negative) Urine Blood (Negative) Urine Nitrite (Negative) Urine Bilirubin (Negative) Urine Urobilinogen (<2.0) mg/dL Ur Leukocyte Esterase (Negative) 11/10/19 Range/Units 19:57 WBC (3.8-10.6) k/uL RBC (3.80-5.40) m/uL Hgb (11.4-16.0) gm/dL Hct (34.0-46.0) % MCV (80.0-100.0) fL MCH (25.0-35.0) pg MCHC (31.0-37.0) g/dL RDW (11.5-15.5) % Plt Count (150-450) k/uL Neutrophils % % Lymphocytes % % Monocytes % % Eosinophils % % Basophils % % Neutrophils # (1.3-7.7) k/uL Lymphocytes # (1.0-4.8) k/uL Monocytes # (0-1.0) k/uL Eosinophils # (0-0.7) k/uL Basophils # (0-0.2) k/uL Sodium (137-145) mmol/L Potassium (3.5-5.1) mmol/L Chloride (98-107) mmol/L Carbon Dioxide (22-30) mmol/L Anion Gap mmol/L BUN (7-17) mg/dL Creatinine (0.52-1.04) mg/dL Est GFR (CKD-EPI)AfAm (>60 ml/min/1.73 sqM) Est GFR (CKD-EPI)NonAf (>60 ml/min/1.73 sqM) Glucose (74-99) mg/dL Plasma Lactic Acid Paevl (0.7-2.0) mmol/L Calcium (8.4-10.2) mg/dL Total Bilirubin (0.2-1.3) mg/dL AST (14-36) U/L ALT (4-34) U/L Alkaline Phosphatase (38-126) U/L Total Protein (6.3-8.2) g/dL Albumin (3.5-5.0) g/dL Lipase (23-300) U/L Urine Color Yellow Urine Appearance Clear (Clear) Urine pH 6.5 (5.0-8.0) Ur Specific [place] 1.014 (1.001-1.035) Urine Protein Negative (Negative) Urine Glucose (UA) Negative (Negative) Urine Ketones Negative (Negative) Urine Blood Negative (Negative) Urine Nitrite Negative (Negative) Urine Bilirubin Negative (Negative) Urine Urobilinogen <2.0 (<2.0) mg/dL Ur Leukocyte Esterase Negative (Negative) - EKG Data -: EKG Interpreted by Me EKG Comments: Ventricular rate 96, FL interval 146, QRS 68, QT/QTC 308/39. Normocytic symptoms, normal EKG, no concern for acute ischemia. Disposition Clinical Impression: Constipation Disposition: HOME SELF-CARE Condition: Stable Instructions (If sedation given, give patient instructions): Constipation (ED) Additional Instructions: Follow-up with primary care provider and surgeon tomorrow as previously scheduled. Return to ER if condition worsens in any way. Is patient prescribed a controlled substance at d/c from ED?: No Referrals: Gamal Joe MD [Primary Care Provider] - 1-2 days
== END 2019-11-10 22:33 | disposition home or self-care (01) ==
LOC: EC 18:19
DX: K59.00 Constipation, unspecified (principal); I10 Essential (primary) hypertension; Z79.02 Long term (current) use of antithrombotics/antiplatelets; Z79.899 Other long term (current) drug therapy; Z88.2 Allergy status to sulfonamides; Z88.8 Allergy status to other drugs, medicaments and biological substances; Z86.73 Personal history of transient ischemic attack (TIA), and cerebral infarction without residual deficits
CPT/HCPCS: 36415; 93005; 80053; 83605; 83690; 85025; 81003; 87040; 74018; 99284; 96365; J0295

== ENCOUNTER 2020-01-02 11:58 | Inpatient (IN) | payer MEDICARE ==
[2020-01-02] MEDS ORDERED: SODIUM CHLORIDE 0.9% 500 ML 500 ML IV STA (12:30)
--- NOTE | 2020-01-02 12:47 | ED ---
General Adult HPI - General Chief complaint: Urogenital Stated complaint: weakness/possible UTI Time Seen by Provider: 01/02/20 12:25 Source: patient, RN notes reviewed, old records reviewed Mode of arrival: ambulatory Limitations: no limitations - History of Present Illness Initial comments: 84-year-old female presents for evaluation of decreased intake, dehydration, generalized weakness, increased urinary frequency and dysuria. Patient has history of recurrent urinary tract infections. She's had symptoms for several days. She's had increased generalized weakness without complaints of focal weakness. No chest pain or dyspnea. No fever. No abdominal pain nausea or vomiting. - Related Data Home Medications Medication Instructions Recorded Confirmed Acetaminophen/Caffeine [Excedrin 1 - 2 tab PO HS PRN 09/02/18 11/10/19 Tension Headache Cplt] Carvedilol [Coreg] 6.25 mg PO BID 09/02/18 11/10/19 Cholecalciferol [Vitamin D3 (25 1,000 unit PO DAILY 09/02/18 11/10/19 Mcg = 1000 Iu)] Clopidogrel Bisulfate [Plavix] 75 mg PO HS 09/02/18 11/10/19 Folic Acid 0.8 mg PO DAILY 09/02/18 11/10/19 Melatonin 5 mg PO HS 09/02/18 11/10/19 amLODIPine [Norvasc] 2.5 mg PO BID 09/02/18 11/10/19 oxyCODONE-APAP 10-325MG [Percocet 1 tab PO QID PRN 09/02/18 11/10/19 10-325 mg] Enalapril [Vasotec] 20 mg PO BID 06/21/19 11/10/19 Bifidobacterium Infantis [Align] 4 mg PO DAILY 09/27/19 11/10/19 Previous Rx's Medication Instructions Recorded Polyethylene Glycol 3350 [Miralax] 8.5 gm PO DAILY PRN #0 06/24/19 Pantoprazole [Protonix] 40 mg PO BID 30 Days #60 tablet. 10/03/19 Lactulose [Cephulac] 30 gm PO TID PRN #100 ml 10/18/19 Sennosides [Senna] 8.6 mg PO HS #30 tablet 10/18/19 Allergies Allergy/AdvReac Type Severity Reaction Status Date / Time nitroglycerin AdvReac BLOOD Verified 11/10/19 18:26 PRESSURE DROPS SEVERELY Sulfa (Sulfonamide AdvReac Dyspnea Verified 11/10/19 18:26 Antibiotics) Review of Systems ROS Statement: Those systems with pertinent positive or pertinent negative responses have been documented in the HPI. ROS Other: All systems not noted in ROS Statement are negative. Past Medical History Past Medical History: CVA/TIA, Hypertension Additional Past Medical History / Comment(s): pseudomonas UTI, chronic back pain, osteoporosis, cerebral aneurysm History of Any Multi-Drug Resistant Organisms: C-DIFF Date of last positivie culture/infection: 2013 Past Surgical History: Tonsillectomy Additional Past Surgical History / Comment(s): cataracts, coiling of cerebral aneurysm, hiatal hernia repair, retina repair. Additional Past Anesthesia/Blood Transfusion Reaction / Comment(s): hypotension post anesthesia. Past Psychological History: No Psychological Hx Reported, Anxiety Smoking Status: Never smoker Past Alcohol Use History: None Reported Past Drug Use History: None Reported - Past Family History Mother Additional Family Medical History / Comment(s): in a pedestrian versus car accident Father Additional Family Medical History / Comment(s): DC stat age 58 secondary to severe high blood pressure resulting myocardial infarction General Exam Limitations: no limitations General appearance: alert, cachectic Head exam: Present: atraumatic, normocephalic Eye exam: Present: normal appearance, PERRL ENT exam: Present: mucous membranes dry Neck exam: Present: normal inspection. Absent: tenderness, meningismus Respiratory exam: Present: normal lung sounds bilaterally. Absent: respiratory distress, wheezes Cardiovascular Exam: Present: regular rate, normal rhythm GI/Abdominal exam: Present: soft. Absent: distended, tenderness, guarding Extremities exam: Present: normal inspection, normal capillary refill. Absent: pedal edema Back exam: Present: normal inspection Neurological exam: Present: alert, oriented X3, CN II-XII intact. Absent: motor sensory deficit Psychiatric exam: Present: normal affect, normal mood Skin exam: Present: warm, dry, intact Course Vital Signs 01/02/20 01/02/20 12:16 14:41 Temperature 98.4 F Pulse Rate 66 63 Respiratory 20 16 Rate Blood Pressure 98/64 135/69 O2 Sat by Pulse 98 97 Oximetry EKG Findings - EKG Comments: EKG Findings:: EKG: Sinus bradycardia rate of 58, VA interval 166, QRS duration 78, QTC 382, no ST segment elevation Medical Decision Making - Medical Decision Making 84-year-old female with dehydration, UTI. Patient has normal CBC, no leukocytosis, normal electrolytes. Chest x-ray negative for focal pneumonia, no acute findings. She does have positive urinalysis, awaiting culture results. She's given IV hydration and IV antibiotics in the emergency department. She will be placed in observation for close monitoring, rehydration. Case is discussed with the admitting physician Dr. Gandara will admit. - Lab Data Result diagrams: 01/02/20 13:38 01/02/20 13:38 Lab Results 01/02/20 01/02/20 01/02/20 Range/Units 12:32 13:38 13:38 WBC 4.5 (3.8-10.6) k/uL RBC 3.91 (3.80-5.40) m/uL Hgb 12.3 (11.4-16.0) gm/dL Hct 39.1 (34.0-46.0) % MCV 99.9 (80.0-100.0) fL MCH 31.4 (25.0-35.0) pg MCHC 31.4 (31.0-37.0) g/dL RDW 13.4 (11.5-15.5) % Plt Count 283 (150-450) k/uL Neutrophils % 79 % Lymphocytes % 6 % Monocytes % 10 % Eosinophils % 2 % Basophils % 1 % Neutrophils # 3.6 (1.3-7.7) k/uL Lymphocytes # 0.3 L (1.0-4.8) k/uL Monocytes # 0.4 (0-1.0) k/uL Eosinophils # 0.1 (0-0.7) k/uL Basophils # 0.0 (0-0.2) k/uL Hypochromasia Slight PT 10.8 (9.0-12.0) sec INR 1.1 (<1.2) APTT 23.5 (22.0-30.0) sec Sodium (137-145) mmol/L Potassium (3.5-5.1) mmol/L Chloride (98-107) mmol/L Carbon Dioxide (22-30) mmol/L Anion Gap mmol/L BUN (7-17) mg/dL Creatinine (0.52-1.04) mg/dL Est GFR (CKD-EPI)AfAm (>60 ml/min/1.73 sqM) Est GFR (CKD-EPI)NonAf (>60 ml/min/1.73 sqM) Glucose (74-99) mg/dL Plasma Lactic Acid Pavel (0.7-2.0) mmol/L Calcium (8.4-10.2) mg/dL Magnesium (1.6-2.3) mg/dL Total Bilirubin (0.2-1.3) mg/dL AST (14-36) U/L ALT (4-34) U/L Alkaline Phosphatase (38-126) U/L Total Protein (6.3-8.2) g/dL Albumin (3.5-5.0) g/dL Urine Color Yellow Urine Appearance Turbid H (Clear) Urine pH 6.5 (5.0-8.0) Ur Specific [place] 1.008 (1.001-1.035) Urine Protein 1+ H (Negative) Urine Glucose (UA) Negative (Negative) Urine Ketones Negative (Negative) Urine Blood Negative (Negative) Urine Nitrite Negative (Negative) Urine Bilirubin Negative (Negative) Urine Urobilinogen <2.0 (<2.0) mg/dL Ur Leukocyte Esterase Large H (Negative) Urine RBC 6 H (0-5) /hpf Urine WBC 90 H (0-5) /hpf Urine WBC Clumps Many H (None) /hpf Amorphous Sediment Few H (None) /hpf Urine Bacteria Many H (None) /hpf 01/02/20 01/02/20 Range/Units 13:38 13:38 WBC (3.8-10.6) k/uL RBC (3.80-5.40) m/uL Hgb (11.4-16.0) gm/dL Hct (34.0-46.0) % MCV (80.0-100.0) fL MCH (25.0-35.0) pg MCHC (31.0-37.0) g/dL RDW (11.5-15.5) % Plt Count (150-450) k/uL Neutrophils % % Lymphocytes % % Monocytes % % Eosinophils % % Basophils % % Neutrophils # (1.3-7.7) k/uL Lymphocytes # (1.0-4.8) k/uL Monocytes # (0-1.0) k/uL Eosinophils # (0-0.7) k/uL Basophils # (0-0.2) k/uL Hypochromasia PT (9.0-12.0) sec INR (<1.2) APTT (22.0-30.0) sec Sodium 134 L (137-145) mmol/L Potassium 4.0 (3.5-5.1) mmol/L Chloride 101 (98-107) mmol/L Carbon Dioxide 25 (22-30) mmol/L Anion Gap 8 mmol/L BUN 18 H (7-17) mg/dL Creatinine 0.58 (0.52-1.04) mg/dL Est GFR (CKD-EPI)AfAm >90 (>60 ml/min/1.73 sqM) Est GFR (CKD-EPI)NonAf 85 (>60 ml/min/1.73 sqM) Glucose 98 (74-99) mg/dL Plasma Lactic Acid Pavel 1.2 (0.7-2.0) mmol/L Calcium 9.5 (8.4-10.2) mg/dL Magnesium 1.6 (1.6-2.3) mg/dL Total Bilirubin 0.5 (0.2-1.3) mg/dL AST 27 (14-36) U/L ALT 15 (4-34) U/L Alkaline Phosphatase 76 (38-126) U/L Total Protein 6.6 (6.3-8.2) g/dL Albumin 3.8 (3.5-5.0) g/dL Urine Color Urine Appearance (Clear) Urine pH (5.0-8.0) Ur Specific [place] (1.001-1.035) Urine Protein (Negative) Urine Glucose (UA) (Negative) Urine Ketones (Negative) Urine Blood (Negative) Urine Nitrite (Negative) Urine Bilirubin (Negative) Urine Urobilinogen (<2.0) mg/dL Ur Leukocyte Esterase (Negative) Urine RBC (0-5) /hpf Urine WBC (0-5) /hpf Urine WBC Clumps (None) /hpf Amorphous Sediment (None) /hpf Urine Bacteria (None) /hpf Disposition Clinical Impression: Dehydration, Urinary tract infection Disposition: ADMITTED IP TO THIS HOSP Condition: Stable Is patient prescribed a controlled substance at d/c from ED?: No Referrals: Nonstaff,Physician [REFERRING] - 1-2 days Decision to Admit Reason: Admit from EC Decision Date: 01/02/20 Decision Time: 16:12
[2020-01-02 12:58] LABS: Amorphous Sediment,Urine Few /hpf; Appearance,Urine Turbid (Clear); Bacteria,Urine Many /hpf; Bilirubin,Urine Negative (Negative); Blood,Urine Negative (Negative); Color,Urine Yellow; Glucose,Urine (UA) Negative (Negative); Ketones,Urine Negative (Negative); Leukocyte Esterase,Urine Large (Negative); Nitrite,Urine Negative (Negative); PH, Urine 6.5 (5.0-8.0); Protein,Urine 1+ (Negative); RBC,Urine 6 /hpf (0-5); Specific Gravity,Urine 1.008 (1.001-1.035); Urobilinogen,Urine <2.0 mg/dL (<2.0); WBC,Urine 90 /hpf (0-5)
[2020-01-02 13:45] LABS: Basophils % (A) 1 %; Eosinophils # (A) 0.1 k/uL (0-0.7); Eosinophils % (A) 2 %; HCT 39.1 % (34.0-46.0); HGB 12.3 gm/dL (11.4-16.0); Hypochromasia Slight; Lymphocytes # (A) 0.3 k/uL (1.0-4.8); Lymphocytes % (A) 6 %; MCH 31.4 pg (25.0-35.0); MCHC 31.4 g/dL (31.0-37.0); MCV 99.9 fL (80.0-100.0); Mean Platelet Volume 7.2; Monocytes # (A) 0.4 k/uL (0-1.0); Monocytes % (A) 10 %; Neutrophils # (A) 3.6 k/uL (1.3-7.7); Neutrophils % (A) 79 %; Platelet Count 283 k/uL (150-450); RBC 3.91 m/uL (3.80-5.40); RDW 13.4 % (11.5-15.5); WBC 4.5 k/uL (3.8-10.6)
[2020-01-02 13:56] LABS: ALT 15 U/L (4-34); AST 27 U/L (14-36); African American GFR (CKD) >90 (>60 ml/min/1.73 sqM); Albumin 3.8 g/dL (3.5-5.0); Alkaline Phosphatase 76 U/L (38-126); Anion Gap 8 mmol/L; Blood Urea Nitrogen 18 mg/dL (7-17); Calcium 9.5 mg/dL (8.4-10.2); Carbon Dioxide 25 mmol/L (22-30); Chloride 101 mmol/L (98-107); Glucose 98 mg/dL (74-99); Magnesium 1.6 mg/dL (1.6-2.3); Non-African American GFR(CKD) 85 (>60 ml/min/1.73 sqM); Sodium 134 mmol/L (137-145); Total Bilirubin 0.5 mg/dL (0.2-1.3); Total Protein 6.6 g/dL (6.3-8.2)
--- NOTE | 2020-01-02 13:57 | XR ---
EXAMINATION TYPE: XR chest 2V DATE OF EXAM: 01/02/2020 COMPARISON: 10/17/2019 TECHNIQUE: PA and lateral views submitted. HISTORY: Weakness FINDINGS: The lungs are clear and there is no pneumothorax, pleural effusion, or focal pneumonia. Degenerativ e change of the spine scoliosis. There is a severe compression deformity in the midthoracic spine whi ch is progressed from the prior exam. Ectasia and atherosclerotic change aorta. Chronic rib deformiti es are seen. Diffuse osteopenia. No overt failure. Small hiatal hernia noted. Surgical clips in the a bdomen noted. IMPRESSION: 1. No acute process. 2. Correlate for small hiatal hernia. 3. Aortic ectasia. 4. Progression of a compression deformity in the thoracic spine
[2020-01-02 13:59] LABS: INR 1.1 (<1.2); Partial Thromboplastin Time 23.5 sec (22.0-30.0); Prothrombin Time 10.8 sec (9.0-12.0)
[2020-01-02] MEDS ORDERED: cefTRIAXone IN SWFI 1,000 MG/10 ML SYRINGE IVP STA (15:10)
[2020-01-02] MEDS ORDERED: NALOXONE 0.4 MG/ML 1 ML VIAL IV PRN (16:10)
[2020-01-02] MEDS ORDERED: methylPREDNISolone SOD SUCCI 125 MG/2 ML VIAL IV STA (18:18)
[2020-01-02] MEDS ORDERED: SODIUM CHLORIDE 0.9% 1,000 ML IV ONE (18:20)
[2020-01-02] MEDS ORDERED: ONDANSETRON 4 MG/2 ML VIAL IVP PRN (18:23)
--- NOTE | 2020-01-02 18:30 | P.HPIM ---
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 In the emergency department she underwent an extensive evaluation. On arrival she had a blood pressure of 98/64. Her laboratory analysis showed a sodium 134, carbon dioxide 25, anion gap 8, BUN 18, creatinine 0.58. Her urinalysis showed a large leukocyte esterase with 90 white blood cells and many white blood cell clumps along with many bacteria. She was given a dose of Rocephin and IV fluids in the emergency department. Arrangements are made for observation. Patient seen and examined at bedside with family present. It sounds as though the last week has been exceedingly rough at home. She has had 2 times where she's had urinary incontinence, she has had frequent watery stools for her diarrhea. She reports that she has chronic constipation was last seen by Dr. Skelton who put her on half a bottle of magnesium citrate daily and she is to come off of her MiraLAX. She reports that for the last week she has been mostly sleeping and laying in bed in 2 weeks to get out of bed and make it to the couch. She also reports that she's had some nausea and vomiting as well as stomach issues 2 days ago that seems to be better. She reports that she has felt very dizzy on standing and has not been able to ambulate long distances. She does report some urinary frequency though this appears to be chronic in nature. She also reports a dry mouth. Daughter feels as though she's been more disoriented than usual. Of note proximately 2 weeks ago her Percocet was decreased from 4 times a day to 3-1/2 tablets daily. They also just established with a new physician as her is retired. No other recent changes in medications. She did not take her chronic prednisone today. Family does note that over the last 6 months she has become progressively more dependent. Up until a week ago she was able to feed herself, dress herself, walk back and forth to the living room and bathroom without difficulty. However over the last week she's been having use a bedside commode and has not been able to go from her bed to the couch. They report that approximately a year ago she lost a lot of weight but this has since been better. They're very concerned that her pain has been increasing since they have been trying to wean her chronic opiates. Apparently they have been trying THC-based products through her chronic pain clinic. Review of Systems Pertinent positives and negatives as discussed in HPI, a complete review of systems was performed and all other systems are negative. 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 diff History of Any Multi-Drug Resistant Organisms: C-DIFF Date of last positivie culture/infection: 2013 Past Surgical History: Tonsillectomy Additional Past Surgical History / Comment(s): cataracts, coiling of cerebral aneurysm, hiatal hernia repair, retina repair. Additional Past Anesthesia/Blood Transfusion Reaction / Comment(s): hypotension post anesthesia. Past Psychological History: No Psychological Hx Reported, Anxiety Smoking Status: Never smoker Past Alcohol Use History: None Reported Past Drug Use History: None Reported Additional History: Lives with her daughter uses a walker in the house in a wheelchair outside of the house. Has a bedside commode. - Past Family History Mother Additional Family Medical History / Comment(s): in a pedestrian versus car accident Father Additional Family Medical History / Comment(s): age 58 secondary to severe high blood pressure resulting myocardial infarction Medications and Allergies Home Medications Medication Instructions Recorded Confirmed Type Acetaminophen/Caffeine [Excedrin 2 tab PO HS PRN 09/02/18 01/02/20 History Tension Headache Cplt] Carvedilol [Coreg] 6.25 mg PO BID 09/02/18 01/02/20 History Cholecalciferol [Vitamin D3 (25 1,000 unit PO DAILY 09/02/18 01/02/20 History Mcg = 1000 Iu)] Clopidogrel Bisulfate [Plavix] 75 mg PO HS 09/02/18 01/02/20 History Folic Acid 0.8 mg PO DAILY 09/02/18 01/02/20 History Melatonin 5 mg PO HS 09/02/18 01/02/20 History amLODIPine [Norvasc] 2.5 mg PO BID 09/02/18 01/02/20 History oxyCODONE-APAP 10-325MG [Percocet 1 tab PO QID PRN 09/02/18 01/02/20 History 10-325 mg] Enalapril [Vasotec] 20 mg PO BID 06/21/19 01/02/20 History Pantoprazole [Protonix] 40 mg PO BID 30 Days #60 tablet. 10/03/19 01/02/20 Rx Magnesium Citrate 148 - 296 ml PO DAILY PRN 01/02/20 01/02/20 History Sennosides [Senna] 17.2 mg PO HS 01/02/20 01/02/20 History predniSONE 5 mg PO DAILY 01/02/20 01/02/20 History Allergies Allergy/AdvReac Type Severity Reaction Status Date / Time nitroglycerin AdvReac BLOOD Verified 01/02/20 16:40 PRESSURE DROPS SEVERELY Sulfa (Sulfonamide AdvReac Dyspnea Verified 01/02/20 16:40 Antibiotics) Physical Exam Osteopathic Statement: *. No significant issues noted on an osteopathic structural exam other than those noted in the History and Physical/Consult. Vitals: Vital Signs Temp Pulse Resp BP Pulse Ox 01/02/20 14:41 63 16 135/69 97 01/02/20 12:16 98.4 F 66 20 98/64 98 Intake and Output 01/02/20 01/02/20 01/02/20 06:59 14:59 22:59 Other: Voiding Method Toilet Diaper Weight 40.823 kg General: non toxic, no distress, appears at stated age, cachectic Derm: Multiple areas of ecchymoses no unusual rashes/lesions no unusual ecchymoses, warm, dry Head: atraumatic, normocephalic, symmetric Eyes: EOMI, no lid lag, anicteric sclera, pupils equal round reactive to light ENT: Nose and ears atraumatic, no thrush, no pharyngeal erythema Neck: No thyromegaly, no cervical lymphadenopathy, trachea midline, supple Mouth: no lip lesion, mucus membranes moist Cardiovascular: S1S2 reg, no murmur, positive posterior tibial pulse bilateral, no edema, capillary refill less than 2 seconds Lungs: CTA bilateral, no rhonchi, no rales , no accessory muscle use Abdominal: soft, nontender to palpation, no guarding, no appreciable organomegaly, normal bowel sounds Ext: Contracture of right third and fourth and fifth digits + gross muscle atrophy, muscle strength 4/5 out of 5 in all 4 extremities grossly Neuro: CN II-XI grossly intact, light touch intact all 4 extremities, finger to nose within normal limits, Psych: Alert, oriented, appropriate affect Results CBC & Chem 7: 01/02/20 13:38 01/02/20 13:38 Labs: Abnormal Lab Results - Last 24 Hours (Table) 01/02/20 01/02/20 01/02/20 Range/Units 12:32 13:38 13:38 Lymphocytes # 0.3 L (1.0-4.8) k/uL Sodium 134 L (137-145) mmol/L BUN 18 H (7-17) mg/dL Urine Appearance Turbid H (Clear) Urine Protein 1+ H (Negative) Ur Leukocyte Esterase Large H (Negative) Urine RBC 6 H (0-5) /hpf Urine WBC 90 H (0-5) /hpf Urine WBC Clumps Many H (None) /hpf Amorphous Sediment Few H (None) /hpf Urine Bacteria Many H (None) /hpf Chest x-ray: report reviewed Thrombosis Risk Factor Assmnt - DVT/VTE Prophylaxis DVT/VTE Prophylaxis: Low risk, early ambulation encouraged - Choose All That Apply Each Risk Factor Represents 3 Points: Age 75 years or older Thrombosis Risk Factor Assessment Total Risk Factor Score: 3 Thrombosis Risk Factor Assessment Level: Moderate Risk Assessment and Plan Assessment: Dehydration with mild hypontremia - IVF - supportive care - repeat labs in AM Syncopal episode with bradycardia and hypotnesion while in the ED - stat EKG - 1L bolus, hold coreg - stat troponin - Echo in AM - tele - d-dimer - orthostatics when able - missed steroid today solumedrol X1 now. - cardio consult Probable UTI - Rocephin X 1 given, plan on 3 days of abx - await urine culture - d/w family that she may have chronic cystitis due with bladder prolapse Generalized weakness - PT/OT eval - treatment as above Chronic constipation with intermitten diarrhea - ? component of opiate w/d due to decrease in medications. HTN with relative hypotension - hold norvasc, coreg, vasotec - follow BP Chronic back pain - resume home percocet - resume prednisone The patient is place in lbservation with an anticipated less than 2 midnight stay for evaluation of syncope and dehydration. Surrogate decision-maker: either daughter CODE STATUS:see ACP DVT prophylaxis: SCD Discussed with: Patient, daughters, ED physician Anticipated discharge date: 1-[address]: home A total of 65 minutes was spent on the care of this complex patient more than 50% of the time was spent in counseling and care coordination.
--- NOTE | 2020-01-02 20:51 | CT ---
EXAMINATION TYPE: CT chest angio for PE DATE OF EXAM: 01/02/2020 COMPARISON: None HISTORY: syncope possible PE CT DLP: 210 mGycm Automated exposure control for dose reduction was used. CONTRAST: Performed with IV Contrast, patient injected with 80 mL of Isovue 370. There are 3-D post processed images. There is pulmonary hyperinflation and flattening of the diaphragm. There is no mediastinal adenopathy . Thoracic aorta is atheromatous. There are no hilar masses. There is normal contrast opacification o f the pulmonary arteries. There are no filling defects. Heart is slightly enlarged. There is no peric ardial effusion. There is mild atelectasis at the left and right posterior lung base. There is thorac ic kyphotic deformity with anterior wedging of mid thoracic vertebra. There is osteopenia. There are numerous diverticula in the visualized splenic flexure of the colon. IMPRESSION: No evidence of pulmonary embolism. Bilateral basilar linear infiltrates and atelectasis. COPD.
--- NOTE | 2020-01-02 20:52 | US ---
EXAMINATION TYPE: US venous doppler duplex LE RT DATE OF EXAM: 01/02/2020 8:42 PM COMPARISON: NONE CLINICAL HISTORY: pain, possible dvt; dehydration SIDE PERFORMED: Right TECHNIQUE: The lower extremity deep venous system is examined utilizing real time linear array sonog ilda with graded compression, doppler sonography and color-flow sonography. VESSELS IMAGED: Common Femoral Vein Deep Femoral Vein Greater Saphenous Vein * Femoral Vein Popliteal Vein Small Saphenous Vein * Proximal Calf Veins (* superficial vessels) Right Leg: Negative for DVT. US exam is technically limited by arterial wall calcifications with pos terior shadowing noted in artery adjacent to imaged veins. IMPRESSION: No sign of deep vein thrombosis in the right leg.
[2020-01-02] MEDS: MELATONIN 5 MG TABLET PO SCH (21:29)
[2020-01-02] MEDS: CLOPIDOGREL 75 MG TAB PO SCH (21:29)
[2020-01-02] MEDS: oxyCODONE-APAP 10-325MG 1 EACH TAB PO PRN (21:30)
[2020-01-02] MEDS: SODIUM CHLORIDE 0.9% 1,000 ML IV SCH (22:12)
[2020-01-02] MEDS: PANTOPRAZOLE 40 MG TABLET PO SCH (23:14)
[2020-01-03] MEDS: ACETAMINOPHEN TAB 325 MG TAB PO PRN (00:14)
[2020-01-03 02:46] LABS: HCT 33.8 % (34.0-46.0); HGB 10.7 gm/dL (11.4-16.0); MCH 30.9 pg (25.0-35.0); MCHC 31.8 g/dL (31.0-37.0); MCV 97.3 fL (80.0-100.0); Mean Platelet Volume 7.2; Platelet Count 261 k/uL (150-450); RBC 3.47 m/uL (3.80-5.40); RDW 13.3 % (11.5-15.5); WBC 5.4 k/uL (3.8-10.6)
[2020-01-03 02:50] LABS: African American GFR (CKD) >90 (>60 ml/min/1.73 sqM); Anion Gap 9 mmol/L; Blood Urea Nitrogen 19 mg/dL (7-17); Calcium 8.8 mg/dL (8.4-10.2); Carbon Dioxide 22 mmol/L (22-30); Chloride 102 mmol/L (98-107); Glucose 134 mg/dL (74-99); Magnesium 1.4 mg/dL (1.6-2.3); Non-African American GFR(CKD) 83 (>60 ml/min/1.73 sqM); Phosphorus 3.9 mg/dL (2.5-4.5); Sodium 133 mmol/L (137-145)
[2020-01-03 04:02] LABS: T4, Free (Free Thyroxine) 1.73 ng/dL (0.78-2.19)
[2020-01-03] MEDS: oxyCODONE-APAP 10-325MG 1 EACH TAB PO PRN ×3 (05:20→21:28)
[2020-01-03] MEDS: PANTOPRAZOLE 40 MG TABLET PO SCH ×2 (06:13→18:16)
[2020-01-03] MEDS: SODIUM CHLORIDE 0.9% 1,000 ML IV SCH (06:37)
[2020-01-03] MEDS: FOLIC ACID 1 MG TAB PO SCH (08:52)
[2020-01-03] MEDS: predniSONE 5 MG TAB PO SCH (08:52)
[2020-01-03] MEDS: CHOLECALCIFEROL 1,000 UNIT TAB PO SCH (08:52)
[2020-01-03] MEDS: MAGNESIUM SULFATE-D5W PMX 1 GM in DEXTROSE/WATER 1 100ML.BAG IVPB SCH ×3 (08:53→13:22)
--- NOTE | 2020-01-03 10:28 | P.CRDCN ---
History of Present Illness Consult date: 01/03/20 Requesting physician: Bessy Gandara Reason for Consult (text): syncope, bradycardia Chief complaint: weakness History of present illness: This pleasant 84-year-old female patient with past medical history of hypertension, prior CVA with right-sided deficits, chronic back pain, chronic constipation and recurrent UTIs. She presented to the emergency department secondary to weakness and apparent increased confusion. Continue the patient she had a very large bowel movement 2 days ago and developed some significant dizziness and weakness following that. This resolved but she had recurrent weakness and dizziness yesterday. According to the notes patient did have an episode of acute cardia and hypotension and near syncope in the emergency department. Her carvedilol has been placed on hold. Laboratory values show normal white blood cell count, hemoglobin 10.7, elevated d-dimer, BUN 19, creatinine 0.61, magnesium 1.4, potassium 4.0, troponin negative 2 and an elevated TSH with normal free T4. Urine appears positive for UTI. Upon review of vital signs, patient did have some hypotension through the night which is better this morning and 127/68. No further bradycardia noted. CT of the chest was negative for PE but did show bilateral basilar linear infiltrates and atelectasis and COPD. Venous duplex the right lower extremity was negative for DVT. EKG on admission showed sinus bradycardia with a heart rate of 58 bpm with no ischemic changes. Upon examination, patient is resting comfortably in bed. She denies current complaint of weakness other than her normal right-sided weakness status post CVA. Denies current complaints of dizziness, lightheadedness. Denies syncope. She denies complaints of chest discomfort, palpitations, shortness of breath, orthopnea or PND. She has no edema. She has previously followed with a manufacturing lead out of [place] but according to the patient she retired over a year ago and she has not followed with a manufacturing lead since. 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 diff History of Any Multi-Drug Resistant Organisms: C-DIFF Date of last positivie culture/infection: 2013 MDRO Source:: stool Past Surgical History: Tonsillectomy Additional Past Surgical History / Comment(s): cataracts, coiling of cerebral aneurysm, hiatal hernia repair, retina repair. Additional Past Anesthesia/Blood Transfusion Reaction / Comment(s): hypotension post anesthesia. Past Psychological History: No Psychological Hx Reported, Anxiety Smoking Status: Never smoker Past Alcohol Use History: None Reported Past Drug Use History: None Reported - Past Family History Mother Additional Family Medical History / Comment(s): in a pedestrian versus car accident Father Additional Family Medical History / Comment(s): age 58 secondary to severe high blood pressure resulting myocardial infarction Medications and Allergies Home Medications Medication Instructions Recorded Confirmed Type Acetaminophen/Caffeine [Excedrin 2 tab PO HS PRN 09/02/18 01/02/20 History Tension Headache Cplt] Carvedilol [Coreg] 6.25 mg PO BID 09/02/18 01/02/20 History Cholecalciferol [Vitamin D3 (25 1,000 unit PO DAILY 09/02/18 01/02/20 History Mcg = 1000 Iu)] Clopidogrel Bisulfate [Plavix] 75 mg PO HS 09/02/18 01/02/20 History Folic Acid 0.8 mg PO DAILY 09/02/18 01/02/20 History Melatonin 5 mg PO HS 09/02/18 01/02/20 History amLODIPine [Norvasc] 2.5 mg PO BID 09/02/18 01/02/20 History oxyCODONE-APAP 10-325MG [Percocet 1 tab PO QID PRN 09/02/18 01/02/20 History 10-325 mg] Enalapril [Vasotec] 20 mg PO BID 06/21/19 01/02/20 History Pantoprazole [Protonix] 40 mg PO BID 30 Days #60 tablet. 10/03/19 01/02/20 Rx Magnesium Citrate 148 - 296 ml PO DAILY PRN 01/02/20 01/02/20 History Sennosides [Senna] 17.2 mg PO HS 01/02/20 01/02/20 History predniSONE 5 mg PO DAILY 01/02/20 01/02/20 History Allergies Allergy/AdvReac Type Severity Reaction Status Date / Time nitroglycerin AdvReac BLOOD Verified 01/02/20 16:40 PRESSURE DROPS SEVERELY Sulfa (Sulfonamide AdvReac Dyspnea Verified 01/02/20 16:40 Antibiotics) Physical Exam Vitals: Vital Signs Temp Pulse Pulse Resp BP BP Pulse Ox 01/03/20 05:23 97.8 F 84 16 127/68 95 01/03/20 00:39 97.6 F 72 16 95/56 96 01/02/20 23:26 98.0 F 90 18 135/75 94 L 01/02/20 21:58 98.0 F 90 16 135/75 94 L 01/02/20 18:56 71 18 120/70 97 01/02/20 14:41 63 16 135/69 97 01/02/20 12:16 98.4 F 66 20 98/64 98 Intake and Output 01/02/20 01/03/20 01/03/20 22:59 06:59 14:59 Intake Total 765 0 Output Total 450 250 Balance -450 515 0 Intake: Intake, IV Titration 525 Amount Sodium Chloride 0.9% 1, 525 000 ml @ 75 mls/hr IV . [id number] [facility] Rx#:[id number] Oral 240 0 Output: Urine 450 250 Other: Voiding Method Bedside Commode # Voids 1 # Bowel Movements 0 Weight 40.823 kg 39.8 kg PHYSICAL EXAMINATION: HEENT: Head is atraumatic, normocephalic. Pupils equal, round. Neck is supple. There is no elevated jugular venous pressure. HEART EXAMINATION: Heart sounds regular, S1 and S2 with a systolic murmur. CHEST EXAMINATION: Lungs reveal diminished air entry bilaterally. No chest wall tenderness is noted on palpation or with deep breathing. ABDOMEN: Soft, nontender. Bowel sounds are heard. No organomegaly noted. EXTREMITIES: 1+ peripheral pulses with no evidence of peripheral edema and no calf tenderness noted. NEUROLOGIC patient is awake, alert and oriented x3. . Results 01/03/20 02:04 01/03/20 02:04 Cardiac Enzymes 01/02/20 01/02/20 01/03/20 Range/Units 13:38 18:54 02:04 AST 27 (14-36) U/L Troponin I <0.012 <0.012 (0.000-0.034) ng/mL Coagulation 01/02/20 Range/Units 13:38 PT 10.8 (9.0-12.0) sec APTT 23.5 (22.0-30.0) sec CBC 01/02/20 01/03/20 Range/Units 13:38 02:04 WBC 4.5 5.4 (3.8-10.6) k/uL RBC 3.91 3.47 L (3.80-5.40) m/uL Hgb 12.3 10.7 L (11.4-16.0) gm/dL Hct 39.1 33.8 L (34.0-46.0) % Plt Count 283 261 (150-450) k/uL Comprehensive Metabolic Panel 01/02/20 01/03/20 Range/Units 13:38 02:04 Sodium 134 L 133 L (137-145) mmol/L Potassium 4.0 4.0 (3.5-5.1) mmol/L Chloride 101 102 (98-107) mmol/L Carbon Dioxide 25 22 (22-30) mmol/L BUN 18 H 19 H (7-17) mg/dL Creatinine 0.58 0.61 (0.52-1.04) mg/dL Glucose 98 134 H (74-99) mg/dL Calcium 9.5 8.8 (8.4-10.2) mg/dL AST 27 (14-36) U/L ALT 15 (4-34) U/L Alkaline Phosphatase 76 (38-126) U/L Total Protein 6.6 (6.3-8.2) g/dL Albumin 3.8 (3.5-5.0) g/dL Current Medications Generic Name Dose Route Start Last Admin Trade Name Freq PRN Reason Stop Dose Admin Acetaminophen 650 mg 01/02/20 18:23 01/03/20 00:14 Tylenol Tab PO 650 mg Q6HR PRN Administration Mild Pain or Fever > 100.5 Cholecalciferol 1,000 unit 01/03/20 09:00 01/03/20 08:52 Vitamin D3 (25 Mcg = 1000 Iu) PO 1,000 unit DAILY [facility]UN[facility] Administration Clopidogrel Bisulfate 75 mg 01/02/20 21:00 01/02/20 21:29 Plavix PO 75 mg HS [facility]UNG Administration Folic Acid 1 mg 01/03/20 09:00 01/03/20 08:52 Folic Acid PO 1 mg DAILY [facility]UNG Administration Magnesium Sulfate/Dextrose 1 100 mls @ 100 mls/hr 01/03/20 08:00 01/03/20 08:53 gm/ IV Solution IVPB 01/03/20 10:59 100 mls/hr Q1H [facility] Administration Melatonin 5 mg 01/02/20 21:00 01/02/20 21:29 Melatonin PO 5 mg HS [facility] Administration Naloxone HCl 0.2 mg 01/02/20 16:10 Narcan IV Q2M PRN Opioid Reversal Ondansetron HCl 4 mg 01/02/20 18:23 Zofran IVP Q8HR PRN Nausea And Vomiting Oxycodone/Acetaminophen 1 each 01/02/20 18:26 01/03/20 05:20 Percocet 10-325 PO 1 each QID PRN Administration Pain Pantoprazole Sodium 40 mg 01/02/20 19:00 01/03/20 06:13 Protonix PO 40 mg AC-BID KYUNG Administration Prednisone 5 mg 01/03/20 09:00 01/03/20 08:52 PO 5 mg DAILY KYUNG Administration Intake and Output 01/02/20 01/03/20 01/03/20 22:59 06:59 14:59 Intake Total 765 0 Output Total 450 250 Balance -450 515 0 Intake: Intake, IV Titration 525 Amount Sodium Chloride 0.9% 1, 525 000 ml @ 75 mls/hr IV . [id number] [facility] Rx#:[id number] Oral 240 0 Output: Urine 450 250 Other: Voiding Method Bedside Commode # Voids 1 # Bowel Movements 0 Weight 40.823 kg 39.8 kg 01/03/20 02:04 01/03/20 02:04 EKG Interpretations (text) Sinus bradycardia Assessment and Plan Assessment: #1 symptoms of weakness and dizziness following a bowel movement, likely vasovagal in nature #2 bradycardia, hypotension and near syncope in the emergency department, no r hythm strips available, carvedilol on hold #3 hypertension #4 prior CVA Plan: From cardiology perspective, we will obtain 2-D echo with Doppler. Follow the blood pressure. Continue to hold antihypertensive medications at this time. We will continue to follow the patient for a further recommendations accordingly. BUSINESS TRANSFORMATION ANALYST note has been reviewed, I agree with a documented findings and plan of care. Patient was seen and examined.
--- NOTE | 2020-01-03 16:33 | ECHOF ---
Referral Reason:syncope MEASUREMENTS -------- HEIGHT: 154.9 cm WEIGHT: 39.5 kg BP: 127/68 RVIDd: 3.3 cm (< 3.3) IVSd: 1.1 cm (0.6 - 1.1) LVIDd: 3.3 cm (3.9 - 5.3) LVPWd: 0.9 cm (0.6 - 1.1) IVSs: 1.4 cm LVIDs: 2.0 cm LVPWs: 1.6 cm LA Diam: 3.7 cm (2.7 - 3.8) LAESV Index (A-L): 45.07 ml/m Ao Diam: 3.2 cm (2.0 - 3.7) AV Cusp: 1.9 cm (1.5 - 2.6) MV EXCURSION: 15.184 mm (> 18.000) MV EF SLOPE: 52 mm/s (70 - 150) EPSS: 0.5 cm MV E Lino: 0.86 m/s MV DecT: 173 ms MV A Lino: 0.80 m/s MV E/A Ratio: 1.07 RAP: 5.00 mmHg RVSP: 35.26 mmHg FINDINGS -------- Sinus rhythm. This was a technically adequate study. The left ventricular size is normal. There is borderline concentric left ventricular hypertrophy. Overall left ventricular systolic function is normal with, an EF between 55 - 60 %. The right ventricle is mildly enlarged. LA is severely dilated >40 ml/m2 The right atrial size is normal. Interatrial and interventricular septum intact. There is mild aortic valve sclerosis. The mitral valve leaflets are mildly thickened. Mild mitral annular calcification present. Modera te mitral regurgitation is present. Moderate to severe tricuspid regurgitation present. There is mild pulmonary hypertension. The rig ht ventricular systolic pressure, as measured by Doppler, is 35.26mmHg. There is no pulmonic regurgitation present. The aortic root size is normal. Normal inferior vena cava with normal inspiratory collapse consistent with estimated right atrial pre ssure of 5 mmHg. The inferior vena cava is mildly dilated. There is no pericardial effusion. CONCLUSIONS -------- 1. Sinus rhythm. 2. The left ventricular size is normal. 3. There is borderline concentric left ventricular hypertrophy. 4. Overall left ventricular systolic function is normal with, an EF between 55 - 60 %. 5. The right ventricle is mildly enlarged. 6. LA is severely dilated >40 ml/m2 7. There is mild aortic valve sclerosis. 8. The mitral valve leaflets are mildly thickened. 9. Mild mitral annular calcification present. 10. Moderate mitral regurgitation is present. 11. Moderate to severe tricuspid regurgitation present. 12. There is mild pulmonary hypertension. 13. There is no pulmonic regurgitation present. 14. Normal inferior vena cava with normal inspiratory collapse consistent with estimated right atrial pressure of 5 mmHg. 15. The inferior vena cava is mildly dilated. 16. There is no pericardial effusion. SALES AND DISTRIBUTION CLERK: Anayeli Hernandez RDCS
--- NOTE | 2020-01-03 17:39 | P.PN ---
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 In the emergency department she underwent an extensive evaluation. On arrival she had a blood pressure of 98/64. Her laboratory analysis showed a sodium 134, carbon dioxide 25, anion gap 8, BUN 18, creatinine 0.58. Her urinalysis showed a large leukocyte esterase with 90 white blood cells and many white blood cell clumps along with many bacteria. She was given a dose of Rocephin and IV fluids in the emergency department. Arrangements were made for observation. While in the ED awating a bed she had an episode where her HR dropped to 30, O2 60 and BP 54/30 at that time she passed out per nursing. She was placed in trendelenberg and given 1L IVF with adequate response. Patient seen and examined at bedside. She states that she did not sleep. She reports that she is still feeling weak and cannot eat, but she is asking for yogurt. She denies any chest pain or shortness of breath. She is concerned that she has not had a BM in 2 days. Objective - Vital Signs Vital signs: Vital Signs Temp 97.8 F 01/03/20 05:23 Pulse 84 01/03/20 08:00 Resp 16 01/03/20 08:00 BP 127/68 01/03/20 05:23 Pulse Ox 95 01/03/20 05:23 Intake & Output 01/02/20 01/03/20 01/03/20 18:59 06:59 18:59 Intake Total 765 0 Output Total 700 100 Balance 65 -100 Weight 40.823 kg 39.8 kg 39.8 kg Intake: Intake, IV Titration 525 Amount Sodium Chloride 0.9% 1, 525 000 ml @ 75 mls/hr IV . [id number] [facility] Rx#:[id number] Oral 240 0 Output: Urine 700 100 Other: Voiding Method Toilet Bedside Commode Bedside Commode Diaper # Voids 3 # Bowel Movements 0 - Exam General: non toxic, no distress, appears at stated age, chachetic with temporal wasting Derm: warm, dry Head: atraumatic, normocephalic, symmetric Eyes: EOMI, no lid lag, anicteric sclera Mouth: no lip lesion, mucus membranes moist, CIRCLE Cardiovascular: S1S2 reg, no murmur, positive posterior tibial pulse bilateral, Lungs: CTA bilateral, no rhonchi, no rales , no accessory muscle use Abdominal: soft, nontender to palpation, no guarding, no appreciable organomegaly Ext: no gross muscle atrophy, no edema, no contractures Neuro: CN II-XI grossly intact, no focal neuro deficits Psych: Alert, oriented, appropriate affect - Labs CBC & Chem 7: 01/03/20 02:04 01/03/20 02:04 Labs: Abnormal Lab Results - Last 24 Hours (Table) 01/02/20 01/03/20 01/03/20 Range/Units 18:54 02:04 02:04 RBC 3.47 L (3.80-5.40) m/uL Hgb 10.7 L (11.4-16.0) gm/dL Hct 33.8 L (34.0-46.0) % D-Dimer 0.68 H (<0.60) mg/L FEU Sodium (137-145) mmol/L BUN (7-17) mg/dL Glucose (74-99) mg/dL Magnesium (1.6-2.3) mg/dL TSH 0.428 L (0.465-4.680) mIU/L 01/03/20 Range/Units 02:04 RBC (3.80-5.40) m/uL Hgb (11.4-16.0) gm/dL Hct (34.0-46.0) % D-Dimer (<0.60) mg/L FEU Sodium 133 L (137-145) mmol/L BUN 19 H (7-17) mg/dL Glucose 134 H (74-99) mg/dL Magnesium 1.4 L (1.6-2.3) mg/dL TSH (0.465-4.680) mIU/L Microbiology - Last 24 Hours (Table) 01/02/20 13:38 Blood Culture - Preliminary Blood No Growth after 24 hours 01/02/20 12:32 Urine Culture - Preliminary Urine,Catheterized Assessment and Plan Assessment: Dehydration with mild hypontremia - IVF completed - supportive care - repeat labs in AM Syncopal episode with bradycardia and hypotension while in the ED - suspect vasovagal - hold coreg, norvasc, enalapril - stat troponin - Echo with MOd-Severe TR and Mod MR, mild pulm HTN, and EF 55-60% - tele - CTA chest negative - orthostatics negative - cardio recs appreciated Probable UTI - Alex D # 2 - await urine culture - d/w family that she may have chronic cystitis due to bladder prolapse Generalized weakness - PT/OT eval - treatment as above Chronic constipation with intermittent diarrhea - ? component of opiate w/d due to decrease in medications. - resume home senna Hx HTN with relative hypotension - hold norvasc, coreg, vasotec - follow BP Chronic back pain - percocet - prednisone DVT prophylaxis: SCD Discussed with: Patient, daughters, Cardio Anticipated discharge date: home in AM if cleared by cardio Anticipated discharge place: home A total of 25 minutes was spent on the care of this complex patient more than 50% of the time was spent in counseling and care coordination.
[2020-01-03] MEDS: MELATONIN 5 MG TABLET PO SCH (21:27)
[2020-01-03] MEDS: SENNOSIDES 8.6 MG TAB PO SCH (21:27)
[2020-01-03] MEDS: CLOPIDOGREL 75 MG TAB PO SCH (21:28)
[2020-01-04] MEDS: ACETAMINOPHEN TAB 325 MG TAB PO PRN ×2 (00:19→11:32)
[2020-01-04 04:27] VITALS: RESP 18
[2020-01-04 06:28] LABS: African American GFR (CKD) >90 (>60 ml/min/1.73 sqM); Anion Gap 5 mmol/L; Blood Urea Nitrogen 15 mg/dL (7-17); Carbon Dioxide 25 mmol/L (22-30); Chloride 101 mmol/L (98-107); Glucose 90 mg/dL (74-99); Non-African American GFR(CKD) 85 (>60 ml/min/1.73 sqM); Potassium 3.9 mmol/L (3.5-5.1); Sodium 131 mmol/L (137-145)
[2020-01-04] MEDS: PANTOPRAZOLE 40 MG TABLET PO SCH ×2 (06:29→18:03)
[2020-01-04] MEDS: oxyCODONE-APAP 10-325MG 1 EACH TAB PO PRN ×3 (06:29→22:00)
[2020-01-04] MEDS: ENALAPRILAT 1.25 MG/ML 1 ML VIAL IVP STA ×2 (08:38→11:50)
[2020-01-04] MEDS: CHOLECALCIFEROL 1,000 UNIT TAB PO SCH (08:38)
[2020-01-04] MEDS: FOLIC ACID 1 MG TAB PO SCH (08:38)
[2020-01-04] MEDS: predniSONE 5 MG TAB PO SCH (08:38)
[2020-01-04] MEDS: amLODIPine 2.5 MG TAB PO SCH ×2 (09:33→21:22)
[2020-01-04] MEDS: LISINOPRIL 20 MG TAB PO SCH ×2 (09:33→21:22)
--- NOTE | 2020-01-04 12:39 | P.PN ---
Subjective This is a pleasant 84-year-old female past medical history significant for hypertension, CVA with right-sided deficit, chronic back pain, chronic constipation and recurrent UTIs. 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 She is seen and examined resting comfortably lying flat in bed. She is complaining of a significant headache. Blood pressure has been elevated through the night. Today is 197/101. Carvedilol has been on hold. She received amlodipine 2.5 mg and lisinopril 40 mg this morning. She denies chest pain, dizziness, shortness of breath or palpitations. Echocardiogram obtained reveals preserved LV systolic function with ejection fraction 55-60% with moderate MR and moderate to severe TR. Telemetry tracings have been reviewed. Persistent sinus mechanism with no bradycardia noted. GENERAL: Well-appearing, well-nourished and in no acute distress. NECK: Supple without JVD or thyromegaly. LUNGS: Breath sounds clear to auscultation bilaterally. Respiration equal and unlabored. No wheezes, rales or rhonchi. HEART: Regular rate and rhythm with systolic ejection murmur at the left sternal border, no rubs or gallops. S1 and S2 heard. EXTREMITIES: Normal range of motion, no edema. No clubbing or cyanosis. Peripheral pulses intact. ASSESSMENT Weakness and dizziness after a bowel movement likely vasovagal in nature Hypertensive emergency History of CVA PLAN Resume carvedilol 6.25 mg twice a day, first dose now. Continue amlodipine and lisinopril as previously ordered. Amlodipine can be increased as needed if she continues to be hypertensive. We will continue to follow and make recommendations accordingly. Nurse Practitioner note has been reviewed, I agree with a documented findings and plan of care. Patient was seen and examined. Objective - Vital Signs Vital signs: Vital Signs Temp 98.4 F 01/04/20 08:00 Pulse 88 01/04/20 08:00 Resp 18 01/04/20 08:00 BP 197/101 01/04/20 11:49 Pulse Ox 96 01/04/20 08:00 Intake & Output 01/03/20 01/04/20 01/04/20 17:59 06:59 18:59 Intake Total Output Total 150 Balance -150 Weight Intake: Intake, IV Titration Amount Sodium Chloride 0.9% 1, 000 ml @ 75 mls/hr IV . [id number] [facility] Rx#:[id number] Oral Output: Urine 150 Other: Voiding Method # Voids 1 # Bowel Movements - Labs CBC & Chem 7: 01/03/20 02:04 01/04/20 05:50 Labs: Abnormal Lab Results - Last 24 Hours (Table) 01/04/20 Range/Units 05:50 Sodium 131 L (137-145) mmol/L Microbiology - Last 24 Hours (Table) 01/02/20 13:38 Blood Culture - Preliminary Blood No Growth after 24 hours
[2020-01-04] MEDS: CARVEDILOL 6.25 MG TAB PO SCH ×2 (13:07→18:03)
--- NOTE | 2020-01-04 15:31 | P.PN ---
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 In the emergency department she underwent an extensive evaluation. On arrival she had a blood pressure of 98/64. Her laboratory analysis showed a sodium 134, carbon dioxide 25, anion gap 8, BUN 18, creatinine 0.58. Her urinalysis showed a large leukocyte esterase with 90 white blood cells and many white blood cell clumps along with many bacteria. She was given a dose of Rocephin and IV fluids in the emergency department. Arrangements were made for observation. While in the ED awaiting a bed she had an episode where her HR dropped to 30, O2 60 and BP 54/30 at that time she passed out per nursing. She was placed in trendelenberg and given 1L IVF with adequate response. Her D-dimer was positive and troponin was negative. She had a CTA which did not demonstrate any pulmonary embolism. Her BP remained low normal the day after admission. Her echo showed preserved EF and the MOD-Severe TR and Mod MR. Overnight on 01/02 her BP started to elevate. She was restarted on lisinopril and norvasc on the morning of 01/04/20. Patient seen and examined at bedside. She states that she is having a headache and doesn't feel well. No visual disturbances, no chest pain, no shortness of breath. No nausea or vomiting. Objective - Vital Signs Vital signs: Vital Signs Temp 98.4 F 01/04/20 08:00 Pulse 88 01/04/20 08:00 Resp 18 01/04/20 08:00 BP 197/101 01/04/20 11:49 Pulse Ox 96 01/04/20 08:00 Intake & Output 01/03/20 01/04/20 01/04/20 17:59 06:59 18:59 Intake Total 120 Output Total 750 Balance -630 Weight Intake: Intake, IV Titration Amount Sodium Chloride 0.9% 1, 000 ml @ 75 mls/hr IV . [id number] [facility] Rx#:[id number] Oral 120 Output: Urine 750 Other: Voiding Method # Voids 1 # Bowel Movements 0 - Exam General: non toxic, no distress, appears at stated age, chachetic with temporal wasting Derm: warm, dry Head: atraumatic, normocephalic, symmetric Eyes: EOMI, no lid lag, anicteric sclera Mouth: no lip lesion, mucus membranes moist, NOORVIK Cardiovascular: S1S2 reg, no murmur, positive posterior tibial pulse bilateral, Lungs: CTA bilateral, no rhonchi, no rales , no accessory muscle use Abdominal: soft, nontender to palpation, no guarding, no appreciable organomegaly Ext: no gross muscle atrophy, no edema, no contractures Neuro: CN II-XI grossly intact, no focal neuro deficits Psych: Alert, oriented, appropriate affect - Labs CBC & Chem 7: 01/03/20 02:04 01/04/20 05:50 Labs: Abnormal Lab Results - Last 24 Hours (Table) 01/04/20 Range/Units 05:50 Sodium 131 L (137-145) mmol/L Microbiology - Last 24 Hours (Table) 01/02/20 13:38 Blood Culture - Preliminary Blood No Growth after 24 hours Assessment and Plan Assessment: Hypertensive urgency - all BP meds had been held due to low BP - resume norvasc and lisinopril - no IV access - follow BP if still elevated add coreg, will need to go slow with recent hypotension Syncopal episode with bradycardia and hypotension while in the ED - suspect vasovagal - Echo with MOd-Severe TR and Mod MR, mild pulm HTN, and EF 55-60% - tele - CTA chest negative - orthostatics negative - cardio recs appreciated Chronic hypontremia - supportive care - repeat labs in AM Probable UTI - Rocephine completed 2 days, transitioned to omnicef due to lack of IV access - await urine culture - d/w family that she may have chronic cystitis due to bladder prolapse Generalized weakness - PT/OT eval - treatment as above Chronic constipation with intermittent diarrhea - ? component of opiate w/d due to decrease in medications. - resume home senna - miralax Chronic back pain - percocet - prednisone Dehydration, improved DVT prophylaxis: SCD Discussed with: Patient, daughters, Cardio Anticipated discharge date: [facility] to D/C in AM if BP improved Anticipated discharge place: home with home health and palliative care A total of 30 minutes was spent on the care of this complex patient more than 50% of the time was spent in counseling and care coordination.
[2020-01-04] MEDS: POLYETHYLENE GLYCOL 3350 17 GM POWD.PACK PO SCH (18:03)
[2020-01-04] MEDS: MELATONIN 5 MG TABLET PO SCH (21:22)
[2020-01-04] MEDS: CEFDINIR 300 MG CAP PO SCH (21:22)
[2020-01-04] MEDS: CLOPIDOGREL 75 MG TAB PO SCH (21:22)
[2020-01-04] MEDS: SENNOSIDES 8.6 MG TAB PO SCH (21:23)
[2020-01-04] MEDS ORDERED: ONDANSETRON 4 MG TAB PO PRN (22:01)
[2020-01-05] MEDS: CARVEDILOL 6.25 MG TAB PO SCH ×2 (06:51→17:28)
[2020-01-05] MEDS: PANTOPRAZOLE 40 MG TABLET PO SCH ×2 (06:51→17:28)
[2020-01-05 08:01] LABS: African American GFR (CKD) >90 (>60 ml/min/1.73 sqM); Anion Gap 8 mmol/L; Blood Urea Nitrogen 10 mg/dL (7-17); Calcium 9.3 mg/dL (8.4-10.2); Carbon Dioxide 27 mmol/L (22-30); Chloride 98 mmol/L (98-107); Glucose 84 mg/dL (74-99); Magnesium 1.5 mg/dL (1.6-2.3); Non-African American GFR(CKD) >90 (>60 ml/min/1.73 sqM); Potassium 3.7 mmol/L (3.5-5.1); Sodium 133 mmol/L (137-145)
[2020-01-05] MEDS: CHOLECALCIFEROL 1,000 UNIT TAB PO SCH (08:58)
[2020-01-05] MEDS: CEFDINIR 300 MG CAP PO SCH ×2 (08:58→20:15)
[2020-01-05] MEDS: POLYETHYLENE GLYCOL 3350 17 GM POWD.PACK PO SCH (08:59)
[2020-01-05] MEDS: amLODIPine 2.5 MG TAB PO SCH ×2 (08:59→20:15)
[2020-01-05] MEDS: LISINOPRIL 20 MG TAB PO SCH ×2 (08:59→20:15)
[2020-01-05] MEDS: predniSONE 5 MG TAB PO SCH (08:59)
[2020-01-05] MEDS: FOLIC ACID 1 MG TAB PO SCH (08:59)
--- NOTE | 2020-01-05 11:29 | P.PN ---
Subjective Progress Note Date: 01/05/20 This is a pleasant 84-year-old female past medical history significant for hypertension, CVA with right-sided deficit, chronic back pain, chronic constipation and recurrent UTIs. 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 Medication adjustments were made yesterday to optimize blood pre ssure control. Her blood pressure this morning 162/90, she states that her headache today is much improved from yesterday and overall she feels well. Echocardiogram with Doppler study revealed an ejection fraction of 55-60%, moderate mitral regurgitation with moderate to severe tricuspid regurg. Objective - Vital Signs Vital signs: Vital Signs Temp 98.0 F 01/05/20 04:00 Pulse 76 01/05/20 04:00 Resp 18 01/05/20 04:00 BP 162/94 01/05/20 04:00 Pulse Ox 95 01/05/20 04:00 Intake & Output 01/04/20 01/05/20 01/05/20 18:59 06:59 18:59 Intake Total 240 200 Output Total 1550 500 Balance -1310 -500 200 Weight 39.4 kg Intake: Oral 240 200 Output: Urine 1550 500 Other: Voiding Method Bedside Commode Bedside Commode # Voids 1 2 0 # Bowel Movements 0 0 - Exam Physical examination GENERAL: Well-appearing, well-nourished and in no acute distress. NECK: Supple without JVD or thyromegaly. LUNGS: Breath sounds clear to auscultation bilaterally. Respiration equal and unlabored. No wheezes, rales or rhonchi. HEART: Regular rate and rhythm with systolic ejection murmur at the left sternal border, no rubs or gallops. S1 and S2 heard. EXTREMITIES: Normal range of motion, no edema. No clubbing or cyanosis. Peripheral pulses intact. - Labs CBC & Chem 7: 01/03/20 02:04 01/05/20 06:45 Labs: Abnormal Lab Results - Last 24 Hours (Table) 01/05/20 Range/Units 06:45 Sodium 133 L (137-145) mmol/L Creatinine 0.46 L (0.52-1.04) mg/dL Magnesium 1.5 L (1.6-2.3) mg/dL Microbiology - Last 24 Hours (Table) 01/02/20 12:32 Urine Culture - Final Urine,Catheterized 01/02/20 13:38 Blood Culture - Preliminary Blood No Growth after 48 hours Assessment and Plan Plan: ASSESSMENT and plan #1 Weakness and dizziness after a bowel movement likely vasovagal in nature #2 Hypertensive emergency #3 History of CVA Plan From cardiology's perspective, we will continue the patient on her current medications. We will make her a follow-up appointment in the office. She's been advised to keep a record of her blood pressures at home. DNP note has been reviewed, I agree with a documented findings and plan of care. Patient was seen and examined.
[2020-01-05] MEDS: oxyCODONE-APAP 10-325MG 1 EACH TAB PO PRN ×2 (13:04→23:15)
[2020-01-05] MEDS ORDERED: NA PHOS,M-B/NA PHOS,DI-BA 133 ML ENEMA RECTAL STA (15:50)
[2020-01-05] MEDS: CLOPIDOGREL 75 MG TAB PO SCH (20:15)
[2020-01-05] MEDS: SENNOSIDES 8.6 MG TAB PO SCH (20:16)
[2020-01-05] MEDS: MELATONIN 5 MG TABLET PO SCH (23:13)
[2020-01-06 04:52] VITALS: TEMP 99.1
[2020-01-06] MEDS: CARVEDILOL 6.25 MG TAB PO SCH (06:21)
[2020-01-06] MEDS: PANTOPRAZOLE 40 MG TABLET PO SCH (06:21)
--- NOTE | 2020-01-06 08:01 | P.PN ---
Subjective Progress Note Date: 01/05/20 Principal diagnosis: syncope Doing well, patient is concerned that she has not had a bowel movement yet since she came in. She does not want to be discharged from the hospital before she has one. No sob, no cp. Objective - Vital Signs Vital signs: Vital Signs Temp 99.1 F 01/06/20 04:00 Pulse 93 01/06/20 04:00 Resp 18 01/06/20 04:00 BP 152/81 01/06/20 04:00 Pulse Ox 96 01/06/20 04:00 Intake & Output 01/05/20 01/06/20 01/06/20 18:59 06:59 18:59 Intake Total 400 720 Output Total 1200 Balance -800 720 Weight 37.3 kg Intake: Oral 400 720 Output: Urine 1200 Other: Voiding Method Bedside Commode # Voids 0 2 # Bowel Movements 0 2 - Exam General: non toxic, no distress, appears at stated age, chachetic with temporal wasting Derm: warm, dry Head: atraumatic, normocephalic, symmetric Eyes: EOMI, no lid lag, anicteric sclera Mouth: no lip lesion, mucus membranes moist, [place] Cardiovascular: S1S2 reg, no murmur, positive posterior tibial pulse bilateral, Lungs: CTA bilateral, no rhonchi, no rales , no accessory muscle use Abdominal: soft, nontender to palpation, no guarding, no appreciable organomegaly Ext: no gross muscle atrophy, no edema, no contractures Neuro: CN II-XI grossly intact, no focal neuro deficits Psych: Alert, oriented, appropriate affect - Labs CBC & Chem 7: 01/03/20 02:04 01/05/20 06:45 Labs: Abnormal Lab Results - Last 24 Hours (Table) 01/05/20 Range/Units 06:45 Sodium 133 L (137-145) mmol/L Creatinine 0.46 L (0.52-1.04) mg/dL Magnesium 1.5 L (1.6-2.3) mg/dL Microbiology - Last 24 Hours (Table) 01/02/20 13:38 Blood Culture - Preliminary Blood No Growth after 72 hours Assessment and Plan Plan: Hypertensive urgency -Resolved, resume norvasc and lisinopril Syncopal episode with bradycardia and hypotension while in the ED - suspect vasovagal - Echo with MOd-Severe TR and Mod MR, mild pulm HTN, and EF 55-60% - tele - CTA chest negative - orthostatics negative - cardio recs appreciated Chronic hypontremia - supportive care Probable UTI - Rocephin completed 2 days, transitioned to omnicef due to lack of IV access - urine culture with only skin concepcion - d/w family that she may have chronic cystitis due to bladder prolapse Generalized weakness - PT/OT - treatment as above Chronic constipation with intermittent diarrhea - ? component of opiate w/d due to decrease in medications. - resume home senna - miralax - enema Chronic back pain - percocet - prednisone Dehydration, improved DVT prophylaxis: SCD Discussed with: Patient, Anticipated discharge date: Hope to D/C in AM if she has bm Anticipated discharge place: home with home health and palliative care A total of 30 minutes was spent on the care of this complex patient more than 50% of the time was spent in counseling and care coordination.
[2020-01-06] MEDS: oxyCODONE-APAP 10-325MG 1 EACH TAB PO PRN (08:50)
[2020-01-06] MEDS: LISINOPRIL 20 MG TAB PO SCH (08:52)
[2020-01-06] MEDS: predniSONE 5 MG TAB PO SCH (08:52)
[2020-01-06] MEDS: amLODIPine 2.5 MG TAB PO SCH (08:52)
[2020-01-06] MEDS: FOLIC ACID 1 MG TAB PO SCH (08:52)
[2020-01-06] MEDS: POLYETHYLENE GLYCOL 3350 17 GM POWD.PACK PO SCH (08:52)
[2020-01-06] MEDS: CEFDINIR 300 MG CAP PO SCH (08:52)
[2020-01-06] MEDS: CHOLECALCIFEROL 1,000 UNIT TAB PO SCH ×2 (08:52→08:53)
--- NOTE | 2020-01-06 12:04 | P.PN ---
Subjective Progress Note Date: 01/06/20 This is a pleasant 84-year-old female past medical history significant for hypertension, CVA with right-sided deficit, chronic back pain, chronic constipation and recurrent UTIs. 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 Medication adjustments were made yesterday to optimize blood pre ssure control. Her blood pressure this morning 162/90, she states that her headache today is much improved from yesterday and overall she feels well. Echocardiogram with Doppler study revealed an ejection fraction of 55-60%, moderate mitral regurgitation with moderate to severe tricuspid regurg. 01/06/2020 Patient was seen and examined this morning, she's been up ambulating in the hallway today. Blood pressure this morning 128/80, patient feels well, anticipating discharge home. Objective - Vital Signs Vital signs: Vital Signs Temp 99.1 F 01/06/20 04:00 Pulse 100 01/06/20 08:00 Resp 18 01/06/20 08:00 BP 127/82 01/06/20 08:00 Pulse Ox 98 01/06/20 08:00 Intake & Output 01/05/20 01/06/20 01/06/20 18:59 06:59 18:59 Intake Total 400 720 240 Output Total 1200 Balance -800 720 240 Weight 37.3 kg Intake: Oral 400 720 240 Output: Urine 1200 Other: Voiding Method Bedside Commode Bedside Commode # Voids 0 2 1 # Bowel Movements 0 2 1 - Exam Physical examination GENERAL: Well-appearing, well-nourished and in no acute distress. NECK: Supple without JVD or thyromegaly. LUNGS: Breath sounds clear to auscultation bilaterally. Respiration equal and unlabored. No wheezes, rales or rhonchi. HEART: Regular rate and rhythm with systolic ejection murmur at the left sternal border, no rubs or gallops. S1 and S2 heard. EXTREMITIES: Normal range of motion, no edema. No clubbing or cyanosis. Peripheral pulses intact. - Labs CBC & Chem 7: 01/03/20 02:04 01/05/20 06:45 Labs: Microbiology - Last 24 Hours (Table) 01/02/20 13:38 Blood Culture - Preliminary Blood No Growth after 72 hours Assessment and Plan Plan: ASSESSMENT and plan #1 Weakness and dizziness after a bowel movement likely vasovagal in nature #2 Hypertensive emergency #3 History of CVA Plan From cardiology's perspective, we will continue the patient on her current medications. We will make her a follow-up appointment in the office. She's been advised to keep a record of her blood pressures at home. DNP note has been reviewed, I agree with a documented findings and plan of care. Patient was seen and examined.
--- NOTE | 2020-01-06 12:30 | P.DS ---
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 She reports that for the last week she has been mostly sleeping and laying in bed in 2 weeks to get out of bed and make it to the couch. She also reports that she's had some nausea and vomiting as well as stomach issues 2 days ago that seems to be better. She reports that she has felt very dizzy on standing and has not been able to ambulate long distances. She does report some urinary frequency though this appears to be chronic in nature. She also reports a dry mouth. Daughter feels as though she's been more disoriented than usual. Of note approximately 2 weeks ago her Percocet was decreased from 4 times a day to 3-1/2 tablets daily. They also just established with a new physician as her is retired. No other recent changes in medications. Family does note that over the last 6 months she has become progressively more dependent. Up until a week ago she was able to feed herself, dress herself, walk back and forth to the living room and bathroom without difficulty. However over the last week she's been having use a bedside commode and has not been able to go from her bed to the couch. In the emergency department she underwent an extensive evaluation. On arrival she had a blood pressure of 98/64. Her laboratory analysis showed a sodium 134, carbon dioxide 25, anion gap 8, BUN 18, creatinine 0.58. Her urinalysis showed a large leukocyte esterase with 90 white blood cells and many white blood cell clumps along with many bacteria. She was given a dose of Rocephin and IV fluids in the emergency department. While in the ED awating a bed she had an episode where her HR dropped to 30, O2 60 and BP 54/30 at that time she passed out per nursing. She was placed in trendelenberg and given 1L IVF with adequate response. Patient was admitted, the bp medications were held. She was continued on Rocephin for UTI. She was seen by cardiology who thought that the syncope was most likely secondary to vasovagal reaction. EKG and troponins were both negative. Chest CT angiogram of the chest which did not show any pulmonary embolus, shows chronic changes of COPD. She also underwent an echocardiogram which showed mild LVH, normal EF, moderate MR, moderate to severe TR, mild pulmonary hypertension. Patient was placed on telemetry which did not show any acute changes. With laxatives and eventually Fleet enema given on 01/04 she was able to have bowel movement. Blood pressure and heart rate stabilized. She is cleared by cardiology for discharge. Today she'll be discharged home in a stable condition. Time for discharge 35 minutes. Patient Condition at Discharge: Stable Plan - Discharge Summary Discharge Rx Participant: No New Discharge Prescriptions: New Polyethylene Glycol 3350 [Miralax] 17 gm PO DAILY 15 Days #15 powd.pack Cefdinir [Omnicef] 300 mg PO BID 2 Days #4 cap Continue Folic Acid 0.8 mg PO DAILY Cholecalciferol [Vitamin D3 (25 Mcg = 1000 Iu)] 1,000 unit PO DAILY Acetaminophen/Caffeine [Excedrin Tension Headache Cplt] 2 tab PO HS PRN PRN Reason: Migraine Headache Melatonin 5 mg PO HS oxyCODONE-APAP 10-325MG [Percocet 10-325 mg] 1 tab PO QID PRN PRN Reason: Pain amLODIPine [Norvasc] 2.5 mg PO BID Clopidogrel Bisulfate [Plavix] 75 mg PO HS Carvedilol [Coreg] 6.25 mg PO BID Enalapril [Vasotec] 20 mg PO BID Pantoprazole [Protonix] 40 mg PO BID 30 Days #60 tablet. predniSONE 5 mg PO DAILY Sennosides [Senna] 17.2 mg PO HS Magnesium Citrate 148 - 296 ml PO DAILY PRN PRN Reason: Constipation Discharge Medication List Acetaminophen/Caffeine [Excedrin Tension Headache Cplt] 2 tab PO HS PRN 09/02/18 [History] Carvedilol [Coreg] 6.25 mg PO BID 09/02/18 [History] Cholecalciferol [Vitamin D3 (25 Mcg = 1000 Iu)] 1,000 unit PO DAILY 09/02/18 [History] Clopidogrel Bisulfate [Plavix] 75 mg PO HS 09/02/18 [History] Folic Acid 0.8 mg PO DAILY 09/02/18 [History] Melatonin 5 mg PO HS 09/02/18 [History] amLODIPine [Norvasc] 2.5 mg PO BID 09/02/18 [History] oxyCODONE-APAP 10-325MG [Percocet 10-325 mg] 1 tab PO QID PRN 09/02/18 [History] Enalapril [Vasotec] 20 mg PO BID 06/21/19 [History] Pantoprazole [Protonix] 40 mg PO BID 30 Days #60 tablet. 10/03/19 [Rx] Magnesium Citrate 148 - 296 ml PO DAILY PRN 01/02/20 [History] Sennosides [Senna] 17.2 mg PO HS 01/02/20 [History] predniSONE 5 mg PO DAILY 01/02/20 [History] Cefdinir [Omnicef] 300 mg PO BID 2 Days #4 cap 01/06/20 [Rx] Polyethylene Glycol 3350 [Miralax] 17 gm PO DAILY 15 Days #15 powd.pack 01/06/20 [Rx] Follow up Appointment(s)/Referral(s): Gamal Joe MD [Primary Care Provider] - 01/09/20 1:00 pm (Sunday with Dr. Lauren Lee (filling in for Dr. Joe) at [facility]) Elieesr Galvez MD [STAFF PHYSICIAN] - 2 Weeks (Spoke to administrative assistant receptionist. Office will call with appointment time) Patient Instructions/Handouts: Dehydration (DC), Urinary Tract Infection in Women (DC)
[2020-01-06 12:47] VITALS: BP 161/90; PULSE 89
--- NOTE | 2020-01-06 13:03 | CDI ---
Documentation Clarification Form Date: 01/06/2020 From: Veronica Parker RN, CCDS Admit Date: 01/04/2020 07:59:00 AM Patient Name: Stephanie Nunez Visit Number: [id number] Discharge Date: ATTENTION: The Clinical Documentation Specialists (CDI) and [facility] Coding Staff appreciate your assistance in clarifying documentation. Please respond to the clarification below the line at the bottom and electronically sign. The CDI & [facility] Coding staff will review the response and follow-up if needed. Please note: Queries are made part of the Legal Health Record. If you have any questions, please contact the author of this message via ITS. Dr. Jesus Garcia Malnutrition has been documented in nutritional assessment on 01/02, but not by the attending and further clarification is needs. History/Risk Factors: UTI, Dehydration, CVA, Hypertension Clinical Indicators: 84-year-old female with diet history of difficulty chewing/swallowing per nutritional assessment. Labs: 01/01: Total Protein 6.6, Albumin 3.8, 01/03: Sodium 131, Current BMI: 15.5 Insufficient energy intake: yes Weight Loss:30 % involuntary weight loss of UBW <1 year Loss of subcutaneous fat: Visible fat and muscle loss, severe temporalis muscle and interosseous muscle depletion and severe depletion of buccal fat pads. (01/02 nutritional assessment) Treatment: Dietary Consult: Yes; diagnosis malnutrition severe, chronic Supplements: CIB, vanilla TID Monitor PO, supplement intake In your professional opinion, can you please clarify if these findings signify one of the following conditions? Mild Protein-Calorie Malnutrition Moderate Protein-Calorie Malnutrition Severe Protein-Calorie Malnutrition Other condition, please specify Unable to determine (Last Revision: April 2019) Severe Protein-Calorie Malnutrition MTDD
[2020-01-06 14:13] VITALS: BMI 15.5
== END 2020-01-06 16:14 | disposition home health service (06) | DRG 304 ==
LOC: EC 11:58 → 1SOBS 16:11 → 3SCARD 18:28 → OBSVTOIN 01-04 07:59
PROVIDERS: ADMIT Internal Medicine; ATTEND Internal Medicine
DX: I16.1 Hypertensive emergency (principal); E43 Unspecified severe protein-calorie malnutrition; R64 Cachexia; I69.951 Hemiplegia and hemiparesis following unspecified cerebrovascular disease affecting right dominant side; Z68.1 Body mass index [BMI] 19.9 or less, adult; N39.0 Urinary tract infection, site not specified; Z51.5 Encounter for palliative care; Z66 Do not resuscitate; I10 Essential (primary) hypertension; I27.20 Pulmonary hypertension, unspecified; R62.7 Adult failure to thrive; I95.9 Hypotension, unspecified; E86.0 Dehydration; J44.9 Chronic obstructive pulmonary disease, unspecified; R00.1 Bradycardia, unspecified; I08.1 Rheumatic disorders of both mitral and tricuspid valves; R40.2142 Coma scale, eyes open, spontaneous, at arrival to emergency department; R40.2362 Coma scale, best motor response, obeys commands, at arrival to emergency department; R40.2252 Coma scale, best verbal response, oriented, at arrival to emergency department; K59.09 Other constipation; G89.29 Other chronic pain; M54.9 Dorsalgia, unspecified; M81.0 Age-related osteoporosis without current pathological fracture; M24.541 Contracture, right hand; R32 Unspecified urinary incontinence; G44.209 Tension-type headache, unspecified, not intractable; R19.7 Diarrhea, unspecified; N81.10 Cystocele, unspecified; Z79.02 Long term (current) use of antithrombotics/antiplatelets; Z79.52 Long term (current) use of systemic steroids; Z79.899 Other long term (current) drug therapy; Z87.440 Personal history of urinary (tract) infections; Z86.19 Personal history of other infectious and parasitic diseases; Z86.79 Personal history of other diseases of the circulatory system; Z98.41 Cataract extraction status, right eye; Z98.42 Cataract extraction status, left eye; Z98.890 Other specified postprocedural states; Z88.2 Allergy status to sulfonamides; Z88.8 Allergy status to other drugs, medicaments and biological substances; Z82.49 Family history of ischemic heart disease and other diseases of the circulatory system
CPT/HCPCS: 36415; 51701; 71046; 71275; 80048; 80053; 81001; 82607; 83605; 83735; 84100; 84439; 84443; 84484; 85025; 85027; 85379; 85610; 85730; 87040; 87086; 93005; 93306; 96361; 96374; 96375; 99285